=== PATIENT | male | born 1960 | race Caucasian/White ===

== ENCOUNTER → 2018-02-26 11:21 | Outpatient (CLI) | payer OTHER, SELFPAY ==
[2018-02-26 12:20] VITALS: PULSE 101; PULSE 107; PULSE 116; PULSE 85; PULSE 87; PULSE 90; PULSE 93; PULSE 99; O2SAT 84; O2SAT 87; O2SAT 90; O2SAT 91; O2SAT 93; O2SAT 96
--- NOTE | 2018-02-26 12:26 | CPS ---
He started out on Room air byt at the end of 1 minute put on 2LPM O2 continued walking. Rested patient for so he could be placed on O2. He was find until 4 minutes 35 seconds had to turn O2 up to 3 LPM. After walking turned his O2 to 2 minutes at 7 1/2 minutes and removed at 8 1/2 minutes and O2 saturations stayed at 95%.
--- NOTE | 2018-02-27 07:16 | PCM.PSN.6M ---
PSN 6 Minute Walk Test - 6 Minute Walk Test 6 Minute Walk Test: 6 Minute Walk Test PSN:6-Minute Walk Test Start: 02/26/18 12:20 Freq: Status: Active Protocol: RESP.6MINW Document 02/26/18 12:20 FR (Rec: 02/26/18 12:32 FR [id number]) 6 Minute Walk Test Date Performed 02/26/18 Time Performed 11:30 Height 5 ft 10 in Weight: 97.522 kg Weight in Pounds 215.[address]: Salty Carranza Assistive device used: None Pre-test Oxygen Delivery Method Room Air Pulse Ox (%) 93 Pulse Rate (60-100 beats/min) 85 Dyspnea Sumanth Scale (0-10) 0 Exertion Sumanth Scale (6-20) 6 1st minute Oxygen Flow Rate (L/min) (L/min) 0 Oxygen Delivery Method Room Air Pulse Ox (%) 87 Pulse Rate (60-100 beats/min) 101 H Reported Symptoms Increased Work of Breathing 2nd minute Oxygen Flow Rate (L/min) (L/min) 2 Oxygen Delivery Method Nasal Cannula Pulse Ox (%) 91 Pulse Rate (60-100 beats/min) 90 Reported Symptoms Increased Work of Breathing 3rd minute Oxygen Flow Rate (L/min) (L/min) 2 Oxygen Delivery Method Nasal Cannula Pulse Ox (%) 91 Pulse Rate (60-100 beats/min) 93 4th minute Oxygen Flow Rate (L/min) (L/min) 2 Oxygen Delivery Method Nasal Cannula Pulse Ox (%) 84 Pulse Rate (60-100 beats/min) 107 H Reported Symptoms Increased Work of Breathing 5th minute Oxygen Flow Rate (L/min) (L/min) 3 Oxygen Delivery Method Nasal Cannula Pulse Ox (%) 90 Pulse Rate (60-100 beats/min) 99 6th minute Oxygen Flow Rate (L/min) (L/min) 3 Oxygen Delivery Method Nasal Cannula Pulse Ox (%) 90 Pulse Rate (60-100 beats/min) 116 H Dyspnea Sumanth Scale (0-10) 1 Exertion Sumanth Scale (6-20) 7 Post-test Oxygen Flow Rate (L/min) (L/min) 3 Oxygen Delivery Method Nasal Cannula Pulse Ox (%) 96 Pulse Rate (60-100 beats/min) 87 Full Laps Walked 13 Partial Lap, Number of Tiles Walked 40 Total Distance Walked (ft) 807 02/26/18 12:26 Cardiopulmonary Services by Bridgette Machado He started out on Room air byt at the end of 1 minute put on 2LPM O2 continued walking. Rested patient for so he could be placed on O2. He was find until 4 minutes 35 seconds had to turn O2 up to 3 LPM. After walking turned his O2 to 2 minutes at 7 1/2 minutes and removed at 8 1/2 minutes and O2 saturations stayed at 95%. Initialized on 02/26/18 12:26 - END OF NOTE - Interpretation Interpretation: The patient was noted to be 93% on room air at rest. However, patient desaturated to 87% in the first minute requiring placement of nasal cannula oxygen. The patient required a total of 3 L/min to maintain appropriate saturations throughout testing. In total, patient traveled 807 feet with no significant tachycardia noted. These findings are consistent with a respiratory limitation exercise tolerance. - Recommendations Recommendations: No supplemental oxygen is indicated at rest. However, patient should be using 3 L/min with any exertion.
== END ==
PROVIDERS: Family Provider Family Medicine; PCP Family Medicine; Visit Provider Internal Medicine Critical Care Medicine
DX: J98.4 Other disorders of lung (principal)
CPT/HCPCS: 94618

== ENCOUNTER → 2018-07-29 12:33 | Outpatient (CLI) | payer OTHER, SELFPAY ==
--- NOTE | 2018-07-29 15:41 | PFTCOMP_ITS ---
COMPLETE PULMONARY FUNCTION TEST INTERPRETATION Brief HPI: Patient is a 58 year old male, currently under the care of Dr. Carranza, who presents to [facility] for complete pulmonary function tests secondary to diagnosis of COPD. Respiratory therapist reports good effort and reproducible results. Interpretation: Forced expiration spirometry shows a moderately-severe large airways obstructive ventilatory defect with an FEV1 of 56% predicted. There is no significant bronchodilator response by ATS criteria. Spirograms are of good quality and plateau slowly, indicating slowly emptying areas of the lungs. The respiratory flow volume loop shows decreased expiratory flow rates at high lung volumes consistent with small airways obstruction. Lung volumes by body plethysmography show a decreased total lung capacity at 4.23L, 65% predicted. All other lung volumes are within do symmetrically. Diffusion capacity by carbon monoxide is decreased at 46% predicted. The airway resistance is elevated. Compared to previous pulmonary function tests from 06/26/2017, there has been a significant decrease in total lung capacity. Impression: Irreversible moderately severe mixed ventilatory defect with a symmetric reduction diffusing capacity. There is been slight worsening compared to previous.
== END ==
PROVIDERS: Family Provider Family Medicine; PCP Family Medicine; Referring Provider Family Medicine; Visit Provider Internal Medicine Critical Care Medicine
DX: J98.4 Other disorders of lung (principal)
CPT/HCPCS: 94060; 94726; 94729

== ENCOUNTER → 2019-07-18 13:00 | Outpatient (CLI) | payer OTHER, SELFPAY ==
[2019-02-10 13:59] VITALS: BMI 30.8
--- NOTE | 2019-07-18 15:36 | PFTCOMP_ITS ---
COMPLETE PULMONARY FUNCTION TEST INTERPRETATION Brief HPI: Patient is a 59 year old male, currently under the care of Dr. Carranza, who presents to [facility] for complete pulmonary function tests secondary to diagnosis of routine follow-up. Respiratory therapist reports good effort and reproducible results. Interpretation: Forced expiration spirometry shows a moderately severe large airways obstructive ventilatory defect with an FEV1 of 57% predicted. There is no significant bronchodilator response by strict ATS criteria. Spirograms are of good quality and plateau slowly, indicating slowly emptying areas of the lungs. The respiratory flow volume loop shows decreased expiratory flow rates at all lung volumes consistent with airway obstruction. Lung volumes by body plethysmography show a decreased total lung capacity at 4.46 L, 69% predicted. All other lung volumes are reduced symmetrically. Diffusion capacity by carbon monoxide is decreased at 45% predicted. The airway resistance is slightly elevated. Compared to previous pulmonary function tests from 07/29/2018, there has been no significant change. Impression: Irreversible moderately severe mixed ventilatory defect with symmetric reduction in diffusing capacity and no change compared to 2018.
== END ==
PROVIDERS: Family Provider Family Medicine; PCP Family Medicine; Referring Provider Internal Medicine Critical Care Medicine; Visit Provider Internal Medicine Critical Care Medicine
DX: J98.4 Other disorders of lung (principal)
CPT/HCPCS: 94060; 94726; 94729

== ENCOUNTER → 2021-05-30 10:30 | Outpatient (CLI) | payer OTHER, SELFPAY ==
[2020-11-30 08:20] VITALS: BMI 32.8
--- NOTE | 2021-05-30 15:51 | PFTCOMP_ITS ---
COMPLETE PULMONARY FUNCTION TEST INTERPRETATION Brief HPI: Patient is a 61 year old male, currently under the care of Dr. Carranza, who presents to [facility] for complete pulmonary function tests secondary to diagnosis of respiratory failure. Respiratory therapist reports good effort and reproducible results. Interpretation: Forced expiration spirometry shows a moderate large airways obstructive ventilatory defect with an FEV1 of 60% predicted. There is no significant bronchodilator response by strict ATS criteria. Spirograms are of good quality and plateau slowly, indicating slowly emptying areas of the lungs. The respiratory flow volume loop shows decreased expiratory flow rates at all lung volumes consistent with airway obstruction. Lung volumes by body plethysmography show a decreased total lung capacity at 4.6 L, 72% predicted. All other lung volumes are reduced symmetrically. Diffusion capacity by carbon monoxide is decreased at 46% predicted. The airway resistance is normal. Compared to previous pulmonary function tests from 07/18/2019, there has been no significant change. Impression: Moderately severe mixed ventilatory defect with a disproportionate reduction in diffusing capacity. There is no significant change compared to previous testing.
== END ==
PROVIDERS: PCP Family Medicine; Referring Provider Internal Medicine Critical Care Medicine; Visit Provider Internal Medicine Critical Care Medicine
DX: J96.11 Chronic respiratory failure with hypoxia (principal); R94.2 Abnormal results of pulmonary function studies
CPT/HCPCS: 94060; 94726; 94729

== ENCOUNTER → 2021-06-02 11:13 | Outpatient (CLI) | payer OTHER, SELFPAY ==
[2020-11-30 08:20] VITALS: BMI 32.8
[2021-06-02 11:15] VITALS: PULSE 74; PULSE 77; PULSE 79; PULSE 80; PULSE 82; PULSE 83; O2SAT 85; O2SAT 88; O2SAT 90; O2SAT 91; O2SAT 92; O2SAT 93; O2SAT 94; O2SAT 96
--- NOTE | 2021-06-02 12:06 | CPS ---
Patient stated that he wears 2L of oxygen at night and PRN during the day. Test was initiated on RA as sat's were 94%. At the 2 minute avis patient's sat's dropped to 85% therefore 2L of oxygen was initiated and sat's recovered to 97%. At the 4 minute avis patint's sat's dropped to 88% therefore oxygen was increased to 3L and sat's recovered to 94%. Sat's were maintained above 90% for the remainder of the test on 3L.
--- NOTE | 2021-06-02 14:11 | PCM.PSN.6M ---
PSN 6 Minute Walk Test 6 Minute Walk Test 6 Minute Walk Test: 6 Minute Walk Test PSN:6-Minute Walk Test Start: 06/02/21 12:02 Freq: Status: Active Protocol: RESP.6MINW Document 06/02/21 11:15 AIDEN (Rec: 06/02/21 12:09 HJ [id number]) 6 Minute Walk Test Date Performed 06/02/21 Time Performed 11:15 Height 5 ft 9 in Weight: 93.894 kg Weight in Pounds 207.[address]: Salty Carranza FIO2 (% Oxygen) 32 Assistive device used: None Pre-test Oxygen Delivery Method Room Air Pulse Ox (%) 94 Pulse Rate (60-100 beats/min) 74 Dyspnea Sumanth Scale (0-10) 0 Exertion Sumanth Scale (6-20) 6 1st minute Oxygen Delivery Method Room Air Pulse Ox (%) 91 Pulse Rate (60-100 beats/min) 82 2nd minute Oxygen Delivery Method Room Air Pulse Ox (%) 85 Pulse Rate (60-100 beats/min) 77 3rd minute Oxygen Flow Rate (L/min) (L/min) 2 Oxygen Delivery Method Nasal Cannula Pulse Ox (%) 93 Pulse Rate (60-100 beats/min) 80 4th minute Oxygen Flow Rate (L/min) (L/min) 3 Oxygen Delivery Method Nasal Cannula Pulse Ox (%) 88 Pulse Rate (60-100 beats/min) 83 5th minute Oxygen Flow Rate (L/min) (L/min) 3 Oxygen Delivery Method Nasal Cannula Pulse Ox (%) 92 Pulse Rate (60-100 beats/min) 79 6th minute Oxygen Flow Rate (L/min) (L/min) 3 Oxygen Delivery Method Nasal Cannula Pulse Ox (%) 90 Pulse Rate (60-100 beats/min) 80 Post-test Oxygen Flow Rate (L/min) (L/min) 3 Oxygen Delivery Method Nasal Cannula Pulse Ox (%) 96 Pulse Rate (60-100 beats/min) 74 Dyspnea Sumanth Scale (0-10) 3 Exertion Sumanth Scale (6-20) 11 Full Laps Walked 21 Partial Lap, Number of Tiles Walked 0 Total Distance Walked (ft) 1239 06/02/21 12:06 Cardiopulmonary Services by Arielle Gray Patient stated that he wears 2L of oxygen at night and PRN during the day. Test was initiated on RA as sat's were 94%. At the 2 minute avis patient's sat's dropped to 85% therefore 2L of oxygen was initiated and sat's recovered to 97%. At the 4 minute avis patint's sat's dropped to 88% therefore oxygen was increased to 3L and sat's recovered to 94%. Sat's were maintained above 90% for the remainder of the test on 3L. Initialized on 06/02/21 12:06 - END OF NOTE Interpretation Interpretation: The patient was noted to be 94% on room air at rest. The patient did desaturate to 85% and the second minute of ambulation was placed on 2 L nasal cannula with improvement to 97%. The patient did require 3 L to maintain saturations throughout testing. No significant tachycardia was noted during testing. In total, the patient traveled 1239 feet over the course of 6 minutes with no assistive devices or breaks. These findings are consistent with a respiratory limitation exercise tolerance. Recommendations Recommendations: No supplemental oxygen was indicated at rest, but patient should be using 3 L nasal cannula with exertion.
== END ==
PROVIDERS: PCP Family Medicine; Referring Provider Internal Medicine Critical Care Medicine; Visit Provider Internal Medicine Critical Care Medicine
DX: J96.11 Chronic respiratory failure with hypoxia (principal); R94.2 Abnormal results of pulmonary function studies
CPT/HCPCS: 94618

== ENCOUNTER 2021-08-26 21:19 | Inpatient (IN) | payer OTHER, SELFPAY ==
[2021-08-26] VITALS (8 sets, daily range): BP systolic 97–119; BP diastolic 57–74; PULSE 85–97; RESP 20–35; TEMP 36.7–36.8; O2SAT 83–96; BMI 25.9
--- NOTE | 2021-08-26 21:30 | EKG12_ITS ---
Test Reason : CP Blood Pressure : / mmHG Vent. Rate : 092 BPM Atrial Rate : 092 BPM P-R Int : 148 ms QRS Dur : 086 ms QT Int : 336 ms P-R-T Axes : 048 018 040 degrees QTc Int : 415 ms Normal sinus rhythm Normal ECG Confirmed by FRANKLIN RIVERO, VLADIMIR ([id number]), scientific publications editor JUJU MORROW ([id number]) on 08/30/2021 9:23:55 AM Referred By: YAMEL Confirmed By:VLADIMIR REID MD
--- NOTE | 2021-08-26 21:56 | CT_ITS ---
STUDY: CTA CHEST REASON FOR EXAM: Male, 61 years old. hypoxia RADIATION DOSAGE (If Supplied By Facility): CTDIvol = ( 14.67 ) mGy, DLP = ( 503.60 ) mGycm TECHNIQUE: The examination was performed with the intravenous administration of IV 100mL Isovue-370. Post-processing of the angiographic images was performed, with multiplanar reformation and 3D reconstruction. Individualized dose optimization techniques were used for this CT. COMPARISON: None. FINDINGS: Well-opacified pulmonary arteries and no significant motion artifact; quality exam. Normal enhancement of the main pulmonary artery and right and left pulmonary arteries. Normal enhancement of the bilateral peripheral pulmonary arteries. There is no demonstrated pulmonary embolism. There is no mediastinal or hilar lymphadenopathy. Heart is normal size with no right heart strain. Note of extensive coronary artery intimal calcifications. There is a left chest dual-lead cardiac stimulator device. Bilateral gynecomastia is noted. No axillary lymphadenopathy. Visualized portions of the soft tissues of the neck are normal in appearance. Lungs show significant parenchymal abnormality with most likely severe centrilobular emphysematous disease versus less likely cystic lung disease. Additionally there are multiple areas of groundglass attenuation and other ill-defined areas more dense consolidation consistent with multifocal pneumonia. Central airways within normal limits there is no significant bronchiectasis. No pleural effusion. No pneumothorax. Upper abdomen is within normal limits the exam. There is evidence of remote, healed left clavicle fracture. T3 vertebral body superior endplate collapse likely representing disc endplate herniation. CT/CTA Chest W/WO Contrast IMPRESSION: No pulmonary embolism. Advanced centrilobular emphysematous disease versus less likely cystic lung disease. Multifocal pneumonia involving a large portion of the lungs. Electronically Signed: James Oneal DO at 23:58 EDT Tel , Service support ,
[2021-08-26] MEDS: Albuterol 2.5 MG/3 ML VIAL.NEB. INHALATION (22:04)
[2021-08-26] MEDS: Ipratropium/Albuterol Sulfate 3 ML AMPUL.NEB INHALATION (22:04)
[2021-08-26 22:40] LABS: Absolute Lymphocyte Count 2.26 X10^3/uL (0.83-4.51); Absolute Neutrophil Count 7.9 X10^3/uL (2.0-7.7); Basophil# 0.03 X10^3/uL; Basophil% 0.3 % (0-1); Hemoglobin 12.7 g/dL (13.0-16.5); Lymphocyte # 2.26 X10^3/ul (0.83-4.51); Mean Corp Hgb Conc 31.8 g/dL (32-36); Mean Corpuscular Hgb 27.9 pg (27.0-32.0); Mean Corpuscular Volume 87.7 fL (80-94); Mean Platelet Vol. 12.1 fl (6.2-12.0); Monocyte# 1.61 X10^3/uL; Monocyte% 13.5 % (0-10); NRBC Flagged by Analyzer 0 % (0-5); Neutrophil # 7.93 X10^3/uL (2.7-7.7); Neutrophil % 66.6 % (47-70); POSITIVE DIFFERENTIAL YES; Platelet Count 267 K/mm3 (150-450); RBC Distribution Width CV 17.5 % (11.6-14.6); RBC Distribution Width SD 56.4 fl (35.1-43.9); Red Blood Count 4.56 M/mm3 (4.6-6.2); White Blood Count 11.9 K/mm3 (4.4-11.0)
[2021-08-26 22:44] LABS: International Normalized Ratio 1.2; Prothrombin Time (Protime)PT. 14.5 SECONDS (11.7-14.9)
[2021-08-26] MEDS: MethylPREDNISolone 125 MG/2 ML Vial IV (22:44)
[2021-08-26 22:59] LABS: Anion Gap 9 (5-15); BUN 17 mg/dL (7-18); BUN/Creat Ratio 25.3 RATIO (10-20); Chloride 102 mmol/L (98-107); Creatinine, Serum 0.67 mg/dL (0.70-1.30); EST Glomerular Filtration Rate 128 mL/min (>60); Est Glom Filt Rate - Afr Amer 155 mL/min (>60); Estimated Creatinine Clearance 114.85 ml/min; Glucose 103 mg/dL (74-106); Magnesium 2.2 mg/dL (1.6-2.6); Potassium 3.5 mmol/L (3.5-5.1); Sodium Level 138 mmol/L (136-145); Troponin-I HS < 3 pg/mL (3.0-78.0)
[2021-08-26 23:19] LABS: Differential Indicated SCAN CRITERIA MET
[2021-08-26 23:20] LABS: Anisocytosis RARE; Platelet Estimate ADEQUATE (ADEQ); Red Cell Morphology NORM C+C NORMAL (NORM C&C)
[2021-08-27] VITALS (18 sets, daily range): BP systolic 93–116; BP diastolic 55–70; PULSE 71–101; RESP 16–29; TEMP 36.3–37.1; O2SAT 90–97; BMI 28.5
--- NOTE | 2021-08-27 00:28 | EX.ED.DYSGE1 ---
HPI History of Present Illness Chief Complaint: Shortness of Breath Narrative Narrative: Patient is a 61-year-old male with history of COPD which she states he will only need 2 L of nasal cannula oxygen intermittently. He states in May of this year he developed Covid and developed Covid pneumonia and was admitted. He states that the Covid pneumonia resolved and then he returned to the hospital with a bacterial pneumonia. He states this is resolved as well but in the last 2 days has had increased shortness of breath with productive sputum and has had to increase his oxygen to 6 L at home with minimal symptom improvement. Therefore with concern he is developed repeat pneumonia he presents for evaluation [facility] Medical History (Updated 08/27/21 @ 01:[address] Kenny Parker, DO) COPD (chronic obstructive pulmonary disease) Cough Hypoxia Long-term use of high-risk medication MICHAEL (obstructive sleep apnea) Osteoarthritis Pneumonia Pulmonary fibrosis Rheumatoid arthritis Sinusitis Home Medications aspirin 81 mg tablet,delayed release 81 mg PO ONCE tab 02/05/18 [History Last Taken Unknown] coenzyme L99-wvsleld E 100 mg-100 unit capsule cap PO 02/05/18 [History Last Taken Unknown] diltiazem HCl 120 mg tablet 120 mg PO ONCE tab 02/05/18 [History Last Taken Unknown] lisinopril 20 mg tablet 20 mg PO QDAY 02/05/18 [History Last Taken Unknown] simvastatin 40 mg tablet 40 mg PO QAM 02/05/18 [History Last Taken Unknown] albuterol sulfate 90 mcg/actuation aerosol inhaler 2 puff INHALATION Q4H PRN #8.5 g 08/12/21 [Rx Last Taken Unknown] prednisone 5 mg tablet See Rx Instructions PO DAILY #42 tab 08/12/21 [Rx Last Taken Unknown] umeclidinium 62.5 mcg-vilanterol 25 mcg/actuation powdr for inhalation 1 inh INHALATION Q24H #3 device 08/12/21 [Rx Last Taken Unknown] Allergy/AdvReac Type Severity Reaction Status Date / Time No Known Allergies Allergy Verified 08/12/21 07:52 Family History Father Heart disease Surgical History H/O rhinoplasty History of intravascular stent placement Hx of appendectomy Open fracture of left upper extremity S/P placement of cardiac pacemaker Social History Smoking Status: Former smoker how long ago did patient quit smokin, 1p/day second hand exposure: Yes alcohol intake: current alcohol intake frequency: a few times a week Alcohol type: hard liquor substance use type: does not use ROS ROS ED Constitutional Constitutional ED: Denies chills or fever(s) ENT ENT ED: Denies sore throat Cardiovascular Cardiovascular: Reports chest pain and palpitations Respiratory/Chest Respiratory/Chest: Reports cough, dyspnea and sputum Gastrointestinal Gastrointestinal: Denies abdominal pain, diarrhea, nausea or vomiting Genitourinary Genitourinary ED: Denies dysuria Musculoskeletal Musculoskeletal: Denies myalgias Integumentary Denies rash Neurologic Neurologic: Denies headache(s) Hematologic/Lymphatic Hematologic/Lymphatic: Denies easy bleeding or easy bruising EXAM Physical Exam Const Vital Signs: 08/26/21 21:21 08/26/21 21:37 08/26/21 21:50 Temperature 98.2 F 98.2 F Temperature Source Temporal Temporal Pulse Rate 97 97 Respiratory Rate 26 H 26 H Respiratory Effort Short of Breath Respiratory Pattern Tachypnea Blood Pressure 119/74 119/74 Blood Pressure Mean 89 89 Pulse Ox 83 92 92 Oxygen Delivery Method Nasal Cannula Nasal Cannula Nasal Cannula Oxygen Flow Rate (L/min) 4 6 6 08/26/21 22:05 08/26/21 22:22 08/26/21 22:23 Temperature 98.2 F Temperature Source Temporal Pulse Rate 97 92 92 Respiratory Rate 20 H 35 H 35 H Respiratory Effort Respiratory Pattern Normal Blood Pressure 108/62 108/62 Blood Pressure Mean 77 77 Pulse Ox 89 89 Oxygen Delivery Method Nasal Cannula Nasal Cannula Oxygen Flow Rate (L/min) 6 6 08/26/21 22:44 08/26/21 23:20 08/27/21 00:07 Temperature 98.1 F 98.1 F Temperature Source Temporal Temporal Pulse Rate 85 88 82 Respiratory Rate 28 H 24 H 20 H Respiratory Effort Respiratory Pattern Blood Pressure 97/59 L 106/57 L 110/70 Blood Pressure Mean 71 73 83 Pulse Ox 96 96 97 Oxygen Delivery Method Nasal Cannula Nasal Cannula Nasal Cannula Oxygen Flow Rate (L/min) 8 8 8 08/27/21 00:36 Temperature 97.3 F L Temperature Source Temporal Pulse Rate 80 Respiratory Rate 29 H Respiratory Effort Respiratory Pattern Blood Pressure 107/66 Blood Pressure Mean 79 Pulse Ox 95 Oxygen Delivery Method Nasal Cannula Oxygen Flow Rate (L/min) 10 Positive well nourished and well developed General Appearance ED: well developed HEENT Reports moist mucous membranes Eyes PERRL and EOMs intact bilaterally Neck supple and no JVD Chest Wall palpation of chest normal Resp Resp Narrative: Patient is tachypneic with diminished breath sounds throughout and diffuse rhonchi and expiratory wheezes Cardio regular rate and regular rhythm GI normal to inspection, nondistended, normoactive bowel sounds, non-tender, non-distended and no masses Auscultation: normoactive bowel sounds Palpation: soft Extremity normal to inspection Extremity Narrative: No asymmetric edema no pitting edema negative Homans' sign bilaterally Neuro oriented x3 and CN's II-XII intact bilaterally Sensorium / Orientation: alert Psych mental status grossly normal Skin no rashes or lesions noted MDM MDM MDM Narrative Medical decision making narrative: Patient presented to the ER with increased work of breathing and diminished breath sounds with wheeze and rhonchi. Secondary to this he was given steroids and breathing treatments. With his history of recent Covid in May and now palpitations and mild chest discomfort I did elect to perform a CTA to rule out pulmonary embolus as a cause of his symptoms. CTA revealed no pulmonary embolus but did show multifocal pneumonia. Secondary to this blood cultures and antibiotics were started. The patient typically states he only needs 0 or 2 L of nasal cannula oxygen but now is requiring 10 L to keep his sats in the mid 90s. He also reported at home his pulse ox was down into the low 70s. Therefore this time with the patient's multifocal pneumonia as well as need for increased oxygen demand I do not feel he should be discharged and he will be admitted to the hospital for further care Lab Data Attestation: I reviewed the patient's lab results. Labs: Laboratory Results - last 24 hr 08/26/21 08/26/21 08/26/21 21:35 21:35 21:35 WBC 11.9 H RBC 4.56 L Hgb 12.7 L Hct 40.0 MCV 87.7 MCH 27.9 MCHC 31.8 L RDW Std Deviation 56.4 H RDW Coeff of Cheikh 17.5 H Plt Count 267 MPV 12.1 H Immature Gran % (Auto) 0.600 Neut % (Auto) 66.6 Lymph % (Auto) 19.0 Emery % (Auto) 13.5 H Eos % (Auto) 0.0 Baso % (Auto) 0.3 Absolute Neuts (auto) 7.9 H Absolute Lymphs (auto) 2.26 Nucleated RBC % 0 Differential Comment SEE COMMENT Diff Path Review May foll Platelet Estimate ADEQUATE RBC Morphology NORM C+C Anisocytosis RARE PT 14.5 INR 1.2 APTT 33.0 Sodium 138 Potassium 3.5 Chloride 102 Carbon Dioxide 27.0 Anion Gap 9 BUN 17 Creatinine 0.67 L Estim Creat Clear Calc 114.85 Est GFR (MDRD) Af Amer 155 Est GFR (MDRD) Non-Af 128 BUN/Creatinine Ratio 25.3 H Glucose 103 Calcium 9.0 Magnesium 2.2 Troponin I High Sens < 3 L Radiography Diagnostic Testing: Clinical Impression(s) from Imaging Studies Chest CTA 08/26/21 21:56 IMPRESSION: No pulmonary embolism. Advanced centrilobular emphysematous disease versus less likely cystic lung disease. Multifocal pneumonia involving a large portion of the lungs. Electronically Signed: James Oneal DO at 23:58 EDT Tel , Service support , Discharge Plan Dx/Rx/DC Orders Clinical Impression: Multifocal pneumonia Disposition Disposition: Acute Care Hospital [facility] Discharge Date/Time: 08/27/21 01:05
--- NOTE | 2021-08-27 00:30 | HP.PCM_ITS ---
Documented by User: MOISES Cross 08/27/21 00:43 HPI - General General Date of Admission: 08/27/21 Date of Service: 08/27/21 Chief Complaint: Shortness of breath HPI Narrative TRACY MOLINA, is a 61 M who presents with complaints of increased shortness of breath and increased oxygen needs. Patient states that he is on 2 L nasal cannula oxygen at home however he does not need it all the time. Patient states that he does have COPD but also recently had Covid in May and since then has needed supplemental oxygen at times. Patient is normally on 2 L nasal cannula oxygen however he has had a turned up as high as 6 at home. Patient also reports a productive cough with clear sputum as well as chills but no fever as well as chest tightness and general malaise. [facility] Medical History (Updated 08/27/21 @ 00:37 by MOISES Cross) COPD (chronic obstructive pulmonary disease) Cough Hypoxia Long-term use of high-risk medication MICHAEL (obstructive sleep apnea) Osteoarthritis Pneumonia Pulmonary fibrosis Rheumatoid arthritis Sinusitis Home Medications aspirin 81 mg tablet,delayed release 81 mg PO ONCE tab 02/05/18 [History Last Taken Unknown] coenzyme [id number] E 100 mg-100 unit capsule cap PO 02/05/18 [History Last Taken Unknown] diltiazem HCl 120 mg tablet 120 mg PO ONCE tab 02/05/18 [History Last Taken Unknown] lisinopril 20 mg tablet 20 mg PO QDAY 02/05/18 [History Last Taken Unknown] simvastatin 40 mg tablet 40 mg PO QAM 02/05/18 [History Last Taken Unknown] albuterol sulfate 90 mcg/actuation aerosol inhaler 2 puff INHALATION Q4H PRN #8.5 g 08/12/21 [Rx Last Taken Unknown] prednisone 5 mg tablet See Rx Instructions PO DAILY #42 tab 08/12/21 [Rx Last Taken Unknown] umeclidinium 62.5 mcg-vilanterol 25 mcg/actuation powdr for inhalation 1 inh INHALATION Q24H #3 device 08/12/21 [Rx Last Taken Unknown] Allergy/AdvReac Type Severity Reaction Status Date / Time No Known Allergies Allergy Verified 08/12/21 07:52 Family History Father Heart disease Surgical History H/O rhinoplasty History of intravascular stent placement Hx of appendectomy Open fracture of left upper extremity S/P placement of cardiac pacemaker Social History Smoking Status: Former smoker how long ago did patient quit smokin, 1p/day second hand exposure: Yes alcohol intake: current alcohol intake frequency: a few times a week Alcohol type: hard liquor substance use type: does not use ROS Constitutional Constitutional: Reports chills, fever(s) and malaise; Denies anorexia, fatigue or weakness Cardiovascular Cardiovascular: Denies chest pain, edema, palpitations or syncope Respiratory/Chest Respiratory/Chest: Reports chest tightness, cough, portable oxygen @ home, productive cough, shortness of breath at rest, shortness of breath with exertion, tachypnea and wheezing Gastrointestinal Gastrointestinal: Denies abdominal pain, constipation, diarrhea, nausea or vomiting Genitourinary Genitourinary: Denies dysuria Musculoskeletal Musculoskeletal: Denies back pain, extremity pain, joint pain or joint stiffness Integumentary Integumentary: Denies dry skin Neurologic Neurologic: Denies abnormal gait, abnormal speech, confusion, dizziness or focal weakness Psychiatric Psychiatric: Denies anxiety or depression Endocrine Endocrinology: Denies change in body appearance Hematologic/Lymphatic Hematologic/Lymphatic: Denies anemia, easy bleeding or easy bruising Vital Signs Vital Signs Vital Signs: 08/26/21 21:21 08/26/21 21:37 08/26/21 21:50 Temperature 98.2 F 98.2 F Temperature Source Temporal Temporal Pulse Rate 97 97 Respiratory Rate 26 H 26 H Respiratory Effort Short of Breath Respiratory Pattern Tachypnea Blood Pressure 119/74 119/74 Blood Pressure Mean 89 89 Pulse Ox 83 92 92 Oxygen Delivery Method Nasal Cannula Nasal Cannula Nasal Cannula Oxygen Flow Rate (L/min) 4 6 6 08/26/21 22:05 08/26/21 22:22 08/26/21 22:23 Temperature 98.2 F Temperature Source Temporal Pulse Rate 97 92 92 Respiratory Rate 20 H 35 H 35 H Respiratory Effort Respiratory Pattern Normal Blood Pressure 108/62 108/62 Blood Pressure Mean 77 77 Pulse Ox 89 89 Oxygen Delivery Method Nasal Cannula Nasal Cannula Oxygen Flow Rate (L/min) 6 6 08/26/21 22:44 08/26/21 23:20 08/27/21 00:07 Temperature 98.1 F 98.1 F Temperature Source Temporal Temporal Pulse Rate 85 88 82 Respiratory Rate 28 H 24 H 20 H Respiratory Effort Respiratory Pattern Blood Pressure 97/59 L 106/57 L 110/70 Blood Pressure Mean 71 73 83 Pulse Ox 96 96 97 Oxygen Delivery Method Nasal Cannula Nasal Cannula Nasal Cannula Oxygen Flow Rate (L/min) 8 8 8 Weight Weight: 171 lb Body Mass Index (BMI) 25.9 Physical Exam Const alert, oriented x3 and no apparent distress General Appearance: cooperative HEENT normocephalic and head/scalp atraumatic Eyes conjunctivae normal and no scleral icterus Neck supple General: trachea midline Resp normal respiratory effort and normal air movement Effort and Inspection: tachypneic Auscultation: rhonchi throughout, wheezes throughout and diminished lung sounds diffuse Cardio regular rate, regular rhythm, S1 normal heart sound, S2 normal heart sound and peripheral pulses 2+ throughout GI normal to inspection, nondistended, normoactive bowel sounds, soft to palpation and non-tender Extremity normal capillary refill and no clubbing, cyanosis or edema General Extremity: no tenderness to palpation of joints or extremities Skin General Skin Exam: no breakdown and turgor normal Lesions: no lesions Rashes: no rashes Neuro oriented x3, moves all extremities, no focal motor deficits, no sensory deficits noted and gait normal Psych thought process normal, cooperative and affect normal Appearance: appropriate Results Lab / Micro Data Result Diagrams: 08/26/21 21:35 08/26/21 21:35 Labs: Laboratory Results - last 24 hr 08/26/21 21:35: WBC 11.9 H, RBC 4.56 L, Hgb 12.7 L, Hct 40.0, MCV 87.7, MCH 27.9, MCHC 31.8 L, RDW Std Deviation 56.4 H, RDW Coeff of Cheikh 17.5 H, Plt Count 267, MPV 12.1 H, Immature Gran % (Auto) 0.600, Neut % (Auto) 66.6, Lymph % (Auto) 19.0, Mcculloch % (Auto) 13.5 H, Eos % (Auto) 0.0, Baso % (Auto) 0.3, Absolute Neuts (auto) 7.9 H, Absolute Lymphs (auto) 2.26, Nucleated RBC % 0, Differential Comment SEE COMMENT, Diff Path Review May foll, Platelet Estimate ADEQUATE, RBC Morphology NORM C+C, Anisocytosis RARE 08/26/21 21:35: PT 14.5, INR 1.2, APTT 33.0 08/26/21 21:35: Sodium 138, Potassium 3.5, Chloride 102, Carbon Dioxide 27.0, Anion Gap 9, BUN 17, Creatinine 0.67 L, Estim Creat Clear Calc 114.85, Est GFR (MDRD) Af Amer 155, Est GFR (MDRD) Non-Af 128, BUN/Creatinine Ratio 25.3 H, Glucose 103, Calcium 9.0, Magnesium 2.2, Troponin I High Sens < 3 L Radiology Impression Chest CTA 08/26/21 21:56 IMPRESSION: No pulmonary embolism. Advanced centrilobular emphysematous disease versus less likely cystic lung disease. Multifocal pneumonia involving a large portion of the lungs. Electronically Signed: James Oneal DO at 23:58 EDT Tel , Service support , Assessment & Plan Assessment/Plan (1) Multifocal pneumonia: (2) Acute on chronic respiratory failure with hypoxemia: PLAN: 1. Acute on chronic respiratory failure with hypoxia secondary to multifocal pneumonia -Admit to [facility], qSOFA score 1, does not meet SIRS criteria -CT positive for multifocal pneumonia involving a large portion of both lungs -Patient received deceived vancomycin and Zosyn in ER, will continue vancomycin and azithromycin upon admission -As needed albuterol nebulizer treatments ordered -Respiratory panel, Covid rapid antigen, MRSA PCR and sputum culture ordered -Encourage incentive spirometry -Oxygen per protocol patient is on 2 L nasal cannula oxygen at home, currently on 10 L nasal cannula -CBC and BMP daily -Blood cultures pending -Legionella and strep pneumoniae urine ordered -Mucinex ordered -Will continue p.o. prednisone as prescribed by Dr. Carranza 2. Presence of cardiac pacemaker 3. Status post cardiac stent -Continue simvastatin and aspirin 4. Hypertension -Continue lisinopril, Cardizem. -Vital signs per protocol DVT prophylaxis-subcu Lovenox This patient was seen by Jennifer Salazar, RON-C under the supervision of Dr. Ruffin. Documented by User: Dr. Aguila Ruffin MD 08/27/21 00:50 HPI - General General Date of Admission: 08/27/21 [facility] Medical History (Updated 08/27/21 @ 00:37 by Jennifer Salazar NP-C) COPD (chronic obstructive pulmonary disease) Cough Hypoxia Long-term use of high-risk medication MICHAEL (obstructive sleep apnea) Osteoarthritis Pneumonia Pulmonary fibrosis Rheumatoid arthritis Sinusitis Home Medications aspirin 81 mg tablet,delayed release 81 mg PO ONCE tab 02/05/18 [History Last Taken Unknown] coenzyme [id number]-[id number] E 100 mg-100 unit capsule cap PO 02/05/18 [History Last Taken Unknown] diltiazem HCl 120 mg tablet 120 mg PO ONCE tab 02/05/18 [History Last Taken Unknown] lisinopril 20 mg tablet 20 mg PO QDAY 02/05/18 [History Last Taken Unknown] simvastatin 40 mg tablet 40 mg PO QAM 02/05/18 [History Last Taken Unknown] albuterol sulfate 90 mcg/actuation aerosol inhaler 2 puff INHALATION Q4H PRN #8.5 g 08/12/21 [Rx Last Taken Unknown] prednisone 5 mg tablet See Rx Instructions PO DAILY #42 tab 08/12/21 [Rx Last Taken Unknown] umeclidinium 62.5 mcg-vilanterol 25 mcg/actuation powdr for inhalation 1 inh INHALATION Q24H #3 device 08/12/21 [Rx Last Taken Unknown] Allergy/AdvReac Type Severity Reaction Status Date / Time No Known Allergies Allergy Verified 08/12/21 07:52 Family History Father Heart disease Surgical History H/O rhinoplasty History of intravascular stent placement Hx of appendectomy Open fracture of left upper extremity S/P placement of cardiac pacemaker Social History Smoking Status: Former smoker how long ago did patient quit smokin, 1p/day second hand exposure: Yes alcohol intake: current alcohol intake frequency: a few times a week Alcohol type: hard liquor substance use type: does not use Results Lab / Micro Data Result Diagrams: 08/26/21 21:35 08/26/21 21:35 Charges/Coding Addendum Addendum: Patient was seen and examined independently. I agree with assessment and plan by MOISES Cross Patient is a 61-year-old male with a significant history of interstitial lung disease on home 2 L nasal cannula on some occasions who presents to the emergency department with 2 to 3 days history of progressively worsening shortness of breath. His shortness of breath is at rest and it increases markedly with mild exertion. Associated with his symptom is chest pain; increased wheezes; productive cough with thick sputum; fatigue and anorexia. Also he reports also reports sore throat from coughing and headache. Reportedly his home oxygen was in the 70s before presentation. Physical exam: General: Well-nourished, well-developed. Head: Normocephalic, atraumatic, no tenderness Eyes: PERRLA, EOMI ENT, no trauma, moist mucous membranes, no rhinorrhea Neck: Nontender, full range of motion, no spinal tenderness, deformities, step- off CVS: Regular rate and rhythm. S1-S2 present. No murmur, gallop or rub. Respiratory : Tachypnea; Rales; chest wall nontender, no wheezing Abdomen: Soft, nontender, nondistended, normal bowel sounds, no masses : Deferred Back: Nontender, no CVA tenderness, no midline spinal tenderness, deformities, step-offs Extremities: Nontender full range of motion, no trauma Skin: Normal color, no trauma, abrasions Neuro: Alert, oriented, cranial nerves II through XII grossly intact. Psychiatry: Normal mood. Normal affect. Not depressed. Not anxious. Multifocal pneumonia Gram-positive, or gram-negative Chest CT was independently interpreted and I agree with the radiologist interpretation. Diagnosed with Covid 19 pneumonia in May 2021; and bacterial pneumonia in June 2021. Of note patient had a [employer] COVID-19 vaccination in November or December. Started on vancomycin and Zosyn at the emergency department and continued. Add azithromycin. Check comprehensive respiratory pathogen panel. Check strep pneumonia and Legionella urine antigen. Incentive spirometer and Acapella ordered. ED labs reviewed showed white count of 11.9. [facility] and continued. Breathing treatment [id number] and as needed albuterol ordered. Covid -19 rapid ordered. Incentive spirometer and Acapella ordered. Visit Charges Inpatient E&M: 58578 Init Hosp L3
[2021-08-27] MEDS: Piperacil/Tazobactam 3.375 GM/50 ML ML IV ×4 (00:36→22:24)
--- NOTE | 2021-08-27 01:35 | PCM.RX.CS ---
Consult Pharmacy has been consulted to manage selected antiobiotic: Vancomycin Type of Consult: New start Suspected Infection: Pneumonia Prior Doses of Antibiotics Received/Current Regimen: Medications Vancomycin HCl (Vancomycin) 1,000 mg in 200 mls @ 200 mls/hr IV Q8H CHARO Vancomycin HCl 2,000 mg/ (Sodium Chloride) 540 mls @ 250 mls/hr IV X1 ONE Stop: 08/27/21 02:15 Last Admin: 08/27/21 01:24 Dose: 250 mls/hr Labs: Sodium 138 mmol/L (136-145) 08/26/21 21:35 Potassium 3.5 mmol/L (3.5-5.1) 08/26/21 21:35 Chloride 102 mmol/L (98-107) 08/26/21 21:35 Carbon Dioxide 27.0 mmol/L (21.0-32.0) 08/26/21 21:35 Anion Gap 9 (5-15) 08/26/21 21:35 BUN 17 mg/dL (7-18) 08/26/21 21:35 Creatinine 0.67 mg/dL (0.70-1.30) L 08/26/21 21:35 Est GFR (MDRD) Af Amer 155 mL/min (>60) 08/26/21 21:35 Est GFR (MDRD) Non-Af 128 mL/min (>60) 08/26/21 21:35 BUN/Creatinine Ratio 25.3 RATIO (10-20) H 08/26/21 21:35 Glucose 103 mg/dL (74-106) 08/26/21 21:35 Microbiology: Microbiology 08/27/21 00:20 Nasal Secretion SARS-CoV-2 Antigen (Rapid) - Final Weight used for dosin kg Estimated Creatinine Clearance: 115 Goal Trough: 15-20 mcg/mL Pharmacy Plan for Drug Dosing: Pharmacy Service will continue to monitor and adjust dosing as required. Follow-Up Labs: Trough Vancomycin Labs to be done on [date and time ordered]: 08/28/21 @0100
[2021-08-27] MEDS: 0.9% Normal Saline 1,000 ML 100 ML IV (01:54)
--- NOTE | 2021-08-27 02:11 | PCS.PANDOC ---
PANDEMIC DOCUMENTATION INITIATED: Date: 06/13/2021 Time: 190
[2021-08-27 06:38] LABS: Absolute Lymphocyte Count 0.48 X10^3/uL (0.83-4.51); Absolute Neutrophil Count 7.1 X10^3/uL (2.0-7.7); Basophil# 0.01 X10^3/uL; Basophil% 0.1 % (0-1); Hemoglobin 10.8 g/dL (13.0-16.5); Lymphocyte # 0.48 X10^3/ul (0.83-4.51); Lymphocyte % 6.1 % (19-41); Mean Corp Hgb Conc 30.9 g/dL (32-36); Mean Corpuscular Hgb 27.3 pg (27.0-32.0); Mean Corpuscular Volume 88.6 fL (80-94); Mean Platelet Vol. 11.8 fl (6.2-12.0); Monocyte# 0.24 X10^3/uL; Monocyte% 3.1 % (0-10); NRBC Flagged by Analyzer 0 % (0-5); Neutrophil # 7.06 X10^3/uL (2.7-7.7); Neutrophil % 89.9 % (47-70); POSITIVE DIFFERENTIAL YES; Platelet Count 224 K/mm3 (150-450); RBC Distribution Width CV 17.3 % (11.6-14.6); RBC Distribution Width SD 56.6 fl (35.1-43.9); Red Blood Count 3.95 M/mm3 (4.6-6.2); White Blood Count 7.9 K/mm3 (4.4-11.0)
[2021-08-27 06:41] LABS: Differential Indicated SCAN CRITERIA MET
[2021-08-27 07:04] LABS: M R Staph aureus DNA By PCR Negative (Negative); Probe Check PASS; Specimen Processing Control PASS
[2021-08-27 07:05] LABS: Anion Gap 7 (5-15); BUN 20 mg/dL (7-18); BUN/Creat Ratio 30.5 RATIO (10-20); Calcium,Total 8.4 mg/dL (8.5-10.1); Chloride 104 mmol/L (98-107); Creatinine, Serum 0.66 mg/dL (0.70-1.30); Differential Comment SCANNED; EST Glomerular Filtration Rate 132 mL/min (>60); Est Glom Filt Rate - Afr Amer 160 mL/min (>60); Estimated Creatinine Clearance 116.59 ml/min; Glucose 219 mg/dL (74-106); Potassium 4.2 mmol/L (3.5-5.1); Sodium Level 138 mmol/L (136-145)
[2021-08-27] MEDS: Ipratropium/Albuterol Sulfate 3 ML AMPUL.NEB INHALATION ×4 (07:26→21:02)
[2021-08-27] MEDS: Aspirin E.C. 81 MG Tablet PO (07:57)
[2021-08-27] MEDS: predniSONE 5 MG Tablet PO (07:57)
--- NOTE | 2021-08-27 09:57 | CON.PCM.CC_ITS ---
Assessment & Plan Assessment/Plan (1) Acute on chronic respiratory failure with hypoxemia: PLAN: RECOMMENDATIONS: 1. Continue empiric antimicrobials for now. 2. Obtain and send sputum for culture. 3. Wean supplemental oxygen to maintain saturations at or above 90%. 4. Start IV Solu-Medrol 40 mg every 6 hours. Continue scheduled bronchodilators. 5. If no improvement in oxygenation status over the next 48 hours, will consider bronchoscopy. IMPRESSIONS: 1. Acute on chronic hypoxemic respiratory failure Unclear precipitating etiology for the patient's acute presentation. He is normally on 3 L/min of oxygen at baseline. He does have a history of rheumatoid associated interstitial lung disease and was previously on immunosuppression, up until his discharge from the hospital in June. He has been taken off of all immunosuppression at this time. While the findings noted on CT chest could represent an acute infectious etiology, the patient was just treated with antimicrobials in June. Alternatively, these findings could represent organizing pneumonia, which could be cryptogenic in nature or related to the patient's connective tissue disorder. At this time, it is reasonable to continue empiric antimicrobials. I have placed an order for a sputum culture. Strep and urine Legionella antigens are pending. The patient will be continued on bronchodilators. I have placed him on high-dose IV Solu-Medrol 40 mg every 6 hours. If the patient's presentation is related to organizing pneumonia he should improve clinically with steroids. If there is no improvement in his oxygenation or respiratory status over the next 48 hours, would next consider bronchoscopy. 2. History of mixed obstructive/restrictive ventilatory impairment/rheumatoid arthritis/hypertension/hyperlipidemia Complicates care, management, recovery and prognosis. Continue home medications as indicated. This note was generated with [employer] dictation software. It may contain incorrect words, spelling, and punctuation that were not noted in checking the note before signing. HPI Consult Data Date of Consult: 08/27/21 HPI Narrative Reason for Consultation: Acute on chronic hypoxemic respiratory failure HPI Narrative: The patient is a 61-year-old male, with a history as outlined below, who presented to the emergency department on August 26 with worsening dyspnea and increasing oxygen demand x4 days. The patient was hospitalized in May at [facility] with COVID-19 pneumonia. He was there for approximately 5 days prior to his discharge. Several weeks later, the patient once again felt ill and had to be hospitalized once again for 8 days in June, with bacterial pneumonia. He was treated with antimicrobials, with subsequent improvement. Contrasted chest CT at the outside hospital in mid June 2021 reportedly demonstrated groundglass interstitial changes in the lung superimposed on chronic interstitial changes. The patient has an established diagnosis of COPD, having previously been followed by a pulmonary provider in [facility]. Pulmonary function testing from 2012 revealed evidence of a mixed moderately severe ventilatory defect with a severely reduced lung capacity. The patient has a long-standing history of rheumatoid arthritis, for which he is currently treated with rituximab and metho trexate. The patient also has a history of coronary artery disease status post PCI and pacemaker placement. 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 He does have a smoking history that includes 1 pack per day from 1977 through 1993. He was also initially diagnosed with obstructive sleep apnea in 2011. Approximately 5 years ago he was told by an outside provider that he had interstitial lung disease, which was reportedly the consequence of his underlying rheumatologic disorder. Pulmonary function studies last completed in May 2021 revealed a moderately severe mixed ventilatory defect with disproportionate reduction in diffusing capacity. A 6-minute walk test was completed at that time as well and revealed the need for 3 L/min of supplemental oxygen with exertion. On presentation to the emergency department, the patient was noted to be afebrile and hemodynamically stable. He was, nevertheless tachypneic and hypoxemic. Laboratory evaluation revealed a white blood cell count of 11,000. Coagulation and chemistry profiles were unremarkable. Troponin and BNP were negative. MRSA screen was negative. Respiratory viral panel was negative. CTA chest showed no evidence for pulmonary embolism. There was evidence of chronic emphysematous changes with nodular groundglass changes along with scattered confluent airspace opacities. The patient did receive supplemental IV fluid hydration was started on antimicrobials. He was subsequently admitted to the medical surgical floor for further management. [facility] Medical History COPD (chronic obstructive pulmonary disease) Cough Hypoxia Long-term use of high-risk medication MICHAEL (obstructive sleep apnea) Osteoarthritis Pneumonia Pulmonary fibrosis Rheumatoid arthritis Sinusitis Home Medications aspirin 81 mg tablet,delayed release 81 mg PO DAILY tab 02/05/18 [History Last Taken 08/26/21] coenzyme X80-grggnkb E 100 mg-100 unit capsule 1 cap PO DAILY 02/05/18 [History Last Taken 08/26/21] diltiazem HCl 120 mg tablet 120 mg PO DAILY tab 02/05/18 [History Last Taken 08/26/21] lisinopril 20 mg tablet 20 mg PO DAILY 02/05/18 [History Last Taken 08/26/21] simvastatin 40 mg tablet 40 mg PO QHS 02/05/18 [History Last Taken 08/26/21] albuterol sulfate 90 mcg/actuation aerosol inhaler 2 puff INHALATION Q4H PRN #8.5 g 08/12/21 [Rx Last Taken 08/26/21] prednisone 5 mg tablet See Rx Instructions PO DAILY #42 tab 08/12/21 [Rx Last Taken Unknown] turmeric 400 mg PO DAILY 08/27/21 [History Last Taken 08/26/21] umeclidinium-vilanterol [Anoro Ellipta] 1 inh INHALATION Q24H 08/27/21 [History Last Taken 08/26/21] Allergy/AdvReac Type Severity Reaction Status Date / Time No Known Allergies Allergy Verified 08/12/21 07:52 Family History Father Heart disease Surgical History H/O rhinoplasty History of intravascular stent placement Hx of appendectomy Open fracture of left upper extremity S/P placement of cardiac pacemaker Social History Smoking Status: Former smoker how long ago did patient quit smokin, 1p/day second hand exposure: Yes alcohol intake: current alcohol intake frequency: a few times a week Alcohol type: hard liquor substance use type: does not use ROS Constitutional Constitutional: Reports fatigue; Denies chills or fever(s) Eyes Eyes: Denies blurry vision or change in vision ENT HEENT: Denies dizziness, dysphagia or headache(s) Cardiovascular Cardiovascular: Reports dyspnea Respiratory/Chest Respiratory/Chest: Reports cough and dyspnea Gastrointestinal Gastrointestinal: Denies abdominal pain, diarrhea, nausea or vomiting Genitourinary Genitourinary: Denies difficulty urinating Musculoskeletal Musculoskeletal: Denies arthralgias, back pain or joint pain Integumentary Integumentary: Denies lesions, rash or skin ulcer Neurologic Neurologic: Denies abnormal gait or abnormal speech Psychiatric Psychiatric: Denies anxiety or depression Endocrine Endocrinology: Denies fatigue Hematologic/Lymphatic Hematologic/Lymphatic: Denies easy bleeding or easy bruising Physical Exam Const alert, oriented x3 and no apparent distress General Appearance: cooperative HEENT normocephalic and head/scalp atraumatic Eyes PERRL, EOMs intact bilaterally and conjunctivae normal Neck supple General: trachea midline Chest inspection of chest normal Resp Effort and Inspection: able to speak in complete sentences; Negative for labored Auscultation: rales and diminished lung sounds Cardio regular rate, regular rhythm, S1 normal heart sound and S2 normal heart sound GI normal to inspection, nondistended, normoactive bowel sounds Extremity no clubbing, cyanosis or edema Skin no rashes or lesions noted Neuro moves all extremities and no focal motor deficits Psych cooperative and affect normal Lab / Micro Data Result Diagrams: 08/27/21 06:06 08/27/21 06:06 Labs: Laboratory Results - last 24 hr 08/26/21 21:35: WBC 11.9 H, RBC 4.56 L, Hgb 12.7 L, Hct 40.0, MCV 87.7, MCH 27.9, MCHC 31.8 L, RDW Std Deviation 56.4 H, RDW Coeff of Cheikh 17.5 H, Plt Count 267, MPV 12.1 H, Immature Gran % (Auto) 0.600, Neut % (Auto) 66.6, Lymph % (Auto) 19.0, Woodford % (Auto) 13.5 H, Eos % (Auto) 0.0, Baso % (Auto) 0.3, Absolute Neuts (auto) 7.9 H, Absolute Lymphs (auto) 2.26, Nucleated RBC % 0, Differential Comment SEE COMMENT, Diff Path Review May foll, Platelet Estimate ADEQUATE, RBC Morphology NORM C+C, Anisocytosis RARE 08/26/21 21:35: PT 14.5, INR 1.2, APTT 33.0 08/26/21 21:35: Sodium 138, Potassium 3.5, Chloride 102, Carbon Dioxide 27.0, Anion Gap 9, BUN 17, Creatinine 0.67 L, Estim Creat Clear Calc 114.85, Est GFR (MDRD) Af Amer 155, Est GFR (MDRD) Non-Af 128, BUN/Creatinine Ratio 25.3 H, Glucose 103, Calcium 9.0, Magnesium 2.2, Troponin I High Sens < 3 L 08/27/21 01:30: MRSA (PCR) Negative 08/27/21 06:06: Sodium 138, Potassium 4.2, Chloride 104, Carbon Dioxide 27.0, Anion Gap 7, BUN 20 H, Creatinine 0.66 L, Estim Creat Clear Calc 116.59, Est GFR (MDRD) Af Amer 160, Est GFR (MDRD) Non-Af 132, BUN/Creatinine Ratio 30.5 H, Glucose 219 H, Calcium 8.4 L 08/27/21 06:06: WBC 7.9, RBC 3.95 L, Hgb 10.8 L, Hct 35.0 L, MCV 88.6, MCH 27.3, MCHC 30.9 L, RDW Std Deviation 56.6 H, RDW Coeff of Cheikh 17.3 H, Plt Count 224, MPV 11.8, Immature Gran % (Auto) 0.800, Neut % (Auto) 89.9 H, Lymph % (Auto) 6.1 L, Woodford % (Auto) 3.1, Eos % (Auto) 0.0, Baso % (Auto) 0.1, Absolute Neuts (auto) 7.1, Absolute Lymphs (auto) 0.48 L, Nucleated RBC % 0, Differential Comment SCANNED 08/27/21 06:06: B-Natriuretic Peptide 17.0 Micro: Microbiology 08/27/21 02:15 Mucosa - Nasopharyngeal Respiratory Panel (PCR) - Final 08/27/21 00:20 Nasal Secretion SARS-CoV-2 Antigen (Rapid) - Final Radiology Impression Chest CTA 08/26/21 21:56 IMPRESSION: No pulmonary embolism. Advanced centrilobular emphysematous disease versus less likely cystic lung disease. Multifocal pneumonia involving a large portion of the lungs. Electronically Signed: James Oneal DO at 23:58 EDT Tel , Service support , Charges/Coding Visit Charges Inpatient E&M: 77301 Init Hosp L3
[2021-08-27] MEDS: dilTIAZem CD 120 MG Capsule PO (10:51)
[2021-08-27] MEDS: Enoxaparin 40 MG/0.4 ML Syringe SC (10:52)
[2021-08-27] MEDS: Lisinopril 20 MG Tablet PO (10:52)
[2021-08-27] MEDS: guaiFENesin 1,200 MG Tablet 1200 MG PO ×2 (10:52→22:21)
--- NOTE | 2021-08-27 11:30 | CASEMGMT ---
RN KENDY Face to Face with patient for initial transition planning/care coordination assessment. RN CM introduced self and role at [facility]. Patient lying in bed, alert and oriented. Patient willing to participate in assessment and is able to answer all questions appropriately. Care providers, pharmacy, and demographics verified. Patient wishes to discharge home, denies need for home health at this time. Patient states he has no further needs or concerns at this time. CM to follow for discharge planning needs that may arise. PCP: Berny Carranza Specialists: Doreen Carranza, cigar tobacco rehandler; Jose trap operator; RA Bhupendra Preferred Pharmacy: [facility] [place] Insurance: [employer] Prescription Benefit: yes Living Will/HPOA: none LNOK: Living Arrangements: Patient lives with in a single story home with 2 steps to enter. Patient is independent at home. Transportation: self/ DME/HHC: Patient states he has home oxygen with portability at 2lpm before he had covid and now is requiring 6 lpm at home. Oxygen is through [facility] in [facility]. Disposition Plan: Patient to discharge home with family support and follow-up plans in place. Will monitor for increased oxygen needs at discharge. Marine PERKINS, RN, CM
[2021-08-27] MEDS: Furosemide 20 MG/2 ML VIAL IV (16:30)
[2021-08-27] MEDS: 0.9% Saline Lock 10 ML Syringe IV ×3 (16:30→23:51)
--- NOTE | 2021-08-27 19:03 | PCM.HOSP.N ---
Hospitalist Note Patient was seen and examined today, he is requiring Airvo oxygen at this time, I had pulmonary medicine see the patient today and they adjust the patient's medications. I gave the patient IV Lasix this afternoon as a one-time dose, it is not known what kind of pneumonia the patient has at this time, he is currently on Zosyn. Prognosis remains guarded.
[2021-08-27] MEDS: Atorvastatin Calcium 20 MG Tablet PO (22:21)
[2021-08-28] VITALS (9 sets, daily range): BP systolic 97–134; BP diastolic 57–71; PULSE 64–90; RESP 18–20; TEMP 36.6–37; O2SAT 92–97
[2021-08-28] MEDS: Piperacil/Tazobactam 3.375 GM/50 ML ML IV ×3 (06:20→21:24)
[2021-08-28] MEDS: 0.9% Saline Lock 10 ML Syringe IV ×3 (06:20→17:29)
[2021-08-28] MEDS: Ipratropium/Albuterol Sulfate 3 ML AMPUL.NEB INHALATION ×4 (07:22→20:11)
[2021-08-28] MEDS: Aspirin E.C. 81 MG Tablet PO (08:28)
--- NOTE | 2021-08-28 08:33 | PCM.PN.INT ---
Assessment & Plan Assessment/Plan (1) Acute on chronic respiratory failure with hypoxemia: PLAN: RECOMMENDATIONS: 1. Continue empiric antimicrobials for now. 2. Check Aspergillus antibodies and sputum for AFB. 3. Wean supplemental oxygen to maintain saturations at or above 90%. 4. Continue IV Solu-Medrol 40 mg every 6 hours. Continue scheduled bronchodilators. 5. Patient to be made n.p.o. at midnight. 6. Tentative plans for bronchoscopy tomorrow. IMPRESSIONS: 1. Acute on chronic hypoxemic respiratory failure Unclear precipitating etiology for the patient's acute presentation. He is normally on 3 L/min of oxygen at baseline. He does have a history of rheumatoid associated interstitial lung disease and was previously on immunosuppression, up until his discharge from the hospital in June. He has been taken off of all immunosuppression at this time. While the findings noted on CT chest could represent an acute infectious etiology, the patient was just treated with antimicrobials in June. Alternatively, these findings could represent organizing pneumonia, which could be cryptogenic in nature or related to the patient's connective tissue disorder. At this time, it is reasonable to continue empiric antimicrobials. The patient will be continued on bronchodilators and IV steroids as ordered. If the patient's presentation is related to organizing pneumonia he should improve clinically with steroids. I have tentatively made plans to proceed with bronchoscopy tomorrow. The patient should be made n.p.o. at midnight. 2. History of mixed obstructive/restrictive ventilatory impairment/rheumatoid arthritis/hypertension/hyperlipidemia Complicates care, management, recovery and prognosis. Continue home medications as indicated. This note was generated with [employer] dictation software. It may contain incorrect words, spelling, and punctuation that were not noted in checking the note before signing. Subjective Subjective The patient was seen and examined at the bedside this morning. Events from the last 24 hours have been reviewed. The patient is currently afebrile, hemodynamically stable and maintaining appropriate oxygen saturations on Airvo heated high flow with an FiO2 requirement of 58% and flow rate of 40 L/min. The patient remains on empiric antimicrobials, scheduled bronchodilators and IV steroids. The patient reported to me this morning that he feels a smidge better than yesterday. Objective Data Objective Data The patient's most recent lab work, culture data and imaging studies have all been personally reviewed. MRSA screen was negative. Aspergillus antibodies are pending. Respiratory viral panel was negative. Sputum culture is pending. Vital Signs: Vital Signs Temp Pulse Resp BP Pulse Ox 97.8 F 80 18 104/62 94 08/28/21 08:19 08/28/21 08:19 08/28/21 08:19 08/28/21 08:19 08/28/21 08:19 Oxygen Flow Rate (L/min) 40 Oxygen Delivery Method Airvo Weight: 85.094 kg Body Mass Index (BMI) 28.5 Intake & Output: Intake and Output for Last 24 Hours 08/26/21 08/27/21 08/28/21 23:59 23:59 23:59 Intake Total 1690.00 / 1690.00 50 / 50 Balance 1690.00 / 1690.00 50 / 50 Lab / Micro Data Attestation: I reviewed the patient's lab results. Result Diagrams: 08/27/21 06:06 08/27/21 06:06 Labs: Laboratory Results - last 24 hr 08/27/21 06:06: B-Natriuretic Peptide 17.0 Micro: Microbiology 08/26/21 Unknown Urine, Clean Catch Legionella Antigen - Final 08/26/21 Unknown Urine, Clean Catch Streptococcus pneumoniae Antigen (M - Final 08/27/21 10:55 Sputum, Expectorated/Coughed Gram Stain - Final 08/27/21 02:15 Mucosa - Nasopharyngeal Respiratory Panel (PCR) - Final 08/27/21 00:20 Nasal Secretion SARS-CoV-2 Antigen (Rapid) - Final Physical Exam Const alert, oriented x3 and no apparent distress Constitutional Narrative: Currently tolerating heated high flow oxygen. General Appearance: cooperative HEENT normocephalic and head/scalp atraumatic Eyes PERRL, EOMs intact bilaterally and conjunctivae normal Neck supple General: trachea midline Chest inspection of chest normal Resp Effort and Inspection: able to speak in complete sentences; Negative for labored Auscultation: rales and diminished lung sounds Cardio regular rate, regular rhythm, S1 normal heart sound and S2 normal heart sound GI normal to inspection, nondistended, normoactive bowel sounds Extremity no clubbing, cyanosis or edema Skin no rashes or lesions noted Neuro moves all extremities and no focal motor deficits Psych cooperative and affect normal Charges/Coding Visit Charges Inpatient E&M: 38272 Subs Hosp L2
[2021-08-28] MEDS: guaiFENesin 1,200 MG Tablet 1200 MG PO ×2 (10:32→21:24)
[2021-08-28] MEDS: dilTIAZem CD 120 MG Capsule PO (10:32)
[2021-08-28] MEDS: Lisinopril 20 MG Tablet PO (10:32)
[2021-08-28] MEDS: Enoxaparin 40 MG/0.4 ML Syringe SC (10:32)
--- NOTE | 2021-08-28 14:00 | PCM.PN.HOSP ---
Subjective Subjective The date of this entry is 08/28/2021: Patient was seen and examined today, he remains on Airvo but he appears comfortable at rest, he does not complain of any shortness of breath at rest. Tomorrow the plan is for the patient to have a bronchoscopy. Objective Data Objective Data Vital Signs: Vital Signs Temp Pulse Resp BP Pulse Ox 98.0 F 70 18 109/62 91 08/29/21 14:51 08/29/21 14:51 08/29/21 14:51 08/29/21 14:51 08/29/21 15:32 Oxygen Flow Rate (L/min) 11 Oxygen Delivery Method Nasal Cannula Weight: 85.094 kg Body Mass Index (BMI) 28.5 Intake & Output: Intake and Output for Last 24 Hours 08/27/21 08/28/21 08/29/21 23:59 23:59 23:59 Intake Total 1690.00 / 1690.00 150 / 150 800 / 800 Output Total 1100 / 1100 Balance 1690.00 / 1690.00 150 / 150 -300 / -300 Lab / Micro Data Result Diagrams: 08/27/21 06:06 08/27/21 06:06 Labs: Laboratory Results - last 24 hr 08/26/21 21:35: Diff Path Review Reviewed 08/29/21 12:00: Fluid Source Cancelled, Fluid Color Cancelled, Fluid Appearance Cancelled, Fluid WBC Cancelled, Fluid RBC Cancelled, Fluid Tot Cell Count Cancelled, Fld Polynuclear WBCs # Cancelled, Fld Polynuclear WBCs % Cancelled, Fluid Mononuclear WBCs Cancelled, Fld Mononuclear WBCs % Cancelled, Fluid Neutrophils Cancelled, Fluid Lymphocytes Cancelled, Fluid Monocytes Cancelled, Fluid Plasma Cells Cancelled, Fluid Macrophages Cancelled, Fld Mesothelial Cells Cancelled, Fluid Other Cells Cancelled, Fl Pathologist Comment Cancelled, Fluid Comment 2 Cancelled 08/29/21 12:00: Fluid Source Cancelled, Fluid Color Cancelled, Fluid Appearance Cancelled, Fluid WBC Cancelled, Fluid RBC Cancelled, Fluid Tot Cell Count Cancelled, Fld Polynuclear WBCs # Cancelled, Fld Polynuclear WBCs % Cancelled, Fluid Mononuclear WBCs Cancelled, Fld Mononuclear WBCs % Cancelled, Fluid Neutrophils Cancelled, Fluid Lymphocytes Cancelled, Fluid Monocytes Cancelled, Fluid Plasma Cells Cancelled, Fluid Macrophages Cancelled, Fld Mesothelial Cells Cancelled, Fluid Other Cells Cancelled, Fl Pathologist Comment Cancelled, Fluid Comment 2 Cancelled Micro: Microbiology 08/27/21 00:30 Blood Culture (Wb) - Left Hand Blood Culture - Preliminary No growth in 48 hours. 08/26/21 00:30 Blood Culture (Wb) - Anticubital Right Blood Culture - Preliminary No growth in 48 hours. 08/28/21 18:45 Sputum, Expectorated/Coughed Gram Stain - Final 08/27/21 16:10 Sputum, Expectorated/Coughed Gram Stain - Final 08/27/21 16:10 Sputum, Expectorated/Coughed Respiratory Culture - Final 08/27/21 10:55 Sputum, Expectorated/Coughed Gram Stain - Final 08/27/21 10:55 Sputum, Expectorated/Coughed Respiratory Culture - Final 08/26/21 Unknown Urine, Clean Catch Legionella Antigen - Final 08/26/21 Unknown Urine, Clean Catch Streptococcus pneumoniae Antigen (M - Final 08/27/21 02:15 Mucosa - Nasopharyngeal Respiratory Panel (PCR) - Final 08/27/21 00:20 Nasal Secretion SARS-CoV-2 Antigen (Rapid) - Final Physical Exam Const alert, oriented x3, no apparent distress, average body habitus and healthy appearing General Appearance: cooperative, well kempt and well developed Orientation / Consciousness: awake, oriented to person, oriented to place and oriented to time HEENT normocephalic and moist oral mucous membranes Eyes PERRL, EOMs intact bilaterally and conjunctivae normal Neck nuchal rigidity, supple, no JVD, thyroid normal and no carotid bruits General: trachea midline Resp normal respiratory effort, no retractions, no use of accessory muscles and clear to auscultation bilaterally Auscultation: Negative for rales, rhonchi or wheezes Cardio regular rate, regular rhythm, S1 normal heart sound, S2 normal heart sound, no murmurs, no rub and no gallops GI normal to inspection, nondistended, normoactive bowel sounds, soft to palpation, non-tender and non-distended Extremity no clubbing, cyanosis or edema Skin no rashes or lesions noted General Skin Exam: no breakdown Neuro oriented x3, CN's II-XII intact bilaterally, no focal motor deficits and no sensory deficits noted Sensorium / Orientation: awake and alert Speech: speech normal Psych thought process normal and affect normal Assessment & Plan Assessment/Plan (1) Multifocal pneumonia: PLAN: 1. Acute on chronic hypoxic respiratory failure secondary to bilateral pneumonia-pulmonary medicine is seeing patient, he will have a bronchoscopy tomorrow, continue present antibiotics #2 healthcare acquired pneumonia-patient was hospitalized recently, he remains on Zosyn at this time #3 essential hypertension #4 rheumatoid arthritis #5 chronic obstructive pulmonary disease #6 pulmonary fibrosis Charges/Coding Visit Charges Inpatient E&M: 49987 Subs Hosp L2
[2021-08-28] MEDS: Atorvastatin Calcium 20 MG Tablet PO (21:24)
[2021-08-29] VITALS (22 sets, daily range): BP systolic 96–119; BP diastolic 60–75; PULSE 68–93; RESP 16–22; TEMP 35.8–37; O2SAT 86–97; BMI 28.5
--- NOTE | 2021-08-29 | FLU_PTH ---
PATIENT: TRACY MOLINA LOC: [facility] U#:[id number] AGE/SX: 61/M ROOM: [facility] RE08/27/[address]: Dr. Temo Hendrix MD : 1960 BED: 1 DIS: 09/27/2021 SPEC #: [id number] RECD: 08/29/21 13:01 STATUS: SHOLA REQ #: [id number] LON: 08/29/21 00:[address]: Salty Carranza DEPT: CYTOLOGY RECD BY: Casandra Lewis ENTERED: 08/29/21 14:05 SP TYPE: Fluid OTHR DR: MD Dr. Salty Romo DO Dr. Joseph Agyepong, MD Dr. Nana Yaa Koram, MD Dr. Scott Brown, MD Christina Muller, CMM INSPECTOR-C Tissues: A - Bronchus of right middle lobe B - Bronchus, NOS Procedures: PC (control) Special Stain Group II Special Stain Group I Surgery Specimen Level IV AFB Stain (control) GMS Stain (control) Cytospin Fluid Comments: @ Ordering doctor for SSII edited from to [email or web address] Ku by NAY at 08/29/21 1423 @ Ordering doctor for SUIV edited from to [email or web address] Ku by NAY at 08/29/21 1423 @ Ordering doctor for CYSPIN edited from to [email or web address] Ku by NAY at 08/29/21 1423 @ Submitting doctor edited from to [email or web address] Kings TEE at 08/29/21 1423 HEADER OPERATION: Bronchoscopy with BAL PRE-OP DIAGNOSIS: Abnormal chest CT TISSUE SUBMITTED: A ? BAL RML fluid for cytology, B ? BAL lingual fluid for cytology DIAGNOSIS CYTOLOGY A. Bronchioalveolar lavage, right middle lobe of lung fluid (cytospin and cell block): Negative for malignant cells. Positive for fungal organisms. Negative for acid fast bacilli. Negative pneumocystis carinii. See comment. B. Bronchioalveolar lavage, lingual fluid (cytospin and cell block): Negative for malignant cells. Negative for fungal organisms. Negative for acid fast bacilli. Negative pneumocystis carinii. See comment. AM:sharad 08/30/2021 COMMENT A. AFB, GMS and PC stains with matched controls were used in the evaluation of this case. The fungal organisms are most consistent with aspergillus species. Clinical correlation suggested. B. AFB, GMS and PC stains with matched controls were used in the evaluation of this case. This case is discussed with Dr. Carranza by Dr. Leary 08/30/21 Case has been reviewed in consultation with Dr. Williamson who concurs with the above diagnosis. IDC:[facility] CYTOLOGY STUDY Slides are reviewed. CYTOLOGY GROSS A - Received is 10 ml of red cloudy fluid labeled with the patient's name and and designated per the requisition as BAL RML. Submitted for cytology preparation including cell block. B - Received is 10 ml of red cloudy fluid labeled with the patient's name and and designated per the requisition as BAL lingula. Submitted for cytology preparation including cell block. / rg 08/29/2021 TC:5 CPT: 19284 x2, 30662 x2, 81752 x6
[2021-08-29] MEDS: 0.9% Saline Lock 10 ML Syringe IV ×4 (00:18→23:29)
[2021-08-29] MEDS: Piperacil/Tazobactam 3.375 GM/50 ML ML IV ×3 (06:25→21:46)
[2021-08-29] MEDS: Ipratropium/Albuterol Sulfate 3 ML AMPUL.NEB INHALATION ×5 (06:55→23:17)
--- NOTE | 2021-08-29 08:12 | PCM.PN.INT ---
Assessment & Plan Assessment/Plan (1) Acute on chronic respiratory failure with hypoxemia: PLAN: RECOMMENDATIONS: 1. Continue empiric antimicrobials for now. 2. Proceed with bronchoscopy this afternoon. 3. Wean supplemental oxygen to maintain saturations at or above 90%. 4. Continue IV Solu-Medrol 40 mg every 6 hours. Continue scheduled bronchodilators. IMPRESSIONS: 1. Acute on chronic hypoxemic respiratory failure Unclear precipitating etiology for the patient's acute presentation. He is normally on 3 L/min of oxygen at baseline. He does have a history of rheumatoid associated interstitial lung disease and was previously on immunosuppression, up until his discharge from the hospital in June. He has been taken off of all immunosuppression at this time. While the findings noted on CT chest could represent an acute infectious etiology, the patient was just treated with antimicrobials in June. Alternatively, these findings could represent organizing pneumonia, which could be cryptogenic in nature or related to the patient's connective tissue disorder. At this time, it is reasonable to continue empiric antimicrobials. The patient will be continued on bronchodilators and IV steroids as ordered. If the patient's presentation is related to organizing pneumonia he should improve clinically with steroids. The patient is currently scheduled to undergo bronchoscopy this afternoon. 2. History of mixed obstructive/restrictive ventilatory impairment/rheumatoid arthritis/hypertension/hyperlipidemia Complicates care, management, recovery and prognosis. Continue home medications as indicated. This note was generated with [employer] dictation software. It may contain incorrect words, spelling, and punctuation that were not noted in checking the note before signing. Subjective Subjective The patient was seen and examined at the bedside this morning. Events from the last 24 hours have been reviewed. The patient is currently afebrile, hemodynamically stable and maintaining appropriate oxygen saturations on 12 L/min via nasal cannula. The patient is currently scheduled for bronchoscopy and endoscopy this afternoon at 1 PM. Objective Data Objective Data The patient's most recent lab work, culture data and imaging studies have all been personally reviewed. MRSA screen was negative. Aspergillus antibodies are pending. Respiratory viral panel was negative. Sputum culture is pending. Vital Signs: Vital Signs Temp Pulse Resp BP Pulse Ox 98.6 F 71 20 H 107/66 97 08/29/21 03:53 08/29/21 03:53 08/29/21 03:53 08/29/21 03:53 08/29/21 03:53 Oxygen Flow Rate (L/min) 12 Oxygen Delivery Method Nasal Cannula Weight: 85.094 kg Body Mass Index (BMI) 28.5 Intake & Output: Intake and Output for Last 24 Hours 08/27/21 08/28/21 08/29/21 23:59 23:59 23:59 Intake Total 1690.00 / 1690.00 150 / 150 750 / 750 Output Total 1000 / 1000 Balance 1690.00 / 1690.00 150 / 150 -250 / -250 Lab / Micro Data Attestation: I reviewed the patient's lab results. Result Diagrams: 08/27/21 06:06 08/27/21 06:06 Micro: Microbiology 08/27/21 16:10 Sputum, Expectorated/Coughed Gram Stain - Final 08/27/21 16:10 Sputum, Expectorated/Coughed Respiratory Culture - Preliminary Appears to be normal respiratory [place]. Further studies to follow. 08/27/21 10:55 Sputum, Expectorated/Coughed Gram Stain - Final 08/27/21 10:55 Sputum, Expectorated/Coughed Respiratory Culture - Final 08/26/21 Unknown Urine, Clean Catch Legionella Antigen - Final 08/26/21 Unknown Urine, Clean Catch Streptococcus pneumoniae Antigen (M - Final 08/27/21 02:15 Mucosa - Nasopharyngeal Respiratory Panel (PCR) - Final 08/27/21 00:20 Nasal Secretion SARS-CoV-2 Antigen (Rapid) - Final Physical Exam Const alert, oriented x3 and no apparent distress General Appearance: cooperative HEENT normocephalic and head/scalp atraumatic Eyes PERRL, EOMs intact bilaterally and conjunctivae normal Neck supple General: trachea midline Chest inspection of chest normal Resp Effort and Inspection: able to speak in complete sentences; Negative for labored Auscultation: rales and diminished lung sounds Cardio regular rate, regular rhythm, S1 normal heart sound and S2 normal heart sound GI normal to inspection, nondistended, normoactive bowel sounds Extremity no clubbing, cyanosis or edema Skin no rashes or lesions noted Neuro moves all extremities and no focal motor deficits Psych cooperative and affect normal Charges/Coding Visit Charges Inpatient E&M: 82099 Subs Hosp L2
--- NOTE | 2021-08-29 12:22 | PCM.PN.HOSP ---
Subjective Subjective Patient seen and examined. He feels well and has no active complaints. REview of systems is otherwise negative. He is due for bronchoscopy today. He is on 12L of oxygen today. Objective Data Objective Data Vital Signs: Vital Signs Temp Pulse Resp BP Pulse Ox 97.7 F L 74 20 H 119/75 95 08/29/21 08:23 08/29/21 11:02 08/29/21 11:02 08/29/21 08:23 08/29/21 08:23 Oxygen Flow Rate (L/min) 12 Oxygen Delivery Method Nasal Cannula Weight: 187 lb 9.602 oz Body Mass Index (BMI) 28.5 Intake & Output: Intake and Output for Last 24 Hours 08/27/21 08/28/21 08/29/21 23:59 23:59 23:59 Intake Total 1690.00 / 1690.00 150 / 150 800 / 800 Output Total 1000 / 1000 Balance 1690.00 / 1690.00 150 / 150 -200 / -200 Lab / Micro Data Result Diagrams: 08/27/21 06:06 08/27/21 06:06 Micro: Microbiology 08/28/21 18:45 Sputum, Expectorated/Coughed Gram Stain - Final 08/27/21 16:10 Sputum, Expectorated/Coughed Gram Stain - Final 08/27/21 16:10 Sputum, Expectorated/Coughed Respiratory Culture - Final 08/27/21 10:55 Sputum, Expectorated/Coughed Gram Stain - Final 08/27/21 10:55 Sputum, Expectorated/Coughed Respiratory Culture - Final 08/26/21 Unknown Urine, Clean Catch Legionella Antigen - Final 08/26/21 Unknown Urine, Clean Catch Streptococcus pneumoniae Antigen (M - Final 08/27/21 02:15 Mucosa - Nasopharyngeal Respiratory Panel (PCR) - Final 08/27/21 00:20 Nasal Secretion SARS-CoV-2 Antigen (Rapid) - Final Physical Exam Const alert, oriented x3 and no apparent distress Exam Limitations: no limitations HEENT head/scalp atraumatic and moist oral mucous membranes Head and Scalp: normocephalic Eyes PERRL, EOMs intact bilaterally and conjunctivae normal Neck no lymphadenopathy Resp Resp Narrative: diminished breath sounds bibasally, no wheezes or crackles. On 12L of oxygen Cardio regular rate, regular rhythm, S1 normal heart sound, S2 normal heart sound and no murmurs GI normal to inspection, nondistended, normoactive bowel sounds, soft to palpation, non-tender and non-distended Extremity normal to inspection and no clubbing, cyanosis or edema Peripheral Pulses: Yes pulses 2+ throughout Skin no rashes or lesions noted Neuro oriented x3, CN's II-XII intact bilaterally and moves all extremities Sensorium / Orientation: awake and alert Psych affect normal Assessment & Plan Assessment/Plan (1) Acute on chronic respiratory failure with hypoxemia: (2) Multifocal pneumonia: PLAN: #Acute on chronic hypoxic respiratory failure etiology is unclear. He does have a history fo rheumatoid related interstitial lung disease. Was previouslyon immunosuppression, until he was discharted from hospital in June. on empiric antibiotics, as well as IV steroids and bronchodilators pulmonology on board. for bronchoscopy today. 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 On aspirin. #Hyperlipidemia: on statin #Hypertension: On lisinopril as well as Cardizem #CAD s/p stent: On statin and aspirin DVT prophylaxis: Lovenox Charges/Coding Visit Charges Inpatient E&M: 37134 Subs Hosp L3
[2021-08-29] MEDS: Lidocaine 2% (5ml sdv) 5 ML VIAL.MPF (12:25)
[2021-08-29] MEDS: Lidocaine 2% Jelly 1 APPLIC Tube (12:35)
[2021-08-29 12:43] LABS: Pathologist Review Reviewed
--- NOTE | 2021-08-29 12:50 | OP.BRONCH_ITS ---
Patient Name: Michele Dial Procedure Date: 08/29/2021 12:14 PM Date of : 1960 Age: 61 Procedure: Bronchoscopy Indications: Abnormal CT scan of chest Providers: Salty Carranza MD Medicines: Monitored Anesthesia Care Complications: No immediate complications Procedure: Pre-Anesthesia Assessment: - A History and Physical has been performed. Patient meds and allergies have been reviewed. The risks and benefits of the procedure and the sedation options and risks were discussed with the patient. All questions were answered and informed consent was obtained. Patient identification and proposed procedure were verified prior to the procedure by the physician and the nurse in the procedure room. Mental Status Examination: alert and oriented. Airway Examination: normal oropharyngeal airway. Respiratory Examination: poor air movement. CV Examination: normal. ASA Grade Assessment: III - A patient with severe systemic disease. After reviewing the risks and benefits, the patient was deemed in satisfactory condition to undergo the procedure. The anesthesia plan was to use monitored anesthesia care (MAC). Immediately prior to administration of medications, the patient was re-assessed for adequacy to receive sedatives. The heart rate, respiratory rate, oxygen saturations, blood pressure, adequacy of pulmonary ventilation, and response to care were monitored throughout the procedure. The physical status of the patient was re-assessed after the procedure. After I obtained informed consent, the scope was passed under direct vision. Throughout the procedure, the patient's blood pressure, pulse, and oxygen saturations were monitored continuously. The bronchoscope was introduced through the mouth and advanced to the tracheobronchial tree. The procedure was accomplished without difficulty. The patient tolerated the procedure well. Findings: Right Lung Abnormalities: White, thick secretions were found in the right upper lobe and in the right middle lobe. They were not obstructing the airway. BAL was performed in the right middle lobe of the lung and sent for cell count, bacterial culture, viral smears & culture, and fungal & AFB analysis and cytology. 80 mL of fluid were instilled. 30 mL were returned. The return was blood-tinged and cloudy. Left Lung Abnormalities: White, thick secretions were found in the left upper lobe. They were not obstructing the airway. BAL was performed in the lingula of the lung and sent for cell count, bacterial culture, viral smears & culture, and fungal & AFB analysis and cytology. 60 mL of fluid were instilled. 20 mL were returned. The return was blood-tinged and cloudy. Impression: - Abnormal CT scan of chest - White, thick secretions were found in the right upper lobe and in the right middle lobe. - Bronchoalveolar lavage was performed. - White, thick secretions were found in the left upper lobe. - Bronchoalveolar lavage was performed. Recommendation: - Await BAL results. Procedure Code(s): --- Professional --- 46756, Bronchoscopy, rigid or flexible, including fluoroscopic guidance, when performed; with bronchial alveolar lavage 75670, Bronchoscopy, rigid or flexible, including fluoroscopic guidance, when performed; with bronchial alveolar lavage 03769, Bronchoscopy, rigid or flexible, including fluoroscopic guidance, when performed; with bronchial alveolar lavage 22303, Bronchoscopy, rigid or flexible, including fluoroscopic guidance, when performed; with bronchial alveolar lavage Diagnosis Code(s): --- Professional --- R09.89, Other specified symptoms and signs involving the circulatory and respiratory systems R93.8, Abnormal findings on diagnostic imaging of other specified body structures CPT copyright 2017 [employer]. All rights reserved. The codes documented in this report are preliminary and upon real estate site analyst review may be revised to meet current compliance requirements. DO Salty Mabry MD 08/29/2021 12:50:31 PM This report has been signed electronically. Number of Addenda: 0 Note Initiated On: 08/29/2021 12:14 PM
[2021-08-29 13:05] LABS: Cytology, Body Fluid / CSF SEE PATHOLOGY REPORT
[2021-08-29 13:08] LABS: Cytology, Body Fluid / CSF SEE PATHOLOGY REPORT
[2021-08-29 13:17] LABS: Acid Fast Stain SEE PATHOLOGY REPORT
[2021-08-29] MEDS: dilTIAZem CD 120 MG Capsule PO (14:55)
[2021-08-29] MEDS: Aspirin E.C. 81 MG Tablet PO (14:55)
[2021-08-29] MEDS: Enoxaparin 40 MG/0.4 ML Syringe SC (14:55)
[2021-08-29] MEDS: Lisinopril 20 MG Tablet PO (14:56)
[2021-08-29] MEDS: guaiFENesin 1,200 MG Tablet 1200 MG PO ×2 (14:56→21:47)
--- NOTE | 2021-08-29 16:24 | NURSING ---
Pt resting in bed with eyes closed. no distress noted. present at bedside.
[2021-08-29] MEDS: Atorvastatin Calcium 20 MG Tablet PO (21:47)
[2021-08-30] VITALS (8 sets, daily range): BP systolic 105–116; BP diastolic 52–67; PULSE 64–89; RESP 16–20; TEMP 36.5–37.5; O2SAT 82–94
[2021-08-30] MEDS: 0.9% Saline Lock 10 ML Syringe IV (05:56)
[2021-08-30] MEDS: Piperacil/Tazobactam 3.375 GM/50 ML ML IV ×3 (05:58→21:53)
[2021-08-30] MEDS: Ipratropium/Albuterol Sulfate 3 ML AMPUL.NEB INHALATION ×3 (06:59→15:26)
[2021-08-30 07:30] LABS: Absolute Lymphocyte Count 0.42 X10^3/uL (0.83-4.51); Absolute Neutrophil Count 13.6 X10^3/uL (2.0-7.7); Basophil# 0.01 X10^3/uL; Basophil% 0.1 % (0-1); Hematocrit 33.6 % (40-54); Hemoglobin 10.1 g/dL (13.0-16.5); Lymphocyte # 0.42 X10^3/ul (0.83-4.51); Lymphocyte % 2.8 % (19-41); Mean Corp Hgb Conc 30.1 g/dL (32-36); Mean Corpuscular Hgb 26.9 pg (27.0-32.0); Mean Corpuscular Volume 89.6 fL (80-94); Mean Platelet Vol. 11.6 fl (6.2-12.0); Monocyte# 0.78 X10^3/uL; Monocyte% 5.2 % (0-10); NRBC Flagged by Analyzer 0 % (0-5); Neutrophil # 13.61 X10^3/uL (2.7-7.7); Neutrophil % 90.3 % (47-70); POSITIVE DIFFERENTIAL YES; Platelet Count 265 K/mm3 (150-450); RBC Distribution Width CV 17.4 % (11.6-14.6); RBC Distribution Width SD 57.1 fl (35.1-43.9); Red Blood Count 3.75 M/mm3 (4.6-6.2); White Blood Count 15.1 K/mm3 (4.4-11.0)
[2021-08-30 07:48] LABS: Differential Indicated SCAN CRITERIA MET
[2021-08-30] MEDS: guaiFENesin 1,200 MG Tablet 1200 MG PO ×2 (07:55→21:54)
[2021-08-30] MEDS: Aspirin E.C. 81 MG Tablet PO (07:55)
[2021-08-30] MEDS: Enoxaparin 40 MG/0.4 ML Syringe SC (07:55)
[2021-08-30] MEDS: dilTIAZem CD 120 MG Capsule PO (07:55)
[2021-08-30] MEDS: Lisinopril 20 MG Tablet PO (07:55)
[2021-08-30 08:03] LABS: Anion Gap 2 (5-15); BUN 27 mg/dL (7-18); BUN/Creat Ratio 37.4 RATIO (10-20); Calcium,Total 8.3 mg/dL (8.5-10.1); Chloride 108 mmol/L (98-107); Creatinine, Serum 0.72 mg/dL (0.70-1.30); EST Glomerular Filtration Rate 118 mL/min (>60); Est Glom Filt Rate - Afr Amer 143 mL/min (>60); Estimated Creatinine Clearance 106.88 ml/min; Glucose 229 mg/dL (74-106); Sodium Level 138 mmol/L (136-145)
--- NOTE | 2021-08-30 11:19 | PN.HOSP_ITS ---
Subjective Subjective Patient seen and examined. HE has no complaints today apart from still feeling short of breath. Review of systems was otherwise negative. He had a bronchoscopy yesterday. He is on 11L of oxygen. REview of systems otherwise negative. Objective Data Objective Data Vital Signs: Vital Signs Temp Pulse Resp BP Pulse Ox 98.4 F 70 18 116/62 91 08/30/21 08:17 08/30/21 08:17 08/30/21 08:17 08/30/21 08:17 08/30/21 08:17 Oxygen Flow Rate (L/min) 11 Oxygen Delivery Method High Flow Weight: 187 lb 9.602 oz Body Mass Index (BMI) 28.5 Intake & Output: Intake and Output for Last 24 Hours 08/28/21 08/29/21 08/30/21 23:59 23:59 23:59 Intake Total 150 / 150 850 / 850 100 / 100 Output Total 1950 / 1950 400 / 400 Balance 150 / 150 -1100 / -1100 -300 / -300 Lab / Micro Data Result Diagrams: 08/30/21 06:58 08/30/21 06:58 Labs: Laboratory Results - last 24 hr 08/26/21 21:35: Diff Path Review Reviewed 08/29/21 12:00: Fluid Source Cancelled, Fluid Color Cancelled, Fluid Appearance Cancelled, Fluid WBC Cancelled, Fluid RBC Cancelled, Fluid Tot Cell Count Cancelled, Fld Polynuclear WBCs # Cancelled, Fld Polynuclear WBCs % Cancelled, Fluid Mononuclear WBCs Cancelled, Fld Mononuclear WBCs % Cancelled, Fluid Neutrophils Cancelled, Fluid Lymphocytes Cancelled, Fluid Monocytes Cancelled, Fluid Plasma Cells Cancelled, Fluid Macrophages Cancelled, Fld Mesothelial Cells Cancelled, Fluid Other Cells Cancelled, Fl Pathologist Comment Cancelled, Fluid Comment 2 Cancelled 08/29/21 12:00: Fluid Source Cancelled, Fluid Color Cancelled, Fluid Appearance Cancelled, Fluid WBC Cancelled, Fluid RBC Cancelled, Fluid Tot Cell Count Cancelled, Fld Polynuclear WBCs # Cancelled, Fld Polynuclear WBCs % Cancelled, Fluid Mononuclear WBCs Cancelled, Fld Mononuclear WBCs % Cancelled, Fluid Neutrophils Cancelled, Fluid Lymphocytes Cancelled, Fluid Monocytes Cancelled, Fluid Plasma Cells Cancelled, Fluid Macrophages Cancelled, Fld Mesothelial Cells Cancelled, Fluid Other Cells Cancelled, Fl Pathologist Comment Cancelled, Fluid Comment 2 Cancelled 08/30/21 06:58: WBC 15.1 H, RBC 3.75 L, Hgb 10.1 L, Hct 33.6 L, MCV 89.6, MCH 26.9 L, MCHC 30.1 L, RDW Std Deviation 57.1 H, RDW Coeff of [place] 17.4 H, Plt Count 265, MPV 11.6, Immature Gran % (Auto) 1.600 H, Neut % (Auto) 90.3 H, Lymph % (Auto) 2.8 L, [place] % (Auto) 5.2, Eos % (Auto) 0.0, Baso % (Auto) 0.1, Absolute Neuts (auto) 13.6 H, Absolute Lymphs (auto) 0.42 L, Nucleated RBC % 0, Differential Comment COMMENT 08/30/21 06:58: Sodium 138, Potassium 4.0, Chloride 108 H, Carbon Dioxide 28.0, Anion Gap 2 L, BUN 27 H, Creatinine 0.72, Estim Creat Clear Calc 106.88, Est GFR (MDRD) Af Amer 143, Est GFR (MDRD) Non-Af 118, BUN/Creatinine Ratio 37.4 H, Glucose 229 H, Calcium 8.3 L Micro: Microbiology 08/29/21 12:00 Wash - Other Respiratory Culture - Preliminary Appears to be normal respiratory [place]. Further studies to follow. 08/29/21 12:00 Wash - Right Middle Lobe Respiratory Culture - Preliminary Appears to be normal respiratory [place]. Further studies to follow. 08/27/21 00:30 Blood Culture (Wb) - Left Hand Blood Culture - Preliminary No growth in 48 hours. 08/26/21 00:30 Blood Culture (Wb) - Anticubital Right Blood Culture - Preliminary No growth in 48 hours. 08/28/21 18:45 Sputum, Expectorated/Coughed Gram Stain - Final 08/27/21 16:10 Sputum, Expectorated/Coughed Gram Stain - Final 08/27/21 16:10 Sputum, Expectorated/Coughed Respiratory Culture - Final 08/27/21 10:55 Sputum, Expectorated/Coughed Gram Stain - Final 08/27/21 10:55 Sputum, Expectorated/Coughed Respiratory Culture - Final 08/26/21 Unknown Urine, Clean Catch Legionella Antigen - Final 08/26/21 Unknown Urine, Clean Catch Streptococcus pneumoniae Antigen (M - Final 08/27/21 02:15 Mucosa - Nasopharyngeal Respiratory Panel (PCR) - Final 08/27/21 00:20 Nasal Secretion SARS-CoV-2 Antigen (Rapid) - Final Physical Exam Const alert, oriented x3 and no apparent distress Exam Limitations: no limitations HEENT head/scalp atraumatic, moist oral mucous membranes and oropharynx normal Head and Scalp: normocephalic Eyes PERRL, EOMs intact bilaterally and conjunctivae normal Neck no lymphadenopathy Resp Resp Narrative: diminished breath sounds bibasally, no wheezes or crackles. On 11L of oxygen. Cardio regular rate, regular rhythm, S1 normal heart sound, S2 normal heart sound and no murmurs GI normal to inspection, nondistended, normoactive bowel sounds, soft to palpation, non-tender and non-distended Extremity normal to inspection, full ROM and no clubbing, cyanosis or edema Peripheral Pulses: Yes pulses 2+ throughout Skin no rashes or lesions noted Neuro CN's II-XII intact bilaterally and moves all extremities Sensorium / Orientation: awake Psych affect normal Assessment & Plan Assessment/Plan (1) Acute on chronic respiratory failure with hypoxemia: (2) Multifocal pneumonia: PLAN: #Acute on chronic hypoxic respiratory failure * etiology is unclear. 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 Was previously on immunosuppression, until he was discharged from hospital in June. * had bronch yesterday which revealed thickened whitish secretions in right upper and right middle as well as left upper lobes. Broncheoalveolar lavage was performed and samples sent for cultures * per pulmo, prelimiary BAL appears to be growing fungal elements, possibly Aspergillus. * on IV vancomycin, as well as IV steroids and bronchodilators * ID consult placed to give recommendations about antifungal treatment #History of rheumatoid arthritis: not on any retirement meds now #Afib: on cardizem. On aspirin. #Hyperlipidemia: on statin #Hypertension: On lisinopril as well as Cardizem #CAD s/p stent: On statin and aspirin DVT prophylaxis: Lovenox Charges/Coding Visit Charges Inpatient E&M: 97320 Subs Hosp L3
--- NOTE | 2021-08-30 11:39 | PN.CC_ITS ---
Assessment & Plan Assessment/Plan (1) Acute on chronic respiratory failure with hypoxemia: PLAN: RECOMMENDATIONS: 1. Continue empiric antimicrobials for now. 2. Infectious diseases consultation placed for recommendations regarding antifungal treatment. 3. Wean supplemental oxygen to maintain saturations at or above 90%. 4. Continue IV Solu-Medrol 40 mg every 6 hours. Continue scheduled bronchodilators. IMPRESSIONS: 1. Acute on chronic hypoxemic respiratory failure Unclear precipitating etiology for the patient's acute presentation. He is normally on 3 L/min of oxygen at baseline. He does have a history of rheumatoid associated interstitial lung disease and was previously on immunosuppression, up until his discharge from the hospital in June. He has been taken off of all immunosuppression at this time. While the findings noted on CT chest could represent an acute infectious etiology, the patient was just treated with antimicrobials in June. Alternatively, these findings could represent organizing pneumonia, which could be cryptogenic in nature or related to the patient's connective tissue disorder. At this time, it is reasonable to continue empiric antimicrobials. The patient will be continued on b ronchodilators and IV steroids as ordered. If the patient's presentation is related to organizing pneumonia he should improve clinically with steroids. The patient did undergo bronchoscopy on August 29 with BAL performed bilaterally. Per my conversation with pathology this morning, there is some concern for fungal elements and potential Aspergillus. Therefore, infectious diseases consultation has been placed. 2. History of mixed obstructive/restrictive ventilatory impairment/rheumatoid arthritis/hypertension/hyperlipidemia Complicates care, management, recovery and prognosis. Continue home medications as indicated. This note was generated with [employer] dictation software. It may contain incorrect words, spelling, and punctuation that were not noted in checking the note before signing. Subjective Subjective The patient was seen and examined at the bedside this morning. Events from the last 24 hours have been reviewed. The patient is currently afebrile, hemodynamically stable and maintaining appropriate oxygen saturations on 11 L/min via nasal cannula. White count remains elevated at 15,000. The patient tolerated bronchoscopy yesterday without any issue. I did speak with pathology this morning, who indicated to me that the preliminary BAL appeared to be demonstrating fungal elements, possibly consistent with Aspergillus. Therefore, consultation was placed to infectious diseases. Objective Data Objective Data The patient's most recent lab work, culture data and imaging studies have all be en personally reviewed. MRSA screen was negative. Aspergillus antibodies are pending. Respiratory viral panel was negative. Sputum culture is pending. Vital Signs: Vital Signs Temp Pulse Resp BP Pulse Ox 98.4 F 70 18 116/62 91 08/30/21 08:17 08/30/21 08:17 08/30/21 08:17 08/30/21 08:17 08/30/21 08:17 Oxygen Flow Rate (L/min) 11 Oxygen Delivery Method High Flow Weight: 85.094 kg Body Mass Index (BMI) 28.5 Intake & Output: Intake and Output for Last 24 Hours 08/28/21 08/29/21 08/30/21 23:59 23:59 23:59 Intake Total 150 / 150 850 / 850 100 / 100 Output Total 1950 / 1950 400 / 400 Balance 150 / 150 -1100 / -1100 -300 / -300 Lab / Micro Data Attestation: I reviewed the patient's lab results. Result Diagrams: 08/30/21 06:58 08/30/21 06:58 Labs: Laboratory Results - last 24 hr 08/26/21 21:35: Diff Path Review Reviewed 08/29/21 12:00: Fluid Source Cancelled, Fluid Color Cancelled, Fluid Appearance Cancelled, Fluid WBC Cancelled, Fluid RBC Cancelled, Fluid Tot Cell Count Cancelled, Fld Polynuclear WBCs # Cancelled, Fld Polynuclear WBCs % Cancelled, Fluid Mononuclear WBCs Cancelled, Fld Mononuclear WBCs % Cancelled, Fluid Neutrophils Cancelled, Fluid Lymphocytes Cancelled, Fluid Monocytes Cancelled, Fluid Plasma Cells Cancelled, Fluid Macrophages Cancelled, Fld Mesothelial Cells Cancelled, Fluid Other Cells Cancelled, Fl Pathologist Comment Cancelled, Fluid Comment 2 Cancelled 08/29/21 12:00: Fluid Source Cancelled, Fluid Color Cancelled, Fluid Appearance Cancelled, Fluid WBC Cancelled, Fluid RBC Cancelled, Fluid Tot Cell Count Canc elled, Fld Polynuclear WBCs # Cancelled, Fld Polynuclear WBCs % Cancelled, Fluid Mononuclear WBCs Cancelled, Fld Mononuclear WBCs % Cancelled, Fluid Neutrophils Cancelled, Fluid Lymphocytes Cancelled, Fluid Monocytes Cancelled, Fluid Plasma Cells Cancelled, Fluid Macrophages Cancelled, Fld Mesothelial Cells Cancelled, Fluid Other Cells Cancelled, Fl Pathologist Comment Cancelled, Fluid Comment 2 C ancelled 08/30/21 06:58: WBC 15.1 H, RBC 3.75 L, Hgb 10.1 L, Hct 33.6 L, MCV 89.6, MCH 26.9 L, MCHC 30.1 L, RDW Std Deviation 57.1 H, RDW Coeff of Cheikh 17.4 H, Plt Count 265, MPV 11.6, Immature Gran % (Auto) 1.600 H, Neut % (Auto) 90.3 H, Lymph % (Auto) 2.8 L, [place] % (Auto) 5.2, Eos % (Auto) 0.0, Baso % (Auto) 0.1, Absolute Neuts (auto) 13.6 H, Absolute Lymphs (auto) 0.42 L, Nucleated RBC % 0, Differential Comment COMMENT 08/30/21 06:58: Sodium 138, Potassium 4.0, Chloride 108 H, Carbon Dioxide 28.0, Anion Gap 2 L, BUN 27 H, Creatinine 0.72, Estim Creat Clear Calc 106.88, Est GFR (MDRD) Af Amer 143, Est GFR (MDRD) Non-Af 118, BUN/Creatinine Ratio 37.4 H, Glucose 229 H, Calcium 8.3 L Micro: Microbiology 08/29/21 12:00 Wash - Other Respiratory Culture - Preliminary Appears to be normal respiratory [place]. Further studies to follow. 08/29/21 12:00 Wash - Right Middle Lobe Respiratory Culture - Preliminary Appears to be normal respiratory [place]. Further studies to follow. 08/27/21 00:30 Blood Culture (Wb) - Left Hand Blood Culture - Preliminary No growth in 48 hours. 08/26/21 00:30 Blood Culture (Wb) - Anticubital Right Blood Culture - Preliminary No growth in 48 hours. 08/28/21 18:45 Sputum, Expectorated/Coughed Gram Stain - Final 08/27/21 16:10 Sputum, Expectorated/Coughed Gram Stain - Final 08/27/21 16:10 Sputum, Expectorated/Coughed Respiratory Culture - Final 08/27/21 10:55 Sputum, Expectorated/Coughed Gram Stain - Final 08/27/21 10:55 Sputum, Expectorated/Coughed Respiratory Culture - Final 08/26/21 Unknown Urine, Clean Catch Legionella Antigen - Final 08/26/21 Unknown Urine, Clean Catch Streptococcus pneumoniae Antigen (M - Final 08/27/21 02:15 Mucosa - Nasopharyngeal Respiratory Panel (PCR) - Final 08/27/21 00:20 Nasal Secretion SARS-CoV-2 Antigen (Rapid) - Final Physical Exam Const alert, oriented x3 and no apparent distress General Appearance: cooperative HEENT normocephalic and head/scalp atraumatic Eyes PERRL, EOMs intact bilaterally and conjunctivae normal Neck supple General: trachea midline Chest inspection of chest normal Resp Effort and Inspection: able to speak in complete sentences; Negative for labored Auscultation: rales and diminished lung sounds Cardio regular rate, regular rhythm, S1 normal heart sound and S2 normal heart sound GI normal to inspection, nondistended, normoactive bowel sounds Extremity no clubbing, cyanosis or edema Skin no rashes or lesions noted Neuro moves all extremities and no focal motor deficits Psych cooperative and affect normal Charges/Coding Visit Charges Inpatient E&M: 38055 Subs Hosp L2
--- NOTE | 2021-08-30 16:14 | NURSING ---
Called Pharmacy for 220 medication.
[2021-08-30] MEDS: Atorvastatin Calcium 20 MG Tablet PO (21:54)
[2021-08-31] VITALS (12 sets, daily range): BP systolic 106–136; BP diastolic 59–74; PULSE 63–90; RESP 17–30; TEMP 36.6–37.2; O2SAT 86–96
[2021-08-31] MEDS: 0.9% Saline Lock 10 ML Syringe IV ×2 (00:55→06:31)
[2021-08-31] MEDS: Albuterol 2.5 MG/3 ML VIAL.NEB. INHALATION (04:46)
[2021-08-31 06:01] LABS: Absolute Neutrophil Count 11.1 X10^3/uL (2.0-7.7); Basophil# 0.02 X10^3/uL; Basophil% 0.2 % (0-1); Hematocrit 32.1 % (40-54); Lymphocyte % 2.5 % (19-41); Mean Corp Hgb Conc 31.2 g/dL (32-36); Mean Corpuscular Hgb 27.3 pg (27.0-32.0); Mean Corpuscular Volume 87.7 fL (80-94); Mean Platelet Vol. 11.6 fl (6.2-12.0); Monocyte# 0.47 X10^3/uL; Monocyte% 3.9 % (0-10); NRBC Flagged by Analyzer 0.2 % (0-5); Neutrophil # 11.11 X10^3/uL (2.7-7.7); Neutrophil % 91.8 % (47-70); POSITIVE DIFFERENTIAL YES; Platelet Count 251 K/mm3 (150-450); RBC Distribution Width CV 17.3 % (11.6-14.6); Red Blood Count 3.66 M/mm3 (4.6-6.2); White Blood Count 12.1 K/mm3 (4.4-11.0)
[2021-08-31 06:03] LABS: Differential Indicated SCAN CRITERIA MET
[2021-08-31 06:26] LABS: Polychromasia 2+
[2021-08-31 06:27] LABS: Anisocytosis 2+
[2021-08-31] MEDS: Piperacil/Tazobactam 3.375 GM/50 ML ML IV ×3 (06:32→20:56)
[2021-08-31 06:34] LABS: Anion Gap 5 (5-15); BUN 27 mg/dL (7-18); BUN/Creat Ratio 42.5 RATIO (10-20); Calcium,Total 7.9 mg/dL (8.5-10.1); Chloride 105 mmol/L (98-107); Creatinine, Serum 0.64 mg/dL (0.70-1.30); EST Glomerular Filtration Rate 137 mL/min (>60); Est Glom Filt Rate - Afr Amer 166 mL/min (>60); Estimated Creatinine Clearance 120.23 ml/min; Glucose 235 mg/dL (74-106); Potassium 4.2 mmol/L (3.5-5.1); Sodium Level 141 mmol/L (136-145)
[2021-08-31] MEDS: Ipratropium/Albuterol Sulfate 3 ML AMPUL.NEB INHALATION ×4 (06:49→19:37)
[2021-08-31] MEDS: Aspirin E.C. 81 MG Tablet PO (07:38)
[2021-08-31 08:34] LABS: AST(SGOT) 14 U/L (15-37); Alanine Aminotransfer ALT/SGPT 19 U/L (16-61); Albumin, Serum 1.8 g/dL (3.2-5.0); Alkaline Phosphatase 68 U/L (45-117); Bilirubin, Direct 0.25 mg/dL (0.00-0.30); Globulin 3.6 g/dL (2.2-4.2); Protein, Total 5.4 g/dL (6.4-8.2)
[2021-08-31] MEDS: guaiFENesin 1,200 MG Tablet 1200 MG PO ×2 (09:40→20:58)
[2021-08-31] MEDS: Enoxaparin 40 MG/0.4 ML Syringe SC (09:40)
[2021-08-31] MEDS: dilTIAZem CD 120 MG Capsule PO (09:41)
[2021-08-31] MEDS: Lisinopril 20 MG Tablet PO (09:41)
--- NOTE | 2021-08-31 10:15 | PCM.PN.INT ---
Assessment & Plan Assessment/Plan (1) Acute on chronic respiratory failure with hypoxemia: PLAN: RECOMMENDATIONS: 1. Antimicrobials can likely be discontinued. Continue voriconazole. Await infectious diseases recommendations. 2. Continue to wean oxygen as tolerated to maintain saturations at or above 90%. 3. Continue scheduled bronchodilators. 4. Discontinue IV steroids. 5. Encourage incentive spirometer use and mobilize patient as tolerated. IMPRESSIONS: 1. Acute on chronic hypoxemic respiratory failure The patient does have a baseline oxygen requirement of 3 L/min. He has a history of rheumatoid associated interstitial lung disease and was previously on immunosuppression, up until his discharge from the hospital in June. The patient has been hospitalized several times over the last couple months, first due to COVID-19 pneumonia and more recently as a consequence of bacterial pneumonia. His CT findings noted on presentation were nonspecific. Therefore, the patient underwent bronchoscopy on August 29 with BAL performed bilaterally. Fluid cytology revealed fungal organisms consistent with Aspergillus. The remainder of his cultures are still pending. The patient will be continued on bronchodilators. IV steroids have been discontinued. He was initiated on voriconazole. Infectious diseases consultation has been placed. 2. History of mixed obstructive/restrictive ventilatory impairment/rheumatoid arthritis/hypertension/hyperlipidemia Complicates care, management, recovery and prognosis. Continue home medications as indicated. This note was generated with [employer] dictation software. It may contain incorrect words, spelling, and punctuation that were not noted in checking the note before signing. Subjective Subjective The patient was seen and examined at the bedside this morning. Events from the last 24 hours have been reviewed. The patient is currently afebrile, hemodynamically stable and maintaining appropriate oxygen saturations on Airvo heated high flow. The patient was initiated on high flow oxygen last night after he developed a coughing spell which led to worsening hypoxemia. The patient otherwise feels well this morning. He does continue to produce sputum. The patient was initiated on voriconazole last night and IV steroids were discontinued this morning. Objective Data Objective Data The patient's most recent lab work, culture data and imaging studies have all been personally reviewed. MRSA screen was negative. Aspergillus antibodies are pending. Respiratory viral panel was negative. BAL cytology demonstrated evidence of fungal elements consistent with Aspergillus. Vital Signs: Vital Signs Temp Pulse Resp BP Pulse Ox 99.0 F 67 20 H 122/59 H 94 08/31/21 07:27 08/31/21 07:27 08/31/21 07:27 08/31/21 07:27 08/31/21 07:27 Oxygen Flow Rate (L/min) 40 Oxygen Delivery Method Airvo Weight: 85.094 kg Body Mass Index (BMI) 28.5 Intake & Output: Intake and Output for Last 24 Hours 08/29/21 08/30/21 08/31/21 23:59 23:59 23:59 Intake Total 850 / 850 420 / 420 320 / 320 Output Total 1950 / 1950 400 / 400 Balance -1100 / -1100 320 / 320 Lab / Micro Data Attestation: I reviewed the patient's lab results. Result Diagrams: 08/31/21 05:52 08/31/21 05:52 Labs: Laboratory Results - last 24 hr 08/31/21 05:52: WBC 12.1 H, RBC 3.66 L, Hgb 10.0 L, Hct 32.1 L, MCV 87.7, MCH 27.3, MCHC 31.2 L, RDW Std Deviation 56.0 H, RDW Coeff of Cheikh 17.3 H, Plt Count 251, MPV 11.6, Immature Gran % (Auto) 1.600 H, Neut % (Auto) 91.8 H, Lymph % (Auto) 2.5 L, [place] % (Auto) 3.9, Eos % (Auto) 0.0, Baso % (Auto) 0.2, Absolute Neuts (auto) 11.1 H, Absolute Lymphs (auto) 0.30 L, Nucleated RBC % 0.2, Polychromasia 2+, Anisocytosis 2+ 08/31/21 05:52: Sodium 141, Potassium 4.2, Chloride 105, Carbon Dioxide 31.0, Anion Gap 5, BUN 27 H, Creatinine 0.64 L, Estim Creat Clear Calc 120.23, Est GFR (MDRD) Af Amer 166, Est GFR (MDRD) Non-Af 137, BUN/Creatinine Ratio 42.5 H, Glucose 235 H, Calcium 7.9 L 08/31/21 05:52: Total Bilirubin 0.70, Direct Bilirubin 0.25, AST 14 L, ALT 19, Alkaline Phosphatase 68, Total Protein 5.4 L, Albumin 1.8 L, Globulin 3.6 Micro: Microbiology 08/29/21 12:00 Wash - Other Gram Stain - Final 08/29/21 12:00 Wash - Other Respiratory Culture - Preliminary 08/29/21 12:00 Wash - Right Middle Lobe Gram Stain - Final 08/29/21 12:00 Wash - Right Middle Lobe Respiratory Culture - Preliminary 08/28/21 18:45 Sputum, Expectorated/Coughed Gram Stain - Final 08/28/21 18:45 Sputum, Expectorated/Coughed Respiratory Culture - Final 08/27/21 00:30 Blood Culture (Wb) - Left Hand Blood Culture - Preliminary No growth in 48 hours. 08/26/21 00:30 Blood Culture (Wb) - Anticubital Right Blood Culture - Preliminary No growth in 48 hours. 08/27/21 16:10 Sputum, Expectorated/Coughed Gram Stain - Final 08/27/21 16:10 Sputum, Expectorated/Coughed Respiratory Culture - Final 08/27/21 10:55 Sputum, Expectorated/Coughed Gram Stain - Final 08/27/21 10:55 Sputum, Expectorated/Coughed Respiratory Culture - Final 08/26/21 Unknown Urine, Clean Catch Legionella Antigen - Final 08/26/21 Unknown Urine, Clean Catch Streptococcus pneumoniae Antigen (M - Final 08/27/21 02:15 Mucosa - Nasopharyngeal Respiratory Panel (PCR) - Final 08/27/21 00:20 Nasal Secretion SARS-CoV-2 Antigen (Rapid) - Final Physical Exam Const alert, oriented x3 and no apparent distress Constitutional Narrative: Currently tolerating heated high flow oxygen. General Appearance: cooperative HEENT normocephalic and head/scalp atraumatic Eyes PERRL, EOMs intact bilaterally and conjunctivae normal Neck supple General: trachea midline Chest inspection of chest normal Resp Effort and Inspection: able to speak in complete sentences; Negative for labored Auscultation: rales and diminished lung sounds Cardio regular rate, regular rhythm, S1 normal heart sound and S2 normal heart sound GI normal to inspection, nondistended, normoactive bowel sounds Extremity no clubbing, cyanosis or edema Skin no rashes or lesions noted Neuro moves all extremities and no focal motor deficits Psych cooperative and affect normal Charges/Coding Visit Charges Inpatient E&M: 25185 Subs Hosp L2
--- NOTE | 2021-08-31 11:54 | PN.HOSP_ITS ---
Subjective Subjective Patient seen and examined. He said he was coughing more and expectorating overnight so he was put on air Vo as he desaturated with excessive coughing. He has no other complaints though and feels well. Review of systems otherwise negative. Objective Data Objective Data Vital Signs: Vital Signs Temp Pulse Resp BP Pulse Ox 99.0 F 72 20 H 122/59 H 94 08/31/21 07:27 08/31/21 10:46 08/31/21 10:46 08/31/21 07:27 08/31/21 07:27 Oxygen Flow Rate (L/min) 40 Oxygen Delivery Method Airvo Weight: 187 lb 9.602 oz Body Mass Index (BMI) 28.5 Intake & Output: Intake and Output for Last 24 Hours 08/29/21 08/30/21 08/31/21 23:59 23:59 23:59 Intake Total 850 / 850 420 / 420 320 / 320 Output Total 1950 / 1950 400 / 400 Balance -1100 / -1100 320 / 320 Lab / Micro Data Result Diagrams: 08/31/21 05:52 08/31/21 05:52 Labs: Laboratory Results - last 24 hr 08/31/21 05:52: WBC 12.1 H, RBC 3.66 L, Hgb 10.0 L, Hct 32.1 L, MCV 87.7, MCH 27.3, MCHC 31.2 L, RDW Std Deviation 56.0 H, RDW Coeff of Cheikh 17.3 H, Plt Count 251, MPV 11.6, Immature Gran % (Auto) 1.600 H, Neut % (Auto) 91.8 H, Lymph % (Auto) 2.5 L, [place] % (Auto) 3.9, Eos % (Auto) 0.0, Baso % (Auto) 0.2, Absolute Neuts (auto) 11.1 H, Absolute Lymphs (auto) 0.30 L, Nucleated RBC % 0.2, Polychromasia 2+, Anisocytosis 2+ 08/31/21 05:52: Sodium 141, Potassium 4.2, Chloride 105, Carbon Dioxide 31.0, Anion Gap 5, BUN 27 H, Creatinine 0.64 L, Estim Creat Clear Calc 120.23, Est GFR (MDRD) Af Amer 166, Est GFR (MDRD) Non-Af 137, BUN/Creatinine Ratio 42.5 H, Glu cose 235 H, Calcium 7.9 L 08/31/21 05:52: Total Bilirubin 0.70, Direct Bilirubin 0.25, AST 14 L, ALT 19, Alkaline Phosphatase 68, Total Protein 5.4 L, Albumin 1.8 L, Globulin 3.6 Micro: Microbiology 08/29/21 12:00 Wash - Other Gram Stain - Final 08/29/21 12:00 Wash - Other Respiratory Culture - Preliminary 08/29/21 12:00 Wash - Right Middle Lobe Gram Stain - Final 08/29/21 12:00 Wash - Right Middle Lobe Respiratory Culture - Preliminary 08/28/21 18:45 Sputum, Expectorated/Coughed Gram Stain - Final 08/28/21 18:45 Sputum, Expectorated/Coughed Respiratory Culture - Final 08/27/21 00:30 Blood Culture (Wb) - Left Hand Blood Culture - Preliminary No growth in 48 hours. 08/26/21 00:30 Blood Culture (Wb) - Anticubital Right Blood Culture - Prelim inary No growth in 48 hours. 08/27/21 16:10 Sputum, Expectorated/Coughed Gram Stain - Final 08/27/21 16:10 Sputum, Expectorated/Coughed Respiratory Culture - Final 08/27/21 10:55 Sputum, Expectorated/Coughed Gram Stain - Final 08/27/21 10:55 Sputum, Expectorated/Coughed Respiratory Culture - Final 08/26/21 Unknown Urine, Clean Catch Legionella Antigen - Final 08/26/21 Unknown Urine, Clean Catch Streptococcus pneumoniae Antigen (M - Final 08/27/21 02:15 Mucosa - Nasopharyngeal Respiratory Panel (PCR) - Final 08/27/21 00:20 Nasal Secretion SARS-CoV-2 Antigen (Rapid) - Final Physical Exam Const alert, oriented x3 and no apparent distress General Appearance: cooperative, well kempt and well developed Orientation / Consciousness: awake, oriented to person, oriented to place and oriented to time Exam Limitations: no limitations HEENT normocephalic, head/scalp atraumatic, moist oral mucous membranes and oropharynx normal Head and Scalp: normocephalic Eyes PERRL, EOMs intact bilaterally, conjunctivae normal and no scleral icterus Neck nuchal rigidity, no lymphadenopathy, supple, no JVD, thyroid normal and no carotid bruits General: trachea midline Resp normal air movement Resp Narrative: diminished breath sounds bibasally, no wheezes or crackles. On AirVo Effort and Inspection: tachypneic Auscultation: diminished lung sounds diffuse Cardio regular rate, regular rhythm, S1 normal heart sound, S2 normal heart sound, no m urmurs, no rub, no gallops and peripheral pulses 2+ throughout GI normal to inspection, nondistended, normoactive bowel sounds, soft to palpation, non-tender and non-distended Extremity normal to inspection, full ROM, normal capillary refill and no clubbing, cyanosis or edema General Extremity: no tenderness to palpation of joints or extremities Peripheral Pulses: Yes pulses 2+ throughout Skin no rashes or lesions noted General Skin Exam: no breakdown and turgor normal Lesions: no lesions Rashes: no rashes Neuro oriented x3, CN's II-XII intact bilaterally, moves all extremities, no focal motor deficits, no sensory deficits noted and gait normal Sensorium / Orientation: awake and alert Speech: speech normal Psych thought process normal, cooperative and affect normal Appearance: appropriate Assessment & Plan Assessment/Plan (1) Acute on chronic respiratory failure with hypoxemia: (2) Multifocal pneumonia: PLAN: #Acute on chronic hypoxic respiratory failure * etiology is unclear. 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 Was previously on immunosuppression, until he was discharged from hospital in June. * had bronch which revealed thickened whitish secretions in right upper and right middle as well as left upper lobes. Broncheoalveolar lavage was performed and samples sent for cultures * per pulmo, preliminary BAL appears to be growing fungal elements, possibly Aspergillus. * on IV vancomycin and zosyn as well as IV steroids and bronchodilators * ID on board. On voriconazole. #History of rheumatoid arthritis: not on any shelter meds now. Stable #Afib: on cardizem. On aspirin. #Hyperlipidemia: on statin #Hypertension: On lisinopril as well as Cardizem #CAD s/p stent: On statin and aspirin DVT prophylaxis: Lovenox Charges/Coding Visit Charges Inpatient E&M: 49755 Subs Hosp L3
--- NOTE | 2021-08-31 17:28 | CON.PCM.ID_ITS ---
Assessment & Plan Assessment/Plan (1) Acute on chronic respiratory failure with hypoxemia: (2) Multifocal pneumonia: PLAN: Concern for aspergillus on BAL staining. On vori, will order 4mg q12h after 2 doses loading. On zosyn as well while cx pending. Aspergillus Ab sent. CT neg for PE. Would be candidate for covid booster. Will follow, thank you, d/w Dr. Carranza HPI Consult Data Date of Consult: 08/31/21 HPI Narrative HPI Narrative: TRACY MOLINA, is a 61 M with RA, pulm fibrosis, copd, who presents with weeks of worsening cough and dyspnea, some fever. No hemoptysis. Had J&J covid shot in the spring. Dx with covid in May, admitted to OSH. Given remdesivir, steroids, abx. Improved, discharged. Did some brush hog, was clearing out things outside. Developed bacterial pneumonia, admitted and treated without much improved. Now admitted here, worsening O2, bronch done, showed concern for aspergillus. Started on vori yesterday, feeling a little b jerilyn, bringing up a lot of sputum now. Full ROS performed and neg except PFSH Medical History COPD (chronic obstructive pulmonary disease) Cough Hypoxia Long-term use of high-risk medication MICHAEL (obstructive sleep apnea) Osteoarthritis Pneumonia Pulmonary fibrosis Rheumatoid arthritis Sinusitis Home Medications aspirin 81 mg tablet,delayed release 81 mg PO DAILY tab 02/05/18 [History Last Taken 08/26/21] coenzyme [id number] E 100 mg-100 unit capsule 1 cap PO DAILY 02/05/18 [History Last Taken 08/26/21] diltiazem HCl 120 mg tablet 120 mg PO DAILY tab 02/05/18 [History Last Taken 08/26/21] lisinopril 20 mg tablet 20 mg PO DAILY 02/05/18 [History Last Taken 08/26/21] simvastatin 40 mg tablet 40 mg PO QHS 02/05/18 [History Last Taken 08/26/21] albuterol sulfate 90 mcg/actuation aerosol inhaler 2 puff INHALATION Q4H PRN #8.5 g 08/12/21 [Rx Last Taken 08/26/21] prednisone 5 mg tablet See Rx Instructions PO DAILY #42 tab 08/12/21 [Rx Last Taken Unknown] turmeric 400 mg PO DAILY 08/27/21 [History Last Taken 08/26/21] umeclidinium-vilanterol [Anoro Ellipta] 1 inh INHALATION Q24H 08/27/21 [History Last Taken 08/26/21] Allergy/AdvReac Type Severity Reaction Status Date / Time No Known Allergies Allergy Verified 08/12/21 07:52 Family History Father Heart disease Surgical History H/O rhinoplasty History of intravascular stent placement Hx of appendectomy Open fracture of left upper extremity S/P placement of cardiac pacemaker Social History Smoking Status: Former smoker how long ago did patient quit smokin, 1p/day second hand exposure: Yes alcohol intake: current alcohol intake frequency: a few times a week Alcohol type: hard liquor substance use type: does not use Physical Exam Const alert and no apparent distress General Appearance: cooperative Exam Limitations: no limitations HEENT normocephalic and head/scalp atraumatic Eyes PERRL Neck supple and No nodes Resp Auscultation: rhonchi and wheezes Cardio regular rate and regular rhythm GI normal to inspection, nondistended, normoactive bowel sounds Extremity no clubbing, cyanosis or edema Skin no rashes or lesions noted Neuro CN's II-XII intact bilaterally Lab / Micro Data Result Diagrams: 08/31/21 05:52 08/31/21 05:52 Labs: Laboratory Results - last 24 hr 08/31/21 05:52: WBC 12.1 H, RBC 3.66 L, Hgb 10.0 L, Hct 32.1 L, MCV 87.7, MCH 27.3, MCHC 31.2 L, RDW Std Deviation 56.0 H, RDW Coeff of Cheikh 17.3 H, Plt Count 251, MPV 11.6, Immature Gran % (Auto) 1.600 H, Neut % (Auto) 91.8 H, Lymph % (Auto) 2.5 L, [place] % (Auto) 3.9, Eos % (Auto) 0.0, Baso % (Auto) 0.2, Absolute Neuts (auto) 11.1 H, Absolute Lymphs (auto) 0.30 L, Nucleated RBC % 0.2, Polychromasia 2+, Anisocytosis 2+ 08/31/21 05:52: Sodium 141, Potassium 4.2, Chloride 105, Carbon Dioxide 31.0, An ion Gap 5, BUN 27 H, Creatinine 0.64 L, Estim Creat Clear Calc 120.23, Est GFR (MDRD) Af Amer 166, Est GFR (MDRD) Non-Af 137, BUN/Creatinine Ratio 42.5 H, Glucose 235 H, Calcium 7.9 L 08/31/21 05:52: Total Bilirubin 0.70, Direct Bilirubin 0.25, AST 14 L, ALT 19, Alkaline Phosphatase 68, Total Protein 5.4 L, Albumin 1.8 L, Globulin 3.6 Micro: Microbiology 08/29/21 12:00 Wash - Other Gram Stain - Final 08/29/21 12:00 Wash - Other Respiratory Culture - Preliminary 08/29/21 12:00 Wash - Right Middle Lobe Gram Stain - Final 08/29/21 12:00 Wash - Right Middle Lobe Respiratory Culture - Preliminary
[2021-08-31] MEDS: Atorvastatin Calcium 20 MG Tablet PO (20:57)
[2021-09-01] VITALS (10 sets, daily range): BP systolic 103–124; BP diastolic 56–71; PULSE 80–95; RESP 15–30; TEMP 37–38.1; O2SAT 86–95
[2021-09-01] MEDS: Sodium Chloride 0.65% 1 SPRAY SPRAY.BTL 2 SPRAY NASAL (05:34)
[2021-09-01 06:28] LABS: Absolute Lymphocyte Count 0.33 X10^3/uL (0.83-4.51); Absolute Neutrophil Count 11.4 X10^3/uL (2.0-7.7); Basophil# 0.02 X10^3/uL; Basophil% 0.2 % (0-1); Hematocrit 30.8 % (40-54); Hemoglobin 9.7 g/dL (13.0-16.5); Lymphocyte # 0.33 X10^3/ul (0.83-4.51); Lymphocyte % 2.6 % (19-41); Mean Corp Hgb Conc 31.5 g/dL (32-36); Mean Corpuscular Hgb 27.6 pg (27.0-32.0); Mean Corpuscular Volume 87.7 fL (80-94); Mean Platelet Vol. 11.9 fl (6.2-12.0); Monocyte# 0.45 X10^3/uL; Monocyte% 3.6 % (0-10); NRBC Flagged by Analyzer 0.3 % (0-5); Neutrophil # 11.37 X10^3/uL (2.7-7.7); POSITIVE DIFFERENTIAL YES; Platelet Count 262 K/mm3 (150-450); RBC Distribution Width CV 17.9 % (11.6-14.6); RBC Distribution Width SD 57.1 fl (35.1-43.9); Red Blood Count 3.51 M/mm3 (4.6-6.2); White Blood Count 12.5 K/mm3 (4.4-11.0)
[2021-09-01 06:43] LABS: Differential Indicated SCAN CRITERIA MET
--- NOTE | 2021-09-01 06:47 | PN.CC_ITS ---
Assessment & Plan Assessment/Plan (1) Acute on chronic respiratory failure with hypoxemia: PLAN: RECOMMENDATIONS: 1. Continue antimicrobials and voriconazole per ID recommendations. 2. Continue to wean oxygen as tolerated to maintain saturations at or above 90%. 3. Continue scheduled bronchodilators. 4. Restart IV Solu-Medrol 40 mg daily given wheezing on exam. 5. Obtain chest x-ray. 6. Encourage incentive spirometer use and mobilize patient as tolerated. IMPRESSIONS: 1. Acute on chronic hypoxemic respiratory failure The patient does have a baseline oxygen requirement of 3 L/min. He has a history of rheumatoid associated interstitial lung disease and was previously on immunosuppression, up until his discharge from the hospital in June. The patient has been hospitalized several times over the last couple months, first due to COVID-19 pneumonia and more recently as a consequence of bacterial pneumonia. His CT findings noted on presentation were nonspecific. Therefore, the patient underwent bronchoscopy on August 29 with BAL performed bilaterally. Fluid cytology revealed fungal organisms consistent with Aspergillus. The remainder of his cultures are still pending. The patient will be continued on bronchodilators and steroids. The patient will remain on antimicrobials and voriconazole per ID recommendations. 2. History of mixed obstructive/restrictive ventilatory impairment/rheumatoid arthritis/hypertension/hyperlipidemia Complicates care, management, recovery and prognosis. Continue home medications as indicated. This note was generated with [employer] dictation software. It may contain incorrect words, spelling, and punctuation that were not noted in checking the note before signing. Subjective Subjective The patient was seen and examined at the bedside this morning. Events from the last 24 hours have been reviewed. The patient is currently afebrile, hemodynamically stable and maintaining appropriate oxygen saturations on Airvo heated high flow with an FiO2 requirement of 70% and flow rate of 40 L/min. The patient remains on scheduled bronchodilators, voriconazole and empiric an timicrobials. The patient reported that he had a difficult night due to a significant amount of coughing. Objective Data Objective Data The patient's most recent lab work, culture data and imaging studies have all been personally reviewed. MRSA screen was negative. Aspergillus antibodies are pending. Respiratory viral panel was negative. BAL cytology demonstrated evidence of fungal elements consistent with Aspergillus. Vital Signs: Vital Signs Temp Pulse Resp BP Pulse Ox 99.6 F H 87 15 121/66 H 93 09/01/21 05:32 09/01/21 05:32 09/01/21 05:32 09/01/21 05:32 09/01/21 05:32 Oxygen Flow Rate (L/min) 40 Oxygen Delivery Method Airvo Weight: 85.094 kg Body Mass Index (BMI) 28.5 Intake & Output: Intake and Output for Last 24 Hours 08/30/21 08/31/21 09/01/21 23:59 23:59 23:59 Intake Total 420 / 420 704 / 704 50 / 50 Output Total 400 / 400 575 / 575 Balance 704 / 704 -525 / -525 Lab / Micro Data Attestation: I reviewed the patient's lab results. Result Diagrams: 09/01/21 05:50 09/01/21 05:50 Labs: Laboratory Results - last 24 hr 08/31/21 05:52: Total Bilirubin 0.70, Direct Bilirubin 0.25, AST 14 L, ALT 19, Alkaline Phosphatase 68, Total Protein 5.4 L, Albumin 1.8 L, Globulin 3.6 09/01/21 05:50: WBC 12.5 H, RBC 3.51 L, Hgb 9.7 L, Hct 30.8 L, MCV 87.7, MCH 27.6, MCHC 31.5 L, RDW Std Deviation 57.1 H, RDW Coeff of [place]ikh 17.9 H, Plt Count 262, MPV 11.9, Immature Gran % (Auto) 2.600 H, Neut % (Auto) 91.0 H, Lymph % (Auto) 2.6 L, [place] % (Auto) 3.6, Eos % (Auto) 0.0, Baso % (Auto) 0.2, Absolute Neuts (auto) 11.4 H, Absolute Lymphs (auto) 0.33 L, Nucleated RBC % 0.3 Micro: Microbiology 08/29/21 12:00 Wash - Other Gram Stain - Final 08/29/21 12:00 Wash - Other Respiratory Culture - Preliminary 08/29/21 12:00 Wash - Right Middle Lobe Gram Stain - Final 08/29/21 12:00 Wash - Right Middle Lobe Respiratory Culture - Preliminary 08/28/21 18:45 Sputum, Expectorated/Coughed Gram Stain - Final 08/28/21 18:45 Sputum, Expectorated/Coughed Respiratory Culture - Final 08/27/21 00:30 Blood Culture (Wb) - Left Hand Blood Culture - Preliminary No growth in 48 hours. 08/26/21 00:30 Blood Culture (Wb) - Anticubital Right Blood Culture - Preliminary No growth in 48 hours. 08/27/21 16:10 Sputum, Expectorated/Coughed Gram Stain - Final 08/27/21 16:10 Sputum, Expectorated/Coughed Respiratory Culture - Final 08/27/21 10:55 Sputum, Expectorated/Coughed Gram Stain - Final 08/27/21 10:55 Sputum, Expectorated/Coughed Respiratory Culture - Final 08/26/21 Unknown Urine, Clean Catch Legionella Antigen - Final 08/26/21 Unknown Urine, Clean Catch Streptococcus pneumoniae Antigen (M - Final 08/27/21 02:15 Mucosa - Nasopharyngeal Respiratory Panel (PCR) - Final 08/27/21 00:20 Nasal Secretion SARS-CoV-2 Antigen (Rapid) - Final Physical Exam Const alert, oriented x3 and no apparent distress Constitutional Narrative: Currently tolerating heated high flow oxygen. General Appearance: cooperative HEENT normocephalic and head/scalp atraumatic Eyes PERRL, EOMs intact bilaterally and conjunctivae normal Neck supple General: trachea midline Chest inspection of chest normal Resp Effort and Inspection: able to speak in complete sentences and actively c oughing; Negative for labored Auscultation: rales, wheezes and diminished lung sounds Cardio regular rate, regular rhythm, S1 normal heart sound and S2 normal heart sound GI normal to inspection, nondistended, normoactive bowel sounds Extremity no clubbing, cyanosis or edema Skin no rashes or lesions noted Neuro moves all extremities and no focal motor deficits Psych cooperative and affect normal Charges/Coding Visit Charges Inpatient E&M: 77638 Subs Hosp L3
[2021-09-01] MEDS: Ipratropium/Albuterol Sulfate 3 ML AMPUL.NEB INHALATION ×4 (06:49→20:23)
[2021-09-01 06:59] LABS: Anion Gap 5 (5-15); BUN 23 mg/dL (7-18); BUN/Creat Ratio 29.9 RATIO (10-20); Calcium,Total 7.9 mg/dL (8.5-10.1); Chloride 101 mmol/L (98-107); Creatinine, Serum 0.77 mg/dL (0.70-1.30); EST Glomerular Filtration Rate 110 mL/min (>60); Est Glom Filt Rate - Afr Amer 133 mL/min (>60); Estimated Creatinine Clearance 99.94 ml/min; Glucose 145 mg/dL (74-106); Sodium Level 137 mmol/L (136-145)
[2021-09-01 07:10] LABS: Burr Cells 1+; Ovalocyte 1+; Poikilocytosis 1+; Polychromasia 1+
[2021-09-01 07:11] LABS: Anisocytosis 2+; Stomatocyte 1+; Tear Drop Cell RARE
[2021-09-01 08:12] LABS: BNP,B-Type NATRIURETIC PEPTIDE 200.1 pg/mL (0-100)
[2021-09-01] MEDS: Piperacil/Tazobactam 3.375 GM/50 ML ML IV ×3 (08:48→22:31)
[2021-09-01] MEDS: guaiFENesin 1,200 MG Tablet 1200 MG PO (08:57)
[2021-09-01] MEDS: Acetaminophen 325 MG Tablet 650 MG PO ×2 (08:57→20:23)
[2021-09-01] MEDS: dilTIAZem CD 120 MG Capsule PO (08:57)
[2021-09-01] MEDS: Enoxaparin 40 MG/0.4 ML Syringe SC (08:57)
[2021-09-01] MEDS: Lisinopril 20 MG Tablet PO (08:58)
[2021-09-01] MEDS: Aspirin E.C. 81 MG Tablet PO (08:58)
--- NOTE | 2021-09-01 09:35 | RAD_ITS ---
STUDY: X-RAY CHEST REASON FOR EXAM: Male, 61 years old. Respiratory Failure TECHNIQUE: Single AP portable view of the chest. COMPARISON: None. FINDINGS: EKG electrodes are seen. Diffuse bilateral airspace disease worse in the right hemithorax. There is no demonstrated pleural abnormality. Normal size heart. A left-sided dual-chamber pacemaker is seen. Normal mediastinum and wanda. Normal visualized pulmonary arteries. Normal visualized aortic arch and descending thoracic aorta. Normal visualized thoracic spine. Normal visualized ribs, clavicles, and shoulders. There is no demonstrated abnormality of the visualized soft tissue structures of the upper abdomen. RAD/Chest 1 View (Portable) IMPRESSION: Diffuse bilateral airspace disease worse in the right hemithorax. Electronically Signed: Dwaine Gurrola MD at 9:48 EDT , Service support ,
[2021-09-01] MEDS: 0.9% Saline Lock 10 ML Syringe IV ×2 (11:56→14:52)
[2021-09-01] MEDS: Furosemide 40 MG/4 ML Vial IV (11:56)
--- NOTE | 2021-09-01 14:36 | PN.HOSP_ITS ---
Subjective Subjective Patient seen and examined. He had an uncomfortable night, and says said he was coughing a lot, with expectoration of sputum. He had no other complaints and review of systems is otherwise negative. Review of systems is otherwise negative. He remains on AirVo. Objective Data Objective Data Vital Signs: Vital Signs Temp Pulse Resp BP Pulse Ox 98.6 F 86 25 H 103/63 92 09/01/21 13:42 09/01/21 13:42 09/01/21 13:42 09/01/21 13:42 09/01/21 13:42 Oxygen Flow Rate (L/min) 40 Oxygen Delivery Method Airvo Weight: 187 lb 9.602 oz Body Mass Index (BMI) 28.5 Intake & Output: Intake and Output for Last 24 Hours 08/30/21 08/31/21 09/01/21 23:59 23:59 23:59 Intake Total 420 / 420 704 / 704 384 / 384 Output Total 400 / 400 575 / 575 Balance 704 / 704 -191 / -191 Lab / Micro Data Result Diagrams: 09/01/21 05:50 09/01/21 05:50 Labs: Laboratory Results - last 24 hr 09/01/21 05:50: WBC 12.5 H, RBC 3.51 L, Hgb 9.7 L, Hct 30.8 L, MCV 87.7, MCH 27.6, MCHC 31.5 L, RDW Std Deviation 57.1 H, RDW Coeff of [place] 17.9 H, Plt Count 262, MPV 11.9, Immature Gran % (Auto) 2.600 H, Neut % (Auto) 91.0 H, Lymph % (Auto) 2.6 L, [place] % (Auto) 3.6, Eos % (Auto) 0.0, Baso % (Auto) 0.2, Absolute Neuts (auto) 11.4 H, Absolute Lymphs (auto) 0.33 L, Nucleated RBC % 0.3, Polychromasia 1+, Poikilocytosis 1+, Anisocytosis 2+, Tear Drop Cells RARE, Ovalocytes 1+, Stomatocytes 1+, [place] Cells 1+ 09/01/21 05:50: Sodium 137, Potassium 4.0, Chloride 101, Carbon Dioxide 31.0, Anion Gap 5, BUN 23 H, Creatinine 0.77, Estim Creat Clear Calc 99.94, Est GFR (MDRD) Af Amer 133, Est GFR (MDRD) Non-Af 110, BUN/Creatinine Ratio 29.9 H, Glucose 145 H, Calcium 7.9 L 09/01/21 05:50: B-Natriuretic Peptide 200.1 H Micro: Microbiology 08/27/21 00:30 Blood Culture (Wb) - Left Hand Blood Culture - Final No growth in 5 days. 08/26/21 00:30 Blood Culture (Wb) - Anticubital Right Blood Culture - Final No growth in 5 days. 08/29/21 12:00 Wash - Other Gram Stain - Final 08/29/21 12:00 Wash - Other Respiratory Culture - Preliminary 08/29/21 12:00 Wash - Right Middle Lobe Gram Stain - Final 08/29/21 12:00 Wash - Right Middle Lobe Respiratory Culture - Preliminary 08/28/21 18:45 Sputum, Expectorated/Coughed Gram Stain - Final 08/28/21 18:45 Sputum, Expectorated/Coughed Respiratory Culture - Final 08/27/21 16:10 Sputum, Expectorated/Coughed Gram Stain - Final 08/27/21 16:10 Sputum, Expectorated/Coughed Respiratory Culture - Final 08/27/21 10:55 Sputum, Expectorated/Coughed Gram Stain - Final 08/27/21 10:55 Sputum, Expectorated/Coughed Respiratory Culture - Final 08/26/21 Unknown Urine, Clean Catch Legionella Antigen - Final 08/26/21 Unknown Urine, Clean Catch Streptococcus pneumoniae Antigen (M - Final 08/27/21 02:15 Mucosa - Nasopharyngeal Respiratory Panel (PCR) - Final 08/27/21 00:20 Nasal Secretion SARS-CoV-2 Antigen (Rapid) - Final Radiography Diagnostic Testing: Radiology Impression Chest X-Ray 09/01/21 09:35 IMPRESSION: Diffuse bilateral airspace disease worse in the right hemithorax. Electronically Signed: Dwaine Gurrola MD at 9:48 EDT , Service support , Physical Exam Const alert, oriented x3 and no apparent distress General Appearance: cooperative, well kempt and well developed Orientation / Consciousness: awake, oriented to person, oriented to place and oriented to time Exam Limitations: no limitations HEENT normocephalic, head/scalp atraumatic, moist oral mucous membranes and oropharynx normal Head and Scalp: normocephalic Eyes PERRL, EOMs intact bilaterally, conjunctivae normal and no scleral icterus Neck nuchal rigidity, no lymphadenopathy, supple, no JVD, thyroid normal and no carotid bruits General: trachea midline Resp normal air movement Resp Narrative: diminished breath sounds bibasally, no wheezes or crackles. On AirVo Effort and Inspection: tachypneic Auscultation: diminished lung sounds diffuse Cardio regular rate, regular rhythm, S1 normal heart sound, S2 normal heart sound, no murmurs, no rub, no gallops and peripheral pulses 2+ throughout GI normal to inspection, nondistended, normoactive bowel sounds, soft to palpation, non-tender and non-distended Extremity normal to inspection, full ROM, normal capillary refill and no clubbing, cyanosis or edema General Extremity: no tenderness to palpation of joints or extremities Peripheral Pulses: Yes pulses 2+ throughout Skin no rashes or lesions noted General Skin Exam: no breakdown and turgor normal Lesions: no lesions Rashes: no rashes Neuro oriented x3, CN's II-XII intact bilaterally, moves all extremities, no focal motor deficits, no sensory deficits noted and gait normal Sensorium / Orientation: awake and alert Speech: speech normal Psych thought process normal, cooperative and affect normal Appearance: appropriate Assessment & Plan Assessment/Plan (1) Acute on chronic respiratory failure with hypoxemia: (2) Multifocal pneumonia: PLAN: #Acute on chronic hypoxic respiratory failure * etiology is unclear. * had bronchoscopy which revealed thickened whitish secretions in right upper a nd right middle as well as left upper lobes. Broncheoalveolar lavage was performed and samples sent for cultures * per pulmo, preliminary BAL appears to be growing fungal elements, possibly Aspergillus. * on IV vancomycin and zosyn as well as voriconazole, IV solumedrol and bronchodilators. * ID on board. On voriconazole. 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 Stable #Afib: on cardizem. On aspirin. #Hyperlipidemia: on statin #Hypertension: On lisinopril as well as Cardizem #CAD s/p stent: On statin and aspirin DVT prophylaxis: Lovenox Charges/Coding Visit Charges Inpatient E&M: 33494 Subs Hosp L3
[2021-09-01] MEDS: guaiFENesin/Codeine 5 ML UDC PO (17:37)
[2021-09-01 18:07] LABS: Aspirgillus flavus Negative (Neg:<1:1); Aspirgillus fumigatus Negative (Neg:<1:1)
[2021-09-01] MEDS: Atorvastatin Calcium 20 MG Tablet PO (20:23)
[2021-09-01] MEDS: MELATONIN 3 MG TABLET PO (20:23)
[2021-09-02] VITALS (12 sets, daily range): BP systolic 92–114; BP diastolic 58–70; PULSE 72–88; RESP 12–28; TEMP 36.6–37.1; O2SAT 88–96
[2021-09-02] MEDS: guaiFENesin/Codeine 5 ML UDC PO ×2 (02:19→20:07)
--- NOTE | 2021-09-02 06:11 | NURSING ---
Spoke with pharmacy about Voriconazole for this pt. Pharmicist states we do not have enough in stock to mix this AM dose. Says we should be getting more in today and will then provide dose and retime.
[2021-09-02] MEDS: Piperacil/Tazobactam 3.375 GM/50 ML ML IV ×3 (06:19→22:57)
[2021-09-02 07:15] LABS: Absolute Lymphocyte Count 0.18 X10^3/uL (0.83-4.51); Absolute Neutrophil Count 8.9 X10^3/uL (2.0-7.7); Basophil# 0.01 X10^3/uL; Basophil% 0.1 % (0-1); Hematocrit 33.6 % (40-54); Hemoglobin 10.6 g/dL (13.0-16.5); Lymphocyte # 0.18 X10^3/ul (0.83-4.51); Lymphocyte % 1.9 % (19-41); Mean Corp Hgb Conc 31.5 g/dL (32-36); Mean Corpuscular Hgb 27.4 pg (27.0-32.0); Mean Corpuscular Volume 86.8 fL (80-94); Mean Platelet Vol. 11.9 fl (6.2-12.0); Monocyte# 0.26 X10^3/uL; Monocyte% 2.7 % (0-10); NRBC Flagged by Analyzer 0 % (0-5); Neutrophil # 8.91 X10^3/uL (2.7-7.7); Neutrophil % 93.6 % (47-70); POSITIVE DIFFERENTIAL YES; Platelet Count 223 K/mm3 (150-450); RBC Distribution Width CV 17.8 % (11.6-14.6); RBC Distribution Width SD 57.3 fl (35.1-43.9); Red Blood Count 3.87 M/mm3 (4.6-6.2); White Blood Count 9.5 K/mm3 (4.4-11.0)
[2021-09-02 07:21] LABS: Differential Indicated SCAN CRITERIA MET
[2021-09-02] MEDS: Ipratropium/Albuterol Sulfate 3 ML AMPUL.NEB INHALATION ×5 (07:24→22:53)
[2021-09-02 07:44] LABS: Anion Gap 5 (5-15); BUN 23 mg/dL (7-18); BUN/Creat Ratio 31.4 RATIO (10-20); Calcium,Total 8.4 mg/dL (8.5-10.1); Chloride 97 mmol/L (98-107); Creatinine, Serum 0.73 mg/dL (0.70-1.30); EST Glomerular Filtration Rate 116 mL/min (>60); Est Glom Filt Rate - Afr Amer 141 mL/min (>60); Estimated Creatinine Clearance 105.41 ml/min; Glucose 220 mg/dL (74-106); Potassium 4.1 mmol/L (3.5-5.1); Sodium Level 136 mmol/L (136-145)
[2021-09-02] MEDS: Enoxaparin 40 MG/0.4 ML Syringe SC (07:48)
[2021-09-02] MEDS: 0.9% Saline Lock 10 ML Syringe IV (07:48)
[2021-09-02] MEDS: Aspirin E.C. 81 MG Tablet PO (07:48)
--- NOTE | 2021-09-02 07:59 | PCM.PN.INT ---
Assessment & Plan Assessment/Plan (1) Acute on chronic respiratory failure with hypoxemia: PLAN: RECOMMENDATIONS: 1. Continue antimicrobials and voriconazole per ID recommendations. 2. Given current respiratory status, I would recommend the use of BiPAP to assist with alveolar recruitment. 3. Nursing staff to get the patient out of bed to his bedside recliner. 4. Continue scheduled bronchodilators. 5. Continue Solu-Medrol 40 mg IV daily. 6. Encourage incentive spirometer use and mobilize patient as tolerated. IMPRESSIONS: 1. Acute on chronic hypoxemic respiratory failure The patient does have a baseline oxygen requirement of 3 L/min. He has a history of rheumatoid associated interstitial lung disease and was previously on immunosuppression, up until his discharge from the hospital in June. The patient has been hospitalized several times over the last couple months, first due to COVID-19 pneumonia and more recently as a consequence of bacterial pneumonia. His CT findings noted on presentation were nonspecific. Therefore, the patient underwent bronchoscopy on August 29 with BAL performed bilaterally. Fluid cytology revealed fungal organisms consistent with Aspergillus. The remainder of his cultures are still pending. The patient will be continued on bronchodilators and steroids. The patient will remain on antimicrobials and voriconazole per ID recommendations. 2. History of mixed obstructive/restrictive ventilatory impairment/rheumatoid arthritis/hypertension/hyperlipidemia Complicates care, management, recovery and prognosis. Continue home medications as indicated. This note was generated with [employer] dictation software. It may contain incorrect words, spelling, and punctuation that were not noted in checking the note before signing. Subjective Subjective The patient was seen and examined at the bedside this morning. Events from the last 24 hours have been reviewed. The patient is currently afebrile, hemodynamically stable and maintaining appropriate oxygen saturations on Airvo heated high flow with an FiO2 requirement of 91% and flow rate of 40 L/min. The patient has not allowed respiratory therapy to increase the flow rate on the heated high flow, stating that it causes discomfort. His cough is overall improved since yesterday after being started on a cough suppressant. He has not yet been out of bed. Objective Data Objective Data The patient's most recent lab work, culture data and imaging studies have all been personally reviewed. MRSA screen was negative. Aspergillus antibodies are pending. Respiratory viral panel was negative. BAL cytology demonstrated evidence of fungal elements consistent with Aspergillus. Vital Signs: Vital Signs Temp Pulse Resp BP Pulse Ox 97.8 F 72 18 97/60 90 09/02/21 07:36 09/02/21 07:36 09/02/21 07:36 09/02/21 07:36 09/02/21 07:36 Oxygen Flow Rate (L/min) 45 Oxygen Delivery Method Airvo Weight: 85.094 kg Body Mass Index (BMI) 28.5 Intake & Output: Intake and Output for Last 24 Hours 08/31/21 09/01/21 09/02/21 23:59 23:59 23:59 Intake Total 704 / 704 830 / 830 107 / 107 Output Total 575 / 575 Balance 704 / 704 255 / 255 107 / 107 Lab / Micro Data Attestation: I reviewed the patient's lab results. Result Diagrams: 09/02/21 05:38 09/02/21 05:38 Labs: Laboratory Results - last 24 hr 08/29/21 12:00: Acid Fast Stain SEE PATHOLOGY REPORT, Miscellaneous Cytology SEE PATHOLOGY REPORT 08/29/21 12:00: Miscellaneous Cytology SEE PATHOLOGY REPORT 09/01/21 05:50: B-Natriuretic Peptide 200.1 H 09/02/21 05:38: WBC 9.5, RBC 3.87 L, Hgb 10.6 L, Hct 33.6 L, MCV 86.8, MCH 27.4, MCHC 31.5 L, RDW Std Deviation 57.3 H, RDW Coeff of [place] 17.8 H, Plt Count 223, MPV 11.9, Immature Gran % (Auto) 1.700 H, Neut % (Auto) 93.6 H, Lymph % (Auto) 1.9 L, [place] % (Auto) 2.7, Eos % (Auto) 0.0, Baso % (Auto) 0.1, Absolute Neuts (auto) 8.9 H, Absolute Lymphs (auto) 0.18 L, Nucleated RBC % 0 09/02/21 05:38: Sodium 136, Potassium 4.1, Chloride 97 L, Carbon Dioxide 34.0 H, Anion Gap 5, BUN 23 H, Creatinine 0.73, Estim Creat Clear Calc 105.41, Est GFR (MDRD) Af Amer 141, Est GFR (MDRD) Non-Af 116, BUN/Creatinine Ratio 31.4 H, Glucose 220 H, Calcium 8.4 L Micro: Microbiology 08/29/21 12:00 Wash - Right Middle Lobe Gram Stain - Final 08/29/21 12:00 Wash - Right Middle Lobe Respiratory Culture - Final Presumptive C albicans 08/29/21 12:00 Wash - Other Gram Stain - Final 08/29/21 12:00 Wash - Other Respiratory Culture - Final Presumptive C albicans 08/27/21 00:30 Blood Culture (Wb) - Left Hand Blood Culture - Final No growth in 5 days. 08/26/21 00:30 Blood Culture (Wb) - Anticubital Right Blood Culture - Final No growth in 5 days. 08/28/21 18:45 Sputum, Expectorated/Coughed Gram Stain - Final 08/28/21 18:45 Sputum, Expectorated/Coughed Respiratory Culture - Final 08/27/21 16:10 Sputum, Expectorated/Coughed Gram Stain - Final 08/27/21 16:10 Sputum, Expectorated/Coughed Respiratory Culture - Final 08/27/21 10:55 Sputum, Expectorated/Coughed Gram Stain - Final 08/27/21 10:55 Sputum, Expectorated/Coughed Respiratory Culture - Final 08/26/21 Unknown Urine, Clean Catch Legionella Antigen - Final 08/26/21 Unknown Urine, Clean Catch Streptococcus pneumoniae Antigen (M - Final 08/27/21 02:15 Mucosa - Nasopharyngeal Respiratory Panel (PCR) - Final 08/27/21 00:20 Nasal Secretion SARS-CoV-2 Antigen (Rapid) - Final Radiography Diagnostic Testing: Radiology Impression Chest X-Ray 09/01/21 09:35 IMPRESSION: Diffuse bilateral airspace disease worse in the right hemithorax. Electronically Signed: Dwaine Gurrola MD at 9:48 EDT , Service support , Physical Exam Const alert, oriented x3 and no apparent distress Constitutional Narrative: Currently tolerating heated high flow oxygen. General Appearance: cooperative HEENT normocephalic and head/scalp atraumatic Eyes PERRL, EOMs intact bilaterally and conjunctivae normal Neck supple General: trachea midline Chest inspection of chest normal Resp Effort and Inspection: tachypneic Auscultation: rales, wheezes and diminished lung sounds Cardio regular rate, regular rhythm, S1 normal heart sound and S2 normal heart sound GI normal to inspection, nondistended, normoactive bowel sounds Extremity no clubbing, cyanosis or edema Skin no rashes or lesions noted Neuro moves all extremities and no focal motor deficits Psych cooperative and affect normal Charges/Coding Visit Charges Inpatient E&M: 68519 Subs Hosp L3
--- NOTE | 2021-09-02 08:01 | NURSING ---
POX DROPPED TO 67% GETTING UP TO CHAIR. DR SUAZO WAS JUST IN AND DISCUSSED TRYING BIPAP. PT AGREEABLE. DR SUAZO ALSO WANTED PT UP TO CHAIR. RESPIRATORY THERAPY AWARE. POX UP TO 82% AFTER ALMOST [address] BOO WAS JUST IN TO SEE PT WELL AND UPDATED.
[2021-09-02 09:08] LABS: Aspirgillus niger Negative (Neg:<1:1)
--- NOTE | 2021-09-02 10:33 | PN.HOSP_ITS ---
Subjective Subjective Patient seen and examined. He felt more short of breath. He had just moved from his bed to the chair and that made him still short of breath. He is still coughing. He denied any chest pain, palpitations, dizziness, nausea or vomiting. Review of systems is otherwise negative. He remains on AirVo. He has otherwise remained hemodynamically stable. Objective Data Objective Data Vital Signs: Vital Signs Temp Pulse Resp BP Pulse Ox 98.7 F 79 27 H 104/68 94 09/02/21 09:32 09/02/21 10:04 09/02/21 10:04 09/02/21 09:32 09/02/21 10:04 Oxygen Flow Rate (L/min) 45 Oxygen Delivery Method Airvo Weight: 187 lb 9.602 oz Body Mass Index (BMI) 28.5 Intake & Output: Intake and Output for Last 24 Hours 08/31/21 09/01/21 09/02/21 23:59 23:59 23:59 Intake Total 704 / 704 830 / 830 107 / 107 Output Total 575 / 575 Balance 704 / 704 255 / 255 107 / 107 Lab / Micro Data Result Diagrams: 09/02/21 05:38 09/02/21 05:38 Labs: Laboratory Results - last 24 hr 08/28/21 07:13: Aspergillus flavus Ab Negative, Aspergill fumigatus Ab Negative, Aspergillus niger Ab Negative 08/29/21 12:00: Acid Fast Stain SEE PATHOLOGY REPORT, Miscellaneous Cytology SEE PATHOLOGY REPORT 08/29/21 12:00: Miscellaneous Cytology SEE PATHOLOGY REPORT 09/02/21 05:38: WBC 9.5, RBC 3.87 L, Hgb 10.6 L, Hct 33.6 L, MCV 86.8, MCH 27.4, MCHC 31.5 L, RDW Std Deviation 57.3 H, RDW Coeff of [place] 17.8 H, Plt Count 223, MPV 11.9, Immature Gran % (Auto) 1.700 H, Neut % (Auto) 93.6 H, Lymph % (Auto) 1.9 L, [place] % (Auto) 2.7, Eos % (Auto) 0.0, Baso % (Auto) 0.1, Absolute Neuts (auto) 8.9 H, Absolute Lymphs (auto) 0.18 L, Nucleated RBC % 0 09/02/21 05:38: Sodium 136, Potassium 4.1, Chloride 97 L, Carbon Dioxide 34.0 H, Anion Gap 5, BUN 23 H, Creatinine 0.73, Estim Creat Clear Calc 105.41, Est GFR (MDRD) Af Amer 141, Est GFR (MDRD) Non-Af 116, BUN/Creatinine Ratio 31.4 H, Glucose 220 H, Calcium 8.4 L Micro: Microbiology 08/29/21 12:00 Wash - Right Middle Lobe Gram Stain - Final 08/29/21 12:00 Wash - Right Middle Lobe Respiratory Culture - Final Presumptive C albicans 08/29/21 12:00 Wash - Other Gram Stain - Final 08/29/21 12:00 Wash - Other Respiratory Culture - Final Presumptive C albicans 08/27/21 00:30 Blood Culture (Wb) - Left Hand Blood Culture - Final No growth in 5 days. 08/26/21 00:30 Blood Culture (Wb) - Anticubital Right Blood Culture - Final No growth in 5 days. 08/28/21 18:45 Sputum, Expectorated/Coughed Gram Stain - Final 08/28/21 18:45 Sputum, Expectorated/Coughed Respiratory Culture - Final 08/27/21 16:10 Sputum, Expectorated/Coughed Gram Stain - Final 08/27/21 16:10 Sputum, Expectorated/Coughed Respiratory Culture - Final 08/27/21 10:55 Sputum, Expectorated/Coughed Gram Stain - Final 08/27/21 10:55 Sputum, Expectorated/Coughed Respiratory Culture - Final 08/26/21 Unknown Urine, Clean Catch Legionella Antigen - Final 08/26/21 Unknown Urine, Clean Catch Streptococcus pneumoniae Antigen (M - Final 08/27/21 02:15 Mucosa - Nasopharyngeal Respiratory Panel (PCR) - Final 08/27/21 00:20 Nasal Secretion SARS-CoV-2 Antigen (Rapid) - Final Physical Exam Const alert, oriented x3 and no apparent distress General Appearance: cooperative, well kempt and well developed Orientation / Consciousness: awake, oriented to person, oriented to place and oriented to time Exam Limitations: no limitations HEENT normocephalic, head/scalp atraumatic, moist oral mucous membranes and oropharynx normal Head and Scalp: normocephalic Eyes PERRL, EOMs intact bilaterally, conjunctivae normal and no scleral icterus Neck nuchal rigidity, no lymphadenopathy, supple, no JVD, thyroid normal and no carotid bruits General: trachea midline Resp normal air movement Resp Narrative: diminished breath sounds bibasally, no wheezes or crackles. Still on AirVo Effort and Inspection: tachypneic Auscultation: diminished lung sounds diffuse Cardio regular rate, regular rhythm, S1 normal heart sound, S2 normal heart sound, no murmurs, no rub, no gallops and peripheral pulses 2+ throughout GI normal to inspection, nondistended, normoactive bowel sounds, soft to palpation, non-tender and non-distended Extremity normal to inspection, full ROM, normal capillary refill and no clubbing, cyanosis or edema General Extremity: no tenderness to palpation of joints or extremities Peripheral Pulses: Yes pulses 2+ throughout Skin no rashes or lesions noted General Skin Exam: no breakdown and turgor normal Lesions: no lesions Rashes: no rashes Neuro oriented x3, CN's II-XII intact bilaterally, moves all extremities, no focal motor deficits, no sensory deficits noted and gait normal Sensorium / Orientation: awake and alert Speech: speech normal Psych thought process normal, cooperative and affect normal Appearance: appropriate Assessment & Plan Assessment/Plan (1) Acute on chronic respiratory failure with hypoxemia: (2) Multifocal pneumonia: PLAN: #Acute on chronic hypoxic respiratory failure * etiology is unclear. * had bronchoscopy which revealed thickened whitish secretions in right upper and right middle as well as left upper lobes. Broncheoalveolar lavage was performed and samples sent for cultures * per pulmo, preliminary BAL appears to be growing fungal elements, possibly Aspergillus. * on IV vancomycin and zosyn as well as voriconazole, IV solumedrol and broncho dilators. * ID on board. On voriconazole. * on AirVo this morning; being transitioned to BIPAP due to persistent hypoxia. #History of rheumatoid arthritis: not on any long term care administrator meds now. Stable #Afib: on cardizem. On aspirin. #Hyperlipidemia: on statin #Hypertension: On lisinopril as well as Cardizem #CAD s/p stent: On statin and aspirin DVT prophylaxis: Lovenox Charges/Coding Visit Charges Inpatient E&M: 97611 Subs Hosp L3
--- NOTE | 2021-09-02 12:54 | PCM.PN.ID ---
Physical Exam Narrative Breathing better with bipap, no fever, still a lot of sputum Const alert General Appearance: cooperative Resp Auscultation: diminished lung sounds Cardio regular rate and regular rhythm GI normal to inspection, nondistended, normoactive bowel sounds Skin no rashes or lesions noted ID ID: Route of nutrition/ use of supplements: [] Nutritional Intake: [] IV Site: [] Gonzalez Catheter: [] Assessment & Plan Assessment/Plan (1) Acute on chronic respiratory failure with hypoxemia: (2) Multifocal pneumonia: PLAN: Concern for aspergillus on BAL staining. On vori, 4mg q12h. Fungal cx neg so far, some rare yeast on aerobic. On zosyn as well while cx pending. Aspergillus Ab neg. CT neg for PE. Would be candidate for covid booster. Remains hypoxic. Will follow
[2021-09-02] MEDS: Atorvastatin Calcium 20 MG Tablet PO (20:04)
[2021-09-02] MEDS: MELATONIN 3 MG TABLET PO (20:07)
[2021-09-03] VITALS (18 sets, daily range): BP systolic 91–121; BP diastolic 53–69; PULSE 70–105; RESP 12–34; TEMP 36.6–37.1; O2SAT 89–97
[2021-09-03] MEDS: Ipratropium/Albuterol Sulfate 3 ML AMPUL.NEB INHALATION ×5 (03:29→18:33)
[2021-09-03 06:23] LABS: Absolute Lymphocyte Count 0.29 X10^3/uL (0.83-4.51); Absolute Neutrophil Count 10.2 X10^3/uL (2.0-7.7); Basophil# 0.02 X10^3/uL; Basophil% 0.2 % (0-1); Hematocrit 33.8 % (40-54); Hemoglobin 10.3 g/dL (13.0-16.5); Lymphocyte # 0.29 X10^3/ul (0.83-4.51); Lymphocyte % 2.6 % (19-41); Mean Corp Hgb Conc 30.5 g/dL (32-36); Mean Corpuscular Volume 88.5 fL (80-94); Mean Platelet Vol. 12.2 fl (6.2-12.0); Monocyte# 0.35 X10^3/uL; Monocyte% 3.2 % (0-10); NRBC Flagged by Analyzer 0 % (0-5); Neutrophil # 10.15 X10^3/uL (2.7-7.7); Neutrophil % 92.5 % (47-70); POSITIVE DIFFERENTIAL YES; Platelet Count 258 K/mm3 (150-450); RBC Distribution Width CV 17.5 % (11.6-14.6); RBC Distribution Width SD 56.6 fl (35.1-43.9); Red Blood Count 3.82 M/mm3 (4.6-6.2)
--- NOTE | 2021-09-03 06:27 | PCM.PN.INT ---
Assessment & Plan Assessment/Plan (1) Acute on chronic respiratory failure with hypoxemia: PLAN: RECOMMENDATIONS: 1. Continue antimicrobials and voriconazole per ID recommendations. 2. Continue combination of BiPAP and Airvo heated high flow throughout the day. Goal to maintain oxygen saturations at or above 90%. 3. Encourage incentive spirometer use and mobilize patient as tolerated. 4. Continue scheduled bronchodilators. 5. Continue Solu-Medrol 40 mg IV daily. 6. IV Lasix x1 today. IMPRESSIONS: 1. Acute on chronic hypoxemic respiratory failure The patient does have a baseline oxygen requirement of 3 L/min. He has a history of rheumatoid associated interstitial lung disease and was previously on immunosuppression, up until his discharge from the hospital in June. The patient has been hospitalized several times over the last couple months, first due to COVID-19 pneumonia and more recently as a consequence of bacterial pneumonia. His CT findings noted on presentation were nonspecific. Therefore, the patient underwent bronchoscopy on August 29 with BAL performed bilaterally. Fluid cytology revealed fungal organisms consistent with Aspergillus. The remainder of his cultures are still pending. The patient will be continued on bronchodilators and steroids. The patient will remain on antimicrobials and voriconazole per ID recommendations. He appears to be tolerating a combination of BiPAP and heated high flow oxygen. This, too, will be continued, with a goal to maintain oxygen saturations at or above 90%. Encourage incentive spirometer use and mobilize patient as tolerated. 2. History of mixed obstructive/restrictive ventilatory impairment/rheumatoid arthritis/hypertension/hyperlipidemia Complicates care, management, recovery and prognosis. Continue home medications as indicated. This note was generated with [employer] dictation software. It may contain incorrect words, spelling, and punctuation that were not noted in checking the note before signing. Subjective Subjective The patient was seen and examined at the bedside this morning. Events from the last 24 hours have been reviewed. The patient is currently afebrile, hemodynamically stable and maintaining appropriate oxygen saturations on BIPAP currently. The patient does report that he feels much better since being started on Pap therapy. The patient is currently documented to be overall net +2.2 L for the hospitalization. He remains on antimicrobials and voriconazole. The patient is also being maintained on scheduled bronchodilators and once daily IV steroids. Objective Data Objective Data The patient's most recent lab work, culture data and imaging studies have all been personally reviewed. MRSA screen was negative. Aspergillus antibodies are pending. Respiratory viral panel was negative. BAL cytology demonstrated evidence of fungal elements consistent with Aspergillus. Vital Signs: Vital Signs Temp Pulse Resp BP Pulse Ox 97.9 F 76 25 H 106/62 95 09/03/21 02:43 09/03/21 03:27 09/03/21 03:27 09/03/21 02:43 09/03/21 03:27 Oxygen Flow Rate (L/min) 45 Oxygen Delivery Method Bi-pap Weight: 85.094 kg Body Mass Index (BMI) 28.5 Intake & Output: Intake and Output for Last 24 Hours 09/01/21 09/02/21 09/03/21 23:59 23:59 23:59 Intake Total 830 / 830 775 / 775 250 / 250 Output Total 575 / 575 500 / 500 Balance 255 / 255 775 / 775 -250 / -250 Lab / Micro Data Attestation: I reviewed the patient's lab results. Result Diagrams: 09/03/21 05:30 09/03/21 05:30 Labs: Laboratory Results - last 24 hr 08/28/21 07:13: Aspergillus flavus Ab Negative, Aspergill fumigatus Ab Negative, Aspergillus niger Ab Negative 09/02/21 05:38: WBC 9.5, RBC 3.87 L, Hgb 10.6 L, Hct 33.6 L, MCV 86.8, MCH 27.4, MCHC 31.5 L, RDW Std Deviation 57.3 H, RDW Coeff of [place] 17.8 H, Plt Count 223, MPV 11.9, Immature Gran % (Auto) 1.700 H, Neut % (Auto) 93.6 H, Lymph % (Auto) 1.9 L, [place] % (Auto) 2.7, Eos % (Auto) 0.0, Baso % (Auto) 0.1, Absolute Neuts (auto) 8.9 H, Absolute Lymphs (auto) 0.18 L, Nucleated RBC % 0 09/02/21 05:38: Sodium 136, Potassium 4.1, Chloride 97 L, Carbon Dioxide 34.0 H, Anion Gap 5, BUN 23 H, Creatinine 0.73, Estim Creat Clear Calc 105.41, Est GFR (MDRD) Af Amer 141, Est GFR (MDRD) Non-Af 116, BUN/Creatinine Ratio 31.4 H, Glucose 220 H, Calcium 8.4 L Micro: Microbiology 08/29/21 12:00 Wash - Right Middle Lobe Gram Stain - Final 08/29/21 12:00 Wash - Right Middle Lobe Respiratory Culture - Final Presumptive C albicans 08/29/21 12:00 Wash - Other Gram Stain - Final 08/29/21 12:00 Wash - Other Respiratory Culture - Final Presumptive C albicans 08/27/21 00:30 Blood Culture (Wb) - Left Hand Blood Culture - Final No growth in 5 days. 08/26/21 00:30 Blood Culture (Wb) - Anticubital Right Blood Culture - Final No growth in 5 days. 08/28/21 18:45 Sputum, Expectorated/Coughed Gram Stain - Final 08/28/21 18:45 Sputum, Expectorated/Coughed Respiratory Culture - Final 08/27/21 16:10 Sputum, Expectorated/Coughed Gram Stain - Final 08/27/21 16:10 Sputum, Expectorated/Coughed Respiratory Culture - Final 08/27/21 10:55 Sputum, Expectorated/Coughed Gram Stain - Final 08/27/21 10:55 Sputum, Expectorated/Coughed Respiratory Culture - Final 08/26/21 Unknown Urine, Clean Catch Legionella Antigen - Final 08/26/21 Unknown Urine, Clean Catch Streptococcus pneumoniae Antigen (M - Final 08/27/21 02:15 Mucosa - Nasopharyngeal Respiratory Panel (PCR) - Final 08/27/21 00:20 Nasal Secretion SARS-CoV-2 Antigen (Rapid) - Final Physical Exam Const alert, oriented x3 and no apparent distress General Appearance: cooperative and on BiPAP HEENT normocephalic and head/scalp atraumatic Eyes PERRL, EOMs intact bilaterally and conjunctivae normal Neck supple General: trachea midline Chest inspection of chest normal Resp normal respiratory effort and no use of accessory muscles Auscultation: rales, wheezes and diminished lung sounds Cardio regular rate, regular rhythm, S1 normal heart sound and S2 normal heart sound GI normal to inspection, nondistended, normoactive bowel sounds Extremity no clubbing, cyanosis or edema Skin no rashes or lesions noted Neuro moves all extremities and no focal motor deficits Psych cooperative and affect normal Charges/Coding Visit Charges Inpatient E&M: 10978 Subs Hosp L3
[2021-09-03 06:29] LABS: Differential Indicated SCAN CRITERIA MET
[2021-09-03 06:44] LABS: Anion Gap 5 (5-15); BUN 27 mg/dL (7-18); BUN/Creat Ratio 36.9 RATIO (10-20); Calcium,Total 8.3 mg/dL (8.5-10.1); Chloride 100 mmol/L (98-107); Creatinine, Serum 0.73 mg/dL (0.70-1.30); EST Glomerular Filtration Rate 117 mL/min (>60); Est Glom Filt Rate - Afr Amer 141 mL/min (>60); Estimated Creatinine Clearance 105.41 ml/min; Glucose 197 mg/dL (74-106); Potassium 4.4 mmol/L (3.5-5.1); Sodium Level 139 mmol/L (136-145)
[2021-09-03 06:45] LABS: Differential Comment SCANNED
[2021-09-03] MEDS: Piperacil/Tazobactam 3.375 GM/50 ML ML IV ×3 (07:26→21:15)
[2021-09-03] MEDS: Furosemide 40 MG/4 ML Vial IV (07:55)
[2021-09-03] MEDS: Aspirin E.C. 81 MG Tablet PO (07:55)
[2021-09-03] MEDS: Enoxaparin 40 MG/0.4 ML Syringe SC (09:29)
[2021-09-03] MEDS: Lisinopril 20 MG Tablet PO (09:29)
[2021-09-03] MEDS: dilTIAZem CD 120 MG Capsule PO (09:29)
[2021-09-03] MEDS: guaiFENesin/Codeine 5 ML UDC PO ×2 (09:31→21:14)
--- NOTE | 2021-09-03 10:05 | PN.HOSP_ITS ---
Subjective Subjective Patient seen and examined. He felt his breathing was improving. He had no active complaints and felt well. He remains on air Vo. She has no other complaints and review of systems otherwise negative. He has remained hemodynamically stable. Objective Data Objective Data Vital Signs: Vital Signs Temp Pulse Resp BP Pulse Ox 98.7 F 100 22 H 121/69 H 89 09/03/21 07:59 09/03/21 09:04 09/03/21 08:00 09/03/21 07:59 09/03/21 09:04 Oxygen Flow Rate (L/min) 45 Oxygen Delivery Method Airvo Weight: 187 lb 9.602 oz Body Mass Index (BMI) 28.5 Intake & Output: Intake and Output for Last 24 Hours 09/01/21 09/02/21 09/03/21 23:59 23:59 23:59 Intake Total 830 / 830 775 / 775 534 / 534 Output Total 575 / 575 500 / 500 Balance 255 / 255 775 / 775 34 / 34 Lab / Micro Data Result Diagrams: 09/03/21 05:30 09/03/21 05:30 Labs: Laboratory Results - last 24 hr 09/03/21 05:30: WBC 11.0, RBC 3.82 L, Hgb 10.3 L, Hct 33.8 L, MCV 88.5, MCH 27.0, MCHC 30.5 L, RDW Std Deviation 56.6 H, RDW Coeff of [place] 17.5 H, Plt Count 258, MPV 12.2 H, Immature Gran % (Auto) 1.500 H, Neut % (Auto) 92.5 H, Lymph % (Auto) 2.6 L, [place] % (Auto) 3.2, Eos % (Auto) 0.0, Baso % (Auto) 0.2, Absolute Neuts (auto) 10.2 H, Absolute Lymphs (auto) 0.29 L, Nucleated RBC % 0, Differential Comment SCANNED 09/03/21 05:30: Sodium 139, Potassium 4.4, Chloride 100, Carbon Dioxide 34.0 H, Anion Gap 5, BUN 27 H, Creatinine 0.73, Estim Creat Clear Calc 105.41, Est GFR (MDRD) Af Amer 141, Est GFR (MDRD) Non-Af 117, BUN/Creatinine Ratio 36.9 H, Glucose 197 H, Calcium 8.3 L Micro: Microbiology 08/29/21 12:00 Wash - Right Middle Lobe Gram Stain - Final 08/29/21 12:00 Wash - Right Middle Lobe Respiratory Culture - Final Presumptive C albicans 08/29/21 12:00 Wash - Other Gram Stain - Final 08/29/21 12:00 Wash - Other Respiratory Culture - Final Presumptive C albicans 08/27/21 00:30 Blood Culture (Wb) - Left Hand Blood Culture - Final No growth in 5 days. 08/26/21 00:30 Blood Culture (Wb) - Anticubital Right Blood Culture - Final No growth in 5 days. 08/28/21 18:45 Sputum, Expectorated/Coughed Gram Stain - Final 08/28/21 18:45 Sputum, Expectorated/Coughed Respiratory Culture - Final 08/27/21 16:10 Sputum, Expectorated/Coughed Gram Stain - Final 08/27/21 16:10 Sputum, Expectorated/Coughed Respiratory Culture - Final 08/27/21 10:55 Sputum, Expectorated/Coughed Gram Stain - Final 08/27/21 10:55 Sputum, Expectorated/Coughed Respiratory Culture - Final 08/26/21 Unknown Urine, Clean Catch Legionella Antigen - Final 08/26/21 Unknown Urine, Clean Catch Streptococcus pneumoniae Antigen (M - Final 08/27/21 02:15 Mucosa - Nasopharyngeal Respiratory Panel (PCR) - Final 08/27/21 00:20 Nasal Secretion SARS-CoV-2 Antigen (Rapid) - Final Physical Exam Const alert, oriented x3 and no apparent distress General Appearance: cooperative, well kempt and well developed Orientation / Consciousness: awake, oriented to person, oriented to place and oriented to time Exam Limitations: no limitations HEENT normocephalic, head/scalp atraumatic, moist oral mucous membranes and oropharynx normal Eyes PERRL, EOMs intact bilaterally, conjunctivae normal and no scleral icterus Neck nuchal rigidity, no lymphadenopathy, supple, no JVD, thyroid normal and no carotid bruits General: trachea midline Resp normal air movement Resp Narrative: diminished breath sounds bibasally, no wheezes or crackles. Still on AirVo Effort and Inspection: tachypneic Auscultation: diminished lung sounds diffuse Cardio regular rate, regular rhythm, S1 normal heart sound, S2 normal heart sound, no murmurs, no rub, no gallops and peripheral pulses 2+ throughout GI normal to inspection, nondistended, normoactive bowel sounds, soft to palpation, non-tender and non-distended Extremity normal to inspection, full ROM, normal capillary refill and no clubbing, cyanosis or edema General Extremity: no tenderness to palpation of joints or extremities Skin no rashes or lesions noted General Skin Exam: no breakdown and turgor normal Lesions: no lesions Rashes: no rashes Neuro oriented x3, CN's II-XII intact bilaterally, moves all extremities, no focal motor deficits, no sensory deficits noted and gait normal Sensorium / Orientation: awake and alert Speech: speech normal Psych thought process normal, cooperative and affect normal Appearance: appropriate Assessment & Plan Assessment/Plan (1) Acute on chronic respiratory failure with hypoxemia: (2) Multifocal pneumonia: PLAN: #Acute on chronic hypoxic respiratory failure * had bronchoscopy which revealed thickened whitish secretions in right upper and right middle as well as left upper lobes. Broncheoalveolar lavage was performed and samples sent for cultures * per pulmo, preliminary BAL appears to be growing fungal elements, possibly Aspergillus. * on IV vancomycin and zosyn as well as voriconazole, IV solumedrol and bronchodilators. * ID on board. On voriconazole. * Still on air Vo. On BiPAP for most of yesterday and overnight and did well with it. 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 Stable #Afib: on cardizem. On aspirin. #Hyperlipidemia: on statin #Hypertension: On lisinopril as well as Cardizem #CAD s/p stent: On statin and aspirin DVT prophylaxis: Lovenox Charges/Coding Visit Charges Inpatient E&M: 38098 Subs Hosp L3
--- NOTE | 2021-09-03 12:34 | NURSING ---
pt up to chair w/sba for tubing pt desats to 88% on airvo with little movement OR talking OR eating within 2 minutes, to returns to 92%
[2021-09-03] MEDS: 0.9% Saline Lock 10 ML Syringe IV (14:25)
[2021-09-03] MEDS: MELATONIN 3 MG TABLET PO (21:14)
[2021-09-03] MEDS: Atorvastatin Calcium 20 MG Tablet PO (21:15)
--- NOTE | 2021-09-03 21:22 | NURSING ---
at this time pt. was assisted to prone position ([id number])
[2021-09-04] VITALS (17 sets, daily range): BP systolic 94–132; BP diastolic 59–72; PULSE 64–90; RESP 12–31; TEMP 36.6–36.8; O2SAT 90–94
--- NOTE | 2021-09-04 05:37 | PN.CC_ITS ---
Assessment & Plan Assessment/Plan (1) Acute on chronic respiratory failure with hypoxemia: PLAN: RECOMMENDATIONS: 1. Continue antimicrobials and voriconazole per ID recommendations. 2. Continue combination of BiPAP and Airvo heated high flow throughout the day. Goal to maintain oxygen saturations at or above 90%. 3. Encourage incentive spirometer use and mobilize patient as tolerated. 4. Continue scheduled bronchodilators. 5. Continue Solu-Medrol 40 mg IV daily. 6. Continue appropriate DVT prophylaxis. IMPRESSIONS: 1. Acute on chronic hypoxemic respiratory failure The patient does have a baseline oxygen requirement of 3 L/min. He has a history of rheumatoid associated interstitial lung disease and was previously on immunosuppression, up until his discharge from the hospital in June. The patient has been hospitalized several times over the last couple months, first due to COVID-19 pneumonia and more recently as a consequence of bacterial pneumonia. His CT findings noted on presentation were nonspecific. Therefore, the patient underwent bronchoscopy on August 29 with BAL performed bilaterally. Fluid cytology revealed fungal organisms consistent with Aspergillus. The remainder of his cultures are still pending. The patient will be continued on bronchodilators and steroids. The patient will remain on antimicrobials and voriconazole per ID recommendations. He appears to be tolerating a combination of BiPAP and heated high flow oxygen. This, too, will be continued, with a goal to maintain oxygen saturations at or above 90%. Encourage incentive spirometer use and mobilize patient as tolerated. 2. History of mixed obstructive/restrictive ventilatory impairment/rheumatoid arthritis/hypertension/hyperlipidemia Complicates care, management, recovery and prognosis. Continue home medications as indicated. This note was generated with [employer] dictation software. It may contain incorrect words, spelling, and punctuation that were not noted in checking the note before signing. Subjective Subjective The patient was seen and examined at the bedside this morning. Events from the last 24 hours have been reviewed. The patient remains afebrile and hemodynamically stable. He remains on a combination of BiPAP and heated high flow oxygen. He is currently documented to be overall net +1 L for the hospitalization. The patient remains on empiric antimicrobials and voriconazole, along with scheduled bronchodilators and IV steroids. Although the patient is still on a significant amount of oxygen, he does report improvement in his cough with less sputum production. However, the patient does readily desaturate when coughing. Objective Data Objective Data The patient's most recent lab work, culture data and imaging studies have all been personally reviewed. MRSA screen was negative. Aspergillus antibodies are pending. Respiratory viral panel was negative. BAL cytology demonstrated evidence of fungal elements consistent with Aspergillus. Cultures are currently pending. Vital Signs: Vital Signs Temp Pulse Resp BP Pulse Ox 97.9 F 70 15 103/61 92 09/04/21 02:57 09/04/21 02:57 09/04/21 02:57 09/04/21 02:57 09/04/21 02:57 Oxygen Flow Rate (L/min) 40 Oxygen Delivery Method Bi-pap Weight: 85.094 kg Body Mass Index (BMI) 28.5 Intake & Output: Intake and Output for Last 24 Hours 09/02/21 09/03/21 09/04/21 23:59 23:59 22:59 Intake Total 775 / 775 1318 / 1318 50 / 50 Output Total 2350 / 2350 350 / 350 Balance 775 / 775 -1032 / -1032 -300 / -300 Lab / Micro Data Attestation: I reviewed the patient's lab results. Result Diagrams: 09/03/21 05:30 09/03/21 05:30 Labs: Laboratory Results - last 24 hr 09/03/21 05:30: Differential Comment SCANNED 09/03/21 05:30: Sodium 139, Potassium 4.4, Chloride 100, Carbon Dioxide 34.0 H, Anion Gap 5, BUN 27 H, Creatinine 0.73, Estim Creat Clear Calc 105.41, Est GFR (MDRD) Af Amer 141, Est GFR (MDRD) Non-Af 117, BUN/Creatinine Ratio 36.9 H, Glucose 197 H, Calcium 8.3 L Micro: Microbiology 08/29/21 12:00 Wash - Right Middle Lobe Gram Stain - Final 08/29/21 12:00 Wash - Right Middle Lobe Respiratory Culture - Final Presumptive C albicans 08/29/21 12:00 Wash - Other Gram Stain - Final 08/29/21 12:00 Wash - Other Respiratory Culture - Final Presumptive C albicans 08/27/21 00:30 Blood Culture (Wb) - Left Hand Blood Culture - Final No growth in 5 days. 08/26/21 00:30 Blood Culture (Wb) - Anticubital Right Blood Culture - Final No growth in 5 days. 08/28/21 18:45 Sputum, Expectorated/Coughed Gram Stain - Final 08/28/21 18:45 Sputum, Expectorated/Coughed Respiratory Culture - Final 08/27/21 16:10 Sputum, Expectorated/Coughed Gram Stain - Final 08/27/21 16:10 Sputum, Expectorated/Coughed Respiratory Culture - Final 08/27/21 10:55 Sputum, Expectorated/Coughed Gram Stain - Final 08/27/21 10:55 Sputum, Expectorated/Coughed Respiratory Culture - Final 08/26/21 Unknown Urine, Clean Catch Legionella Antigen - Final 08/26/21 Unknown Urine, Clean Catch Streptococcus pneumoniae Antigen (M - Final 08/27/21 02:15 Mucosa - Nasopharyngeal Respiratory Panel (PCR) - Final 08/27/21 00:20 Nasal Secretion SARS-CoV-2 Antigen (Rapid) - Final Physical Exam Const alert, oriented x3 and no apparent distress Constitutional Narrative: Currently tolerating Airvo heated high flow. Sitting in bedside recliner. General Appearance: cooperative HEENT normocephalic, head/scalp atraumatic and moist oral mucous membranes Eyes PERRL, EOMs intact bilaterally and conjunctivae normal Neck supple General: trachea midline Chest inspection of chest normal Resp normal respiratory effort and no use of accessory muscles Resp Narrative: Improved air movement today with residual basilar rales and faint and expiratory wheezes. Cardio regular rate, regular rhythm, S1 normal heart sound and S2 normal heart sound GI normal to inspection, nondistended, normoactive bowel sounds Extremity no clubbing, cyanosis or edema Skin no rashes or lesions noted Neuro moves all extremities and no focal motor deficits Psych cooperative and affect normal Charges/Coding Visit Charges Inpatient E&M: 01365 Subs Hosp L3
[2021-09-04] MEDS: Piperacil/Tazobactam 3.375 GM/50 ML ML IV ×3 (06:28→20:57)
[2021-09-04 06:57] LABS: Absolute Neutrophil Count 8.8 X10^3/uL (2.0-7.7); Basophil# 0.01 X10^3/uL; Basophil% 0.1 % (0-1); Hematocrit 32.7 % (40-54); Hemoglobin 9.8 g/dL (13.0-16.5); Lymphocyte % 4.1 % (19-41); Mean Corpuscular Hgb 26.6 pg (27.0-32.0); Mean Corpuscular Volume 88.9 fL (80-94); Mean Platelet Vol. 12.7 fl (6.2-12.0); Monocyte% 4.1 % (0-10); NRBC Flagged by Analyzer 0 % (0-5); Neutrophil # 8.79 X10^3/uL (2.7-7.7); Neutrophil % 90.4 % (47-70); POSITIVE DIFFERENTIAL YES; Platelet Count 262 K/mm3 (150-450); RBC Distribution Width CV 17.6 % (11.6-14.6); RBC Distribution Width SD 57.8 fl (35.1-43.9); Red Blood Count 3.68 M/mm3 (4.6-6.2); White Blood Count 9.7 K/mm3 (4.4-11.0)
[2021-09-04] MEDS: Ipratropium/Albuterol Sulfate 3 ML AMPUL.NEB INHALATION ×5 (06:58→19:26)
[2021-09-04 07:05] LABS: Differential Indicated SCAN CRITERIA MET
[2021-09-04 07:22] LABS: Anion Gap 5 (5-15); BUN 30 mg/dL (7-18); BUN/Creat Ratio 43.9 RATIO (10-20); Calcium,Total 8.4 mg/dL (8.5-10.1); Chloride 100 mmol/L (98-107); Creatinine, Serum 0.68 mg/dL (0.70-1.30); EST Glomerular Filtration Rate 126 mL/min (>60); Est Glom Filt Rate - Afr Amer 153 mL/min (>60); Estimated Creatinine Clearance 113.16 ml/min; Glucose 131 mg/dL (74-106); Sodium Level 139 mmol/L (136-145)
[2021-09-04 07:25] LABS: Differential Comment SCANNED
[2021-09-04] MEDS: Aspirin E.C. 81 MG Tablet PO (07:56)
[2021-09-04] MEDS: dilTIAZem CD 120 MG Capsule PO (09:00)
[2021-09-04] MEDS: Enoxaparin 40 MG/0.4 ML Syringe SC (09:00)
[2021-09-04] MEDS: Lisinopril 20 MG Tablet PO (09:00)
--- NOTE | 2021-09-04 14:22 | PN.HOSP_ITS ---
Subjective Subjective Patient seen and examined. He remains on air Vo. He has no active complaints. He has remained hemodynamically stable apart from blood pressure has been marginally low at 94/59 today. He is still coughing. He is not cumulative positive balance by 1.3 L since admission. Review of systems otherwise negative. Objective Data Objective Data Vital Signs: Vital Signs Temp Pulse Resp BP Pulse Ox 98.3 F 69 16 94/59 L 91 09/04/21 14:15 09/04/21 14:15 09/04/21 14:15 09/04/21 14:15 09/04/21 14:15 Oxygen Flow Rate (L/min) 60 Oxygen Delivery Method Airvo Weight: 187 lb 9.602 oz Body Mass Index (BMI) 28.5 Intake & Output: Intake and Output for Last 24 Hours 09/02/21 09/03/21 09/04/21 23:59 23:59 22:59 Intake Total 775 / 775 1318 / 1318 804 / 804 Output Total 2350 / 2350 950 / 950 Balance 775 / 775 -1032 / -1032 -146 / -146 Lab / Micro Data Result Diagrams: 09/04/21 06:46 09/04/21 06:46 Labs: Laboratory Results - last 24 hr 09/04/21 06:46: WBC 9.7, RBC 3.68 L, Hgb 9.8 L, Hct 32.7 L, MCV 88.9, MCH 26.6 L , MCHC 30.0 L, RDW Std Deviation 57.8 H, RDW Coeff of Cheikh 17.6 H, Plt Count 262, MPV 12.7 H, Immature Gran % (Auto) 1.300 H, Neut % (Auto) 90.4 H, Lymph % (Auto) 4.1 L, [place] % (Auto) 4.1, Eos % (Auto) 0.0, Baso % (Auto) 0.1, Absolute Neuts (auto) 8.8 H, Absolute Lymphs (auto) 0.40 L, Nucleated RBC % 0, Differential Comment SCANNED 09/04/21 06:46: Sodium 139, Potassium 4.0, Chloride 100, Carbon Dioxide 34.0 H, Anion Gap 5, BUN 30 H, Creatinine 0.68 L, Estim Creat Clear Calc 113.16, Est GFR (MDRD) Af Amer 153, Est GFR (MDRD) Non-Af 126, BUN/Creatinine Ratio 43.9 H, Glucose 131 H, Calcium 8.4 L Micro: Microbiology 08/29/21 12:00 Wash - Right Middle Lobe Gram Stain - Final 08/29/21 12:00 Wash - Right Middle Lobe Respiratory Culture - Final Presumptive C albicans 08/29/21 12:00 Wash - Other Gram Stain - Final 08/29/21 12:00 Wash - Other Respiratory Culture - Final Presumptive C albicans 08/27/21 00:30 Blood Culture (Wb) - Left Hand Blood Culture - Final No growth in 5 days. 08/26/21 00:30 Blood Culture (Wb) - Anticubital Right Blood Culture - Final No growth in 5 days. 08/28/21 18:45 Sputum, Expectorated/Coughed Gram Stain - Final 08/28/21 18:45 Sputum, Expectorated/Coughed Respiratory Culture - Final 08/27/21 16:10 Sputum, Expectorated/Coughed Gram Stain - Final 08/27/21 16:10 Sputum, Expectorated/Coughed Respiratory Culture - Final 08/27/21 10:55 Sputum, Expectorated/Coughed Gram Stain - Final 08/27/21 10:55 Sputum, Expectorated/Coughed Respiratory Culture - Final 08/26/21 Unknown Urine, Clean Catch Legionella Antigen - Final 08/26/21 Unknown Urine, Clean Catch Streptococcus pneumoniae Antigen (M - Final 08/27/21 02:15 Mucosa - Nasopharyngeal Respiratory Panel (PCR) - Final 08/27/21 00:20 Nasal Secretion SARS-CoV-2 Antigen (Rapid) - Final Physical Exam Const alert, oriented x3 and no apparent distress General Appearance: cooperative, well kempt and well developed Orientation / Consciousness: awake, oriented to person, oriented to place and oriented to time Exam Limitations: no limitations HEENT normocephalic, head/scalp atraumatic, moist oral mucous membranes and oropharynx normal Head and Scalp: normocephalic Eyes PERRL, EOMs intact bilaterally, conjunctivae normal and no scleral icterus Neck nuchal rigidity, no lymphadenopathy, supple, no JVD, thyroid normal and no carotid bruits General: trachea midline Resp normal air movement Resp Narrative: diminished breath sounds bibasally, no wheezes or crackles. Still on AirVo Effort and Inspection: tachypneic Auscultation: diminished lung sounds diffuse Cardio regular rate, regular rhythm, S1 normal heart sound, S2 normal heart sound, no murmurs, no rub, no gallops and peripheral pulses 2+ throughout GI normal to inspection, nondistended, normoactive bowel sounds, soft to palpation, non-tender and non-distended Extremity normal to inspection, full ROM, normal capillary refill and no clubbing, cyanosis or edema General Extremity: no tenderness to palpation of joints or extremities Skin no rashes or lesions noted General Skin Exam: no breakdown and turgor normal Lesions: no lesions Rashes: no rashes Neuro oriented x3, CN's II-XII intact bilaterally, moves all extremities, no focal motor deficits, no sensory deficits noted and gait normal Sensorium / Orientation: awake and alert Speech: speech normal Psych thought process normal, cooperative and affect normal Appearance: appropriate Assessment & Plan Assessment/Plan (1) Acute on chronic respiratory failure with hypoxemia: (2) Multifocal pneumonia: PLAN: #Acute on chronic hypoxic respiratory failure * had bronchoscopy which revealed thickened whitish secretions in right upper and right middle as well as left upper lobes. Broncheoalveolar lavage was per formed and samples sent for cultures * per pulmo, preliminary BAL appears to be growing fungal elements, possibly Aspergillus. * on IV vancomycin and zosyn as well as voriconazole, IV solumedrol and br onchodilators. * ID on board. On voriconazole. * Remains on air Vo. Alternates with BIPAP. 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 Stable #Afib: on cardizem. On aspirin. #Hyperlipidemia: on statin #Hypertension: On lisinopril as well as Cardizem #CAD s/p stent: On statin and aspirin DVT prophylaxis: Lovenox Charges/Coding Visit Charges Inpatient E&M: 94264 [facility] Hosp L3
[2021-09-04] MEDS: Atorvastatin Calcium 20 MG Tablet PO (20:51)
[2021-09-04] MEDS: MELATONIN 3 MG TABLET PO (20:51)
[2021-09-04] MEDS: LORazepam 0.5 MG Tablet PO (23:34)
--- NOTE | 2021-09-04 23:40 | NURSING ---
Patient called out, patient Sp02 was alarming at 79%. This RN went into the room and RT called. Patient c/o shortness and breath and resp labored while on the BIPAP. Per patient he stated all he did was use the urinal while laying in bed with the BIPAP on. VS obtained, RT in room. RT increased Fi02 to 85%. After a few minutes Sp02 stated to increase. Will continue to monitor.
[2021-09-05] VITALS (44 sets, daily range): BP systolic 97–130; BP diastolic 38–79; PULSE 68–113; RESP 12–42; TEMP 36.1–37; O2SAT 62–99
--- NOTE | 2021-09-05 02:56 | CPS ---
Patient said that he was unable to tolerate the BiPAP any longer. Requested to come off BiPAP for the night. Placed on AirVo 60L/94% (max settings) with a 15L NRB overtop.
[2021-09-05] MEDS: Albuterol 2.5 MG/3 ML VIAL.NEB. INHALATION ×2 (03:03→05:10)
--- NOTE | 2021-09-05 03:10 | CPS ---
Patient somewhat confused when he became awake. Was taking BiPAP mask off when TRAIN RESERVATION CLERK entered room. On Airvo patient was breathing in the mid 40s for RR. Discussed with patient that he should try to go back on BiPAP for this reason. Patient was agreeable after this discussion and was placed back on BiPAP for the night. RN aware
--- NOTE | 2021-09-05 04:00 | NURSING ---
Pt significantly desating when attempting to use urinal in bed while on Bipap. Is maxed out of O2 and not tolerating anymore pressure. First time dropped to 79% with quick rebound. Second time dropped as low as 62%. Spoke with hospitalist for concern about pt status. RT also spoke with physician at this time to update on respiratory status. Physician putting in orders to transfer pt to ICU. He also came to speak with the pt bedside. investment representative calling pt's for update. Report called to ICU. Bed 2 ready.
--- NOTE | 2021-09-05 04:01 | CPS ---
Increased patient's BiPAP settings for increased WOB and hypoxia
--- NOTE | 2021-09-05 04:06 | NURSING ---
[facility] called and updated about patient being transferred to ICU.
--- NOTE | 2021-09-05 05:00 | PCM.HOSP.N ---
Hospitalist Note Worsening respiratory failure this AM. Wound up on BiPAP 100% FiO2. Concerned for further deterioration then the decision was made to transfer to the ICU. In the ICU pt feeling better and FiO2 decreased to 90%. Lungs are coarse. No LE edema. No indication to intubate at this time. Plan: Check CXR, labs, ABG.
--- NOTE | 2021-09-05 05:12 | RAD_ITS ---
STUDY: X-RAY CHEST REASON FOR EXAM: Male, 61 years old. Acute Hypoxia TECHNIQUE: Single AP portable view of the chest. COMPARISON: Comparison is made with prior study dated 09/01/2021. FINDINGS: EKG electrodes are seen. Since prior study, there has been a progression of the airspace disease in both lungs worse on the right side. There is no demonstrated pleural abnormality. Normal size heart. A left-sided dual-chamber pacemaker is seen. Normal mediastinum and wanda. Normal visualized pulmonary arteries. Normal visualized aortic arch and descending thoracic aorta. Normal visualized thoracic spine. Normal visualized ribs, clavicles, and shoulders. There is no demonstrated abnormality of the visualized soft tissue structures of the upper abdomen. RAD/Chest 1 View (Portable) IMPRESSION: Has been a progression of the bilateral airspace disease worse in the right hemithorax. Electronically Signed: Dwaine Gurrola MD at 8:24 EST , Service support ,
[2021-09-05 05:30] LABS: Absolute Lymphocyte Count 0.52 X10^3/uL (0.83-4.51); Absolute Neutrophil Count 10.1 X10^3/uL (2.0-7.7); Basophil# 0.02 X10^3/uL; Basophil% 0.2 % (0-1); Hematocrit 31.5 % (40-54); Hemoglobin 9.6 g/dL (13.0-16.5); Lymphocyte # 0.52 X10^3/ul (0.83-4.51); Lymphocyte % 4.6 % (19-41); Mean Corp Hgb Conc 30.5 g/dL (32-36); Mean Corpuscular Hgb 26.8 pg (27.0-32.0); Mean Platelet Vol. 12.4 fl (6.2-12.0); Monocyte# 0.55 X10^3/uL; Monocyte% 4.8 % (0-10); NRBC Flagged by Analyzer 0 % (0-5); Neutrophil # 10.07 X10^3/uL (2.7-7.7); Neutrophil % 88.7 % (47-70); POSITIVE DIFFERENTIAL YES; Platelet Count 264 K/mm3 (150-450); RBC Distribution Width CV 17.7 % (11.6-14.6); RBC Distribution Width SD 56.8 fl (35.1-43.9); Red Blood Count 3.58 M/mm3 (4.6-6.2); White Blood Count 11.4 K/mm3 (4.4-11.0)
[2021-09-05 05:30] LABS: Allen Test Positive; Base Excess 6 mmol/L (-2 to +2); Bicarbonate 29.7 mmol/L (22-26); Blood Gas Specimen Type ART; FI02 90; O2 Delivery Device BiPAP; PEEP 8; PO2 70 mmHG (75-100); PS 6; SITE L Radial; SO2 94 % (95-99); Total Carbon Dioxide 31 mmol/L; pCO2 43.8 mmHg (35-45); pH 7.44 (7.35-7.45)
[2021-09-05 05:32] LABS: Differential Indicated SCAN CRITERIA MET
[2021-09-05 05:52] LABS: Anion Gap 4 (5-15); BUN 27 mg/dL (7-18); BUN/Creat Ratio 45.2 RATIO (10-20); Calcium,Total 8.6 mg/dL (8.5-10.1); Chloride 103 mmol/L (98-107); EST Glomerular Filtration Rate 147 mL/min (>60); Est Glom Filt Rate - Afr Amer 178 mL/min (>60); Estimated Creatinine Clearance 128.25 ml/min; Glucose 127 mg/dL (74-106); Potassium 4.3 mmol/L (3.5-5.1); Sodium Level 139 mmol/L (136-145)
--- NOTE | 2021-09-05 06:16 | EKG12_ITS ---
Test Reason : Blood Pressure : / mmHG Vent. Rate : 083 BPM Atrial Rate : 083 BPM P-R Int : 134 ms QRS Dur : 088 ms QT Int : 388 ms P-R-T Axes : 049 007 030 degrees QTc Int : 455 ms Normal sinus rhythm Nonspecific ST abnormality Abnormal ECG Confirmed by FRANKLIN RIVERO, VLADIMIR ([id number]), graphic editor JUJU MORROW ([id number]) on 09/06/2021 8:55:32 AM Referred By: EMA Confirmed By:VLADIMIR REID MD
[2021-09-05] MEDS: Ipratropium/Albuterol Sulfate 3 ML AMPUL.NEB INHALATION ×4 (06:34→19:20)
[2021-09-05] MEDS: Piperacil/Tazobactam 3.375 GM/50 ML ML IV (06:48)
[2021-09-05] MEDS: Furosemide 40 MG/4 ML Vial IV (06:49)
--- NOTE | 2021-09-05 06:57 | PN.CC_ITS ---
Assessment & Plan Assessment/Plan (1) Acute on chronic respiratory failure with hypoxemia: PLAN: RECOMMENDATIONS: 1. Continue antimicrobials and voriconazole per ID recommendations. 2. Rescue with BiPAP for now. Possible Airvo later today. Goal to maintain oxygen saturations at or above 90%. 3. Encourage incentive spirometer use and mobilize patient as tolerated. 4. Continue scheduled bronchodilators. 5. Continue Solu-Medrol 40 mg IV daily. 6. Continue appropriate DVT prophylaxis. IMPRESSIONS: 1. Acute on chronic hypoxemic respiratory failure The patient does have a baseline oxygen requirement of 3 L/min. He has a history of rheumatoid associated interstitial lung disease and was previously on immunosuppression, up until his discharge from the hospital in June. The patient has been hospitalized several times over the last couple months, first due to COVID-19 pneumonia and more recently as a consequence of bacterial pneumonia. His CT findings noted on presentation were nonspecific. Therefore, the patient underwent bronchoscopy on August 29 with BAL performed bilaterally. Fluid cytology revealed fungal organisms consistent with Aspergillus. The remainder of his cultures are still pending. The patient will be continued on bronchodilators and steroids. The patient will remain on antimicrobials and voriconazole per ID recommendations. Patient was significant decompensation overnight. Chest x-ray appears to have increased alveolar infiltrates. Given response to BiPAP therapy, we will challenge with diuretics. 2. History of mixed obstructive/restrictive ventilatory impairment/rheumatoid arthritis/hypertension/hyperlipidemia Complicates care, management, recovery and prognosis. Continue home medications as indicated. 3. Nonsustained V. tach Unclear etiology. Potassium appears to be okay. Will check magnesium and phosphorus. Obtain EKG to evaluate QT interval. We will check an echocardiogram TIME: 31 minutes critical care time spent addressing patient's acute on chronic hypoxemic respiratory failure, nonsustained V. tach, review of all data and collaboration with care team (6 AM to 7 AM) Subjective Subjective Overnight events were noted. Patient transferred to the intensive care unit secondary to worsening respiratory status. Patient was placed on BiPAP and ABG showed adequate oxygenation and ventilation. Since being in the intensive care unit, patient reports subjective improvement and has been able to be weaned from 100% FiO2 to 80% FiO2. Patient reports his cough has been productive of yellow sputum. No chest pain is reported. No hemoptysis is been reported. Objective Data Objective Data Vital Signs: Vital Signs Temp Pulse Resp BP Pulse Ox 36.6 C 82 32 H 120/60 95 09/05/21 05:00 09/05/21 06:34 09/05/21 06:34 09/05/21 06:00 09/05/21 06:34 Oxygen Flow Rate (L/min) 15 Oxygen Delivery Method Bi-pap Weight: 83.8 kg Body Mass Index (BMI) 28.5 Intake & Output: Intake and Output for Last 24 Hours 09/04/21 09/04/21 09/05/21 00:59 23:59 23:59 Intake Total 386.5 / 386.5 Output Total 100 / 100 Balance 286.5 / 286.5 Lab / Micro Data Result Diagrams: 09/05/21 05:05 09/05/21 05:05 Labs: Laboratory Results - last 24 hr 09/04/21 06:46: WBC 9.7, RBC 3.68 L, Hgb 9.8 L, Hct 32.7 L, MCV 88.9, MCH 26.6 L , MCHC 30.0 L, RDW Std Deviation 57.8 H, RDW Coeff of Cheikh 17.6 H, Plt Count 262, MPV 12.7 H, Immature Gran % (Auto) 1.300 H, Neut % (Auto) 90.4 H, Lymph % (Auto) 4.1 L, [place] % (Auto) 4.1, Eos % (Auto) 0.0, Baso % (Auto) 0.1, Absolute Neuts (auto) 8.8 H, Absolute Lymphs (auto) 0.40 L, Nucleated RBC % 0, Differential Comment SCANNED 09/04/21 06:46: Sodium 139, Potassium 4.0, Chloride 100, Carbon Dioxide 34.0 H, Anion Gap 5, BUN 30 H, Creatinine 0.68 L, Estim Creat Clear Calc 113.16, Est GFR (MDRD) Af Amer 153, Est GFR (MDRD) Non-Af 126, BUN/Creatinine Ratio 43.9 H, Glucose 131 H, Calcium 8.4 L 09/05/21 05:05: WBC 11.4 H, RBC 3.58 L, Hgb 9.6 L, Hct 31.5 L, MCV 88.0, MCH 26.8 L, MCHC 30.5 L, RDW Std Deviation 56.8 H, RDW Coeff of [place] 17.7 H, Plt Count 264, MPV 12.4 H, Immature Gran % (Auto) 1.700 H, Neut % (Auto) 88.7 H, Lymph % (Auto) 4.6 L, [place] % (Auto) 4.8, Eos % (Auto) 0.0, Baso % (Auto) 0.2, Absolute Neuts (auto) 10.1 H, Absolute Lymphs (auto) 0.52 L, Nucleated RBC % 0 09/05/21 05:05: Sodium 139, Potassium 4.3, Chloride 103, Carbon Dioxide 32.0, Anion Gap 4 L, BUN 27 H, Creatinine 0.60 L, Estim Creat Clear Calc 128.25, Est GFR (MDRD) Af Amer 178, Est GFR (MDRD) Non-Af 147, BUN/Creatinine Ratio 45.2 H, Glucose 127 H, Calcium 8.6 Micro: Microbiology 08/29/21 12:00 Wash - Right Middle Lobe Gram Stain - Final 08/29/21 12:00 Wash - Right Middle Lobe Respiratory Culture - Final Presumptive C albicans 08/29/21 12:00 Wash - Other Gram Stain - Final 08/29/21 12:00 Wash - Other Respiratory Culture - Final Presumptive C albicans 08/27/21 00:30 Blood Culture (Wb) - Left Hand Blood Culture - Final No growth in 5 days. 08/26/21 00:30 Blood Culture (Wb) - Anticubital Right Blood Culture - Final No growth in 5 days. 08/28/21 18:45 Sputum, Expectorated/Coughed Gram Stain - Final 08/28/21 18:45 Sputum, Expectorated/Coughed Respiratory Culture - Final 08/27/21 16:10 Sputum, Expectorated/Coughed Gram Stain - Final 08/27/21 16:10 Sputum, Expectorated/Coughed Respiratory Culture - Final 08/27/21 10:55 Sputum, Expectorated/Coughed Gram Stain - Final 08/27/21 10:55 Sputum, Expectorated/Coughed Respiratory Culture - Final 08/26/21 Unknown Urine, Clean Catch Legionella Antigen - Final 08/26/21 Unknown Urine, Clean Catch Streptococcus pneumoniae Antigen (M - Final 08/27/21 02:15 Mucosa - Nasopharyngeal Respiratory Panel (PCR) - Final 08/27/21 00:20 Nasal Secretion SARS-CoV-2 Antigen (Rapid) - Final ABG Data ABG results: ABG 09/05/21 05:23 Specimen Type ART Sample Site L Radial pH 7.44 Bicarbonate Actual 29.7 H Total CO2 31 Base Excess 6 H O2 Saturation 94 L O2 % 90 ABG pCO2 43.8 ABG pO2 70 L Dain Test Positive O2 Delivery Device BiPAP POC PEEP 8 POC Pressure Suppt 6 Physical Exam Const alert and oriented x3 Constitutional Narrative: Currently tolerating BiPAP. Mild conversational dyspnea General Appearance: cooperative HEENT normocephalic, head/scalp atraumatic and moist oral mucous membranes Eyes PERRL, EOMs intact bilaterally and conjunctivae normal Neck supple General: trachea midline Chest inspection of chest normal Chest: symmetrical chest wall rise; Negative for crepitus Resp normal respiratory effort and no use of accessory muscles Effort and Inspection: tachypneic Auscultation: rhonchi and wheezes; Negative for rales Cardio regular rate, regular rhythm, S1 normal heart sound and S2 normal heart sound GI normal to inspection, nondistended, normoactive bowel sounds Extremity General Extremity: Negative for clubbing, cyanosis or edema Skin no rashes or lesions noted Neuro moves all extremities and no focal motor deficits Psych cooperative and affect normal Charges/Coding Procedures Hospitalists Procedures: [id number] Critial Care 1st Hr
--- NOTE | 2021-09-05 07:02 | ECHOCS_ITS ---
Reason For Study: ARRHYTHMIA Procedure This was a 2D Doppler, Color Flow transthoracic echocardiogram. The study was technically difficult. Contrast injection was performed. Pt on CPAP s/p acute hypoxic resp failure. Exam performed portable in ICU/CCU. Left Ventricle Normal LV size. Left ventricular systolic function is normal. The estimated ejection fraction is 70 %. Transmitral and pulmonary venous doppler flow suggestive of impaired relaxation of left ventricle. No regional wall motion abnormalities noted. Right Ventricle Mildly dilated right ventricle. ICD or pacer leads identified within the right ventricle. Mild global right ventricular systolic dysfunction. Atria Normal left atrium. Normal right atrium. ICD or pacer leads identified within the right atrium. No doppler evidence for ASD. Mitral Valve There is no mitral annular calcification. Normal mitral valve. Trivial mitral valve insufficiency. Tricuspid Valve Normal tricuspid valve. Mild tricuspid valve insufficiency. Right ventricular systolic pressure estimated to be 56 mmHg. Aortic Valve Based upon the 2D echocardiographic images obtained a bicuspid aortic valve with associated mild thickening/calcification cannot necessarily be excluded. Pulmonic Valve The pulmonic valve is not well visualized. Great Vessels Normal sized aortic root. Pericardium/Pleural No pericardial effusion. Epicardial fat. MMode/2D Measurements & Calculations LVIDd: 4.7 cm IVSd: 0.75 cm Ao root diam: 3.5 cm LVIDs: 2.9 cm LVPWd: 0.72 cm RVDd: 4.9 cm FS: 39.2 % LAV(MOD-bp): 42.1 ml LVAd ap4: 34.0 cm2 LVAd ap2: 35.9 cm2 LAV(MOD-bp) Indexed: 21.3 ml/m2 LVLd ap4: 8.1 cm LVLd ap2: 8.2 cm LAV(MOD-sp2): 32.9 ml EDV(MOD-sp4): 114.7 ml EDV(MOD-sp2): 127.6 ml LAV(MOD-sp4): 42.3 ml EDV(sp4-el): 120.9 ml EDV(sp2-el): 133.3 ml LVAs ap4: 15.9 cm2 LVAs ap2: 19.7 cm2 LVLs ap4: 6.5 cm LVLs ap2: 6.8 cm ESV(MOD-sp4): 31.4 ml ESV(MOD-sp2): 47.3 ml ESV(sp4-el): 33.0 ml ESV(sp2-el): 48.4 ml EF(MOD-sp4): 72.6 % EF(MOD-sp2): 62.9 % EF(sp4-el): 72.7 % SV(MOD-sp4): 83.3 ml SV(MOD-sp2): 80.3 ml SV(sp4-el): 87.8 ml LA dimension(2D): 3.0 cm LA A4 area: 17.7 cm2 RA A4 area: 14.0 cm2 Doppler Measurements & Calculations MV E max [place]: 50.9 cm/sec Lat Peak E' [place]: 9.4 cm/sec Med Peak E' [place]: 7.7 cm/sec MV A max [place]: 61.9 cm/sec E/E' lat: 5.4 E/E' med: 6.6 MV E/A: 0.82 Ao V2 max: 167.4 cm/sec LV V1 max: 113.1 cm/sec TR max [place]: 363.8 cm/sec Ao max P.3 mmHg LV V1 max P.1 mmHg TR max P.0 mmHg ECHO/Echo Complete W/ Contrast Interpretation Summary The study was technically difficult. Contrast injection was performed. Left ventricular systolic function is normal. The estimated ejection fraction is 70 %. Mildly dilated right ventricle. Mild global right ventricular systolic dysfunction. Trivial mitral valve insufficiency. Mild tricuspid valve insufficiency. Based upon the 2D echocardiographic images obtained a bicuspid aortic valve wit h associated mild thickening/calcification cannot necessarily be excluded. Epicardial fat. Right ventricular systolic pressure estimated to be 56 mmHg c/w pulmonary hyper tension. Transmitral and pulmonary venous doppler flow suggestive of impaired relaxation of left ventricle ICD or pacer leads identified within the right atrium ICD or pacer leads identified within the right ventricle. Ordering Physician: Olu Dunn Referring Physician: GASTON ALCARAZ Performed By: Meseret Painting, NICA, RVT
[2021-09-05 07:43] LABS: Magnesium 2.7 mg/dL (1.6-2.6); Phosphorus 2.8 mg/dL (2.5-4.9)
[2021-09-05 07:58] LABS: Anisocytosis 2+; Ovalocyte 2+; Tear Drop Cell RARE
--- NOTE | 2021-09-05 08:55 | PN.HOSP_ITS ---
Subjective Subjective Follow-up on acute hypoxic respiratory failure/multifocal pneumonia: Patient was seen and examined. He was transferred overnight to the ICU on account of worsening respiratory status. He however has stabilized on BiPAP. His current FiO2 70%, down from 100%. Patient stated that he does feel a little improved from previous. Objective Data Objective Data Vital Signs: Vital Signs Temp Pulse Resp BP Pulse Ox 97.8 F 81 35 H 125/64 H 94 09/05/21 05:00 09/05/21 07:00 09/05/21 07:00 09/05/21 07:00 09/05/21 07:00 Oxygen Flow Rate (L/min) 15 Oxygen Delivery Method Bi-pap Weight: 83.8 kg Body Mass Index (BMI) 28.5 Intake & Output: Intake and Output for Last 24 Hours 09/04/21 09/04/21 09/05/21 00:59 23:59 23:59 Intake Total 386.5 / 386.5 Output Total 100 / 100 Balance 286.5 / 286.5 Lab / Micro Data Result Diagrams: 09/05/21 05:05 09/05/21 05:05 Labs: Laboratory Results - last 24 hr 09/05/21 05:05: WBC 11.4 H, RBC 3.58 L, Hgb 9.6 L, Hct 31.5 L, MCV 88.0, MCH 26.8 L, MCHC 30.5 L, RDW Std Deviation 56.8 H, RDW Coeff of Cheikh 17.7 H, Plt Count 264, MPV 12.4 H, Immature Gran % (Auto) 1.700 H, Neut % (Auto) 88.7 H, Lymph % (Auto) 4.6 L, [place] % (Auto) 4.8, Eos % (Auto) 0.0, Baso % (Auto) 0.2, Absolute Neuts (auto) 10.1 H, Absolute Lymphs (auto) 0.52 L, Nucleated RBC % 0, Anisocytosis 2+, Tear Drop Cells RARE, Ovalocytes 2+ 09/05/21 05:05: Sodium 139, Potassium 4.3, Chloride 103, Carbon Dioxide 32.0, Anion Gap 4 L, BUN 27 H, Creatinine 0.60 L, Estim Creat Clear Calc 128.25, Est GFR (MDRD) Af Amer 178, Est GFR (MDRD) Non-Af 147, BUN/Creatinine Ratio 45.2 H, Glucose 127 H, Calcium 8.6 09/05/21 05:05: Phosphorus 2.8, Magnesium 2.7 H Micro: Microbiology 08/29/21 12:00 Wash - Right Middle Lobe Gram Stain - Final 08/29/21 12:00 Wash - Right Middle Lobe Respiratory Culture - Final Presumptive C albicans 08/29/21 12:00 Wash - Other Gram Stain - Final 08/29/21 12:00 Wash - Other Respiratory Culture - Final Presumptive C albicans 08/27/21 00:30 Blood Culture (Wb) - Left Hand Blood Culture - Final No growth in 5 days. 08/26/21 00:30 Blood Culture (Wb) - Anticubital Right Blood Culture - Final No growth in 5 days. 08/28/21 18:45 Sputum, Expectorated/Coughed Gram Stain - Final 08/28/21 18:45 Sputum, Expectorated/Coughed Respiratory Culture - Final 08/27/21 16:10 Sputum, Expectorated/Coughed Gram Stain - Final 08/27/21 16:10 Sputum, Expectorated/Coughed Respiratory Culture - Final 08/27/21 10:55 Sputum, Expectorated/Coughed Gram Stain - Final 08/27/21 10:55 Sputum, Expectorated/Coughed Respiratory Culture - Final 08/26/21 Unknown Urine, Clean Catch Legionella Antigen - Final 08/26/21 Unknown Urine, Clean Catch Streptococcus pneumoniae Antigen (M - Final 08/27/21 02:15 Mucosa - Nasopharyngeal Respiratory Panel (PCR) - Final 08/27/21 00:20 Nasal Secretion SARS-CoV-2 Antigen (Rapid) - Final ABG Data ABG results: ABG 09/05/21 05:23 Specimen Type ART Sample Site L Radial pH 7.44 Bicarbonate Actual 29.7 H Total CO2 31 Base Excess 6 H O2 Saturation 94 L O2 % 90 ABG pCO2 43.8 ABG pO2 70 L Dain Test Positive O2 Delivery Device BiPAP POC PEEP 8 POC Pressure Suppt 6 Radiography Diagnostic Testing: Radiology Impression Chest X-Ray 09/05/21 05:12 IMPRESSION: Has been a progression of the bilateral airspace disease worse in the right hemithorax. Electronically Signed: Dwaine Gurrola MD at 8:24 EST , Service support , Physical Exam Narrative Physical exam: General: Alert, Oriented x3, Cooperative, in mild respiratory distress, on BiPAP HEENT: Atraumatic Oral: Moist Mucosa Neck: Supple Lungs: Diminished to auscultation Cardiovascular: HS I+II, regular, no murmurs Abdomen: Bowel Sounds Present, Soft, Non Tender Extremities: No edema Assessment & Plan Assessment/Plan (1) Acute on chronic respiratory failure with hypoxemia: (2) Multifocal pneumonia: PLAN: 1. Acute on chronic hypoxic respiratory failure secondary to acute multifocal pneumonia, likely bacterial with superimposed fungal/aspergillosis Patient is immunocompromised with history of rheumatoid arthritis, not on any medications Patient currently remains on BiPAP; in ICU for closer monitoring Sputum cultures shows rare epithelial cells, gram-positive rods and cocci Status post bronchoscopy on 08/29/21 which showed thickened whitish secretions in right upper and right middle as well as left upper lobes. Continue on voriconazole, Zosyn, IV Solu-Medrol, breathing treatments ID and pulmonology following Continue on BiPAP 2. Rest of his chronic medical conditions including rheumatoid arthritis, chronic atrial fibrillation, hyperlipidemia, hypertension, CAD status post stents remains stable for now Meds reviewed 3. DVT prophylaxis - Lovenox Charges/Coding Visit Charges Inpatient E&M: 76159 [facility] Hosp L3
[2021-09-05] MEDS: Lisinopril 20 MG Tablet PO (11:32)
[2021-09-05] MEDS: dilTIAZem CD 120 MG Capsule PO (11:32)
[2021-09-05] MEDS: Aspirin E.C. 81 MG Tablet PO (11:33)
[2021-09-05] MEDS: Enoxaparin 40 MG/0.4 ML Syringe SC (11:33)
[2021-09-05] MEDS: guaiFENesin/Codeine 5 ML UDC PO (12:01)
--- NOTE | 2021-09-05 14:36 | PCM.PN.ID ---
Physical Exam Narrative Feeling about the same. On bipap. Const alert General Appearance: cooperative Resp Auscultation: rhonchi and wheezes Cardio Rate: tachycardic GI normal to inspection, nondistended, normoactive bowel sounds Skin no rashes or lesions noted ID ID: Route of nutrition/ use of supplements: [] Nutritional Intake: [] IV Site: [] Gonzalez Catheter: [] Assessment & Plan Assessment/Plan (1) Acute on chronic respiratory failure with hypoxemia: (2) Multifocal pneumonia: PLAN: Concern for aspergillus on BAL staining. On vori, 4mg q12h. Fungal cx neg so far, some rare yeast on aerobic. On zosyn, will stop today. Aspergillus Ab neg. CT neg for PE. Would be candidate for covid booster. Remains hypoxic. Will follow
[2021-09-05] MEDS: Atorvastatin Calcium 20 MG Tablet PO (19:37)
--- NOTE | 2021-09-05 22:50 | EKG12_ITS ---
Test Reason : Blood Pressure : / mmHG Vent. Rate : 069 BPM Atrial Rate : 069 BPM P-R Int : 220 ms QRS Dur : 088 ms QT Int : 446 ms P-R-T Axes : 000 015 021 degrees QTc Int : 477 ms Electronic atrial pacemaker Confirmed by FRANKLIN RIVERO, VLADIMIR ([id number]), material expeditor JUJU MORROW ([id number]) on 09/07/2021 9:32:21 AM Referred By: Confirmed By:VLADIMIR REID MD
[2021-09-06] VITALS (35 sets, daily range): BP systolic 92–105; BP diastolic 54–75; PULSE 65–97; RESP 12–37; TEMP 36.1–36.4; O2SAT 89–97
[2021-09-06 05:44] LABS: Absolute Lymphocyte Count 0.61 X10^3/uL (0.83-4.51); Absolute Neutrophil Count 10.9 X10^3/uL (2.0-7.7); Basophil# 0.02 X10^3/uL; Basophil% 0.2 % (0-1); Eosinophil# 0.01 X10^3/uL; Eosinophils% 0.1 % (0-5); Hematocrit 33.7 % (40-54); Hemoglobin 10.2 g/dL (13.0-16.5); Lymphocyte # 0.61 X10^3/ul (0.83-4.51); Mean Corp Hgb Conc 30.3 g/dL (32-36); Mean Corpuscular Hgb 26.4 pg (27.0-32.0); Mean Corpuscular Volume 87.1 fL (80-94); Mean Platelet Vol. 12.3 fl (6.2-12.0); Monocyte% 4.9 % (0-10); NRBC Flagged by Analyzer 0 % (0-5); Neutrophil # 10.89 X10^3/uL (2.7-7.7); Neutrophil % 88.5 % (47-70); Platelet Count 292 K/mm3 (150-450); RBC Distribution Width SD 57.3 fl (35.1-43.9); Red Blood Count 3.87 M/mm3 (4.6-6.2); White Blood Count 12.3 K/mm3 (4.4-11.0)
[2021-09-06 06:02] LABS: ALB/GLOB Ratio 0.5 RATIO (0.9-2.4); AST(SGOT) 23 U/L (15-37); Alanine Aminotransfer ALT/SGPT 17 U/L (16-61); Alkaline Phosphatase 65 U/L (45-117); Anion Gap 5 (5-15); BUN 27 mg/dL (7-18); BUN/Creat Ratio 41.7 RATIO (10-20); Calcium,Total 8.6 mg/dL (8.5-10.1); Chloride 101 mmol/L (98-107); Creatinine, Serum 0.65 mg/dL (0.70-1.30); EST Glomerular Filtration Rate 134 mL/min (>60); Est Glom Filt Rate - Afr Amer 162 mL/min (>60); Estimated Creatinine Clearance 118.38 ml/min; Globulin 4.2 g/dL (2.2-4.2); Glucose 137 mg/dL (74-106); Potassium 4.4 mmol/L (3.5-5.1); Protein, Total 6.2 g/dL (6.4-8.2); Sodium Level 137 mmol/L (136-145)
--- NOTE | 2021-09-06 06:59 | PN.CC_ITS ---
Assessment & Plan Assessment/Plan (1) Acute on chronic respiratory failure with hypoxemia: PLAN: RECOMMENDATIONS: 1. Continue antimicrobials and voriconazole per ID recommendations. 2. Continue Airvo during the day. BiPAP with sleep. Goal to maintain oxygen saturations at or above 90%. 3. Encourage incentive spirometer use and mobilize patient as tolerated. 4. Continue scheduled bronchodilators. 5. Increase Solu-Medrol 6. Continue appropriate DVT prophylaxis. 7. Diuresis as tolerated IMPRESSIONS: 1. Acute on chronic hypoxemic respiratory failure The patient does have a baseline oxygen requirement of 3 L/min. He has a history of rheumatoid associated interstitial lung disease and was previously on immunosuppression, up until his discharge from the hospital in June. The patient has been hospitalized several times over the last couple months, first due to COVID-19 pneumonia and more recently as a consequence of bacterial pneumonia. His CT findings noted on presentation were nonspecific. Therefore, the patient underwent bronchoscopy on August 29 with BAL performed bilaterally. Fluid cytology revealed fungal organisms consistent with Aspergillus. The patient will be continued on bronchodilators and steroids. The patient will remain on antimicrobials and voriconazole per ID recommendations. Patient's Aspergillus immune work-up was negative, so ABPA would be a consideration. Will increase steroids. Continue to diurese as tolerated. Encourage aggressive pulmonary toileting. 2. History of mixed obstructive/restrictive ventilatory impairment/rheumatoid arthritis/hypertension/hyperlipidemia Complicates care, management, recovery and prognosis. Continue home medications as indicated. 3. Nonsustained V. tach Unclear etiology. Potassium appears to be okay. Will check magnesium and phosphorus. Obtain EKG to evaluate QT interval. We will check an echocardiogram 4. Pulmonary hypertension Patient with multiple etiologies for pulmonary hypertension. Patient has potential for type I, type II and type III pulmonary hypertension. Patient will need a right heart catheterization for quantification clarification. For now, will attempt to control hypoxemia and diurese as tolerated. Subjective Subjective Patient did okay overnight. Patient subjectively feels improved compared to previous. Patient was able to tolerate Airvo during the day yesterday, but was on BiPAP with sleep. Patient denies any chest pain. Patient has had a significantly productive cough, but does not believe it is changed in color or consistency. Objective Data Objective Data Vital Signs: Vital Signs Temp Pulse Resp BP Pulse Ox 36.3 C L 76 32 H 97/62 92 09/06/21 04:00 09/06/21 06:00 09/06/21 06:00 09/06/21 06:00 09/06/21 06:00 Oxygen Flow Rate (L/min) 60 Oxygen Delivery Method Airvo Weight: 84.1 kg Body Mass Index (BMI) 28.5 Intake & Output: Intake and Output for Last 24 Hours 09/04/21 09/05/21 09/06/21 23:59 23:59 23:59 Intake Total 840.5 / 840.5 Output Total 700 / 900 200 / 200 Balance 140.5 / -59.5 -200 / -200 Lab / Micro Data Result Diagrams: 09/06/21 05:30 09/06/21 05:30 Labs: Laboratory Results - last 24 hr 09/05/21 05:05: Anisocytosis 2+, Tear Drop Cells RARE, Ovalocytes 2+ 09/05/21 05:05: Phosphorus 2.8, Magnesium 2.7 H 09/06/21 05:30: WBC 12.3 H, RBC 3.87 L, Hgb 10.2 L, Hct 33.7 L, MCV 87.1, MCH 26.4 L, MCHC 30.3 L, RDW Std Deviation 57.3 H, RDW Coeff of Cheikh 18.0 H, Plt Count 292, MPV 12.3 H, Immature Gran % (Auto) 1.300 H, Neut % (Auto) 88.5 H, Lymph % (Auto) 5.0 L, [place] % (Auto) 4.9, Eos % (Auto) 0.1, Baso % (Auto) 0.2, Absolute Neuts (auto) 10.9 H, Absolute Lymphs (auto) 0.61 L, Nucleated RBC % 0 09/06/21 05:30: Sodium 137, Potassium 4.4, Chloride 101, Carbon Dioxide 31.0, Anion Gap 5, BUN 27 H, Creatinine 0.65 L, Estim Creat Clear Calc 118.38, Est GFR (MDRD) Af Amer 162, Est GFR (MDRD) Non-Af 134, BUN/Creatinine Ratio 41.7 H, Glucose 137 H, Calcium 8.6, Total Bilirubin 0.90, AST 23, ALT 17, Alkaline Phosphatase 65, Total Protein 6.2 L, Albumin 2.0 L, Globulin 4.2, Albumin/Globulin Ratio 0.5 L Micro: Microbiology 11/01/21 12:00 Wash - Right Middle Lobe Gram Stain - Final 08/29/21 12:00 Wash - Right Middle Lobe Respiratory Culture - Final Presumptive C albicans 08/29/21 12:00 Wash - Other Gram Stain - Final 08/29/21 12:00 Wash - Other Respiratory Culture - Final Presumptive C albicans 08/27/21 00:30 Blood Culture (Wb) - Left Hand Blood Culture - Final No growth in 5 days. 08/26/21 00:30 Blood Culture (Wb) - Anticubital Right Blood Culture - Final No growth in 5 days. 08/28/21 18:45 Sputum, Expectorated/Coughed Gram Stain - Final 08/28/21 18:45 Sputum, Expectorated/Coughed Respiratory Culture - Final 08/27/21 16:10 Sputum, Expectorated/Coughed Gram Stain - Final 08/27/21 16:10 Sputum, Expectorated/Coughed Respiratory Culture - Final 08/27/21 10:55 Sputum, Expectorated/Coughed Gram Stain - Final 08/27/21 10:55 Sputum, Expectorated/Coughed Respiratory Culture - Final 08/26/21 Unknown Urine, Clean Catch Legionella Antigen - Final 08/26/21 Unknown Urine, Clean Catch Streptococcus pneumoniae Antigen (M - Final 08/27/21 02:15 Mucosa - Nasopharyngeal Respiratory Panel (PCR) - Final 08/27/21 00:20 Nasal Secretion SARS-CoV-2 Antigen (Rapid) - Final Radiography Diagnostic Testing: Radiology Impression Chest X-Ray 09/05/21 05:12 IMPRESSION: Has been a progression of the bilateral airspace disease worse in the right hemithorax. Electronically Signed: Dwaine Gurrola MD at 8:24 EST , Service support , Echocardiogram 09/05/21 07:02 Interpretation Summary The study was technically difficult. Contrast injection was performed. Left ventricular systolic function is normal. The estimated ejection fraction is 70 %. Mildly dilated right ventricle. Mild global right ventricular systolic dysfunction. Trivial mitral valve insufficiency. Mild tricuspid valve insufficiency. Based upon the 2D echocardiographic images obtained a bicuspid aortic valve with associated mild thickening/calcification cannot necessarily be excluded. Epicardial fat. Right ventricular systolic pressure estimated to be 56 mmHg c/w pulmonary hypertension. Transmitral and pulmonary venous doppler flow suggestive of impaired relaxation of left ventricle ICD or pacer leads identified within the right atrium ICD or pacer leads identified within the right ventricle. Ordering Physician: Olu Dunn Referring Physician: GASTON ALCARAZ Performed By: Meseret Painting RDCS, RVT Physical Exam Const alert and oriented x3 Constitutional Narrative: Currently tolerating Airvo. Mild conversational dyspnea General Appearance: cooperative HEENT normocephalic, head/scalp atraumatic and moist oral mucous membranes Eyes PERRL, EOMs intact bilaterally and conjunctivae normal Neck supple General: trachea midline Chest inspection of chest normal Chest: symmetrical chest wall rise; Negative for crepitus Resp normal respiratory effort and no use of accessory muscles Effort and Inspection: tachypneic Auscultation: rhonchi and wheezes; Negative for rales Cardio regular rate, regular rhythm, S1 normal heart sound and S2 normal heart sound GI normal to inspection, nondistended, normoactive bowel sounds Extremity General Extremity: Negative for clubbing, cyanosis or edema Skin no rashes or lesions noted Neuro moves all extremities and no focal motor deficits Psych cooperative and affect normal Charges/Coding Visit Charges Inpatient E&M: 17531 Subs Hosp L3
[2021-09-06] MEDS: Ipratropium/Albuterol Sulfate 3 ML AMPUL.NEB INHALATION ×4 (07:09→19:00)
[2021-09-06] MEDS: Furosemide 40 MG/4 ML Vial IV (08:01)
[2021-09-06] MEDS: Aspirin E.C. 81 MG Tablet PO (08:02)
[2021-09-06] MEDS: Enoxaparin 40 MG/0.4 ML Syringe SC (11:35)
--- NOTE | 2021-09-06 13:16 | PCM.PN.HOSP ---
Subjective Subjective Follow-up on acute hypoxic respiratory failure/multifocal pneumonia: Patient was seen and examined. Overnight, he remains on BiPAP continuously. He however stated he is feeling better. Objective Data Objective Data Vital Signs: Vital Signs Temp Pulse Resp BP Pulse Ox 97 F L 97 27 H 94/54 L 90 09/06/21 12:00 09/06/21 12:00 09/06/21 12:00 09/06/21 12:00 09/06/21 12:00 Oxygen Flow Rate (L/min) 60 Oxygen Delivery Method Airvo Weight: 84.1 kg Body Mass Index (BMI) 28.5 Intake & Output: Intake and Output for Last 24 Hours 09/04/21 09/05/21 09/06/21 23:59 23:59 23:59 Intake Total 840.5 / 840.5 424 / 424 Output Total 700 / 900 900 / 900 Balance 140.5 / -59.5 -476 / -476 Lab / Micro Data Result Diagrams: 09/06/21 05:30 09/06/21 05:30 Labs: Laboratory Results - last 24 hr 09/06/21 05:30: WBC 12.3 H, RBC 3.87 L, Hgb 10.2 L, Hct 33.7 L, MCV 87.1, MCH 26.4 L, MCHC 30.3 L, RDW Std Deviation 57.3 H, RDW Coeff of Cheikh 18.0 H, Plt Count 292, MPV 12.3 H, Immature Gran % (Auto) 1.300 H, Neut % (Auto) 88.5 H, Lymph % (Auto) 5.0 L, [place] % (Auto) 4.9, Eos % (Auto) 0.1, Baso % (Auto) 0.2, Absolute Neuts (auto) 10.9 H, Absolute Lymphs (auto) 0.61 L, Nucleated RBC % 0 09/06/21 05:30: Sodium 137, Potassium 4.4, Chloride 101, Carbon Dioxide 31.0, Anion Gap 5, BUN 27 H, Creatinine 0.65 L, Estim Creat Clear Calc 118.38, Est GFR (MDRD) Af Amer 162, Est GFR (MDRD) Non-Af 134, BUN/Creatinine Ratio 41.7 H, Glucose 137 H, Calcium 8.6, Total Bilirubin 0.90, AST 23, ALT 17, Alkaline Phosphatase 65, Total Protein 6.2 L, Albumin 2.0 L, Globulin 4.2, Albumin/Globulin Ratio 0.5 L Micro: Microbiology 08/29/21 12:00 Wash - Right Middle Lobe Gram Stain - Final 08/29/21 12:00 Wash - Right Middle Lobe Respiratory Culture - Final Presumptive C albicans 08/29/21 12:00 Wash - Other Gram Stain - Final 08/29/21 12:00 Wash - Other Respiratory Culture - Final Presumptive C albicans 08/27/21 00:30 Blood Culture (Wb) - Left Hand Blood Culture - Final No growth in 5 days. 08/26/21 00:30 Blood Culture (Wb) - Anticubital Right Blood Culture - Final No growth in 5 days. 08/28/21 18:45 Sputum, Expectorated/Coughed Gram Stain - Final 08/28/21 18:45 Sputum, Expectorated/Coughed Respiratory Culture - Final 08/27/21 16:10 Sputum, Expectorated/Coughed Gram Stain - Final 08/27/21 16:10 Sputum, Expectorated/Coughed Respiratory Culture - Final 08/27/21 10:55 Sputum, Expectorated/Coughed Gram Stain - Final 08/27/21 10:55 Sputum, Expectorated/Coughed Respiratory Culture - Final 08/26/21 Unknown Urine, Clean Catch Legionella Antigen - Final 08/26/21 Unknown Urine, Clean Catch Streptococcus pneumoniae Antigen (M - Final 08/27/21 02:15 Mucosa - Nasopharyngeal Respiratory Panel (PCR) - Final 08/27/21 00:20 Nasal Secretion SARS-CoV-2 Antigen (Rapid) - Final Physical Exam Narrative Physical exam: General: Alert, Oriented x3, Cooperative, on BiPAP HEENT: Atraumatic Oral: Moist Mucosa Neck: Supple Lungs: Diminished to auscultation Cardiovascular: HS I+II, regular, no murmurs Abdomen: Bowel Sounds Present, Soft, Non Tender Extremities: No edema Assessment & Plan Assessment/Plan (1) Acute on chronic respiratory failure with hypoxemia: (2) Multifocal pneumonia: PLAN: 1. Acute on chronic hypoxic respiratory failure secondary to acute multifocal pneumonia, likely bacterial with superimposed fungal/aspergillosis Patient is immunocompromised with history of rheumatoid arthritis, not on any medications Patient currently remains on BiPAP; in ICU for closer monitoring Sputum cultures growing presumptive C albicans Status post bronchoscopy on 08/29/21 which showed thickened whitish secretions in right upper and right middle as well as left upper lobes. Continue on voriconazole, IV Solu-Medrol, breathing treatments ID and pulmonology following Continue on BiPAP 2. Rest of his chronic medical conditions including rheumatoid arthritis, chronic atrial fibrillation, hyperlipidemia, hypertension, CAD status post stents remains stable for now Meds reviewed 3. DVT prophylaxis - Lovenox Charges/Coding Visit Charges Inpatient E&M: 81361 Subs Hosp L3
[2021-09-06] MEDS: dilTIAZem CD 120 MG Capsule PO (13:32)
--- NOTE | 2021-09-06 13:49 | PCM.CONS.C ---
Assessment & Plan Assessment/Plan (1) Cardiac dysrhythmia, unspecified: PLAN: The patient has a history of a cardiac dysrhythmia leading to his previous events and his subsequent device placement. The exact etiology of his cardiac dysrhythmia and/or conduction system disorder is unknown at this time. A request has been made to retrieve medical records from his primary cardiology group for continuity of care. In the interim there is been concerns as to whether or not his wide-complex rhythms are related to ventricular ectopy/tachycardia versus being electronic ventricular paced beats. At the moment he appears to be symptomatically and hemodynamically stable. He will be having his device interrogated which will assist with the differentiation of his rhythm findings and assist with further evaluation and care. (2) CAD (coronary artery disease): PLAN: He has a history of underlying CAD. He has undergone PCI in the past. He apparently has been treated medically since that time and has not required repeat evaluation in the cardiac catheterization laboratory. (3) S/P PTCA (percutaneous transluminal coronary angioplasty): PLAN: He states he has [address] Again his outside medical records are unavailable for review thus the details of his PCI procedure are unknown at this time. At the moment he appears to be without any acute coronary syndrome type symptoms. He should continue medical management as deemed appropriate. (4) S/P placement of cardiac pacemaker: PLAN: He states he has a pacemaker in place although it is unclear whether it is truly a pacemaker or pacemaker/ICD. A request has been made for copies of his previous medical records from his primary cardiology group in [place], [place]. In the interim his device is going to be interrogated that we will assist with what type of device he has and its recordings and its function. Of note, he states it has been interrogated not that long ago and he was told it was functioning appropriately and his battery longevity was approximately 4.8 years. (5) Multifocal pneumonia: PLAN: He has experienced COVID-19. He has now been diagnosed with a fungal pneumonia. He is continuing evaluation care by internal medicine, pulmonology/critical care medicine, and infectious disease. Addt'l Comments The patient's case was discussed and reviewed with the patient and his spouse. This note was generated using a voice recognition system and there may be incorrect words, spelling or punctuation that were not noted when reviewing the office note prior to saving. HPI Consult Data Date of Consult: 09/06/21 HPI Narrative HPI Narrative: TRACY MOLINA, is a 61 year old white male who presents for cardiovascular consultation based upon concerns of ventricular tachycardia . The patient has been followed in [place], [place] for his cardiovascular history which apparently has included a history of underlying CAD, PCI-remote, possible syncope, cardiac dysrhythmia/conduction system disorder status post pacer/possible ICD placement, superimposed upon a history of recent COVID-19 and now undergoing evaluation and care for a fungal pneumonia. The patient states his main issues have been his recent respiratory related issues with shortness of breath/dyspnea and coughing. He is currently in the ICU undergoing evaluation and care for his respiratory related issues. During this time he has been on a cardiac rhythm monitor. He has been noted to have sinus rhythm with episodes of a wide-complex tachycardia which has raise concern about the possibility of ventricular tachycardia. He does not sense any chest discomfort other than that he has associated with his cough. There has been no episodes of acute orthopnea or PND or peripheral pitting edema. He has not sensed ongoing palpitations or rapid heart rates. There is been no near syncope or syncope. He has had troponin I levels performed during his admission which have been negative. He had an ECG performed on arrival that demonstrated sinus rhythm. He has had subsequent ECGs demonstrating sinus rhythm with nonspecific ST segment changes as well as underlying electronic atrial paced beats. His cardiac rhythm monitor demonstrates episodes of wide-complex rhythm which appears somewhat suspicious for electronic ventricular paced rhythm. His previous cardiovascular records are unavailable for review at this time. He did undergo evaluation with a transthoracic echocardiogram this day. The results are as noted below. [facility] Medical History (Updated 09/06/21 @ 13:[address] Fritz Smith MD) CAD (coronary artery disease) Cardiac dysrhythmia, unspecified COPD (chronic obstructive pulmonary disease) Cough Hypoxia Long-term use of high-risk medication MICHAEL (obstructive sleep apnea) Osteoarthritis Pneumonia Pulmonary fibrosis Rheumatoid arthritis Sinusitis Home Medications aspirin 81 mg tablet,delayed release 81 mg PO DAILY tab 02/05/18 [History Last Taken 08/26/21] coenzyme K20-[id number] E 100 mg-100 unit capsule 1 cap PO DAILY 02/05/18 [History Last Taken 08/26/21] diltiazem HCl 120 mg tablet 120 mg PO DAILY tab 02/05/18 [History Last Taken 08/26/21] lisinopril 20 mg tablet 20 mg PO DAILY 02/05/18 [History Last Taken 08/26/21] simvastatin 40 mg tablet 40 mg PO QHS 02/05/18 [History Last Taken 08/26/21] albuterol sulfate 90 mcg/actuation aerosol inhaler 2 puff INHALATION Q4H PRN #8.5 g 08/12/21 [Rx Last Taken 08/26/21] prednisone 5 mg tablet See Rx Instructions PO DAILY #42 tab 08/12/21 [Rx Last Taken Unknown] turmeric 400 mg PO DAILY 08/27/21 [History Last Taken 08/26/21] umeclidinium-vilanterol [Anoro Ellipta] 1 inh INHALATION Q24H 08/27/21 [History Last Taken 08/26/21] Allergy/AdvReac Type Severity Reaction Status Date / Time No Known Allergies Allergy Verified 08/12/21 07:52 Family History Father Heart disease Surgical History (Updated 09/06/21 @ 13:[address] Fritz Smith MD) H/O rhinoplasty History of intravascular stent placement Hx of appendectomy Open fracture of left upper extremity S/P placement of cardiac pacemaker S/P PTCA (percutaneous transluminal coronary angioplasty) Social History Smoking Status: Former smoker how long ago did patient quit smokin, 1p/day second hand exposure: Yes alcohol intake: current alcohol intake frequency: a few times a week Alcohol type: hard liquor substance use type: does not use ROS Constitutional Constitutional: Reports as per HPI Eyes Eyes: Reports as per HPI ENT HEENT: Reports as per HPI Cardiovascular Cardiovascular: Reports dyspnea Respiratory/Chest Respiratory/Chest: Reports cough and dyspnea Gastrointestinal Gastrointestinal: Reports as per HPI Genitourinary Genitourinary: Reports as per HPI Musculoskeletal Musculoskeletal: Reports as per HPI Integumentary Integumentary: Reports as per HPI Neurologic Neurologic: Reports as per HPI Physical Exam Const alert, oriented x3, no apparent distress and healthy appearing Orientation / Consciousness: awake HEENT normocephalic, head/scalp atraumatic and hearing grossly normal bilaterally Eyes PERRL, EOMs intact bilaterally and conjunctivae normal Neck full ROM, supple and no JVD Resp Auscultation: rhonchi throughout Cardio regular rate, regular rhythm, S1 normal heart sound and S2 normal heart sound GI normal to inspection, nondistended, normoactive bowel sounds Extremity no pedal edema Skin no rashes or lesions noted Neuro oriented x3, moves all extremities, no focal motor deficits and no sensory deficits noted Psych mental status grossly normal Risk Stratification Risk Stratification Applicable: No Procedure Criteria Type of Procedure Procedure Type: Elective Elective Risks - COVID COVID Risk Discussion: The surgeon/proceduralist and patient have discussed in detail the risk of exposure to and/or potential harm posed by the COVID-19 virus with having a surgery/procedure at this time versus the risk of delaying the surgery/procedure. It is not possible to know either the risk of delaying the surgery or procedure or chance of getting an infection with perfect accuracy, but a joint decision was made between the patient and the surgeon/proceduralist to proceed at this time with the scheduled surgery/procedure as indicated on the consent form. Objective Data Vital Signs: Vital Signs Temp Pulse Resp BP Pulse Ox 97 F L 97 25 H 104/59 L 91 09/06/21 12:00 09/06/21 13:00 09/06/21 13:00 09/06/21 13:00 09/06/21 13:00 Oxygen Flow Rate (L/min) 60 Oxygen Delivery Method Airvo Weight: 185 lb 6.54 oz Body Mass Index (BMI) 28.5 Intake & Output: Intake and Output for Last 24 Hours 09/04/21 09/05/21 09/06/21 23:59 23:59 23:59 Intake Total 840.5 / 840.5 424 / 424 Output Total 700 / 900 900 / 900 Balance 140.5 / -59.5 -476 / -476 Lab / Micro Data Result Diagrams: 09/06/21 05:30 09/06/21 05:30 Labs: Laboratory Results - last 24 hr 09/06/21 05:30: WBC 12.3 H, RBC 3.87 L, Hgb 10.2 L, Hct 33.7 L, MCV 87.1, MCH 26.4 L, MCHC 30.3 L, RDW Std Deviation 57.3 H, RDW Coeff of Cheikh 18.0 H, Plt Count 292, MPV 12.3 H, Immature Gran % (Auto) 1.300 H, Neut % (Auto) 88.5 H, Lymph % (Auto) 5.0 L, [place] % (Auto) 4.9, Eos % (Auto) 0.1, Baso % (Auto) 0.2, Absolute Neuts (auto) 10.9 H, Absolute Lymphs (auto) 0.61 L, Nucleated RBC % 0 09/06/21 05:30: Sodium 137, Potassium 4.4, Chloride 101, Carbon Dioxide 31.0, Anion Gap 5, BUN 27 H, Creatinine 0.65 L, Estim Creat Clear Calc 118.38, Est GFR (MDRD) Af Amer 162, Est GFR (MDRD) Non-Af 134, BUN/Creatinine Ratio 41.7 H, Glucose 137 H, Calcium 8.6, Total Bilirubin 0.90, AST 23, ALT 17, Alkaline Phosphatase 65, Total Protein 6.2 L, Albumin 2.0 L, Globulin 4.2, Albumin/Globulin Ratio 0.5 L Cardiology Labs/Tests 09/06/21 05:30: WBC 12.3 H, RBC 3.87 L, Hgb 10.2 L, Hct 33.7 L, MCV 87.1, MCH 26.4 L, MCHC 30.3 L, Plt Count 292, MPV 12.3 H, Immature Gran % (Auto) 1.300 H, Neut % (Auto) 88.5 H, Lymph % (Auto) 5.0 L, [place] % (Auto) 4.9, Eos % (Auto) 0.1, Baso % (Auto) 0.2, Absolute Neuts (auto) 10.9 H, Nucleated RBC % 0 09/06/21 05:30: Sodium 137, Potassium 4.4, Chloride 101, Carbon Dioxide 31.0, Anion Gap 5, BUN 27 H, Creatinine 0.65 L, Est GFR (MDRD) Af Amer 162, Est GFR (MDRD) Non-Af 134, BUN/Creatinine Ratio 41.7 H, Glucose 137 H, Calcium 8.6, Total Bilirubin 0.90 Rhythm: As noted above EKG: As noted above ECHO: Interpretation Summary The study was technically difficult. Contrast injection was performed. Left ventricular systolic function is normal. The estimated ejection fraction is 70 %. Mildly dilated right ventricle. Mild global right ventricular systolic dysfunction. Trivial mitral valve insufficiency. Mild tricuspid valve insufficiency. Based upon the 2D echocardiographic images obtained a bicuspid aortic valve with associated mild thickening/calcification cannot necessarily be excluded. Epicardial fat. Right ventricular systolic pressure estimated to be 56 mmHg c/w pulmonary hypertension. Transmitral and pulmonary venous doppler flow suggestive of impaired relaxation of left ventricle ICD or pacer leads identified within the right atrium ICD or pacer leads identified within the right ventricle.
[2021-09-06] MEDS: 0.9% Saline Lock 10 ML Syringe IV (17:50)
[2021-09-06] MEDS: Atorvastatin Calcium 20 MG Tablet PO (19:40)
[2021-09-07] VITALS (34 sets, daily range): BP systolic 83–119; BP diastolic 54–91; PULSE 66–88; RESP 12–40; TEMP 36.1–36.9; O2SAT 89–99
[2021-09-07] MEDS: Ipratropium/Albuterol Sulfate 3 ML AMPUL.NEB INHALATION ×5 (04:42→19:05)
[2021-09-07 04:51] LABS: Absolute Lymphocyte Count 0.43 X10^3/uL (0.83-4.51); Absolute Neutrophil Count 5.4 X10^3/uL (2.0-7.7); Basophil# 0.01 X10^3/uL; Basophil% 0.2 % (0-1); Hematocrit 30.5 % (40-54); Hemoglobin 9.7 g/dL (13.0-16.5); Lymphocyte # 0.43 X10^3/ul (0.83-4.51); Mean Corp Hgb Conc 31.8 g/dL (32-36); Mean Corpuscular Hgb 27.2 pg (27.0-32.0); Mean Corpuscular Volume 85.7 fL (80-94); Mean Platelet Vol. 11.7 fl (6.2-12.0); Monocyte# 0.24 X10^3/uL; Monocyte% 3.9 % (0-10); NRBC Flagged by Analyzer 0 % (0-5); Neutrophil # 5.35 X10^3/uL (2.7-7.7); Neutrophil % 87.8 % (47-70); POSITIVE DIFFERENTIAL YES; Platelet Count 256 K/mm3 (150-450); RBC Distribution Width CV 17.9 % (11.6-14.6); RBC Distribution Width SD 55.8 fl (35.1-43.9); Red Blood Count 3.56 M/mm3 (4.6-6.2); White Blood Count 6.1 K/mm3 (4.4-11.0)
[2021-09-07 04:58] LABS: Differential Indicated SCAN CRITERIA MET
[2021-09-07 05:12] LABS: Anisocytosis RARE; Differential Comment SCANNED; Microcytosis RARE; Ovalocyte RARE
[2021-09-07 05:23] LABS: ALB/GLOB Ratio 0.5 RATIO (0.9-2.4); AST(SGOT) 20 U/L (15-37); Alanine Aminotransfer ALT/SGPT 16 U/L (16-61); Albumin, Serum 1.8 g/dL (3.2-5.0); Alkaline Phosphatase 64 U/L (45-117); Anion Gap 6 (5-15); BUN 25 mg/dL (7-18); BUN/Creat Ratio 45.8 RATIO (10-20); Calcium,Total 8.2 mg/dL (8.5-10.1); Chloride 100 mmol/L (98-107); Creatinine, Serum 0.55 mg/dL (0.70-1.30); EST Glomerular Filtration Rate 163 mL/min (>60); Est Glom Filt Rate - Afr Amer 198 mL/min (>60); Estimated Creatinine Clearance 139.91 ml/min; Globulin 3.9 g/dL (2.2-4.2); Glucose 177 mg/dL (74-106); Potassium 4.2 mmol/L (3.5-5.1); Protein, Total 5.7 g/dL (6.4-8.2); Sodium Level 136 mmol/L (136-145)
--- NOTE | 2021-09-07 07:21 | PCM.PN.INT ---
Assessment & Plan Assessment/Plan (1) Acute on chronic respiratory failure with hypoxemia: PLAN: RECOMMENDATIONS: 1. Continue antimicrobials and voriconazole per ID recommendations. 2. Continue Airvo during the day. BiPAP with sleep. Goal to maintain oxygen saturations at or above 90%. 3. Encourage incentive spirometer use and mobilize patient as tolerated. 4. Continue scheduled bronchodilators. 5. Continue Solu-Medrol at current dosing 6. Continue appropriate DVT prophylaxis. 7. Diuresis as tolerated IMPRESSIONS: 1. Acute on chronic hypoxemic respiratory failure The patient does have a baseline oxygen requirement of 3 L/min. He has a history of rheumatoid associated interstitial lung disease and was previously on immunosuppression, up until his discharge from the hospital in June. The patient has been hospitalized several times over the last couple months, first due to COVID-19 pneumonia and more recently as a consequence of bacterial pneumonia. His CT findings noted on presentation were nonspecific. Therefore, the patient underwent bronchoscopy on August 29 with BAL performed bilaterally. Fluid cytology revealed fungal organisms consistent with Aspergillus. The patient will be continued on bronchodilators and steroids. The patient will remain on antimicrobials and voriconazole per ID recommendations. Patient appears to have responded well to increased steroids. These will be continued. Continue to diurese as tolerated. Encourage aggressive pulmonary toileting. 2. History of mixed obstructive/restrictive ventilatory impairment/rheumatoid arthritis/hypertension/hyperlipidemia Complicates care, management, recovery and prognosis. Continue home medications as indicated. 3. Nonsustained V. tach Cardiology has been consulted. It appears as though the interrogation does not show any V. tach suggesting this may be secondary to ventricular pacing. 4. Pulmonary hypertension Patient with multiple etiologies for pulmonary hypertension. Patient has potential for type I, type II and type III pulmonary hypertension. Patient will need a right heart catheterization for quantification clarification. For now, will attempt to control hypoxemia and diurese as tolerated. Subjective Subjective Patient did okay overnight. Patient was not as dependent on BiPAP over the last 24 hours. Patient denies any current chest pain or abdominal pain. Hemodynamics have been appropriate. Patient is still requiring high FiO2 on Airvo to maintain saturations. Objective Data Objective Data Patient did have his pacemaker interrogated yesterday. This did not show any significant V. tach. Vital Signs: Vital Signs Temp Pulse Resp BP Pulse Ox 36.8 C 71 25 H 103/69 92 09/07/21 04:00 09/07/21 07:00 09/07/21 07:00 09/07/21 07:00 09/07/21 07:00 Oxygen Flow Rate (L/min) 60 Oxygen Delivery Method Airvo Weight: 84.2 kg Body Mass Index (BMI) 28.5 Intake & Output: Intake and Output for Last 24 Hours 09/05/21 09/06/21 09/07/21 23:59 23:59 23:59 Intake Total 840.5 / 840.5 948 / 948 Output Total 700 / 900 1800 / 1800 175 / 175 Balance 140.5 / -59.5 -852 / -852 -175 / -175 Lab / Micro Data Result Diagrams: 09/07/21 04:45 09/07/21 04:45 Labs: Laboratory Results - last 24 hr 09/07/21 04:45: WBC 6.1, RBC 3.56 L, Hgb 9.7 L, Hct 30.5 L, MCV 85.7, MCH 27.2, MCHC 31.8 L, RDW Std Deviation 55.8 H, RDW Coeff of Cheikh 17.9 H, Plt Count 256, MPV 11.7, Immature Gran % (Auto) 1.100 H, Neut % (Auto) 87.8 H, Lymph % (Auto) 7.0 L, [place] % (Auto) 3.9, Eos % (Auto) 0.0, Baso % (Auto) 0.2, Absolute Neuts (auto) 5.4, Absolute Lymphs (auto) 0.43 L, Nucleated RBC % 0, Differential Comment SCANNED, Anisocytosis RARE, Microcytosis RARE, Ovalocytes RARE 09/07/21 04:45: Sodium 136, Potassium 4.2, Chloride 100, Carbon Dioxide 30.0, Anion Gap 6, BUN 25 H, Creatinine 0.55 L, Estim Creat Clear Calc 139.91, Est GFR (MDRD) Af Amer 198, Est GFR (MDRD) Non-Af 163, BUN/Creatinine Ratio 45.8 H, Glucose 177 H, Calcium 8.2 L, Total Bilirubin 0.80, AST 20, ALT 16, Alkaline Phosphatase 64, Total Protein 5.7 L, Albumin 1.8 L, Globulin 3.9, Albumin/Globulin Ratio 0.5 L Micro: Microbiology 08/29/21 12:00 Fluid - Other Acid Fast Bacilli Smear - Final 08/29/21 12:00 Wash - Right Middle Lobe Gram Stain - Final 08/29/21 12:00 Wash - Right Middle Lobe Respiratory Culture - Final Presumptive C albicans 08/29/21 12:00 Wash - Other Gram Stain - Final 08/29/21 12:00 Wash - Other Respiratory Culture - Final Presumptive C albicans 08/27/21 00:30 Blood Culture (Wb) - Left Hand Blood Culture - Final No growth in 5 days. 08/26/21 00:30 Blood Culture (Wb) - Anticubital Right Blood Culture - Final No growth in 5 days. 08/28/21 18:45 Sputum, Expectorated/Coughed Gram Stain - Final 08/28/21 18:45 Sputum, Expectorated/Coughed Respiratory Culture - Final 08/27/21 16:10 Sputum, Expectorated/Coughed Gram Stain - Final 08/27/21 16:10 Sputum, Expectorated/Coughed Respiratory Culture - Final 08/27/21 10:55 Sputum, Expectorated/Coughed Gram Stain - Final 08/27/21 10:55 Sputum, Expectorated/Coughed Respiratory Culture - Final 08/26/21 Unknown Urine, Clean Catch Legionella Antigen - Final 08/26/21 Unknown Urine, Clean Catch Streptococcus pneumoniae Antigen (M - Final 08/27/21 02:15 Mucosa - Nasopharyngeal Respiratory Panel (PCR) - Final 08/27/21 00:20 Nasal Secretion SARS-CoV-2 Antigen (Rapid) - Final Physical Exam Const alert and oriented x3 Constitutional Narrative: Currently tolerating Airvo. Mild conversational dyspnea General Appearance: cooperative HEENT normocephalic, head/scalp atraumatic and moist oral mucous membranes Eyes PERRL, EOMs intact bilaterally and conjunctivae normal Neck supple General: trachea midline Chest inspection of chest normal Chest: symmetrical chest wall rise; Negative for crepitus Resp normal respiratory effort and no use of accessory muscles Effort and Inspection: tachypneic Auscultation: rhonchi and wheezes; Negative for rales Cardio regular rate, regular rhythm, S1 normal heart sound and S2 normal heart sound GI normal to inspection, nondistended, normoactive bowel sounds Extremity General Extremity: Negative for clubbing, cyanosis or edema Skin no rashes or lesions noted Neuro moves all extremities and no focal motor deficits Psych cooperative and affect normal Charges/Coding Visit Charges Inpatient E&M: 83664 Subs Hosp L3
--- NOTE | 2021-09-07 08:41 | PCM.PN.HOSP ---
Subjective Subjective Follow-up on acute hypoxic respiratory failure/multifocal pneumonia: Patient was seen and examined. His oxygen requirement remains the same. Remains on BiPAP. Objective Data Objective Data Vital Signs: Vital Signs Temp Pulse Resp BP Pulse Ox 96.9 F L 66 31 H 119/67 90 09/07/21 08:00 09/07/21 08:00 09/07/21 08:00 09/07/21 08:00 09/07/21 08:00 Oxygen Flow Rate (L/min) 60 Oxygen Delivery Method Airvo Weight: 84.2 kg Body Mass Index (BMI) 28.5 Intake & Output: Intake and Output for Last 24 Hours 09/05/21 09/06/21 09/07/21 23:59 23:59 23:59 Intake Total 840.5 / 840.5 948 / 948 Output Total 700 / 900 1800 / 1800 175 / 175 Balance 140.5 / -59.5 -852 / -852 -175 / -175 Lab / Micro Data Result Diagrams: 09/07/21 04:45 09/07/21 04:45 Labs: Laboratory Results - last 24 hr 09/07/21 04:45: WBC 6.1, RBC 3.56 L, Hgb 9.7 L, Hct 30.5 L, MCV 85.7, MCH 27.2, MCHC 31.8 L, RDW Std Deviation 55.8 H, RDW Coeff of Cheikh 17.9 H, Plt Count 256, MPV 11.7, Immature Gran % (Auto) 1.100 H, Neut % (Auto) 87.8 H, Lymph % (Auto) 7.0 L, [place] % (Auto) 3.9, Eos % (Auto) 0.0, Baso % (Auto) 0.2, Absolute Neuts (auto) 5.4, Absolute Lymphs (auto) 0.43 L, Nucleated RBC % 0, Differential Comment SCANNED, Anisocytosis RARE, Microcytosis RARE, Ovalocytes RARE 09/07/21 04:45: Sodium 136, Potassium 4.2, Chloride 100, Carbon Dioxide 30.0, Anion Gap 6, BUN 25 H, Creatinine 0.55 L, Estim Creat Clear Calc 139.91, Est GFR (MDRD) Af Amer 198, Est GFR (MDRD) Non-Af 163, BUN/Creatinine Ratio 45.8 H, Glucose 177 H, Calcium 8.2 L, Total Bilirubin 0.80, AST 20, ALT 16, Alkaline Phosphatase 64, Total Protein 5.7 L, Albumin 1.8 L, Globulin 3.9, Albumin/Globulin Ratio 0.5 L Micro: Microbiology 08/29/21 12:00 Fluid - Other Acid Fast Bacilli Smear - Final 08/29/21 12:00 Wash - Right Middle Lobe Gram Stain - Final 08/29/21 12:00 Wash - Right Middle Lobe Respiratory Culture - Final Presumptive C albicans 08/29/21 12:00 Wash - Other Gram Stain - Final 08/29/21 12:00 Wash - Other Respiratory Culture - Final Presumptive C albicans 08/27/21 00:30 Blood Culture (Wb) - Left Hand Blood Culture - Final No growth in 5 days. 08/26/21 00:30 Blood Culture (Wb) - Anticubital Right Blood Culture - Final No growth in 5 days. 08/28/21 18:45 Sputum, Expectorated/Coughed Gram Stain - Final 08/28/21 18:45 Sputum, Expectorated/Coughed Respiratory Culture - Final 08/27/21 16:10 Sputum, Expectorated/Coughed Gram Stain - Final 08/27/21 16:10 Sputum, Expectorated/Coughed Respiratory Culture - Final 08/27/21 10:55 Sputum, Expectorated/Coughed Gram Stain - Final 08/27/21 10:55 Sputum, Expectorated/Coughed Respiratory Culture - Final 08/26/21 Unknown Urine, Clean Catch Legionella Antigen - Final 08/26/21 Unknown Urine, Clean Catch Streptococcus pneumoniae Antigen (M - Final 08/27/21 02:15 Mucosa - Nasopharyngeal Respiratory Panel (PCR) - Final 08/27/21 00:20 Nasal Secretion SARS-CoV-2 Antigen (Rapid) - Final Physical Exam Narrative Physical exam: General: Alert, Oriented x3, Cooperative, on BiPAP HEENT: Atraumatic Oral: Moist Mucosa Neck: Supple Lungs: Diminished to auscultation Cardiovascular: HS I+II, regular, no murmurs Abdomen: Bowel Sounds Present, Soft, Non Tender Extremities: No edema Assessment & Plan Assessment/Plan (1) Acute on chronic respiratory failure with hypoxemia: (2) Multifocal pneumonia: PLAN: 1. Acute on chronic hypoxic respiratory failure secondary to acute multifocal pneumonia, likely bacterial with superimposed fungal/aspergillosis Oxygen requirements remain about the same; on BiPAP WBC count has improved Patient is immunocompromised with history of rheumatoid arthritis, not on any medications Sputum cultures growing presumptive C albicans; other fungal and viral cultures are pending Status post bronchoscopy on 08/29/21 which showed thickened whitish secretions in right upper and right middle as well as left upper lobes. Continue on voriconazole, IV Solu-Medrol, breathing treatments ID and pulmonology following Continue on BiPAP 2. Rest of his chronic medical conditions including rheumatoid arthritis, chronic atrial fibrillation, hyperlipidemia, hypertension, CAD status post stents remains stable for now Meds reviewed 3. DVT prophylaxis - Lovenox Charges/Coding Visit Charges Inpatient E&M: 58026 Subs Hosp L2
[2021-09-07] MEDS: dilTIAZem CD 120 MG Capsule PO (10:13)
[2021-09-07] MEDS: Enoxaparin 40 MG/0.4 ML Syringe SC (10:13)
[2021-09-07] MEDS: Lisinopril 20 MG Tablet PO (10:13)
[2021-09-07] MEDS: Aspirin E.C. 81 MG Tablet PO (10:13)
--- NOTE | 2021-09-07 19:27 | PCM.PN.CARD ---
Subjective Subjective The patient remains in the ICU secondary to his underlying pulmonary disease process. He denies any ongoing classic cardiovascular symptoms of chest discomfort. He has had no obvious palpitations or near syncope or syncope. Objective Data Vital Signs: Vital Signs Temp Pulse Resp BP Pulse Ox 96.9 F L 84 30 H 104/59 L 96 09/07/21 16:00 09/07/21 19:05 09/07/21 19:05 09/07/21 18:00 09/07/21 19:05 Oxygen Flow Rate (L/min) 60 Oxygen Delivery Method Airvo Weight: 185 lb 10.067 oz Body Mass Index (BMI) 28.5 Intake & Output: Intake and Output for Last 24 Hours 09/05/21 09/06/21 09/07/21 23:59 23:59 23:59 Intake Total 840.5 / 840.5 948 / 948 704 / 704 Output Total 700 / 900 1800 / 1800 875 / 875 Balance 140.5 / -59.5 -852 / -852 -171 / -171 Lab / Micro Data Result Diagrams: 09/07/21 04:45 09/07/21 04:45 Labs: Laboratory Results - last 24 hr 09/07/21 04:45: WBC 6.1, RBC 3.56 L, Hgb 9.7 L, Hct 30.5 L, MCV 85.7, MCH 27.2, MCHC 31.8 L, RDW Std Deviation 55.8 H, RDW Coeff of Cheikh 17.9 H, Plt Count 256, MPV 11.7, Immature Gran % (Auto) 1.100 H, Neut % (Auto) 87.8 H, Lymph % (Auto) 7.0 L, [place] % (Auto) 3.9, Eos % (Auto) 0.0, Baso % (Auto) 0.2, Absolute Neuts (auto) 5.4, Absolute Lymphs (auto) 0.43 L, Nucleated RBC % 0, Differential Comment SCANNED, Anisocytosis RARE, Microcytosis RARE, Ovalocytes RARE 09/07/21 04:45: Sodium 136, Potassium 4.2, Chloride 100, Carbon Dioxide 30.0, Anion Gap 6, BUN 25 H, Creatinine 0.55 L, Estim Creat Clear Calc 139.91, Est GFR (MDRD) Af Amer 198, Est GFR (MDRD) Non-Af 163, BUN/Creatinine Ratio 45.8 H, Glucose 177 H, Calcium 8.2 L, Total Bilirubin 0.80, AST 20, ALT 16, Alkaline Phosphatase 64, Total Protein 5.7 L, Albumin 1.8 L, Globulin 3.9, Albumin/Globulin Ratio 0.5 L Cardiology Labs/Tests 09/07/21 04:45: WBC 6.1, RBC 3.56 L, Hgb 9.7 L, Hct 30.5 L, MCV 85.7, MCH 27.2, MCHC 31.8 L, Plt Count 256, MPV 11.7, Immature Gran % (Auto) 1.100 H, Neut % (Auto) 87.8 H, Lymph % (Auto) 7.0 L, [place] % (Auto) 3.9, Eos % (Auto) 0.0, Baso % (Auto) 0.2, Absolute Neuts (auto) 5.4, Nucleated RBC % 0 09/07/21 04:45: Sodium 136, Potassium 4.2, Chloride 100, Carbon Dioxide 30.0, Anion Gap 6, BUN 25 H, Creatinine 0.55 L, Est GFR (MDRD) Af Amer 198, Est GFR (MDRD) Non-Af 163, BUN/Creatinine Ratio 45.8 H, Glucose 177 H, Calcium 8.2 L, Total Bilirubin 0.80 Rhythm: Sinus rhythm Physical Exam Const alert, oriented x3, no apparent distress and healthy appearing Orientation / Consciousness: awake HEENT normocephalic, head/scalp atraumatic and hearing grossly normal bilaterally Eyes PERRL, EOMs intact bilaterally and conjunctivae normal Neck full ROM, supple and no JVD Resp Auscultation: rhonchi throughout Cardio regular rate, regular rhythm, S1 normal heart sound and S2 normal heart sound GI normal to inspection, nondistended, normoactive bowel sounds Extremity no pedal edema Skin no rashes or lesions noted Neuro oriented x3, moves all extremities, no focal motor deficits and no sensory deficits noted Psych mental status grossly normal Assessment & Plan Assessment/Plan (1) Cardiac dysrhythmia, unspecified: PLAN: The patient has a history of a cardiac dysrhythmia leading to his previous events and his subsequent device placement. The exact etiology of his cardiac dysrhythmia and/or conduction system disorder is unknown at this time. His device was interrogated yesterday. Based upon the interrogation it appeared to be functioning appropriately with no report of any ventricular dysrhythmias. Thus it does appear that his wide-complex rhythm was related to underlying electronic ventricular paced rhythm. (2) CAD (coronary artery disease): PLAN: He has a history of underlying CAD. He has undergone PCI in the past. He apparently has been treated medically since that time and has not required repeat evaluation in the cardiac catheterization laboratory. (3) S/P PTCA (percutaneous transluminal coronary angioplasty): PLAN: He states he has [address] Again his outside medical records are unavailable for review thus the details of his PCI procedure are unknown at this time. At the moment he appears to be without any acute coronary syndrome type symptoms. He should continue medical management as deemed appropriate. (4) S/P placement of cardiac pacemaker: PLAN: It appears he does have an ICD in place. Again based upon the interrogation performed it appears his underlying wide-complex rhythm was an underlying electronic ventricular paced rhythm with no ventricular ectopy/dysrhythmias reported. (5) Multifocal pneumonia: PLAN: He has experienced COVID-19. He has now been diagnosed with a fungal pneumonia. He is continuing evaluation care by internal medicine, pulmonology/critical care medicine, and infectious disease. Addt'l Comments At the present time the patient will continue to be followed by internal medicine and pulmonology/critical care medicine and infectious disease. It does not appear he requires additional cardiac diagnostic studies/intervention at this time. He will continue plans to follow-up with his primary cardiology group in [place], [place]. Thank you for allowing me to participate in the care of your patient. Please don't hesitate to call if any issues arise. This note was generated using a voice recognition system and there may be incorrect words, spelling or punctuation that were not noted when reviewing the office note prior to saving.
[2021-09-07] MEDS: Atorvastatin Calcium 20 MG Tablet PO (20:30)
--- NOTE | 2021-09-07 21:55 | CPS ---
BIPAP Pressure decreased to 13/8 cm H2O for pt comfort. FIO2 to decreased to 60%
[2021-09-08] VITALS (38 sets, daily range): BP systolic 95–144; BP diastolic 52–74; PULSE 55–86; RESP 12–36; TEMP 36.7–37.2; O2SAT 80–100
[2021-09-08 04:57] LABS: Absolute Lymphocyte Count 0.58 X10^3/uL (0.83-4.51); Absolute Neutrophil Count 9.1 X10^3/uL (2.0-7.7); Basophil# 0.01 X10^3/uL; Basophil% 0.1 % (0-1); Hematocrit 31.3 % (40-54); Lymphocyte # 0.58 X10^3/ul (0.83-4.51); Lymphocyte % 5.7 % (19-41); Mean Corp Hgb Conc 31.9 g/dL (32-36); Mean Corpuscular Hgb 27.5 pg (27.0-32.0); Mean Corpuscular Volume 86.2 fL (80-94); Mean Platelet Vol. 12.5 fl (6.2-12.0); Monocyte# 0.44 X10^3/uL; Monocyte% 4.3 % (0-10); NRBC Flagged by Analyzer 0 % (0-5); Neutrophil # 9.14 X10^3/uL (2.7-7.7); POSITIVE DIFFERENTIAL YES; Platelet Count 300 K/mm3 (150-450); RBC Distribution Width CV 17.7 % (11.6-14.6); RBC Distribution Width SD 55.3 fl (35.1-43.9); Red Blood Count 3.63 M/mm3 (4.6-6.2); White Blood Count 10.3 K/mm3 (4.4-11.0)
[2021-09-08 04:59] LABS: Differential Indicated SCAN CRITERIA MET
[2021-09-08 05:12] LABS: Differential Comment SCANNED
[2021-09-08 05:13] LABS: ALB/GLOB Ratio 0.5 RATIO (0.9-2.4); AST(SGOT) 15 U/L (15-37); Alanine Aminotransfer ALT/SGPT 19 U/L (16-61); Albumin, Serum 1.9 g/dL (3.2-5.0); Alkaline Phosphatase 66 U/L (45-117); Anion Gap 7 (5-15); BUN 25 mg/dL (7-18); BUN/Creat Ratio 37.8 RATIO (10-20); Calcium,Total 8.4 mg/dL (8.5-10.1); Chloride 102 mmol/L (98-107); Creatinine, Serum 0.66 mg/dL (0.70-1.30); EST Glomerular Filtration Rate 131 mL/min (>60); Est Glom Filt Rate - Afr Amer 158 mL/min (>60); Estimated Creatinine Clearance 116.59 ml/min; Globulin 3.8 g/dL (2.2-4.2); Glucose 232 mg/dL (74-106); Potassium 4.2 mmol/L (3.5-5.1); Protein, Total 5.7 g/dL (6.4-8.2); Sodium Level 138 mmol/L (136-145)
[2021-09-08] MEDS: Ipratropium/Albuterol Sulfate 3 ML AMPUL.NEB INHALATION ×4 (06:47→18:18)
--- NOTE | 2021-09-08 07:14 | PN.CC_ITS ---
Assessment & Plan Assessment/Plan (1) Acute on chronic respiratory failure with hypoxemia: PLAN: RECOMMENDATIONS: 1. Continue antimicrobials and voriconazole per ID recommendations. 2. Continue Airvo during the day. BiPAP with sleep. Goal to maintain oxygen saturations at or above 90%. 3. Encourage incentive spirometer use and mobilize patient as tolerated. 4. Continue scheduled bronchodilators. 5. Continue Solu-Medrol at current dosing 6. Continue appropriate DVT prophylaxis. 7. Diuresis as tolerated. Dose today. IMPRESSIONS: 1. Acute on chronic hypoxemic respiratory failure The patient does have a baseline oxygen requirement of 3 L/min. He has a history of rheumatoid associated interstitial lung disease and was previously on immunosuppression, up until his discharge from the hospital in June. The patient has been hospitalized several times over the last couple months, first due to COVID-19 pneumonia and more recently as a consequence of bacterial pneumonia. His CT findings noted on presentation were nonspecific. Therefore, the patient underwent bronchoscopy on August 29 with BAL performed bilaterally. Fluid cytology revealed fungal organisms consistent with Aspergillus. The patient will be continued on bronchodilators and steroids. The patient will remain on antimicrobials and voriconazole per ID recommendations. Patient appears to have responded well to increased steroids. These will be continued. Continue to diurese as tolerated. Diurese today. Encourage aggressive pulm onary toileting. Potential transfer from the intensive care unit if able to tolerate Airvo at 50% or less. 2. History of mixed obstructive/restrictive ventilatory impairment/rheumato id arthritis/hypertension/hyperlipidemia Complicates care, management, recovery and prognosis. Continue home medications as indicated. 3. Nonsustained V. tach Cardiology has been consulted. It appears as though the interrogation does not show any V. tach suggesting this may be secondary to ventricular pacing. 4. Pulmonary hypertension Patient with multiple etiologies for pulmonary hypertension. Patient has potential for type I, type II and type III pulmonary hypertension. Patient will need a right heart catheterization for quantification clarification. For now, will attempt to control hypoxemia and diurese as tolerated. Do anticipate significant desaturation with any movement at this point. Subjective Subjective Patient did well overnight. No acute issues were reported. Patient does state that his productive cough is slightly improved compared to previous. No hemoptysis has been reported. Patient does believe that activity is easier compared to previous. Objective Data Objective Data Vital Signs: Vital Signs Temp Pulse Resp BP Pulse Ox 36.7 C 71 28 H 106/60 90 09/08/21 04:00 09/08/21 07:00 09/08/21 07:00 09/08/21 07:00 09/08/21 07:00 Oxygen Flow Rate (L/min) 60 Oxygen Delivery Method Airvo Weight: 79.6 kg Body Mass Index (BMI) 28.5 Intake & Output: Intake and Output for Last 24 Hours 09/06/21 09/07/21 09/08/21 23:59 23:59 23:59 Intake Total 948 / 948 988 / 988 Output Total 1800 / 1800 1325 / 1325 250 / 250 Balance -852 / -852 -337 / -337 -250 / -250 Lab / Micro Data Result Diagrams: 09/08/21 04:45 09/08/21 04:45 Labs: Laboratory Results - last 24 hr 09/08/21 04:45: WBC 10.3, RBC 3.63 L, Hgb 10.0 L, Hct 31.3 L, MCV 86.2, MCH 27.5, MCHC 31.9 L, RDW Std Deviation 55.3 H, RDW Coeff of Cheikh 17.7 H, Plt Count 300, MPV 12.5 H, Immature Gran % (Auto) 0.900, Neut % (Auto) 89.0 H, Lymph % (Auto) 5.7 L, [place] % (Auto) 4.3, Eos % (Auto) 0.0, Baso % (Auto) 0.1, Absolute Neuts (auto) 9.1 H, Absolute Lymphs (auto) 0.58 L, Nucleated RBC % 0, Differential Comment SCANNED 09/08/21 04:45: Sodium 138, Potassium 4.2, Chloride 102, Carbon Dioxide 29.0, Anion Gap 7, BUN 25 H, Creatinine 0.66 L, Estim Creat Clear Calc 116.59, Est GFR (MDRD) Af Amer 158, Est GFR (MDRD) Non-Af 131, BUN/Creatinine Ratio 37.8 H, Glucose 232 H, Calcium 8.4 L, Total Bilirubin 0.60, AST 15, ALT 19, Alkaline Phosphatase 66, Total Protein 5.7 L, Albumin 1.9 L, Globulin 3.8, Albumin/Globulin Ratio 0.5 L Micro: Microbiology 08/29/21 12:00 Fluid - Other Acid Fast Bacilli Smear - Final 08/29/21 12:00 Wash - Right Middle Lobe Gram Stain - Final 08/29/21 12:00 Wash - Right Middle Lobe Respiratory Culture - Final Presumptive C albicans 08/29/21 12:00 Wash - Other Gram Stain - Final 08/29/21 12:00 Wash - Other Respiratory Culture - Final Presumptive C albicans 08/27/21 00:30 Blood Culture (Wb) - Left Hand Blood Culture - Final No growth in 5 days. 08/26/21 00:30 Blood Culture (Wb) - Anticubital Right Blood Culture - Final No growth in 5 days. 08/28/21 18:45 Sputum, Expectorated/Coughed Gram Stain - Final 08/28/21 18:45 Sputum, Expectorated/Coughed Respiratory Culture - Final 08/27/21 16:10 Sputum, Expectorated/Coughed Gram Stain - Final 08/27/21 16:10 Sputum, Expectorated/Coughed Respiratory Culture - Final 08/27/21 10:55 Sputum, Expectorated/Coughed Gram Stain - Final 08/27/21 10:55 Sputum, Expectorated/Coughed Respiratory Culture - Final 08/26/21 Unknown Urine, Clean Catch Legionella Antigen - Final 08/26/21 Unknown Urine, Clean Catch Streptococcus pneumoniae Antigen (M - Final 08/27/21 02:15 Mucosa - Nasopharyngeal Respiratory Panel (PCR) - Final 08/27/21 00:20 Nasal Secretion SARS-CoV-2 Antigen (Rapid) - Final Physical Exam Const alert and oriented x3 Constitutional Narrative: Currently tolerating Airvo. Mild conversational dyspnea General Appearance: cooperative HEENT normocephalic, head/scalp atraumatic and moist oral mucous membranes Eyes PERRL, EOMs intact bilaterally and conjunctivae normal Neck supple General: trachea midline Chest inspection of chest normal Chest: symmetrical chest wall rise; Negative for crepitus Resp normal respiratory effort and no use of accessory muscles Effort and Inspection: tachypneic Auscultation: rhonchi and wheezes; Negative for rales Cardio regular rate, regular rhythm, S1 normal heart sound and S2 normal heart sound GI normal to inspection, nondistended, normoactive bowel sounds Extremity General Extremity: Negative for clubbing, cyanosis or edema Skin no rashes or lesions noted Neuro moves all extremities and no focal motor deficits Psych cooperative and affect normal Charges/Coding Visit Charges Inpatient E&M: 12028 Subs Hosp L3
--- NOTE | 2021-09-08 08:22 | PCM.PN.HOSP ---
Subjective Subjective Follow-up on acute hypoxic respiratory failure/multifocal pneumonia: Patient was seen and examined. No acute events. He is currently on air Vo Objective Data Objective Data Vital Signs: Vital Signs Temp Pulse Resp BP Pulse Ox 98.1 F 70 32 H 106/60 80 09/08/21 04:00 09/08/21 07:05 09/08/21 07:50 09/08/21 07:00 09/08/21 07:50 Oxygen Flow Rate (L/min) 60 Oxygen Delivery Method Airvo Weight: 79.6 kg Body Mass Index (BMI) 28.5 Intake & Output: Intake and Output for Last 24 Hours 09/06/21 09/07/21 09/08/21 23:59 23:59 23:59 Intake Total 948 / 948 988 / 988 Output Total 1800 / 1800 1325 / 1325 250 / 250 Balance -852 / -852 -337 / -337 -250 / -250 Lab / Micro Data Result Diagrams: 09/08/21 04:45 09/08/21 04:45 Labs: Laboratory Results - last 24 hr 09/08/21 04:45: WBC 10.3, RBC 3.63 L, Hgb 10.0 L, Hct 31.3 L, MCV 86.2, MCH 27.5, MCHC 31.9 L, RDW Std Deviation 55.3 H, RDW Coeff of Cheikh 17.7 H, Plt Count 300, MPV 12.5 H, Immature Gran % (Auto) 0.900, Neut % (Auto) 89.0 H, Lymph % (Auto) 5.7 L, [place] % (Auto) 4.3, Eos % (Auto) 0.0, Baso % (Auto) 0.1, Absolute Neuts (auto) 9.1 H, Absolute Lymphs (auto) 0.58 L, Nucleated RBC % 0, Differential Comment SCANNED 09/08/21 04:45: Sodium 138, Potassium 4.2, Chloride 102, Carbon Dioxide 29.0, Anion Gap 7, BUN 25 H, Creatinine 0.66 L, Estim Creat Clear Calc 116.59, Est GFR (MDRD) Af Amer 158, Est GFR (MDRD) Non-Af 131, BUN/Creatinine Ratio 37.8 H, Glucose 232 H, Calcium 8.4 L, Total Bilirubin 0.60, AST 15, ALT 19, Alkaline Phosphatase 66, Total Protein 5.7 L, Albumin 1.9 L, Globulin 3.8, Albumin/Globulin Ratio 0.5 L Micro: Microbiology 08/29/21 12:00 Fluid - Other Acid Fast Bacilli Smear - Final 08/29/21 12:00 Wash - Right Middle Lobe Gram Stain - Final 08/29/21 12:00 Wash - Right Middle Lobe Respiratory Culture - Final Presumptive C albicans 08/29/21 12:00 Wash - Other Gram Stain - Final 08/29/21 12:00 Wash - Other Respiratory Culture - Final Presumptive C albicans 08/27/21 00:30 Blood Culture (Wb) - Left Hand Blood Culture - Final No growth in 5 days. 08/26/21 00:30 Blood Culture (Wb) - Anticubital Right Blood Culture - Final No growth in 5 days. 08/28/21 18:45 Sputum, Expectorated/Coughed Gram Stain - Final 08/28/21 18:45 Sputum, Expectorated/Coughed Respiratory Culture - Final 08/27/21 16:10 Sputum, Expectorated/Coughed Gram Stain - Final 08/27/21 16:10 Sputum, Expectorated/Coughed Respiratory Culture - Final 08/27/21 10:55 Sputum, Expectorated/Coughed Gram Stain - Final 08/27/21 10:55 Sputum, Expectorated/Coughed Respiratory Culture - Final 08/26/21 Unknown Urine, Clean Catch Legionella Antigen - Final 08/26/21 Unknown Urine, Clean Catch Streptococcus pneumoniae Antigen (M - Final 08/27/21 02:15 Mucosa - Nasopharyngeal Respiratory Panel (PCR) - Final 08/27/21 00:20 Nasal Secretion SARS-CoV-2 Antigen (Rapid) - Final Physical Exam Narrative Physical exam: General: Alert, Oriented x3, Cooperative, on Airvo HEENT: Atraumatic Oral: Moist Mucosa Neck: Supple Lungs: Diminished to auscultation Cardiovascular: HS I+II, regular, no murmurs Abdomen: Bowel Sounds Present, Soft, Non Tender Extremities: No edema Assessment & Plan Assessment/Plan (1) Acute on chronic respiratory failure with hypoxemia: (2) Multifocal pneumonia: PLAN: 1. Acute on chronic hypoxic respiratory failure secondary to acute multifocal pneumonia, likely bacterial with superimposed fungal/aspergillosis Oxygen requirements remain about the same; on BiPAP WBC count has improved Patient is immunocompromised with history of rheumatoid arthritis, not on any medications Sputum cultures growing presumptive C albicans; other fungal and viral cultures are pending Status post bronchoscopy on 08/29/21 which showed thickened whitish secretions in right upper and right middle as well as left upper lobes. Continue on voriconazole, IV Solu-Medrol, breathing treatments ID and pulmonology following Continue on BiPAP 2. Rest of his chronic medical conditions including rheumatoid arthritis, chronic atrial fibrillation, hyperlipidemia, hypertension, CAD status post stents remains stable for now Meds reviewed 3. DVT prophylaxis - Lovenox Charges/Coding Visit Charges Inpatient E&M: 18342 Subs Hosp L2
[2021-09-08] MEDS: dilTIAZem CD 120 MG Capsule PO (08:34)
[2021-09-08] MEDS: Lisinopril 20 MG Tablet PO (08:34)
[2021-09-08] MEDS: Aspirin E.C. 81 MG Tablet PO (08:34)
[2021-09-08] MEDS: Enoxaparin 40 MG/0.4 ML Syringe SC (08:35)
[2021-09-08] MEDS: Furosemide 40 MG/4 ML Vial IV (08:49)
[2021-09-08] MEDS: MELATONIN 3 MG TABLET PO (21:16)
[2021-09-08] MEDS: guaiFENesin/Codeine 5 ML UDC PO (21:16)
[2021-09-08] MEDS: Atorvastatin Calcium 20 MG Tablet PO (21:16)
[2021-09-09] VITALS (36 sets, daily range): BP systolic 89–113; BP diastolic 50–67; PULSE 64–90; RESP 18–40; TEMP 36.7–36.9; O2SAT 82–100
[2021-09-09] MEDS: guaiFENesin/Codeine 5 ML UDC PO ×2 (03:10→20:14)
[2021-09-09 05:49] LABS: Anion Gap 7 (5-15); BUN 29 mg/dL (7-18); BUN/Creat Ratio 40.7 RATIO (10-20); Calcium,Total 8.2 mg/dL (8.5-10.1); Chloride 105 mmol/L (98-107); Creatinine, Serum 0.71 mg/dL (0.70-1.30); EST Glomerular Filtration Rate 120 mL/min (>60); Est Glom Filt Rate - Afr Amer 145 mL/min (>60); Estimated Creatinine Clearance 108.38 ml/min; Glucose 175 mg/dL (74-106); Magnesium 2.6 mg/dL (1.6-2.6); Phosphorus 2.7 mg/dL (2.5-4.9); Sodium Level 141 mmol/L (136-145)
[2021-09-09] MEDS: Ipratropium/Albuterol Sulfate 3 ML AMPUL.NEB INHALATION ×4 (06:49→19:19)
--- NOTE | 2021-09-09 07:23 | PCM.PN.HOSP ---
Subjective Subjective Follow-up on acute hypoxic respiratory failure/multifocal pneumonia: Patient was seen and examined. Denied any new complaints. Remains on air Vo. Oxygen requirement decreased a little bit to 65% FiO2 Objective Data Objective Data Vital Signs: Vital Signs Temp Pulse Resp BP Pulse Ox 98.1 F 70 29 H 101/65 93 09/09/21 00:00 09/09/21 07:00 09/09/21 07:00 09/09/21 07:00 09/09/21 07:00 Oxygen Flow Rate (L/min) 60 Oxygen Delivery Method Airvo Weight: 79.2 kg Body Mass Index (BMI) 28.5 Intake & Output: Intake and Output for Last 24 Hours 09/07/21 09/08/21 09/09/21 23:59 23:59 23:59 Intake Total 988 / 988 1058 / 1058 Output Total 1325 / 1325 1050 / 1050 300 / 300 Balance -337 / -337 8 / 8 -300 / -300 Lab / Micro Data Result Diagrams: 09/08/21 04:45 09/09/21 03:10 Labs: Laboratory Results - last 24 hr 09/09/21 03:10: Sodium 141, Potassium 4.0, Chloride 105, Carbon Dioxide 29.0, Anion Gap 7, BUN 29 H, Creatinine 0.71, Estim Creat Clear Calc 108.38, Est GFR (MDRD) Af Amer 145, Est GFR (MDRD) Non-Af 120, BUN/Creatinine Ratio 40.7 H, Glucose 175 H, Calcium 8.2 L, Phosphorus 2.7, Magnesium 2.6 Micro: Microbiology 08/29/21 12:00 Fluid - Other Acid Fast Bacilli Smear - Final 08/29/21 12:00 Wash - Right Middle Lobe Gram Stain - Final 08/29/21 12:00 Wash - Right Middle Lobe Respiratory Culture - Final Presumptive C albicans 08/29/21 12:00 Wash - Other Gram Stain - Final 08/29/21 12:00 Wash - Other Respiratory Culture - Final Presumptive C albicans 08/27/21 00:30 Blood Culture (Wb) - Left Hand Blood Culture - Final No growth in 5 days. 08/26/21 00:30 Blood Culture (Wb) - Anticubital Right Blood Culture - Final No growth in 5 days. 08/28/21 18:45 Sputum, Expectorated/Coughed Gram Stain - Final 08/28/21 18:45 Sputum, Expectorated/Coughed Respiratory Culture - Final 08/27/21 16:10 Sputum, Expectorated/Coughed Gram Stain - Final 08/27/21 16:10 Sputum, Expectorated/Coughed Respiratory Culture - Final 08/27/21 10:55 Sputum, Expectorated/Coughed Gram Stain - Final 08/27/21 10:55 Sputum, Expectorated/Coughed Respiratory Culture - Final 08/26/21 Unknown Urine, Clean Catch Legionella Antigen - Final 08/26/21 Unknown Urine, Clean Catch Streptococcus pneumoniae Antigen (M - Final 08/27/21 02:15 Mucosa - Nasopharyngeal Respiratory Panel (PCR) - Final 08/27/21 00:20 Nasal Secretion SARS-CoV-2 Antigen (Rapid) - Final Physical Exam Narrative Physical exam: General: Alert, Oriented x3, Cooperative, on Airvo HEENT: Atraumatic Oral: Moist Mucosa Neck: Supple Lungs: Diminished to auscultation Cardiovascular: HS I+II, regular, no murmurs Abdomen: Bowel Sounds Present, Soft, Non Tender Extremities: No edema Assessment & Plan Assessment/Plan (1) Acute on chronic respiratory failure with hypoxemia: (2) Multifocal pneumonia: PLAN: 1. Acute on chronic hypoxic respiratory failure secondary to acute multifocal pneumonia, likely bacterial with superimposed fungal/aspergillosis Oxygen requirements remain about the same; on BiPAP WBC count has improved Patient is immunocompromised with history of rheumatoid arthritis, not on any medications Sputum cultures growing presumptive C albicans; other fungal and viral cultures are pending Status post bronchoscopy on 08/29/21 which showed thickened whitish secretions in right upper and right middle as well as left upper lobes. Continue on voriconazole, IV Solu-Medrol, breathing treatments ID and pulmonology following Continue on BiPAP 2. Rest of his chronic medical conditions including rheumatoid arthritis, chronic atrial fibrillation, hyperlipidemia, hypertension, CAD status post stents remains stable for now Meds reviewed 3. DVT prophylaxis - Lovenox Charges/Coding Visit Charges Inpatient E&M: 73471 Subs Hosp L2
--- NOTE | 2021-09-09 07:35 | PN.CC_ITS ---
Assessment & Plan Assessment/Plan (1) Acute on chronic respiratory failure with hypoxemia: PLAN: RECOMMENDATIONS: 1. Continue voriconazole per ID recommendations. 2. Continue Airvo during the day. Goal to maintain oxygen saturations at or above 90%. 3. Encourage incentive spirometer use and mobilize patient as tolerated. 4. Continue scheduled bronchodilators. 5. Continue Solu-Medrol at current dosing 6. Empiric therapeutic anticoagulation 7. Diuresis as tolerated. Dose today. IMPRESSIONS: 1. Acute on chronic hypoxemic respiratory failure The patient does have a baseline oxygen requirement of 3 L/min. He has a history of rheumatoid associated interstitial lung disease and was previously on immunosuppression, up until his discharge from the hospital in June. The patient has been hospitalized several times over the last couple months, first due to COVID-19 pneumonia and more recently as a consequence of bacterial pneumonia. His CT findings noted on presentation were nonspecific. Therefore, the patient underwent bronchoscopy on August 29 with BAL performed bilaterally. Fluid cytology revealed fungal organisms consistent with Aspergillus. The patient will be continued on bronchodilators and steroids. The patient will remain on antimicrobials per ID recommendations. Patient appears to have responded well to increased steroids. These will be continued. Would anticipate faster recovery if this were a steroid responsive condition. Will empirically place on full anticoagulation as a therapeutic trial. 2. History of mixed obstructive/restrictive ventilatory impairment /rheumatoid arthritis/hypertension/hyperlipidemia Complicates care, management, recovery and prognosis. Continue home medications as indicated. 3. Nonsustained V. tach Cardiology has been consulted. It appears as though the interrogation does not show any V. tach suggesting this may be secondary to ventricular pacing. 4. Pulmonary hypertension Patient with multiple etiologies for pulmonary hypertension. Patient has potential for type I, type II and type III pulmonary hypertension. Patient will need a right heart catheterization for quantification clarification. For now, will attempt to control hypoxemia and diurese as tolerated. Do anticipate significant desaturation with any movement at this point. Subjective Subjective Patient did well overnight. Patient did not use BiPAP and felt that he rested better. Patient is reporting a cough productive of silicone sputum. No hemoptysis is been reported. Objective Data Objective Data Vital Signs: Vital Signs Temp Pulse Resp BP Pulse Ox 36.7 C 70 29 H 101/65 93 09/09/21 00:00 09/09/21 07:00 09/09/21 07:00 09/09/21 07:00 09/09/21 07:00 Oxygen Flow Rate (L/min) 60 Oxygen Delivery Method Airvo Weight: 79.2 kg Body Mass Index (BMI) 28.5 Intake & Output: Intake and Output for Last 24 Hours 09/07/21 09/08/21 09/09/21 23:59 23:59 23:59 Intake Total 988 / 988 1058 / 1058 Output Total 1325 / 1325 1050 / 1050 300 / 300 Balance -337 / -337 / 8 -300 / -300 Lab / Micro Data Result Diagrams: 09/08/21 04:45 09/09/21 03:10 Labs: Laboratory Results - last 24 hr 09/09/21 03:10: Sodium 141, Potassium 4.0, Chloride 105, Carbon Dioxide 29.0, Anion Gap 7, BUN 29 H, Creatinine 0.71, Estim Creat Clear Calc 108.38, Est GFR (MDRD) Af Amer 145, Est GFR (MDRD) Non-Af 120, BUN/Creatinine Ratio 40.7 H, Glucose 175 H, Calcium 8.2 L, Phosphorus 2.7, Magnesium 2.6 Micro: Microbiology 08/29/21 12:00 Fluid - Other Acid Fast Bacilli Smear - Final 08/29/21 12:00 Wash - Right Middle Lobe Gram Stain - Final 08/29/21 12:00 Wash - Right Middle Lobe Respiratory Culture - Final Presumptive C albicans 08/29/21 12:00 Wash - Other Gram Stain - Final 08/29/21 12:00 Wash - Other Respiratory Culture - Final Presumptive C albicans 08/27/21 00:30 Blood Culture (Wb) - Left Hand Blood Culture - Final No growth in 5 days. 08/26/21 00:30 Blood Culture (Wb) - Anticubital Right Blood Culture - Final No growth in 5 days. 08/28/21 18:45 Sputum, Expectorated/Coughed Gram Stain - Final 08/28/21 18:45 Sputum, Expectorated/Coughed Respiratory Culture - Final 08/27/21 16:10 Sputum, Expectorated/Coughed Gram Stain - Final 08/27/21 16:10 Sputum, Expectorated/Coughed Respiratory Culture - Final 08/27/21 10:55 Sputum, Expectorated/Coughed Gram Stain - Final 08/27/21 10:55 Sputum, Expectorated/Coughed Respiratory Culture - Final 08/26/21 Unknown Urine, Clean Catch Legionella Antigen - Final 08/26/21 Unknown Urine, Clean Catch Streptococcus pneumoniae Antigen (M - Final 08/27/21 02:15 Mucosa - Nasopharyngeal Respiratory Panel (PCR) - Final 08/27/21 00:20 Nasal Secretion SARS-CoV-2 Antigen (Rapid) - Final Physical Exam Const alert and oriented x3 Constitutional Narrative: Currently tolerating Airvo. Mild conversational dyspnea General Appearance: cooperative HEENT normocephalic, head/scalp atraumatic and moist oral mucous membranes Eyes PERRL, EOMs intact bilaterally and conjunctivae normal Neck supple General: trachea midline Chest inspection of chest normal Chest: symmetrical chest wall rise; Negative for crepitus Resp normal respiratory effort and no use of accessory muscles Effort and Inspection: tachypneic Auscultation: rhonchi and wheezes; Negative for rales Cardio regular rate, regular rhythm, S1 normal heart sound and S2 normal heart sound GI normal to inspection, nondistended, normoactive bowel sounds Extremity General Extremity: Negative for clubbing, cyanosis or edema Skin no rashes or lesions noted Neuro moves all extremities and no focal motor deficits Psych cooperative and affect normal Charges/Coding Visit Charges Inpatient E&M: 25458 Subs Hosp L3
[2021-09-09] MEDS: Furosemide 40 MG/4 ML Vial IV (08:41)
[2021-09-09] MEDS: Aspirin E.C. 81 MG Tablet PO (08:41)
[2021-09-09] MEDS: Lisinopril 20 MG Tablet PO (08:41)
[2021-09-09] MEDS: dilTIAZem CD 120 MG Capsule PO (08:42)
[2021-09-09] MEDS: APIXABAN 5 MG TABLET 10 MG PO ×2 (11:16→20:14)
[2021-09-09] MEDS: MELATONIN 10 MG TABLET PO (20:14)
[2021-09-09] MEDS: Atorvastatin Calcium 20 MG Tablet PO (20:15)
[2021-09-10] VITALS (32 sets, daily range): BP systolic 80–127; BP diastolic 47–66; PULSE 69–104; RESP 11–39; TEMP 36.4–37.1; O2SAT 86–98
[2021-09-10] MEDS: guaiFENesin/Codeine 5 ML UDC PO ×2 (05:04→21:27)
[2021-09-10 05:17] LABS: Absolute Lymphocyte Count 0.72 X10^3/uL (0.83-4.51); Absolute Neutrophil Count 9.6 X10^3/uL (2.0-7.7); Basophil# 0.01 X10^3/uL; Basophil% 0.1 % (0-1); Eosinophil# 0.02 X10^3/uL; Eosinophils% 0.2 % (0-5); Hematocrit 33.9 % (40-54); Hemoglobin 10.2 g/dL (13.0-16.5); Lymphocyte # 0.72 X10^3/ul (0.83-4.51); Lymphocyte % 6.7 % (19-41); Mean Corp Hgb Conc 30.1 g/dL (32-36); Mean Corpuscular Hgb 26.2 pg (27.0-32.0); Mean Corpuscular Volume 87.1 fL (80-94); Mean Platelet Vol. 12.3 fl (6.2-12.0); Monocyte# 0.27 X10^3/uL; Monocyte% 2.5 % (0-10); NRBC Flagged by Analyzer 0 % (0-5); Neutrophil # 9.63 X10^3/uL (2.7-7.7); Neutrophil % 89.8 % (47-70); Platelet Count 298 K/mm3 (150-450); RBC Distribution Width CV 18.1 % (11.6-14.6); RBC Distribution Width SD 57.6 fl (35.1-43.9); Red Blood Count 3.89 M/mm3 (4.6-6.2); White Blood Count 10.7 K/mm3 (4.4-11.0)
[2021-09-10 05:36] LABS: ALB/GLOB Ratio 0.5 RATIO (0.9-2.4); AST(SGOT) 18 U/L (15-37); Alanine Aminotransfer ALT/SGPT 26 U/L (16-61); Albumin, Serum 1.9 g/dL (3.2-5.0); Alkaline Phosphatase 70 U/L (45-117); Anion Gap 6 (5-15); BUN 25 mg/dL (7-18); BUN/Creat Ratio 40.7 RATIO (10-20); Calcium,Total 7.9 mg/dL (8.5-10.1); Chloride 102 mmol/L (98-107); Creatinine, Serum 0.62 mg/dL (0.70-1.30); EST Glomerular Filtration Rate 142 mL/min (>60); Est Glom Filt Rate - Afr Amer 172 mL/min (>60); Estimated Creatinine Clearance 124.11 ml/min; Globulin 3.5 g/dL (2.2-4.2); Glucose 96 mg/dL (74-106); Potassium 4.1 mmol/L (3.5-5.1); Protein, Total 5.4 g/dL (6.4-8.2); Sodium Level 139 mmol/L (136-145)
[2021-09-10] MEDS: Ipratropium/Albuterol Sulfate 3 ML AMPUL.NEB INHALATION ×3 (06:44→15:37)
--- NOTE | 2021-09-10 07:15 | PN.CC_ITS ---
Assessment & Plan Assessment/Plan (1) Acute on chronic respiratory failure with hypoxemia: PLAN: RECOMMENDATIONS: 1. Continue voriconazole per ID recommendations. 2. Continue Airvo during the day. Goal to maintain oxygen saturations at or above 90%. 3. Encourage incentive spirometer use and mobilize patient as tolerated. 4. Continue scheduled bronchodilators. 5. Continue Solu-Medrol at current dosing 6. Empiric therapeutic anticoagulation 7. Diuresis as tolerated. Dose twice daily today with goal of -500 to 1 L. IMPRESSIONS: 1. Acute on chronic hypoxemic respiratory failure The patient does have a baseline oxygen requirement of 3 L/min. He has a history of rheumatoid associated interstitial lung disease and was previously on immunosuppression, up until his discharge from the hospital in June. The patient has been hospitalized several times over the last couple months, first due to COVID-19 pneumonia and more recently as a consequence of bacterial pneumonia. His CT findings noted on presentation were nonspecific. Therefore, the patient underwent bronchoscopy on August 29 with BAL performed bilaterally. Fluid cytology revealed fungal organisms consistent with Aspergillus. The patient will be continued on bronchodilators and steroids. The patient will remain on antimicrobials per ID recommendations. Patient has had some improvement with steroids, but appears to have plateaued. Patient was placed on anticoagulation yesterday. Will monitor through the weekend. If still not improving on FiO2, anticipate extensive work-up on Sunday. 2. History of mixed obstructive/restrictive ventilatory impairment/rheumatoid arthritis/hypertension/hyperlipidemia Complicates care, management, recovery and prognosis. Continue home medications as indicated. 3. Nonsustained V. tach Cardiology has been consulted. It appears as though the interrogation does not show any V. tach suggesting this may be secondary to ventricular pacing . 4. Pulmonary hypertension Patient with multiple etiologies for pulmonary hypertension. Patient has potential for type I, type II and type III pulmonary hypertension. Patient will need a right heart catheterization for quantification clarification. For now, will attempt to control hypoxemia and diurese as tolerated. Do anticipate significant desaturation with any movement at this point. Subjective Subjective Patient did well overnight. Patient subjectively feels unchanged compared to previous. Patient denies any current chest pain or abdominal pain. Patient has had a cough, but reports decreased production. No bleeding has been reported. Objective Data Objective Data Vital Signs: Vital Signs Temp Pulse Resp BP Pulse Ox 36.4 C L 83 18 100/58 L 95 09/10/21 04:00 09/10/21 06:45 09/10/21 06:45 09/10/21 06:00 09/10/21 06:45 Oxygen Flow Rate (L/min) 50 Oxygen Delivery Method Airvo Weight: 80 kg Body Mass Index (BMI) 28.5 Intake & Output: Intake and Output for Last 24 Hours 09/08/21 09/09/21 09/10/21 23:59 23:59 23:59 Intake Total 1058 / 1058 808 / 808 284 / 284 Output Total 1050 / 1050 1175 / 1175 Balance -367 / -367 284 / 284 Lab / Micro Data Result Diagrams: 09/10/21 05:00 09/10/21 05:00 Labs: Laboratory Results - last 24 hr 09/10/21 05:00: WBC 10.7, RBC 3.89 L, Hgb 10.2 L, Hct 33.9 L, MCV 87.1, MCH 26.2 L, MCHC 30.1 L D, RDW Std Deviation 57.6 H, RDW Coeff of Cheikh 18.1 H, Plt Count 298, MPV 12.3 H, Immature Gran % (Auto) 0.700, Neut % (Auto) 89.8 H, Lymph % (Auto) 6.7 L, [place] % (Auto) 2.5, Eos % (Auto) 0.2, Baso % (Auto) 0.1, Absolute Neuts (auto) 9.6 H, Absolute Lymphs (auto) 0.72 L, Nucleated RBC % 0 09/10/21 05:00: Sodium 139, Potassium 4.1, Chloride 102, Carbon Dioxide 31.0, Anion Gap 6, BUN 25 H, Creatinine 0.62 L, Estim Creat Clear Calc 124.11, Est GFR (MDRD) Af Amer 172, Est GFR (MDRD) Non-Af 142, BUN/Creatinine Ratio 40.7 H, Glucose 96, Calcium 7.9 L, Total Bilirubin 0.70, AST 18, ALT 26, Alkaline Phosphatase 70, Total Protein 5.4 L, Albumin 1.9 L, Globulin 3.5, Albumin/Globulin Ratio 0.5 L Micro: Microbiology 08/29/21 12:00 Fluid - Other Acid Fast Bacilli Smear - Final 08/29/21 12:00 Wash - Right Middle Lobe Gram Stain - Final 08/29/21 12:00 Wash - Right Middle Lobe Respiratory Culture - Final Presumptive C albicans 08/29/21 12:00 Wash - Other Gram Stain - Final 08/29/21 12:00 Wash - Other Respiratory Culture - Final Presumptive C albicans 08/27/21 00:30 Blood Culture (Wb) - Left Hand Blood Culture - Final No growth in 5 days. 08/26/21 00:30 Blood Culture (Wb) - Anticubital Right Blood Culture - Final No growth in 5 days. 08/28/21 18:45 Sputum, Expectorated/Coughed Gram Stain - Final 08/28/21 18:45 Sputum, Expectorated/Coughed Respiratory Culture - Final 08/27/21 16:10 Sputum, Expectorated/Coughed Gram Stain - Final 08/27/21 16:10 Sputum, Expectorated/Coughed Respiratory Culture - Final 08/27/21 10:55 Sputum, Expectorated/Coughed Gram Stain - Final 08/27/21 10:55 Sputum, Expectorated/Coughed Respiratory Culture - Final 08/26/21 Unknown Urine, Clean Catch Legionella Antigen - Final 08/26/21 Unknown Urine, Clean Catch Streptococcus pneumoniae Antigen (M - Final 08/27/21 02:15 Mucosa - Nasopharyngeal Respiratory Panel (PCR) - Final 08/27/21 00:20 Nasal Secretion SARS-CoV-2 Antigen (Rapid) - Final Physical Exam Const alert and oriented x3 Constitutional Narrative: Currently tolerating Airvo. Mild conversational dyspnea General Appearance: cooperative HEENT normocephalic, head/scalp atraumatic and moist oral mucous membranes Eyes PERRL, EOMs intact bilaterally and conjunctivae normal Neck supple General: trachea midline Chest inspection of chest normal Chest: symmetrical chest wall rise; Negative for crepitus Resp normal respiratory effort and no use of accessory muscles Effort and Inspection: tachypneic Auscultation: rhonchi and wheezes; Negative for rales Cardio regular rate, regular rhythm, S1 normal heart sound and S2 normal heart sound GI normal to inspection, nondistended, normoactive bowel sounds Extremity General Extremity: Negative for clubbing, cyanosis or edema Skin no rashes or lesions noted Neuro moves all extremities and no focal motor deficits Psych cooperative and affect normal Charges/Coding Visit Charges Inpatient E&M: 88665 Subs Hosp L3
[2021-09-10] MEDS: Aspirin E.C. 81 MG Tablet PO (10:13)
[2021-09-10] MEDS: Potassium Chloride Oral Tablet 20 MEQ PO (10:13)
[2021-09-10] MEDS: dilTIAZem CD 120 MG Capsule PO (10:14)
[2021-09-10] MEDS: APIXABAN 5 MG TABLET 10 MG PO ×2 (10:14→21:26)
[2021-09-10] MEDS: Lisinopril 20 MG Tablet PO (10:15)
[2021-09-10] MEDS: Furosemide 40 MG/4 ML Vial IV ×2 (10:16→17:36)
--- NOTE | 2021-09-10 14:21 | PN.HOSP_ITS ---
Subjective Subjective Follow-up on acute hypoxic respiratory failure/multifocal pneumonia: Patient was seen and examined. Denied any new complaints. Remains on airVo. Oxygen requirement decreased a little bit to 65% FiO2 Objective Data Objective Data Vital Signs: Vital Signs Temp Pulse Resp BP Pulse Ox 98.7 F 98 34 H 95/60 89 09/10/21 12:00 09/10/21 12:00 09/10/21 12:00 09/10/21 12:00 09/10/21 12:00 Oxygen Flow Rate (L/min) 60 Oxygen Delivery Method Airvo Weight: 80 kg Body Mass Index (BMI) 28.5 Intake & Output: Intake and Output for Last 24 Hours 09/08/21 09/09/21 09/10/21 23:59 23:59 23:59 Intake Total 1058 / 1058 808 / 808 764 / 764 Output Total 1050 / 1050 1175 / 1175 650 / 650 Balance -367 / -367 114 / 114 Lab / Micro Data Result Diagrams: 09/10/21 05:00 09/10/21 05:00 Labs: Laboratory Results - last 24 hr 09/10/21 05:00: WBC 10.7, RBC 3.89 L, Hgb 10.2 L, Hct 33.9 L, MCV 87.1, MCH 26.2 L, MCHC 30.1 L D, RDW Std Deviation 57.6 H, RDW Coeff of Cheikh 18.1 H, Plt Count 298, MPV 12.3 H, Immature Gran % (Auto) 0.700, Neut % (Auto) 89.8 H, Lymph % (Auto) 6.7 L, [place] % (Auto) 2.5, Eos % (Auto) 0.2, Baso % (Auto) 0.1, Absolute Neuts (auto) 9.6 H, Absolute Lymphs (auto) 0.72 L, Nucleated RBC % 0 09/10/21 05:00: Sodium 139, Potassium 4.1, Chloride 102, Carbon Dioxide 31.0, Anion Gap 6, BUN 25 H, Creatinine 0.62 L, Estim Creat Clear Calc 124.11, Est GFR (MDRD) Af Amer 172, Est GFR (MDRD) Non-Af 142, BUN/Creatinine Ratio 40.7 H, Glucose 96, Calcium 7.9 L, Total Bilirubin 0.70, AST 18, ALT 26, Alkaline Phosphatase 70, Total Protein 5.4 L, Albumin 1.9 L, Globulin 3.5, Albumin/Globulin Ratio 0.5 L Micro: Microbiology 08/29/21 12:00 Fluid - Other Acid Fast Bacilli Smear - Final 08/29/21 12:00 Wash - Right Middle Lobe Gram Stain - Final 08/29/21 12:00 Wash - Right Middle Lobe Respiratory Culture - Final Presumptive C albicans 08/29/21 12:00 Wash - Other Gram Stain - Final 08/29/21 12:00 Wash - Other Respiratory Culture - Final Presumptive C albicans 08/27/21 00:30 Blood Culture (Wb) - Left Hand Blood Culture - Final No growth in 5 days. 08/26/21 00:30 Blood Culture (Wb) - Anticubital Right Blood Culture - Final No growth in 5 days. 08/28/21 18:45 Sputum, Expectorated/Coughed Gram Stain - Final 08/28/21 18:45 Sputum, Expectorated/Coughed Respiratory Culture - Final 08/27/21 16:10 Sputum, Expectorated/Coughed Gram Stain - Final 08/27/21 16:10 Sputum, Expectorated/Coughed Respiratory Culture - Final 08/27/21 10:55 Sputum, Expectorated/Coughed Gram Stain - Final 08/27/21 10:55 Sputum, Expectorated/Coughed Respiratory Culture - Final 08/26/21 Unknown Urine, Clean Catch Legionella Antigen - Final 08/26/21 Unknown Urine, Clean Catch Streptococcus pneumoniae Antigen (M - F inal 08/27/21 02:15 Mucosa - Nasopharyngeal Respiratory Panel (PCR) - Final 08/27/21 00:20 Nasal Secretion SARS-CoV-2 Antigen (Rapid) - Final Physical Exam Narrative Physical exam: General: Alert, Oriented x3, Cooperative, on Airvo HEENT: Atraumatic Oral: Moist Mucosa Neck: Supple Lungs: Diminished to auscultation Cardiovascular: HS I+II, regular, no murmurs Abdomen: Bowel Sounds Present, Soft, Non Tender Extremities: No edema Assessment & Plan Assessment/Plan (1) Acute on chronic respiratory failure with hypoxemia: (2) Multifocal pneumonia: PLAN: 1. Acute on chronic hypoxic respiratory failure secondary to acute multifocal pneumonia, likely bacterial with superimposed fungal/aspergillosis Oxygen requirements remain about the same; on AirVo WBC count has improved Patient is immunocompromised with history of rheumatoid arthritis, not on any medications Sputum cultures growing presumptive C albicans; other fungal and viral cultures are pending Status post bronchoscopy on 08/29/21 which showed thickened whitish secretions in right upper and right middle as well as left upper lobes. Continue on voriconazole, IV Solu-Medrol, breathing treatments ID and pulmonology following Continue on BiPAP 2. Rest of his chronic medical conditions including rheumatoid arthritis, chronic atrial fibrillation, hyperlipidemia, hypertension, CAD status post stents remains stable for now Meds reviewed 3. DVT prophylaxis - Lovenox Charges/Coding Visit Charges Inpatient E&M: 73583 Subs Hosp L2
[2021-09-10] MEDS: MELATONIN 10 MG TABLET PO (21:27)
[2021-09-10] MEDS: Atorvastatin Calcium 20 MG Tablet PO (21:27)
[2021-09-11] VITALS (35 sets, daily range): BP systolic 89–113; BP diastolic 51–77; PULSE 62–90; RESP 12–31; TEMP 35.8–36.3; O2SAT 84–98
[2021-09-11 05:56] LABS: Absolute Lymphocyte Count 0.48 X10^3/uL (0.83-4.51); Absolute Neutrophil Count 5.1 X10^3/uL (2.0-7.7); Basophil# 0.01 X10^3/uL; Basophil% 0.2 % (0-1); Hematocrit 33.5 % (40-54); Hemoglobin 10.2 g/dL (13.0-16.5); Lymphocyte # 0.48 X10^3/ul (0.83-4.51); Lymphocyte % 8.4 % (19-41); Mean Corp Hgb Conc 30.4 g/dL (32-36); Mean Corpuscular Hgb 26.2 pg (27.0-32.0); Mean Corpuscular Volume 86.1 fL (80-94); Mean Platelet Vol. 12.6 fl (6.2-12.0); Monocyte# 0.08 X10^3/uL; Monocyte% 1.4 % (0-10); NRBC Flagged by Analyzer 0 % (0-5); Neutrophil # 5.12 X10^3/uL (2.7-7.7); Neutrophil % 89.3 % (47-70); POSITIVE DIFFERENTIAL YES; Platelet Count 278 K/mm3 (150-450); RBC Distribution Width SD 56.4 fl (35.1-43.9); Red Blood Count 3.89 M/mm3 (4.6-6.2); White Blood Count 5.7 K/mm3 (4.4-11.0)
[2021-09-11 06:00] LABS: Differential Indicated SCAN CRITERIA MET
[2021-09-11 06:12] LABS: ALB/GLOB Ratio 0.5 RATIO (0.9-2.4); AST(SGOT) 20 U/L (15-37); Alanine Aminotransfer ALT/SGPT 33 U/L (16-61); Alkaline Phosphatase 71 U/L (45-117); Anion Gap 5 (5-15); BUN 30 mg/dL (7-18); BUN/Creat Ratio 52.6 RATIO (10-20); Chloride 100 mmol/L (98-107); Creatinine, Serum 0.57 mg/dL (0.70-1.30); EST Glomerular Filtration Rate 155 mL/min (>60); Est Glom Filt Rate - Afr Amer 188 mL/min (>60); Globulin 3.7 g/dL (2.2-4.2); Glucose 229 mg/dL (74-106); Potassium 4.1 mmol/L (3.5-5.1); Protein, Total 5.7 g/dL (6.4-8.2); Sodium Level 136 mmol/L (136-145)
[2021-09-11 06:29] LABS: Differential Comment SCANNED
--- NOTE | 2021-09-11 06:45 | PN.CC_ITS ---
Assessment & Plan Assessment/Plan (1) Acute on chronic respiratory failure with hypoxemia: PLAN: RECOMMENDATIONS: 1. Continue voriconazole per ID recommendations. 2. Continue Airvo during the day. Goal to maintain oxygen saturations at or above 90%. 3. Encourage incentive spirometer use and mobilize patient as tolerated. 4. Continue scheduled bronchodilators. 5. Continue Solu-Medrol at current dosing 6. Empiric therapeutic anticoagulation 7. Diuresis as tolerated. Dose twice daily today with goal of -500 to 1 L. IMPRESSIONS: 1. Acute on chronic hypoxemic respiratory failure The patient does have a baseline oxygen requirement of 3 L/min. He has a history of rheumatoid associated interstitial lung disease and was previously on immunosuppression, up until his discharge from the hospital in June. The patient has been hospitalized several times over the last couple months, first due to COVID-19 pneumonia and more recently as a consequence of bacterial pneumonia. His CT findings noted on presentation were nonspecific. Therefore, the patient underwent bronchoscopy on August 29 with BAL performed bilaterally. Fluid cytology revealed fungal organisms consistent with Aspergillus. The patient will be continued on bronchodilators and steroids. The patient will remain on antimicrobials per ID recommendations. Patient has had some improvement with steroids, but appears to have plateaued. Patient was placed on anticoagulation 2 days ago. Will monitor through the weekend. If still not improving on FiO2, anticipate extensive work-up on Sunday. 2. History of mixed obstructive/restrictive ventilatory impairment/rheumatoid arthritis/hypertension/hyperlipidemia Complicates care, management, recovery and prognosis. Continue home medications as indicated. 3. Nonsustained V. tach Cardiology has been consulted. It appears as though the interrogation does not show any V. tach suggesting this may be secondary to ventricular pacin g. No hemodynamic instability has been noted with these findings 4. Pulmonary hypertension Patient with multiple etiologies for pulmonary hypertension. Patient has potential for type I, type II and type III pulmonary hypertension. Patient will need a right heart catheterization for quantification clarification. For now, will attempt to control hypoxemia and diurese as tolerated. Do anticipate significant desaturation with any movement at this point. Subjective Subjective Patient did okay overnight. No acute issues were reported. Patient did wear BiPAP with sleep and tolerated it well. Patient is not reporting any bleeding, chest pain or abdominal pain. Patient was able to be on Airvo as low as 65% yesterday for extended period of time Objective Data Objective Data Vital Signs: Vital Signs Temp Pulse Resp BP Pulse Ox 36.0 C L 74 28 H 89/51 L 95 09/11/21 00:00 09/11/21 04:29 09/11/21 04:29 09/11/21 04:00 09/11/21 04:29 Oxygen Flow Rate (L/min) 75 Oxygen Delivery Method Airvo Weight: 78.2 kg Body Mass Index (BMI) 28.5 Intake & Output: Intake and Output for Last 24 Hours 09/09/21 09/10/21 09/11/21 23:59 23:59 23:59 Intake Total 808 / 808 1288 / 1294 6 / 6 Output Total 1175 / 1175 1250 / 1250 300 / 300 Balance -367 / -367 38 / 44 -294 / -294 Lab / Micro Data Result Diagrams: 09/11/21 05:30 09/11/21 05:30 Labs: Laboratory Results - last 24 hr 09/11/21 05:30: WBC 5.7, RBC 3.89 L, Hgb 10.2 L, Hct 33.5 L, MCV 86.1, MCH 26.2 L, MCHC 30.4 L, RDW Std Deviation 56.4 H, RDW Coeff of Cheikh 18.0 H, Plt Count 278, MPV 12.6 H, Immature Gran % (Auto) 0.700, Neut % (Auto) 89.3 H, Lymph % (Auto) 8.4 L, [place] % (Auto) 1.4, Eos % (Auto) 0.0, Baso % (Auto) 0.2, Absolute Neuts (auto) 5.1, Absolute Lymphs (auto) 0.48 L, Nucleated RBC % 0, Differential Comment SCANNED 09/11/21 05:30: Sodium 136, Potassium 4.1, Chloride 100, Carbon Dioxide 31.0, Anion Gap 5, BUN 30 H, Creatinine 0.57 L, Estim Creat Clear Calc 135.00, Est GFR (MDRD) Af Amer 188, Est GFR (MDRD) Non-Af 155, BUN/Creatinine Ratio 52.6 H, Glucose 229 H, Calcium 8.0 L, Total Bilirubin 0.70, AST 20, ALT 33, Alkaline Phosphatase 71, Total Protein 5.7 L, Albumin 2.0 L, Globulin 3.7, Albumin/Globulin Ratio 0.5 L Micro: Microbiology 11/01/21 12:00 Fluid - Other Acid Fast Bacilli Smear - Final 08/29/21 12:00 Wash - Right Middle Lobe Gram Stain - Final 08/29/21 12:00 Wash - Right Middle Lobe Respiratory Culture - Final Presumptive C albicans 08/29/21 12:00 Wash - Other Gram Stain - Final 08/29/21 12:00 Wash - Other Respiratory Culture - Final Presumptive C albicans 08/27/21 00:30 Blood Culture (Wb) - Left Hand Blood Culture - Final No growth in 5 days. 08/26/21 00:30 Blood Culture (Wb) - Anticubital Right Blood Culture - Final No growth in 5 days. 08/28/21 18:45 Sputum, Expectorated/Coughed Gram Stain - Final 08/28/21 18:45 Sputum, Expectorated/Coughed Respiratory Culture - Final 08/27/21 16:10 Sputum, Expectorated/Coughed Gram Stain - Final 08/27/21 16:10 Sputum, Expectorated/Coughed Respiratory Culture - Final 08/27/21 10:55 Sputum, Expectorated/Coughed Gram Stain - Final 08/27/21 10:55 Sputum, Expectorated/Coughed Respiratory Culture - Final 08/26/21 Unknown Urine, Clean Catch Legionella Antigen - Final 08/26/21 Unknown Urine, Clean Catch Streptococcus pneumoniae Antigen (M - Final 08/27/21 02:15 Mucosa - Nasopharyngeal Respiratory Panel (PCR) - Final 08/27/21 00:20 Nasal Secretion SARS-CoV-2 Antigen (Rapid) - Final Physical Exam Const alert and oriented x3 Constitutional Narrative: Currently tolerating Airvo. Mild conversational dyspnea General Appearance: cooperative HEENT normocephalic, head/scalp atraumatic and moist oral mucous membranes Eyes PERRL, EOMs intact bilaterally and conjunctivae normal Neck supple General: trachea midline Chest inspection of chest normal Chest: symmetrical chest wall rise; Negative for crepitus Resp normal respiratory effort and no use of accessory muscles Effort and Inspection: tachypneic Auscultation: rhonchi and wheezes; Negative for rales Cardio regular rate, regular rhythm, S1 normal heart sound and S2 normal heart sound GI normal to inspection, nondistended, normoactive bowel sounds Extremity General Extremity: Negative for clubbing, cyanosis or edema Skin no rashes or lesions noted Neuro moves all extremities and no focal motor deficits Psych cooperative and affect normal Charges/Coding Visit Charges Inpatient E&M: 16707 Subs Hosp L3
[2021-09-11] MEDS: Ipratropium/Albuterol Sulfate 3 ML AMPUL.NEB INHALATION ×4 (06:54→18:52)
[2021-09-11] MEDS: Potassium Chloride Oral Tablet 20 MEQ 40 MEQ PO (07:41)
[2021-09-11] MEDS: Phenol/Sodium Phenolate 180ML 3 SPRAY MUCOUS MEM ×6 (07:42→21:39)
[2021-09-11] MEDS: Aspirin E.C. 81 MG Tablet PO (07:42)
--- NOTE | 2021-09-11 09:37 | PCM.PN.HOSP ---
Subjective Subjective Follow-up on acute hypoxic respiratory failure/multifocal pneumonia: Patient was seen and examined. He has been on Airvo/Bipap. Denied any new complaints Objective Data Objective Data Vital Signs: Vital Signs Temp Pulse Resp BP Pulse Ox 97.4 F L 84 22 H 95/53 L 91 09/11/21 08:00 09/11/21 09:00 09/11/21 09:00 09/11/21 09:00 09/11/21 09:00 Oxygen Flow Rate (L/min) 60 Oxygen Delivery Method Airvo Weight: 78.2 kg Body Mass Index (BMI) 28.5 Intake & Output: Intake and Output for Last 24 Hours 09/09/21 09/10/21 09/11/21 23:59 23:59 23:59 Intake Total 808 / 808 1288 / 1294 290 / 290 Output Total 1175 / 1175 1250 / 1250 300 / 300 Balance -367 / -367 38 / 44 -10 / -10 Lab / Micro Data Result Diagrams: 09/11/21 05:30 09/11/21 05:30 Labs: Laboratory Results - last 24 hr 09/11/21 05:30: WBC 5.7, RBC 3.89 L, Hgb 10.2 L, Hct 33.5 L, MCV 86.1, MCH 26.2 L, MCHC 30.4 L, RDW Std Deviation 56.4 H, RDW Coeff of Cheikh 18.0 H, Plt Count 278, MPV 12.6 H, Immature Gran % (Auto) 0.700, Neut % (Auto) 89.3 H, Lymph % (Auto) 8.4 L, [place] % (Auto) 1.4, Eos % (Auto) 0.0, Baso % (Auto) 0.2, Absolute Neuts (auto) 5.1, Absolute Lymphs (auto) 0.48 L, Nucleated RBC % 0, Differential Comment SCANNED 09/11/21 05:30: Sodium 136, Potassium 4.1, Chloride 100, Carbon Dioxide 31.0, Anion Gap 5, BUN 30 H, Creatinine 0.57 L, Estim Creat Clear Calc 135.00, Est GFR (MDRD) Af Amer 188, Est GFR (MDRD) Non-Af 155, BUN/Creatinine Ratio 52.6 H, Glucose 229 H, Calcium 8.0 L, Total Bilirubin 0.70, AST 20, ALT 33, Alkaline Phosphatase 71, Total Protein 5.7 L, Albumin 2.0 L, Globulin 3.7, Albumin/Globulin Ratio 0.5 L Micro: Microbiology 08/29/21 12:00 Fluid - Other Acid Fast Bacilli Smear - Final 08/29/21 12:00 Wash - Right Middle Lobe Gram Stain - Final 08/29/21 12:00 Wash - Right Middle Lobe Respiratory Culture - Final Presumptive C albicans 08/29/21 12:00 Wash - Other Gram Stain - Final 08/29/21 12:00 Wash - Other Respiratory Culture - Final Presumptive C albicans 08/27/21 00:30 Blood Culture (Wb) - Left Hand Blood Culture - Final No growth in 5 days. 08/26/21 00:30 Blood Culture (Wb) - Anticubital Right Blood Culture - Final No growth in 5 days. 08/28/21 18:45 Sputum, Expectorated/Coughed Gram Stain - Final 08/28/21 18:45 Sputum, Expectorated/Coughed Respiratory Culture - Final 08/27/21 16:10 Sputum, Expectorated/Coughed Gram Stain - Final 08/27/21 16:10 Sputum, Expectorated/Coughed Respiratory Culture - Final 08/27/21 10:55 Sputum, Expectorated/Coughed Gram Stain - Final 08/27/21 10:55 Sputum, Expectorated/Coughed Respiratory Culture - Final 08/26/21 Unknown Urine, Clean Catch Legionella Antigen - Final 08/26/21 Unknown Urine, Clean Catch Streptococcus pneumoniae Antigen (M - Final 08/27/21 02:15 Mucosa - Nasopharyngeal Respiratory Panel (PCR) - Final 08/27/21 00:20 Nasal Secretion SARS-CoV-2 Antigen (Rapid) - Final Physical Exam Narrative Physical exam: General: Alert, Oriented x3, Cooperative, on Airvo HEENT: Atraumatic Oral: Moist Mucosa Neck: Supple Lungs: Diminished to auscultation Cardiovascular: HS I+II, regular, no murmurs Abdomen: Bowel Sounds Present, Soft, Non Tender Extremities: No edema Assessment & Plan Assessment/Plan (1) Acute on chronic respiratory failure with hypoxemia: (2) Multifocal pneumonia: PLAN: Summary: 61-year-old male with past medical history of rheumatoid arthritis, who comes in with progressive shortness of breath. Patient recently had acute Covid infection in May. His management has been that of acute multifocal pneumonia, likely secondary to fungal pneumonia 1. 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 Patient is immunocompromised with history of rheumatoid arthritis, not on any medications Sputum cultures growing presumptive C albicans; other fungal and viral cultures are pending Status post bronchoscopy on 08/29/21 which showed thickened whitish secretions in right upper and right middle as well as left upper lobes. Off antibiotics; continue on voriconazole, IV Solu-Medrol, breathing treatments Started on empiric Eliquis on 09/09/21 for probable PE ID and pulmonology following 2.Rest of his chronic medical conditions including rheumatoid arthritis, chronic atrial fibrillation, hyperlipidemia, hypertension, CAD status post stents remains stable for now Meds reviewed 3. DVT prophylaxis - Lovenox Charges/Coding Visit Charges Inpatient E&M: 17179 Subs Hosp L2
[2021-09-11] MEDS: Furosemide 40 MG/4 ML Vial IV ×2 (10:11→17:09)
[2021-09-11] MEDS: APIXABAN 5 MG TABLET 10 MG PO ×2 (10:11→21:19)
[2021-09-11] MEDS: dilTIAZem CD 120 MG Capsule PO (11:39)
[2021-09-11] MEDS: 0.9% Saline Lock 10 ML Syringe IV ×3 (14:04→21:19)
[2021-09-11] MEDS: MELATONIN 10 MG TABLET PO (21:18)
[2021-09-11] MEDS: Atorvastatin Calcium 20 MG Tablet PO (21:19)
[2021-09-11] MEDS: guaiFENesin/Codeine 5 ML UDC PO (21:29)
[2021-09-12] VITALS (37 sets, daily range): BP systolic 99–119; BP diastolic 56–79; PULSE 70–93; RESP 12–41; TEMP 36–36.1; O2SAT 86–99
[2021-09-12] MEDS: Phenol/Sodium Phenolate 180ML 3 SPRAY MUCOUS MEM ×5 (00:03→20:41)
--- NOTE | 2021-09-12 05:29 | CT_ITS ---
STUDY: CTA CHEST REASON FOR EXAM: Male, 61 years old. Hypoxia RADIATION DOSAGE (If Supplied By Facility): CTDIvol = ( 13.26 ) mGy, DLP = ( 461.64 ) mGycm TECHNIQUE: The examination was performed with the intravenous administration of IV 100mL Isovue-370. Post-processing of the angiographic images was performed, with multiplanar reformation and 3D reconstruction. Individualized dose optimization techniques were used for this CT. COMPARISON: Comparison is made with prior study dated 08/26/2021. FINDINGS: Normal enhancement of the main pulmonary artery and right and left pulmonary arteries. Normal enhancement of the bilateral peripheral pulmonary arteries. There is no demonstrated pulmonary embolism. Normal thoracic aorta and visualized great vessels. There is no demonstrated aortic dissection. A left-sided dual-chamber pacemaker is seen. Normal mediastinum. Normal hilar regions. Normal visualized trachea and bronchi. Hyperinflation. Diffuse emphysematous changes with evidence of centrilobular emphysema worse in the upper lobes. There is evidence of noncalcified 7.5 mm nodule in the lateral anterior aspect of the rectal probe is seen on axial image #133. This is unchanged. Areas of confluence persist in the lower lobes worse on the right side suggestive of chronic interstitial fibrosis. There has been improved aeration of both lungs as compared to prior study. Normal pleura. Normal chest wall structures. There are degenerative changes of thoracic spine. Normal visualized upper abdomen. CT/CTA Chest W/WO Contrast IMPRESSION: Findings get with advanced centrilobular emphysematous changes and interstitial pulmonary fibrosis. Residual areas of confluence in both lungs more prominent in the right hemithorax although there has been improvement. Stable 7.5 mm noncalcified nodule in the peripheral lateral aspect of the right upper lobe. A repeat CT scan in 6 months is recommended for assessment. Electronically Signed: Dwaine Gurrola MD at 9:10 EST , Service support ,
--- NOTE | 2021-09-12 05:29 | ECHOL_ITS ---
Reason For Study: PHTN Procedure This was a limited 2D transthoracic echocardiogram. The study was technically difficult. Assess PHTN only. Exam performed portable in ICU/CCU. Left Ventricle Normal LV size. Left ventricular systolic function is normal. The estimated ejection fraction is 65 %. Right Ventricle Normal RV size. Normal systolic function. Tricuspid Valve Normal tricuspid valve. Moderate (2+) tricuspid valve insufficiency. Pulmonary artery systolic pressure is 58 mmHg. Moderate pulmonary hypertension. Pericardium/Pleural No pericardial effusion. Doppler Measurements & Calculations TR max bon[place]acio: 368.7 cm/sec TR max P.4 mmHg ECHO/Echo, Limited Study Interpretation Summary Normal LV size. Left ventricular systolic function is normal. The estimated ejection fraction is 65 %. Pulmonary artery systolic pressure is 58 mmHg. Moderate pulmonary hypertension. Ordering Physician: Olu Dunn Referring Physician: GASTON SUAZO Performed By: Meseret Painting RDCS, RVT
[2021-09-12 05:49] LABS: Erythrocyte Sedimentation Rate 36 mm/hr (0-20)
[2021-09-12 05:51] LABS: Absolute Lymphocyte Count 0.61 X10^3/uL (0.83-4.51); Absolute Neutrophil Count 10.1 X10^3/uL (2.0-7.7); Basophil# 0.01 X10^3/uL; Basophil% 0.1 % (0-1); Hematocrit 30.9 % (40-54); Hemoglobin 9.6 g/dL (13.0-16.5); Lymphocyte # 0.61 X10^3/ul (0.83-4.51); Lymphocyte % 5.5 % (19-41); Mean Corp Hgb Conc 31.1 g/dL (32-36); Mean Corpuscular Volume 86.8 fL (80-94); Monocyte# 0.33 X10^3/uL; NRBC Flagged by Analyzer 0 % (0-5); Neutrophil # 10.08 X10^3/uL (2.7-7.7); Neutrophil % 90.6 % (47-70); Platelet Count 268 K/mm3 (150-450); RBC Distribution Width CV 18.3 % (11.6-14.6); Red Blood Count 3.56 M/mm3 (4.6-6.2); White Blood Count 11.1 K/mm3 (4.4-11.0)
[2021-09-12 06:00] LABS: ALB/GLOB Ratio 0.5 RATIO (0.9-2.4); AST(SGOT) 15 U/L (15-37); Alanine Aminotransfer ALT/SGPT 33 U/L (16-61); Albumin, Serum 1.8 g/dL (3.2-5.0); Alkaline Phosphatase 70 U/L (45-117); Anion Gap 5 (5-15); BUN 27 mg/dL (7-18); BUN/Creat Ratio 47.1 RATIO (10-20); Calcium,Total 7.9 mg/dL (8.5-10.1); Chloride 103 mmol/L (98-107); Creatinine, Serum 0.57 mg/dL (0.70-1.30); EST Glomerular Filtration Rate 154 mL/min (>60); Est Glom Filt Rate - Afr Amer 187 mL/min (>60); Globulin 3.3 g/dL (2.2-4.2); Glucose 251 mg/dL (74-106); Protein, Total 5.1 g/dL (6.4-8.2); Sodium Level 137 mmol/L (136-145)
[2021-09-12 06:38] LABS: Procalcitonin 0.16 ng/mL (0.00-0.09)
[2021-09-12] MEDS: Ipratropium/Albuterol Sulfate 3 ML AMPUL.NEB INHALATION ×3 (06:58→15:41)
--- NOTE | 2021-09-12 07:00 | PN.CC_ITS ---
Assessment & Plan Assessment/Plan (1) Acute on chronic respiratory failure with hypoxemia: PLAN: RECOMMENDATIONS: 1. Continue voriconazole per ID recommendations. 2. Continue Airvo during the day. Goal to maintain oxygen saturations at or above 90%. 3. Encourage incentive spirometer use and mobilize patient as tolerated. 4. Continue scheduled bronchodilators, empiric anticoagulation and Solu- Medrol. 5. Obtain limited echocardiogram and CTA of the chest 6. Cannot exclude the need for repeat bronchoscopy 7. Diuresis as tolerated. Dose twice daily today with goal of -500 to 1 L. IMPRESSIONS: 1. Acute on chronic hypoxemic respiratory failure The patient does have a baseline oxygen requirement of 3 L/min. He has a history of rheumatoid associated interstitial lung disease and was previously on immunosuppression, up until his discharge from the hospital in June. The patient has been hospitalized several times over the last couple months, first due to COVID-19 pneumonia and more recently as a consequence of bacterial pneumonia. His CT findings noted on presentation were nonspecific. Therefore, the patient underwent bronchoscopy on August 29 with BAL performed bilaterally. Fluid cytology revealed fungal organisms consistent with Aspergillus. The patient will be continued on bronchodilators, empiric anticoagulation and steroids. Patient has not worsened, but is failing to improve. Will obtain an echocardiogram for evaluation of pulmonary hypertension. We will also repeat CT scan. Protein alveolar proteinosis would be a consideration and may require a repeat bronchoscopy. 2. History of mixed obstructive/restrictive ventilatory impairment/rheumatoid arthritis/hypertension/hyperlipidemia Complicates care, management, recovery and prognosis. Continue home medications as indicated. 3. Nonsustained V. tach Cardiology has been consulted. It appears as though the interrogation does not show any V. tach suggesting this may be secondary to ventricular pacing. No hemodynamic instability has been noted with these findings 4. Pulmonary hypertension Patient with multiple etiologies for pulmonary hypertension. Patient has potential for type I, type II and type III pulmonary hypertension. Repeat echocardiogram ordered. We will continue to diurese as tolerated. Patient will need a right heart catheterization for quantification clarification. For now, will attempt to control hypoxemia and diurese as tolerated. Do anticipate significant desaturation with any movement at this point. Subjective Subjective Patient did okay overnight. Patient did not use BiPAP, but was requiring up to 80% FiO2. Patient subjectively feels unchanged compared to previous. Patient is not reporting any bleeding complications. Objective Data Objective Data Vital Signs: Vital Signs Temp Pulse Resp BP Pulse Ox 36.1 C L 72 28 H 108/71 95 09/12/21 00:00 09/12/21 06:00 09/12/21 06:00 09/12/21 06:00 09/12/21 06:00 Oxygen Flow Rate (L/min) 60 Oxygen Delivery Method Airvo Weight: 78.8 kg Body Mass Index (BMI) 28.5 Intake & Output: Intake and Output for Last 24 Hours 09/10/21 09/11/21 09/12/21 23:59 23:59 23:59 Intake Total 1288 / 1294 1119 / 1479 600 / 600 Output Total 1250 / 1250 1925 / 2025 100 / 100 Balance 38 / 44 -806 / -546 500 / 500 Lab / Micro Data Result Diagrams: 09/12/21 03:20 09/12/21 03:20 Labs: Laboratory Results - last 24 hr 09/12/21 03:20: WBC 11.1 H, RBC 3.56 L, Hgb 9.6 L, Hct 30.9 L, MCV 86.8, MCH 27.0, MCHC 31.1 L, RDW Std Deviation 58.0 H, RDW Coeff of Cheikh 18.3 H, Plt Count 268, MPV 13.0 H, Immature Gran % (Auto) 0.800, Neut % (Auto) 90.6 H, Lymph % (Auto) 5.5 L, [place] % (Auto) 3.0, Eos % (Auto) 0.0, Baso % (Auto) 0.1, Absolute Neuts (auto) 10.1 H, Absolute Lymphs (auto) 0.61 L, Nucleated RBC % 0, ESR 36 H 09/12/21 03:20: Sodium 137, Potassium 4.0, Chloride 103, Carbon Dioxide 29.0, Anion Gap 5, BUN 27 H, Creatinine 0.57 L, Estim Creat Clear Calc 135.00, Est GFR (MDRD) Af Amer 187, Est GFR (MDRD) Non-Af 154, BUN/Creatinine Ratio 47.1 H, Glucose 251 H, Calcium 7.9 L, Total Bilirubin 0.50, AST 15, ALT 33, Alkaline Phosphatase 70, C-React Prot Ext Range 74.90 H, Total Protein 5.1 L, Albumin 1.8 L, Globulin 3.3, Albumin/Globulin Ratio 0.5 L 09/12/21 05:35: Procalcitonin 0.16 H Micro: Microbiology 08/29/21 12:00 Fluid - Other Acid Fast Bacilli Smear - Final 08/29/21 12:00 Wash - Right Middle Lobe Gram Stain - Final 08/29/21 12:00 Wash - Right Middle Lobe Respiratory Culture - Final Presumptive C albicans 08/29/21 12:00 Wash - Other Gram Stain - Final 08/29/21 12:00 Wash - Other Respiratory Culture - Final Presumptive C albicans 08/27/21 00:30 Blood Culture (Wb) - Left Hand Blood Culture - Final No growth in 5 days. 08/26/21 00:30 Blood Culture (Wb) - Anticubital Right Blood Culture - Final No growth in 5 days. 08/28/21 18:45 Sputum, Expectorated/Coughed Gram Stain - Final 08/28/21 18:45 Sputum, Expectorated/Coughed Respiratory Culture - Final 08/27/21 16:10 Sputum, Expectorated/Coughed Gram Stain - Final 08/27/21 16:10 Sputum, Expectorated/Coughed Respiratory Culture - Final 08/27/21 10:55 Sputum, Expectorated/Coughed Gram Stain - Final 08/27/21 10:55 Sputum, Expectorated/Coughed Respiratory Culture - Final 08/26/21 Unknown Urine, Clean Catch Legionella Antigen - Final 08/26/21 Unknown Urine, Clean Catch Streptococcus pneumoniae Antigen (M - Final 08/27/21 02:15 Mucosa - Nasopharyngeal Respiratory Panel (PCR) - Final 08/27/21 00:20 Nasal Secretion SARS-CoV-2 Antigen (Rapid) - Final Physical Exam Const alert and oriented x3 Constitutional Narrative: Currently tolerating Airvo. Mild conversational dyspnea General Appearance: cooperative HEENT normocephalic, head/scalp atraumatic and moist oral mucous membranes Eyes PERRL, EOMs intact bilaterally and conjunctivae normal Neck supple General: trachea midline Chest inspection of chest normal Chest: symmetrical chest wall rise; Negative for crepitus Resp normal respiratory effort and no use of accessory muscles Effort and Inspection: tachypneic Auscultation: rhonchi and wheezes; Negative for rales Cardio regular rate, regular rhythm, S1 normal heart sound and S2 normal heart sound GI normal to inspection, nondistended, normoactive bowel sounds Extremity General Extremity: Negative for clubbing, cyanosis or edema Skin no rashes or lesions noted Neuro moves all extremities and no focal motor deficits Psych cooperative and affect normal Charges/Coding Visit Charges Inpatient E&M: 59463 Subs Hosp L3
[2021-09-12] MEDS: APIXABAN 5 MG TABLET 10 MG PO (08:34)
[2021-09-12] MEDS: CHLORHEXIDINE GLUC 2% CLOTH 1 EACH TOWELETTE TOPICAL (08:34)
[2021-09-12] MEDS: dilTIAZem CD 120 MG Capsule PO (08:34)
[2021-09-12] MEDS: Potassium Chloride Oral Tablet 20 MEQ PO ×2 (08:34→17:35)
[2021-09-12] MEDS: Lisinopril 20 MG Tablet PO (08:35)
[2021-09-12] MEDS: Furosemide 40 MG Tablet PO ×2 (08:35→17:35)
[2021-09-12] MEDS: Aspirin E.C. 81 MG Tablet PO (08:35)
--- NOTE | 2021-09-12 10:32 | PN.HOSP_ITS ---
Subjective Subjective Patient seen and examined. He had no active complaints and remains on AirVO. He feels his breathing is the same. REview of systems is otherwise negative. He has remained hemodynamically stable. Objective Data Objective Data Vital Signs: Vital Signs Temp Pulse Resp BP Pulse Ox 96.9 F L 85 24 H 104/64 92 09/12/21 08:00 09/12/21 09:00 09/12/21 09:00 09/12/21 09:00 09/12/21 09:00 Oxygen Flow Rate (L/min) 60 Oxygen Delivery Method Airvo Weight: 173 lb 11.588 oz Body Mass Index (BMI) 28.5 Intake & Output: Intake and Output for Last 24 Hours 09/10/21 09/11/21 09/12/21 23:59 23:59 23:59 Intake Total 1288 / 1294 1119 / 1479 884 / 884 Output Total 1250 / 1250 1924 / 2024 100 / 100 Balance 38 / 44 -806 / -546 784 / 784 Lab / Micro Data Result Diagrams: 09/12/21 03:20 09/12/21 03:20 Labs: Laboratory Results - last 24 hr 09/12/21 03:20: WBC 11.1 H, RBC 3.56 L, Hgb 9.6 L, Hct 30.9 L, MCV 86.8, MCH 27.0, MCHC 31.1 L, RDW Std Deviation 58.0 H, RDW Coeff of [place] 18.3 H, Plt Count 268, MPV 13.0 H, Immature Gran % (Auto) 0.800, Neut % (Auto) 90.6 H, Lymph % (Auto) 5.5 L, [place] % (Auto) 3.0, Eos % (Auto) 0.0, Baso % (Auto) 0.1, Absolute Neuts (auto) 10.1 H, Absolute Lymphs (auto) 0.61 L, Nucleated RBC % 0, ESR 36 H 09/12/21 03:20: Sodium 137, Potassium 4.0, Chloride 103, Carbon Dioxide 29.0, Anion Gap 5, BUN 27 H, Creatinine 0.57 L, Estim Creat Clear Calc 135.00, Est GFR (MDRD) Af Amer 187, Est GFR (MDRD) Non-Af 154, BUN/Creatinine Ratio 47.1 H, Glucose 251 H, Calcium 7.9 L, Total Bilirubin 0.50, AST 15, ALT 33, Alkaline Phosphatase 70, C-React Prot Ext Range 74.90 H, Total Protein 5.1 L, Albumin 1.8 L, Globulin 3.3, Albumin/Globulin Ratio 0.5 L 09/12/21 05:35: Procalcitonin 0.16 H Micro: Microbiology 08/29/21 12:00 Fluid - Other Acid Fast Bacilli Smear - Final 08/29/21 12:00 Wash - Right Middle Lobe Gram Stain - Final 08/29/21 12:00 Wash - Right Middle Lobe Respiratory Culture - Final Presumptive C albicans 08/29/21 12:00 Wash - Other Gram Stain - Final 08/29/21 12:00 Wash - Other Respiratory Culture - Final Presumptive C albicans 08/27/21 00:30 Blood Culture (Wb) - Left Hand Blood Culture - Final No growth in 5 days. 08/26/21 00:30 Blood Culture (Wb) - Anticubital Right Blood Culture - Final No growth in 5 days. 08/28/21 18:45 Sputum, Expectorated/Coughed Gram Stain - Final 08/28/21 18:45 Sputum, Expectorated/Coughed Respiratory Culture - Final 08/27/21 16:10 Sputum, Expectorated/Coughed Gram Stain - Final 08/27/21 16:10 Sputum, Expectorated/Coughed Respiratory Culture - Final 08/27/21 10:55 Sputum, Expectorated/Coughed Gram Stain - Final 08/27/21 10:55 Sputum, Expectorated/Coughed Respiratory Culture - Final 08/26/21 Unknown Urine, Clean Catch Legionella Antigen - Final 08/26/21 Unknown Urine, Clean Catch Streptococcus pneumoniae Antigen (M - Final 08/27/21 02:15 Mucosa - Nasopharyngeal Respiratory Panel (PCR) - Final 08/27/21 00:20 Nasal Secretion SARS-CoV-2 Antigen (Rapid) - Final Radiography Diagnostic Testing: Radiology Impression Chest CTA 09/12/21 05:29 IMPRESSION: Findings get with advanced centrilobular emphysematous changes and interstitial pulmonary fibrosis. Residual areas of confluence in both lungs more prominent in the right hemithorax although there has been improvement. Stable 7.5 mm noncalcified nodule in the peripheral lateral aspect of the right upper lobe. A repeat CT scan in 6 months is recommended for assessment. Electronically Signed: Dwaine Gurrola MD at 9:10 EST , Service support , Physical Exam Const alert, oriented x3 and no apparent distress Exam Limitations: no limitations HEENT head/scalp atraumatic and moist oral mucous membranes Eyes PERRL, EOMs intact bilaterally and conjunctivae normal Resp Resp Narrative: diminished breath sounds bibasally, remains on AirVo. Cardio regular rate, regular rhythm, S1 normal heart sound, S2 normal heart sound and no murmurs GI normal to inspection, nondistended, normoactive bowel sounds, soft to palpation and non-distended Extremity normal to inspection, full ROM and no clubbing, cyanosis or edema Peripheral Pulses: Yes pulses 2+ throughout Skin no rashes or lesions noted Neuro oriented x3, CN's II-XII intact bilaterally and moves all extremities Sensorium / Orientation: awake and alert Psych affect normal Assessment & Plan Assessment/Plan (1) Acute on chronic respiratory failure with hypoxemia: (2) Multifocal pneumonia: PLAN: #Acute on chronic hypoxic respiratory failure * remains on AirVO * now off antibiotics; on IV voriconazole and steroids. * now on empiric anticoagulation due to concerns for PE * CTA of the chest and limited 2D echo pending * being diuresed as neded to help maintain euvolemic status * paitent has not really improved much. He had bronchoscopy and broncheoalveolar lavage and samples sent for cultures. FLuid cytology consistent with Aspergillus * pulmonology on [facility]. #Nonsustained Vtach * cardiology consulted. Was thought this could be due to ventricular pacing rather, after his defibrillator was interoggated. * #Pulmonary hypertension * exact type is not clear * repeat 2D echo pending * will need a right heart cath eventually. * diurese as needed. * #History of rheumatoid arthritis: not on any retirement meds now. Stable #Afib: on cardizem. On aspirin. #Hyperlipidemia: on statin #Hypertension: On lisinopril as well as Cardizem #CAD s/p stent: On statin and aspirin DVT prophylaxis: on eliquis for presumptive PE. Charges/Coding Visit Charges Inpatient E&M: 32818 Subs Hosp L3
--- NOTE | 2021-09-12 14:19 | PCM.PN.ID ---
Physical Exam Narrative Feeling ok, no sputum, no fever Const alert and no apparent distress General Appearance: cooperative Resp Resp Narrative: faint rales Cardio regular rate and regular rhythm GI normal to inspection, nondistended, normoactive bowel sounds Skin no rashes or lesions noted ID ID: Route of nutrition/ use of supplements: [] Nutritional Intake: [] IV Site: [] Gonzalez Catheter: [] Assessment & Plan Assessment/Plan (1) Acute on chronic respiratory failure with hypoxemia: (2) Multifocal pneumonia: PLAN: Concern for aspergillus on BAL staining. On vori, 4mg q12h. Fungal cx neg so far, some rare yeast on aerobic. Aspergillus Ab neg. CT neg for PE. Would be candidate for covid booster. Remains hypoxic. CT done. Will change vori to po. Will follow, d/w Dr. Dunn
[2021-09-12] MEDS: guaiFENesin/Codeine 5 ML UDC PO (18:42)
[2021-09-12] MEDS: Voriconazole 200 MG Tablet 300 MG PO (21:18)
[2021-09-12] MEDS: QUEtiapine 25 MG Tablet 50 MG PO (21:18)
[2021-09-12] MEDS: 0.9% Saline Lock 10 ML Syringe IV (21:19)
[2021-09-12] MEDS: Atorvastatin Calcium 20 MG Tablet PO (21:19)
[2021-09-12] MEDS: MELATONIN 10 MG TABLET PO (21:19)
[2021-09-13] VITALS (36 sets, daily range): BP systolic 94–121; BP diastolic 57–75; PULSE 64–91; RESP 12–34; TEMP 35.9–36.2; O2SAT 88–98
--- NOTE | 2021-09-13 02:20 | NURSING ---
09/13/21214 Patient oxygen dropped to mid 70's on monitor. After entering patients room patient was found confused and disorientated with Airvo off and in his hands. When asked what he was doing he replied, I'm late for work. It's time for me to get up for work. After patient was fully awake he answered orientation questions appropriately. RT was notified. Patient placed back on Bipap 10/03 50% at this time.Will continue to monitor.
[2021-09-13 04:18] LABS: Absolute Lymphocyte Count 0.58 X10^3/uL (0.83-4.51); Absolute Neutrophil Count 7.8 X10^3/uL (2.0-7.7); Basophil# 0.01 X10^3/uL; Basophil% 0.1 % (0-1); Hematocrit 32.7 % (40-54); Hemoglobin 9.9 g/dL (13.0-16.5); Lymphocyte # 0.58 X10^3/ul (0.83-4.51); Lymphocyte % 6.6 % (19-41); Mean Corp Hgb Conc 30.3 g/dL (32-36); Mean Corpuscular Hgb 26.5 pg (27.0-32.0); Mean Corpuscular Volume 87.4 fL (80-94); Mean Platelet Vol. 12.2 fl (6.2-12.0); Monocyte# 0.34 X10^3/uL; Monocyte% 3.9 % (0-10); NRBC Flagged by Analyzer 0 % (0-5); Neutrophil # 7.83 X10^3/uL (2.7-7.7); Neutrophil % 88.8 % (47-70); POSITIVE DIFFERENTIAL YES; Platelet Count 266 K/mm3 (150-450); RBC Distribution Width CV 18.4 % (11.6-14.6); RBC Distribution Width SD 58.5 fl (35.1-43.9); Red Blood Count 3.74 M/mm3 (4.6-6.2); White Blood Count 8.8 K/mm3 (4.4-11.0)
[2021-09-13 04:19] LABS: Differential Indicated SCAN CRITERIA MET
[2021-09-13 04:31] LABS: Anion Gap 4 (5-15); BUN 25 mg/dL (7-18); BUN/Creat Ratio 40.8 RATIO (10-20); Calcium,Total 8.3 mg/dL (8.5-10.1); Chloride 103 mmol/L (98-107); Creatinine, Serum 0.61 mg/dL (0.70-1.30); EST Glomerular Filtration Rate 143 mL/min (>60); Est Glom Filt Rate - Afr Amer 173 mL/min (>60); Estimated Creatinine Clearance 126.15 ml/min; Glucose 251 mg/dL (74-106); Potassium 4.9 mmol/L (3.5-5.1); Sodium Level 139 mmol/L (136-145)
[2021-09-13 04:35] LABS: Anisocytosis 2+; Ovalocyte 1+
[2021-09-13 04:36] LABS: Tear Drop Cell RARE
--- NOTE | 2021-09-13 07:03 | PN.CC_ITS ---
Assessment & Plan Assessment/Plan (1) Acute on chronic respiratory failure with hypoxemia: PLAN: RECOMMENDATIONS: 1. Continue voriconazole per ID recommendations. 2. Continue Airvo during the day. Goal to maintain oxygen saturations at or above 90%. 3. Encourage incentive spirometer use and mobilize patient as tolerated. 4. Continue scheduled bronchodilators and Solu-Medrol. 5. Possible bronchoscopy tomorrow. N.p.o. at midnight 6. Increase aggressiveness of diuresis IMPRESSIONS: 1. Acute on chronic hypoxemic respiratory failure The patient does have a baseline oxygen requirement of 3 L/min. He has a history of rheumatoid associated interstitial lung disease and was previously on immunosuppression, up until his discharge from the hospital in June. The patient has been hospitalized several times over the last couple months, first due to COVID-19 pneumonia and more recently as a consequence of bacterial pneumonia. His CT findings noted on presentation were nonspecific. Therefore, the patient underwent bronchoscopy on August 29 with BAL performed bilaterally. Fluid cytology revealed fungal organisms consistent with Aspergillus. Repeat work-up on 09/12/2021 showed pulmonary artery pressures are maintained despite control of hypoxia and diuresis. Will increase diuretic efforts. CT scan of the chest shows no PE, but some crazy paving pattern that may be suggestive of PAP. Patient was taken off of anticoagulation. Patient may require a bronchoscopy for evaluation. Patient will be made n.p.o. at midnight. 2. History of mixed obstructive/restrictive ventilatory impair ment/rheumatoid arthritis/hypertension/hyperlipidemia Complicates care, management, recovery and prognosis. Continue home medications as indicated. 3. Nonsustained V. tach Cardiology has been consulted. It appears as though the interrogation does not show any V. tach suggesting this may be secondary to ventricular pacing. No hemodynamic instability has been noted with these findings 4. Pulmonary hypertension Patient with multiple etiologies for pulmonary hypertension. Patient has potential for type I, type II and type III pulmonary hypertension. Repeat echocardiogram ordered. We will continue to diurese as tolerated. Patient would likely benefit from a right heart catheterization for quantification clarification of pulmonary artery pressures. For now, will increase attempts to control hypoxemia and diurese as tolerated. Do anticipate significant desaturation with any movement at this point. Subjective Subjective Patient did okay overnight. Patient did have some confusion associated with Seroquel therapy. Patient had removed his Airvo and desaturated into the 60s quickly. No arrhythmias or bradycardia have been noted. Patient subjectively feels unchanged compared to previous. Objective Data Objective Data Vital Signs: Vital Signs Temp Pulse Resp BP Pulse Ox 36.2 C L 67 22 H 98/67 98 09/13/21 04:00 09/13/21 07:00 09/13/21 07:00 09/13/21 07:00 09/13/21 07:00 Oxygen Flow Rate (L/min) 50 Oxygen Delivery Method Airvo Weight: 78.7 kg Body Mass Index (BMI) 28.5 Intake & Output: Intake and Output for Last 24 Hours 09/11/21 09/12/21 09/13/21 23:59 23:59 23:59 Intake Total 1119 / 1479 1567.25 / 1567.25 480 / 480 Output Total 192 / 2024 1590 / 1790 200 / 200 Balance -806 / -546 -22.75 / -222.75 280 / 280 Lab / Micro Data Result Diagrams: 09/13/21 04:10 09/13/21 04:10 Labs: Laboratory Results - last 24 hr 09/13/21 04:10: WBC 8.8, RBC 3.74 L, Hgb 9.9 L, Hct 32.7 L, MCV 87.4, MCH 26.5 L , MCHC 30.3 L, RDW Std Deviation 58.5 H, RDW Coeff of Cheikh 18.4 H, Plt Count 266, MPV 12.2 H, Immature Gran % (Auto) 0.600, Neut % (Auto) 88.8 H, Lymph % (Auto) 6.6 L, [place] % (Auto) 3.9, Eos % (Auto) 0.0, Baso % (Auto) 0.1, Absolute Neuts (auto) 7.8 H, Absolute Lymphs (auto) 0.58 L, Nucleated RBC % 0, Anisocytosis 2+, Tear Drop Cells RARE, Ovalocytes 1+ 09/13/21 04:10: Sodium 139, Potassium 4.9, Chloride 103, Carbon Dioxide 32.0, Anion Gap 4 L, BUN 25 H, Creatinine 0.61 L, Estim Creat Clear Calc 126.15, Est GFR (MDRD) Af Amer 173, Est GFR (MDRD) Non-Af 143, BUN/Creatinine Ratio 40.8 H, Glucose 251 H, Calcium 8.3 L Micro: Microbiology 08/29/21 12:00 Fluid - Other Acid Fast Bacilli Smear - Final 08/29/21 12:00 Wash - Right Middle Lobe Gram Stain - Final 08/29/21 12:00 Wash - Right Middle Lobe Respiratory Culture - Final Presumptive C albicans 08/29/21 12:00 Wash - Other Gram Stain - Final 08/29/21 12:00 Wash - Other Respiratory Culture - Final Presumptive C albicans 08/27/21 00:30 Blood Culture (Wb) - Left Hand Blood Culture - Final No growth in 5 days. 08/26/21 00:30 Blood Culture (Wb) - Anticubital Right Blood Culture - Final No growth in 5 days. 08/28/21 18:45 Sputum, Expectorated/Coughed Gram Stain - Final 08/28/21 18:45 Sputum, Expectorated/Coughed Respiratory Culture - Final 08/27/21 16:10 Sputum, Expectorated/Coughed Gram Stain - Final 08/27/21 16:10 Sputum, Expectorated/Coughed Respiratory Culture - Final 08/27/21 10:55 Sputum, Expectorated/Coughed Gram Stain - Final 08/27/21 10:55 Sputum, Expectorated/Coughed Respiratory Culture - Final 08/26/21 Unknown Urine, Clean Catch Legionella Antigen - Final 08/26/21 Unknown Urine, Clean Catch Streptococcus pneumoniae Antigen (M - Final 08/27/21 02:15 Mucosa - Nasopharyngeal Respiratory Panel (PCR) - Final 08/27/21 00:20 Nasal Secretion SARS-CoV-2 Antigen (Rapid) - Final Radiography Diagnostic Testing: Radiology Impression Chest CTA 09/12/21 05:29 IMPRESSION: Findings get with advanced centrilobular emphysematous changes and interstitial pulmonary fibrosis. Residual areas of confluence in both lungs more prominent in the right hemithorax although there has been improvement. Stable 7.5 mm noncalcified nodule in the peripheral lateral aspect of the right upper lobe. A repeat CT scan in 6 months is recommended for assessment. Electronically Signed: Dwaine Gurrola MD at 9:10 EST , Service support , Echocardiogram 09/12/21 05:29 Interpretation Summary Normal LV size. Left ventricular systolic function is normal. The estimated ejection fraction is 65 %. Pulmonary artery systolic pressure is 58 mmHg. Moderate pulmonary hypertension. Ordering Physician: Olu Dunn Referring Physician: GASTON SUAZO Performed By: Meseret Painting, MORCS, RVT Physical Exam Const alert and oriented x3 Constitutional Narrative: Currently tolerating Airvo. Mild conversational dyspnea General Appearance: cooperative HEENT normocephalic, head/scalp atraumatic and moist oral mucous membranes Eyes PERRL, EOMs intact bilaterally and conjunctivae normal Neck supple General: trachea midline Chest inspection of chest normal Chest: symmetrical chest wall rise; Negative for crepitus Resp normal respiratory effort and no use of accessory muscles Effort and Inspection: tachypneic Auscultation: rhonchi and wheezes; Negative for rales Cardio regular rate, regular rhythm, S1 normal heart sound and S2 normal heart sound GI normal to inspection, nondistended, normoactive bowel sounds Extremity General Extremity: Negative for clubbing, cyanosis or edema Skin no rashes or lesions noted Neuro moves all extremities and no focal motor deficits Psych cooperative and affect normal Charges/Coding Visit Charges Inpatient E&M: 86254 Subs Hosp L3
--- NOTE | 2021-09-13 07:17 | PN.HOSP_ITS ---
Subjective Subjective Patient seen and examined. he remains on AirVO. He has no complaints this morning. Review of systems otherwise negative. Objective Data Objective Data Vital Signs: Vital Signs Temp Pulse Resp BP Pulse Ox 97.2 F L 67 22 H 98/67 98 09/13/21 04:00 09/13/21 07:00 09/13/21 07:00 09/13/21 07:00 09/13/21 07:00 Oxygen Flow Rate (L/min) 50 Oxygen Delivery Method Airvo Weight: 173 lb 8.061 oz Body Mass Index (BMI) 28.5 Intake & Output: Intake and Output for Last 24 Hours 09/11/21 09/12/21 09/13/21 23:59 23:59 23:59 Intake Total 1119 / 1479 1567.25 / 1567.25 480 / 480 Output Total 1924 / 2024 1590 / 1790 200 / 200 Balance -806 / -546 -22.75 / -222.75 280 / 280 Lab / Micro Data Result Diagrams: 09/13/21 04:10 09/13/21 04:10 Labs: Laboratory Results - last 24 hr 09/13/21 04:10: WBC 8.8, RBC 3.74 L, Hgb 9.9 L, Hct 32.7 L, MCV 87.4, MCH 26.5 L , MCHC 30.3 L, RDW Std Deviation 58.5 H, RDW Coeff of Cheikh 18.4 H, Plt Count 266, MPV 12.2 H, Immature Gran % (Auto) 0.600, Neut % (Auto) 88.8 H, Lymph % (Auto) 6.6 L, [place] % (Auto) 3.9, Eos % (Auto) 0.0, Baso % (Auto) 0.1, Absolute Neuts (auto) 7.8 H, Absolute Lymphs (auto) 0.58 L, Nucleated RBC % 0, Anisocytosis 2+, Tear Drop Cells RARE, Ovalocytes 1+ 09/13/21 04:10: Sodium 139, Potassium 4.9, Chloride 103, Carbon Dioxide 32.0, Anion Gap 4 L, BUN 25 H, Creatinine 0.61 L, Estim Creat Clear Calc 126.15, Est GFR (MDRD) Af Amer 173, Est GFR (MDRD) Non-Af 143, BUN/Creatinine Ratio 40.8 H, Glucose 251 H, Calcium 8.3 L Micro: Microbiology 08/29/21 12:00 Fluid - Other Acid Fast Bacilli Smear - Final 08/29/21 12:00 Wash - Right Middle Lobe Gram Stain - Final 08/29/21 12:00 Wash - Right Middle Lobe Respiratory Culture - Final Presumptive C albicans 08/29/21 12:00 Wash - Other Gram Stain - Final 08/29/21 12:00 Wash - Other Respiratory Culture - Final Presumptive C albicans 08/27/21 00:30 Blood Culture (Wb) - Left Hand Blood Culture - Final No growth in 5 days. 08/26/21 00:30 Blood Culture (Wb) - Anticubital Right Blood Culture - Final No growth in 5 days. 08/28/21 18:45 Sputum, Expectorated/Coughed Gram Stain - Final 08/28/21 18:45 Sputum, Expectorated/Coughed Respiratory Culture - Final 08/27/21 16:10 Sputum, Expectorated/Coughed Gram Stain - Final 08/27/21 16:10 Sputum, Expectorated/Coughed Respiratory Culture - Final 08/27/21 10:55 Sputum, Expectorated/Coughed Gram Stain - Final 08/27/21 10:55 Sputum, Expectorated/Coughed Respiratory Culture - Final 08/26/21 Unknown Urine, Clean Catch Legionella Antigen - Final 08/26/21 Unknown Urine, Clean Catch Streptococcus pneumoniae Antigen (M - Final 08/27/21 02:15 Mucosa - Nasopharyngeal Respiratory Panel (PCR) - Final 08/27/21 00:20 Nasal Secretion SARS-CoV-2 Antigen (Rapid) - Final Radiography Diagnostic Testing: Radiology Impression Chest CTA 09/12/21 05:29 IMPRESSION: Findings get with advanced centrilobular emphysematous changes and interstitial pulmonary fibrosis. Residual areas of confluence in both lungs more prominent in the right hemithorax although there has been improvement. Stable 7.5 mm noncalcified nodule in the peripheral lateral aspect of the right upper lobe. A repeat CT scan in 6 months is recommended for assessment. Electronically Signed: Dwaine Gurrola MD at 9:10 EST , Service support , Echocardiogram 11/15/21 05:29 Interpretation Summary Normal LV size. Left ventricular systolic function is normal. The estimated ejection fraction is 65 %. Pulmonary artery systolic pressure is 58 mmHg. Moderate pulmonary hypertension. Ordering Physician: Olu Dunn Referring Physician: GASTON SUAZO Performed By: Meseret Painting, MORCS, RVT Physical Exam Const alert, oriented x3 and no apparent distress General Appearance: cooperative, well kempt and well developed Orientation / Consciousness: awake, oriented to person, oriented to place and oriented to time Exam Limitations: no limitations HEENT normocephalic, head/scalp atraumatic, moist oral mucous membranes and oropharynx normal Head and Scalp: normocephalic Eyes PERRL, EOMs intact bilaterally, conjunctivae normal and no scleral icterus Neck nuchal rigidity, no lymphadenopathy, supple, no JVD, thyroid normal and no carotid bruits General: trachea midline Resp normal air movement Resp Narrative: diminished breath sounds bibasally, remains on AirVo. Effort and Inspection: tachypneic Auscultation: diminished lung sounds diffuse Cardio regular rate, regular rhythm, S1 normal heart sound, S2 normal heart sound, no murmurs, no rub, no gallops and peripheral pulses 2+ throughout GI normal to inspection, nondistended, normoactive bowel sounds, soft to palpation, non-tender and non-distended Extremity normal to inspection, full ROM, normal capillary refill and no clubbing, cyanosis or edema General Extremity: no tenderness to palpation of joints or extremities Peripheral Pulses: Yes pulses 2+ throughout Skin no rashes or lesions noted General Skin Exam: no breakdown and turgor normal Lesions: no lesions Rashes: no rashes Neuro oriented x3, CN's II-XII intact bilaterally, moves all extremities, no focal motor deficits, no sensory deficits noted and gait normal Sensorium / Orientation: awake and alert Speech: speech normal Psych thought process normal, cooperative and affect normal Appearance: appropriate Assessment & Plan Assessment/Plan (1) Acute on chronic respiratory failure with hypoxemia: (2) Multifocal pneumonia: PLAN: #Acute on chronic hypoxic respiratory failure * remains on AirVO * now off antibiotics; on IV voriconazole and steroids. * now on empiric anticoagulation due to concerns for PE * CTA of the chest showed advanced centrilobular emphysematous changes and interstitial pulmonary fibrosis, with residual areas of confluence in both lungs more prominent i the right hemithorax, nad a stable 7.5mm noncalcified nodule in peripheral lateral aspect of right upper lobe. * being diuresed as neded to help maintain euvolemic status * paitent has not really improved much. He had bronchoscopy and broncheoalveolar lavage and samples sent for cultures. FLuid cytology consistent with Aspergillus * pulmonology on [facility]. #Nonsustained Vtach * cardiology on board. Was thought this could be due to ventricular pacing rather, after his defibrillator was interoggated. * #Pulmonary hypertension * exact type is not clear * repeat 2D echo shows normal LV size, adn EF of 65%, with PA systolic pressure of 58mmhb. * will need a right heart cath eventually. * diurese as needed. 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 Stable #Right lung nodule * as per CT scan findings above. * will need follow up CT scan in 6 months to follow nodule * #Afib: on cardizem. On aspirin. #Hyperlipidemia: on statin #Hypertension: On lisinopril as well as Cardizem #CAD s/p stent: On statin and aspirin DVT prophylaxis: on eliquis for presumptive PE. Charges/Coding Visit Charges Inpatient E&M: 40148 Subs Hosp L3
[2021-09-13] MEDS: dilTIAZem CD 120 MG Capsule PO (09:22)
[2021-09-13] MEDS: Potassium Chloride Oral Tablet 20 MEQ PO ×2 (09:22→16:40)
[2021-09-13] MEDS: Aspirin E.C. 81 MG Tablet PO (09:22)
[2021-09-13] MEDS: Lisinopril 20 MG Tablet PO (09:22)
[2021-09-13] MEDS: Furosemide 40 MG/4 ML Vial IV ×2 (09:23→16:40)
[2021-09-13] MEDS: Voriconazole 200 MG Tablet 300 MG PO ×2 (09:23→22:26)
[2021-09-13] MEDS: guaiFENesin/Codeine 5 ML UDC PO ×2 (09:35→22:27)
--- NOTE | 2021-09-13 10:22 | CASEMGMT ---
JEAN CARLOS LARRY NOTE: TC to [employer] insurance and verified pt has [employer] PPO. Insurance review for hospitals In-network with [employer] PPO Insurance if transfer is recommended is as follows: [facility], [place], [facility], [facility], [facility] ([facility]), and . Cirilo PERKINS RN CM
[2021-09-13] MEDS: 0.9% Saline Lock 10 ML Syringe IV ×2 (13:52→16:40)
[2021-09-13] MEDS: Senna Tablet 2 TABLET PO (16:39)
[2021-09-13] MEDS: MELATONIN 10 MG TABLET PO (22:26)
[2021-09-13] MEDS: Acetaminophen 325 MG Tablet 650 MG PO (22:27)
[2021-09-13] MEDS: Atorvastatin Calcium 20 MG Tablet PO (22:27)
[2021-09-14] VITALS (32 sets, daily range): BP systolic 96–130; BP diastolic 58–76; PULSE 60–102; RESP 12–38; TEMP 35.8–36.7; O2SAT 86–99
[2021-09-14 04:14] LABS: Anion Gap 4 (5-15); BUN 38 mg/dL (7-18); BUN/Creat Ratio 52.4 RATIO (10-20); Calcium,Total 8.6 mg/dL (8.5-10.1); Chloride 99 mmol/L (98-107); Creatinine, Serum 0.72 mg/dL (0.70-1.30); EST Glomerular Filtration Rate 118 mL/min (>60); Est Glom Filt Rate - Afr Amer 142 mL/min (>60); Estimated Creatinine Clearance 106.88 ml/min; Glucose 261 mg/dL (74-106); Potassium 4.6 mmol/L (3.5-5.1); Sodium Level 135 mmol/L (136-145)
[2021-09-14 04:20] LABS: Absolute Lymphocyte Count 0.68 X10^3/uL (0.83-4.51); Absolute Neutrophil Count 7.4 X10^3/uL (2.0-7.7); Basophil# 0.01 X10^3/uL; Basophil% 0.1 % (0-1); Hematocrit 35.2 % (40-54); Hemoglobin 10.6 g/dL (13.0-16.5); Lymphocyte # 0.68 X10^3/ul (0.83-4.51); Mean Corp Hgb Conc 30.1 g/dL (32-36); Mean Corpuscular Hgb 26.4 pg (27.0-32.0); Mean Corpuscular Volume 87.6 fL (80-94); Mean Platelet Vol. 12.3 fl (6.2-12.0); Monocyte# 0.36 X10^3/uL; Monocyte% 4.2 % (0-10); NRBC Flagged by Analyzer 0 % (0-5); Neutrophil # 7.41 X10^3/uL (2.7-7.7); Neutrophil % 87.1 % (47-70); Platelet Count 262 K/mm3 (150-450); RBC Distribution Width CV 18.2 % (11.6-14.6); RBC Distribution Width SD 58.7 fl (35.1-43.9); Red Blood Count 4.02 M/mm3 (4.6-6.2); White Blood Count 8.5 K/mm3 (4.4-11.0)
--- NOTE | 2021-09-14 05:30 | PN.CC_ITS ---
Assessment & Plan Assessment/Plan (1) Acute on chronic respiratory failure with hypoxemia: PLAN: RECOMMENDATIONS: 1. Continue to wean FiO2 as tolerated for saturations greater than 90%. 2. Continue voriconazole. 3. Continue IV steroids. 4. Continue IV Lasix as tolerated by hemodynamics and renal function. 5. Encourage incentive spirometer use and mobilize patient as tolerated. 6. Plan for transfer to tertiary care facility with lung transplantation capabilities. IMPRESSIONS: 1. Acute on chronic hypoxemic respiratory failure The patient does have a baseline oxygen requirement of 3 L/min. He has a history of rheumatoid associated interstitial lung disease and was previously on immunosuppression, up until his discharge from the hospital in June. The patient has been hospitalized several times over the last couple months, first due to COVID-19 pneumonia and more recently as a consequence of bacterial pneumonia. His CT findings noted on presentation were nonspecific. Therefore, the patient underwent bronchoscopy on August 29 with BAL performed bilaterally. Fluid cytology revealed fungal organisms consistent with Aspergillus. The patient today has been treated with voriconazole, empiric antimicrobials, aggr essive diuresis and IV steroids. Despite the aforementioned, his respiratory status is not improved. Repeat CTA chest on September 12 again demonstrated no evidence for pulmonary embolism. He does appear to have progressive interstitial lung disease, which is still of unclear etiology, but could c ertainly be related to his underlying rheumatologic disease and/or superimposed fibrosis from his recent Covid infection. At this time, given the patient's age and prior functional status, I would recommend a more aggressive approach including transfer to a tertiary care facility to be considered for potential VATS biopsy and/or lung transplantation. 2. History of mixed obstructive/restrictive ventilatory impairment/rheumatoid arthritis/hypertension/hyperlipidemia/pulmonary hypertension Complicates care, management, recovery and prognosis. Continue home medications as indicated. This note was generated with nvite dictation software. It may contain incorrect words, spelling, and punctuation that were not noted in checking the note before signing. Subjective Subjective The patient was seen and examined at the bedside this morning. Events from the last 24 hours have been reviewed. The patient is currently afebrile, hemodynamically stable and maintaining appropriate oxygen saturations on Airvo heated high flow with an FiO2 requirement of 60% and flow rate of 50 L/min. The patient has not made any meaningful improvement in his respiratory status over the last 7 days. Repeat CTA chest was personally reviewed and demonstrated no evidence for pulmonary embolism. There was evidence of progressive interstitial lung disease. The patient remains on IV steroids, voriconazole and scheduled IV Lasix. He is currently documented to be overall net -2.3 L for the hospitalization. Objective Data Objective Data The patient's most recent lab work, culture data and imaging studies have all been personally reviewed. BAL cytology revealed fungal organisms consistent with Aspergillus species. Fungal cultures are currently pending. Acid-fast smear was negative. The remainder of the patient's infectious work-up has been unrevealing. Surface echocardiogram demonstrated normal LV function with an ejection fraction of 65% and a pulmonary artery systolic pressure estimated to be 58 mmHg. Vital Signs: Vital Signs Temp Pulse Resp BP Pulse Ox 97.9 F 66 20 H 112/71 90 09/14/21 03:00 09/14/21 05:00 09/14/21 05:00 09/14/21 05:00 09/14/21 05:00 Oxygen Flow Rate (L/min) 50 Oxygen Delivery Method Airvo Weight: 78.7 kg Body Mass Index (BMI) 28.5 Intake & Output: Intake and Output for Last 24 Hours 09/12/21 09/13/21 09/14/21 23:59 23:59 23:59 Intake Total 1567.25 / 1567.25 900 / 900 Output Total 1590 / 1790 1450 / 2000 550 / 550 Balance -22.75 / -222.75 -550 / -1100 -550 / -550 Lab / Micro Data Attestation: I reviewed the patient's lab results. Result Diagrams: 09/14/21 04:00 09/14/21 04:00 Labs: Laboratory Results - last 24 hr 09/14/21 04:00: WBC 8.5, RBC 4.02 L, Hgb 10.6 L, Hct 35.2 L, MCV 87.6, MCH 26.4 L, MCHC 30.1 L, RDW Std Deviation 58.7 H, RDW Coeff of Cheikh 18.2 H, Plt Count 262, MPV 12.3 H, Immature Gran % (Auto) 0.600, Neut % (Auto) 87.1 H, Lymph % (Auto) 8.0 L, [place] % (Auto) 4.2, Eos % (Auto) 0.0, Baso % (Auto) 0.1, Absolute Neuts (auto) 7.4, Absolute Lymphs (auto) 0.68 L, Nucleated RBC % 0 09/14/21 04:00: Sodium 135 L, Potassium 4.6, Chloride 99, Carbon Dioxide 32.0, Anion Gap 4 L, BUN 38 H, Creatinine 0.72, Estim Creat Clear Calc 106.88, Est GFR (MDRD) Af Amer 142, Est GFR (MDRD) Non-Af 118, BUN/Creatinine Ratio 52.4 H, Glucose 261 H, Calcium 8.6 Micro: Microbiology 08/29/21 12:00 Fluid - Other Acid Fast Bacilli Smear - Final 08/29/21 12:00 Wash - Right Middle Lobe Gram Stain - Final 08/29/21 12:00 Wash - Right Middle Lobe Respiratory Culture - Final Presumptive C albicans 08/29/21 12:00 Wash - Other Gram Stain - Final 08/29/21 12:00 Wash - Other Respiratory Culture - Final Presumptive C albicans 08/27/21 00:30 Blood Culture (Wb) - Left Hand Blood Culture - Final No growth in 5 days. 08/26/21 00:30 Blood Culture (Wb) - Anticubital Right Blood Culture - Final No growth in 5 days. 08/28/21 18:45 Sputum, Expectorated/Coughed Gram Stain - Final 08/28/21 18:45 Sputum, Expectorated/Coughed Respiratory Culture - Final 08/27/21 16:10 Sputum, Expectorated/Coughed Gram Stain - Final 08/27/21 16:10 Sputum, Expectorated/Coughed Respiratory Culture - Final 08/27/21 10:55 Sputum, Expectorated/Coughed Gram Stain - Final 08/27/21 10:55 Sputum, Expectorated/Coughed Respiratory Culture - Final 08/26/21 Unknown Urine, Clean Catch Legionella Antigen - Final 08/26/21 Unknown Urine, Clean Catch Streptococcus pneumoniae Antigen (M - Final 08/27/21 02:15 Mucosa - Nasopharyngeal Respiratory Panel (PCR) - Final 08/27/21 00:20 Nasal Secretion SARS-CoV-2 Antigen (Rapid) - Final Physical Exam Const alert and no apparent distress Constitutional Narrative: Sitting upright in bed, currently tolerating Airvo heated high flow oxygen. General Appearance: cooperative HEENT normocephalic and head/scalp atraumatic Eyes PERRL, EOMs intact bilaterally and conjunctivae normal Neck supple General: trachea midline Chest inspection of chest normal Resp Effort and Inspection: tachypneic Auscultation: rales and diminished lung sounds; Negative for rhonchi or wheezes Cardio regular rate and regular rhythm GI normal to inspection, nondistended, normoactive bowel sounds Extremity no clubbing, cyanosis or edema Skin no rashes or lesions noted Neuro CN's II-XII intact bilaterally, moves all extremities and no focal motor deficits Psych cooperative and affect normal Charges/Coding Visit Charges Inpatient E&M: 19452 Subs Hosp L3
[2021-09-14] MEDS: Voriconazole 200 MG Tablet 300 MG PO ×2 (09:26→21:20)
[2021-09-14] MEDS: Aspirin E.C. 81 MG Tablet PO (09:26)
[2021-09-14] MEDS: Lisinopril 20 MG Tablet PO (09:26)
[2021-09-14] MEDS: Furosemide 40 MG/4 ML Vial IV ×2 (09:28→16:39)
[2021-09-14] MEDS: 0.9% Saline Lock 10 ML Syringe IV ×3 (09:32→16:39)
[2021-09-14] MEDS: dilTIAZem CD 120 MG Capsule PO (09:33)
[2021-09-14] MEDS: Potassium Chloride Oral Tablet 20 MEQ PO ×2 (09:33→16:38)
[2021-09-14] MEDS: CHLORHEXIDINE GLUC 2% CLOTH 1 EACH TOWELETTE TOPICAL (10:30)
[2021-09-14 12:26] LABS: Bedside Glucose 468 mg/dL (70-110)
[2021-09-14] MEDS: Insulin Lispro 100 UNIT/ML INSULN.PEN 12 UNIT SC (12:47)
[2021-09-14] MEDS: Phenol/Sodium Phenolate 180ML 3 SPRAY MUCOUS MEM ×2 (14:51→21:18)
--- NOTE | 2021-09-14 14:58 | CHAPLAIN ---
Type of Pastoral Visit _x__ Initial Visit ___ Follow-up Visit ___ On-call Visit ___ General Patient Visit ___ Spiritual Assessment ___ Family Conference ___ Bereavement ___ Rapid Response ___ Code Blue ___ Other (describe below) Pastoral Care Referral From ___ Patient ___ Family _x__ Nurse ___ Physician ___ Emergency Planner ___ Medical Records Analyst ___ Other (describe below) Sacrament/Intervention _x__ Active listening ___ Anointing ___ Pentecostalism ___ Bereavement ___ Communion ___ Lilly exploration ___ ___ Life review ___ Prayer ___ Reconciliation ___ Sacrament of Sick _x__ Supportive presence ___ Wedding ___ Other (describe below) Pastoral Comments RN requests prayer/support for this patient who will likely be transferred out to another facility; pt is alert and welcomes visit but declines prayer or other intervention; pt is tearful and expresses that his is upset about his condition too; offer of support as desired
--- NOTE | 2021-09-14 15:48 | PN.HOSP_ITS ---
Subjective Subjective Patient seen and examined. He had no new complaints. He remains on air Vo. Review of symptoms otherwise negative. Patient is noted to be tachypneic with respiratory rate of 30. Had a discussion with vocational adviser and per discussion, it does not seem like there is any further medical treatment that can be offered to patient here as he has pretty much plateaued and is not improving and getting of the AFO. Recommendation therefore is to transfer patient tertiary care center for evaluation by thoracic surgery. Objective Data Objective Data Vital Signs: Vital Signs Temp Pulse Resp BP Pulse Ox 96.9 F L 74 30 H 103/61 96 09/14/21 15:00 09/14/21 15:00 09/14/21 15:00 09/14/21 15:00 09/14/21 15:00 Oxygen Flow Rate (L/min) 50 Oxygen Delivery Method Airvo Weight: 172 lb 6.424 oz Body Mass Index (BMI) 28.5 Intake & Output: Intake and Output for Last 24 Hours 09/12/21 09/13/21 09/14/21 23:59 23:59 23:59 Intake Total 1567.25 / 1567.25 900 / 900 Output Total 1590 / 1790 1450 / 2000 1040 / 1040 Balance -22.75 / -222.75 -550 / -1100 -1040 / -1040 Lab / Micro Data Result Diagrams: 09/14/21 04:00 09/14/21 04:00 Labs: Laboratory Results - last 24 hr 09/14/21 04:00: WBC 8.5, RBC 4.02 L, Hgb 10.6 L, Hct 35.2 L, MCV 87.6, MCH 26.4 L, MCHC 30.1 L, RDW Std Deviation 58.7 H, RDW Coeff of Cheikh 18.2 H, Plt Count 262, MPV 12.3 H, Immature Gran % (Auto) 0.600, Neut % (Auto) 87.1 H, Lymph % (Auto) 8.0 L, [place] % (Auto) 4.2, Eos % (Auto) 0.0, Baso % (Auto) 0.1, Absolute Neuts (auto) 7.4, Absolute Lymphs (auto) 0.68 L, Nucleated RBC % 0 09/14/21 04:00: Sodium 135 L, Potassium 4.6, Chloride 99, Carbon Dioxide 32.0, Anion Gap 4 L, BUN 38 H, Creatinine 0.72, Estim Creat Clear Calc 106.88, Est GFR (MDRD) Af Amer 142, Est GFR (MDRD) Non-Af 118, BUN/Creatinine Ratio 52.4 H, Glucose 261 H, Calcium 8.6 09/14/21 12:20: POC Glucose 468 H* Micro: Microbiology 08/29/21 12:00 Fluid - Other Acid Fast Bacilli Smear - Final 08/29/21 12:00 Wash - Right Middle Lobe Gram Stain - Final 08/29/21 12:00 Wash - Right Middle Lobe Respiratory Culture - Final Presumptive C albicans 08/29/21 12:00 Wash - Other Gram Stain - Final 08/29/21 12:00 Wash - Other Respiratory Culture - Final Presumptive C albicans 08/27/21 00:30 Blood Culture (Wb) - Left Hand Blood Culture - Final No growth in 5 days. 08/26/21 00:30 Blood Culture (Wb) - Anticubital Right Blood Culture - Final No growth in 5 days. 08/28/21 18:45 Sputum, Expectorated/Coughed Gram Stain - Final 08/28/21 18:45 Sputum, Expectorated/Coughed Respiratory Culture - Final 08/27/21 16:10 Sputum, Expectorated/Coughed Gram Stain - Final 08/27/21 16:10 Sputum, Expectorated/Coughed Respiratory Culture - Final 08/27/21 10:55 Sputum, Expectorated/Coughed Gram Stain - Final 08/27/21 10:55 Sputum, Expectorated/Coughed Respiratory Culture - Final 08/26/21 Unknown Urine, Clean Catch Legionella Antigen - Final 08/26/21 Unknown Urine, Clean Catch Streptococcus pneumoniae Antigen (M - Fi nal 08/27/21 02:15 Mucosa - Nasopharyngeal Respiratory Panel (PCR) - Final 08/27/21 00:20 Nasal Secretion SARS-CoV-2 Antigen (Rapid) - Final Physical Exam Const alert, oriented x3 and no apparent distress General Appearance: cooperative, well kempt and well developed Orientation / Consciousness: awake, oriented to person, oriented to place and oriented to time Exam Limitations: no limitations HEENT normocephalic, head/scalp atraumatic, moist oral mucous membranes and oropharynx normal Head and Scalp: normocephalic Eyes PERRL, EOMs intact bilaterally, conjunctivae normal and no scleral icterus Neck nuchal rigidity, no lymphadenopathy, supple, no JVD, thyroid normal and no carotid bruits General: trachea midline Resp normal air movement Resp Narrative: diminished breath sounds bibasally, remains on AirVo. Effort and Inspection: tachypneic Auscultation: diminished lung sounds diffuse Cardio regular rate, regular rhythm, S1 normal heart sound, S2 normal heart sound, no murmurs, no rub, no gallops and peripheral pulses 2+ throughout GI normal to inspection, nondistended, normoactive bowel sounds, soft to palpation, non-tender and non-distended Extremity normal to inspection, full ROM, normal capillary refill and no clubbing, cyanosis or edema General Extremity: no tenderness to palpation of joints or extremities Skin no rashes or lesions noted General Skin Exam: no breakdown and turgor normal Lesions: no lesions Rashes: no rashes Neuro oriented x3, CN's II-XII intact bilaterally, moves all extremities, no focal motor deficits, no sensory deficits noted and gait normal Sensorium / Orientation: awake and alert Speech: speech normal Psych thought process normal, cooperative and affect normal Appearance: appropriate Assessment & Plan Assessment/Plan (1) Acute on chronic respiratory failure with hypoxemia: (2) Multifocal pneumonia: PLAN: #Acute on chronic hypoxic respiratory failure * remains on AirVO * now off antibiotics; on IV voriconazole and steroids. * now on empiric anticoagulation due to concerns for PE * CTA of the chest showed advanced centrilobular emphysematous changes and i nterstitial pulmonary fibrosis, with residual areas of confluence in both lungs more prominent i the right hemithorax, nad a stable 7.5mm noncalcified nodule in peripheral lateral aspect of right upper lobe. * being diuresed as neded to help maintain euvolemic status * paitent has not really improved much. He had bronchoscopy and broncheoalveolar lavage and samples sent for cultures. FLuid cytology consistent with Aspergillus * pulmonology on board. Per pulmonology, it is advisable to transfer patient to tertiary center for evaluation by thoracic surgery. #Nonsustained Vtach * cardiology on board. Was thought this could be due to ventricular pacing rather, after his defibrillator was interoggated. * #Pulmonary hypertension * exact type is not clear * repeat 2D echo shows normal LV size, and EF of 65%, with PA systolic pressure of 58mmhb. * will need a right heart cath eventually. * diurese as needed. 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 Stable #Right lung nodule * as per CT scan findings above. * will need follow up CT scan in 6 months to follow nodule * #Afib: on cardizem. On aspirin. #Hyperlipidemia: on statin #Hypertension: On lisinopril as well as Cardizem #CAD s/p stent: On statin and aspirin DVT prophylaxis: on eliquis for presumptive PE. Disposition: Patient accepted at [facility]. He is currently awaiting a bed. Charges/Coding Visit Charges Inpatient E&M: 05956 Subs Hosp L3
[2021-09-14 16:25] LABS: Bedside Glucose 388 mg/dL (70-110)
[2021-09-14] MEDS: Insulin Lispro 100 UNIT/ML INSULN.PEN SC ×2 (16:37→21:24)
[2021-09-14] MEDS: MELATONIN 10 MG TABLET PO (21:18)
[2021-09-14] MEDS: guaiFENesin/Codeine 5 ML UDC PO (21:18)
[2021-09-14] MEDS: Atorvastatin Calcium 20 MG Tablet PO (21:20)
[2021-09-14 21:36] LABS: Bedside Glucose 363 mg/dL (70-110)
[2021-09-15] VITALS (27 sets, daily range): BP systolic 101–127; BP diastolic 57–82; PULSE 60–92; RESP 20–45; TEMP 35.7–36.6; O2SAT 60–98
[2021-09-15 03:24] LABS: Absolute Lymphocyte Count 0.52 X10^3/uL (0.83-4.51); Absolute Neutrophil Count 7.5 X10^3/uL (2.0-7.7); Hemoglobin 10.7 g/dL (13.0-16.5); Lymphocyte # 0.52 X10^3/ul (0.83-4.51); Mean Corp Hgb Conc 30.6 g/dL (32-36); Mean Corpuscular Hgb 26.3 pg (27.0-32.0); Mean Platelet Vol. 11.9 fl (6.2-12.0); Monocyte# 0.55 X10^3/uL; Monocyte% 6.4 % (0-10); NRBC Flagged by Analyzer 0 % (0-5); Neutrophil # 7.46 X10^3/uL (2.7-7.7); Neutrophil % 86.4 % (47-70); POSITIVE DIFFERENTIAL YES; Platelet Count 273 K/mm3 (150-450); RBC Distribution Width CV 18.3 % (11.6-14.6); RBC Distribution Width SD 56.9 fl (35.1-43.9); Red Blood Count 4.07 M/mm3 (4.6-6.2); White Blood Count 8.6 K/mm3 (4.4-11.0)
[2021-09-15 03:50] LABS: Anion Gap 3 (5-15); BUN 40 mg/dL (7-18); BUN/Creat Ratio 62.5 RATIO (10-20); Calcium,Total 8.6 mg/dL (8.5-10.1); Chloride 100 mmol/L (98-107); Creatinine, Serum 0.64 mg/dL (0.70-1.30); EST Glomerular Filtration Rate 136 mL/min (>60); Est Glom Filt Rate - Afr Amer 164 mL/min (>60); Estimated Creatinine Clearance 120.23 ml/min; Glucose 205 mg/dL (74-106); Potassium 4.7 mmol/L (3.5-5.1); Sodium Level 136 mmol/L (136-145)
[2021-09-15 03:57] LABS: Differential Indicated SCAN CRITERIA MET
[2021-09-15] MEDS: Insulin Lispro 100 UNIT/ML INSULN.PEN SC ×4 (09:03→20:49)
[2021-09-15] MEDS: Voriconazole 200 MG Tablet 300 MG PO ×2 (09:04→20:38)
[2021-09-15] MEDS: dilTIAZem CD 120 MG Capsule PO (09:05)
[2021-09-15] MEDS: Lisinopril 20 MG Tablet PO (09:05)
[2021-09-15] MEDS: Aspirin E.C. 81 MG Tablet PO (09:05)
[2021-09-15] MEDS: Potassium Chloride Oral Tablet 20 MEQ PO ×2 (09:05→16:41)
[2021-09-15] MEDS: Furosemide 40 MG/4 ML Vial IV ×2 (09:05→17:45)
[2021-09-15] MEDS: 0.9% Saline Lock 10 ML Syringe IV ×3 (09:08→17:45)
[2021-09-15 11:41] LABS: Bedside Glucose 314 mg/dL (70-110)
--- NOTE | 2021-09-15 11:48 | PN.HOSP_ITS ---
Subjective Subjective Patient seen and examined. He had no new complaints. He remains on air Vo. Review of systems otherwise negative. Patient was accepted at [facility] yesterday and is currently awaiting a bed. Objective Data Objective Data Vital Signs: Vital Signs Temp Pulse Resp BP Pulse Ox 97.2 F L 69 24 H 127/82 H 96 09/15/21 05:00 09/15/21 09:00 09/15/21 09:00 09/15/21 09:00 09/15/21 09:00 Oxygen Flow Rate (L/min) 50 Oxygen Delivery Method Airvo Weight: 173 lb 1.006 oz Body Mass Index (BMI) 28.5 Intake & Output: Intake and Output for Last 24 Hours 09/13/21 09/14/21 09/15/21 23:59 23:59 23:59 Intake Total 900 / 900 400 / 400 250 / 250 Output Total 1450 / 2000 1790 / 1790 350 / 350 Balance -550 / -1100 -1390 / -1390 -100 / -100 Lab / Micro Data Result Diagrams: 09/15/21 03:10 09/15/21 03:10 Labs: Laboratory Results - last 24 hr 09/14/21 12:20: POC Glucose 468 H* 09/14/21 16:22: POC Glucose 388 H 09/14/21 21:16: POC Glucose 363 H 09/15/21 03:10: WBC 8.6, RBC 4.07 L, Hgb 10.7 L, Hct 35.0 L, MCV 86.0, MCH 26.3 L, MCHC 30.6 L, RDW Std Deviation 56.9 H, RDW Coeff of Cheikh 18.3 H, Plt Count 273, MPV 11.9, Immature Gran % (Auto) 1.200 H, Neut % (Auto) 86.4 H, Lymph % (Auto) 6.0 L, [place] % (Auto) 6.4, Eos % (Auto) 0.0, Baso % (Auto) 0.0, Absolute Neuts (auto) 7.5, Absolute Lymphs (auto) 0.52 L, Nucleated RBC % 0 09/15/21 03:10: Sodium 136, Potassium 4.7, Chloride 100, Carbon Dioxide 33.0 H, Anion Gap 3 L, BUN 40 H, Creatinine 0.64 L, Estim Creat Clear Calc 120.23, Est GFR (MDRD) Af Amer 164, Est GFR (MDRD) Non-Af 136, BUN/Creatinine Ratio 62.5 H, Glucose 205 H, Calcium 8.6 09/15/21 11:34: POC Glucose 314 H Micro: Microbiology 08/29/21 12:00 Fluid - Other Acid Fast Bacilli Smear - Final 08/29/21 12:00 Wash - Right Middle Lobe Gram Stain - Final 08/29/21 12:00 Wash - Right Middle Lobe Respiratory Culture - Final Presumptive C albicans 08/29/21 12:00 Wash - Other Gram Stain - Final 08/29/21 12:00 Wash - Other Respiratory Culture - Final Presumptive C albicans 08/27/21 00:30 Blood Culture (Wb) - Left Hand Blood Culture - Final No growth in 5 days. 08/26/21 00:30 Blood Culture (Wb) - Anticubital Right Blood Culture - Final No growth in 5 days. 08/28/21 18:45 Sputum, Expectorated/Coughed Gram Stain - Final 08/28/21 18:45 Sputum, Expectorated/Coughed Respiratory Culture - Final 08/27/21 16:10 Sputum, Expectorated/Coughed Gram Stain - Final 08/27/21 16:10 Sputum, Expectorated/Coughed Respiratory Culture - Final 08/27/21 10:55 Sputum, Expectorated/Coughed Gram Stain - Final 08/27/21 10:55 Sputum, Expectorated/Coughed Respiratory Culture - Final 08/26/21 Unknown Urine, Clean Catch Legionella Antigen - Final 08/26/21 Unknown Urine, Clean Catch Streptococcus pneumoniae Antigen (M - Final 08/27/21 02:15 Mucosa - Nasopharyngeal Respiratory Panel (PCR) - Final 08/27/21 00:20 Nasal Secretion SARS-CoV-2 Antigen (Rapid) - Final Physical Exam Const alert, oriented x3 and no apparent distress General Appearance: cooperative, well kempt and well developed Orientation / Consciousness: awake, oriented to person, oriented to place and oriented to time Exam Limitations: no limitations HEENT normocephalic, head/scalp atraumatic, moist oral mucous membranes and oropharynx normal Head and Scalp: normocephalic Eyes PERRL, EOMs intact bilaterally, conjunctivae normal and no scleral icterus Neck nuchal rigidity, no lymphadenopathy, supple, no JVD, thyroid normal and no carotid bruits General: trachea midline Resp normal air movement Resp Narrative: diminished breath sounds bibasally, remains on AirVo. Effort and Inspection: tachypneic Auscultation: diminished lung sounds diffuse Cardio regular rate, regular rhythm, S1 normal heart sound, S2 normal heart sound, no murmurs, no rub, no gallops and peripheral pulses 2+ throughout GI normal to inspection, nondistended, normoactive bowel sounds, soft to palpation, non-tender and non-distended Extremity normal to inspection, full ROM, normal capillary refill and no clubbing, cyanosis or edema General Extremity: no tenderness to palpation of joints or extremities Skin no rashes or lesions noted General Skin Exam: no breakdown and turgor normal Lesions: no lesions Rashes: no rashes Neuro oriented x3, CN's II-XII intact bilaterally, moves all extremities, no focal motor deficits, no sensory deficits noted and gait normal Sensorium / Orientation: awake and alert Speech: speech normal Psych thought process normal, cooperative and affect normal Appearance: appropriate Assessment & Plan Assessment/Plan (1) Acute on chronic respiratory failure with hypoxemia: (2) Multifocal pneumonia: PLAN: #Acute on chronic hypoxic respiratory failure * remains on AirVO * now off antibiotics; on IV voriconazole and steroids. * now on empiric anticoagulation due to concerns for PE * CTA of the chest showed advanced centrilobular emphysematous changes and interstitial pulmonary fibrosis, with residual areas of confluence in both lungs more prominent i the right hemithorax, nad a stable 7.5mm noncalcified n odule in peripheral lateral aspect of right upper lobe. * being diuresed as neded to help maintain euvolemic status * paitent has not really improved much. He had bronchoscopy and broncheoalveolar lavage and samples sent for cultures. FLuid cytology consistent with Aspergillus * pulmonology on board. P * #Nonsustained Vtach * cardiology on board. Was thought this could be due to ventricular pacing rat her, after his defibrillator was interrogated. * #Pulmonary hypertension * exact type is not clear * repeat 2D echo shows normal LV size, and EF of 65%, with PA systolic pressure of 58mmhb. * will need a right heart cath eventually. * diurese as needed. 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 Stable #Right lung nodule * as per CT scan findings above. * will need follow up CT scan in 6 months to follow nodule * #Afib: on cardizem. On aspirin. #Hyperlipidemia: on statin #Hypertension: On lisinopril as well as Cardizem #CAD s/p stent: On statin and aspirin DVT prophylaxis: on eliquis for presumptive PE. Disposition: Patient accepted at [facility]. He is still currently awaiting a bed. Charges/Coding Visit Charges Inpatient E&M: 77216 Subs Hosp L2
--- NOTE | 2021-09-15 12:50 | PN.CC_ITS ---
Assessment & Plan Assessment/Plan (1) Acute on chronic respiratory failure with hypoxemia: PLAN: RECOMMENDATIONS: 1. Continue to wean FiO2 as tolerated for saturations greater than 90%. 2. Continue voriconazole. 3. Continue IV steroids. 4. Continue IV Lasix as tolerated by hemodynamics and renal function. 5. Encourage incentive spirometer use and mobilize patient as tolerated. 6. Plan for transfer to tertiary care facility with lung transplantation capabilities. IMPRESSIONS: 1. Acute on chronic hypoxemic respiratory failure The patient does have a baseline oxygen requirement of 3 L/min. He has a history of rheumatoid associated interstitial lung disease and was previously on immunosuppression, up until his discharge from the hospital in June. The patient has been hospitalized several times over the last couple months, first due to COVID-19 pneumonia and more recently as a consequence of bacterial pneumonia. His CT findings noted on presentation were nonspecific. Therefore, the patient underwent bronchoscopy on August 29 with BAL performed bilaterally. Fluid cytology revealed fungal organisms consistent with Aspergillus. The patient today has been treated with voriconazole, empiric antimicrobials, aggr essive diuresis and IV steroids. Despite the aforementioned, his respiratory status is not improved. Repeat CTA chest on September 12 again demonstrated no evidence for pulmonary embolism. He does appear to have progressive interstitial lung disease, which is still of unclear etiology, but could c ertainly be related to his underlying rheumatologic disease and/or superimposed fibrosis from his recent Covid infection. At this time, given the patient's age and prior functional status, I would recommend a more aggressive approach including transfer to a tertiary care facility to be considered for potential VATS biopsy. 2. History of mixed obstructive/restrictive ventilatory impairment/rheumatoid arthritis/hypertension/hyperlipidemia/pulmonary hypertension Complicates care, management, recovery and prognosis. Continue home medications as indicated. This note was generated with [employer] dictation software. It may contain incorrect words, spelling, and punctuation that were not noted in checking the note before signing. Subjective Subjective The patient was seen and examined at the bedside this morning. Events from the last 24 hours have been reviewed. The patient is currently afebrile, hemodynamically stable and maintaining appropriate oxygen saturations on Airvo heated high flow with an FiO2 requirement of 60%. He is currently documented to be overall net -2.9 L for the hospitalization. The patient remains on voriconazole, scheduled Lasix and IV steroids. He is awaiting transfer to [facility], pending bed availability. Objective Data Objective Data The patient's most recent lab work, culture data and imaging studies have all been personally reviewed. BAL cytology revealed fungal organisms consistent with Aspergillus species. Fungal cultures are currently pending. Acid-fast s mear was negative. The remainder of the patient's infectious work-up has been unrevealing. Surface echocardiogram demonstrated normal LV function with an ejection fraction of 65% and a pulmonary artery systolic pressure estimated to be 58 mmHg. Vital Signs: Vital Signs Temp Pulse Resp BP Pulse Ox 97.2 F L 69 24 H 127/82 H 96 09/15/21 05:00 09/15/21 09:00 09/15/21 09:00 09/15/21 09:00 09/15/21 09:00 Oxygen Flow Rate (L/min) 50 Oxygen Delivery Method Airvo Weight: 78.5 kg Body Mass Index (BMI) 28.5 Intake & Output: Intake and Output for Last 24 Hours 09/13/21 09/14/21 09/15/21 23:59 23:59 23:59 Intake Total 900 / 900 400 / 400 250 / 250 Output Total 1450 / 2000 1790 / 1790 350 / 350 Balance -550 / -1100 -1390 / -1390 -100 / -100 Lab / Micro Data Attestation: I reviewed the patient's lab results. Result Diagrams: 09/15/21 03:10 09/15/21 03:10 Labs: Laboratory Results - last 24 hr 09/14/21 16:22: POC Glucose 388 H 09/14/21 21:16: POC Glucose 363 H 09/15/21 03:10: WBC 8.6, RBC 4.07 L, Hgb 10.7 L, Hct 35.0 L, MCV 86.0, MCH 26.3 L, MCHC 30.6 L, RDW Std Deviation 56.9 H, RDW Coeff of Cheikh 18.3 H, Plt Count 273, MPV 11.9, Immature Gran % (Auto) 1.200 H, Neut % (Auto) 86.4 H, Lymph % (Auto) 6.0 L, [place] % (Auto) 6.4, Eos % (Auto) 0.0, Baso % (Auto) 0.0, Absolute N euts (auto) 7.5, Absolute Lymphs (auto) 0.52 L, Nucleated RBC % 0 09/15/21 03:10: Sodium 136, Potassium 4.7, Chloride 100, Carbon Dioxide 33.0 H, Anion Gap 3 L, BUN 40 H, Creatinine 0.64 L, Estim Creat Clear Calc 120.23, Est GFR (MDRD) Af Amer 164, Est GFR (MDRD) Non-Af 136, BUN/Creatinine Ratio 62.5 H, Glucose 205 H, Calcium 8.6 09/15/21 11:34: POC Glucose 314 H Micro: Microbiology 08/29/21 12:00 Fluid - Other Acid Fast Bacilli Smear - Final 08/29/21 12:00 Wash - Right Middle Lobe Gram Stain - Final 08/29/21 12:00 Wash - Right Middle Lobe Respiratory Culture - Final Presumptive C albicans 08/29/21 12:00 Wash - Other Gram Stain - Final 08/29/21 12:00 Wash - Other Respiratory Culture - Final Presumptive C albicans 08/27/21 00:30 Blood Culture (Wb) - Left Hand Blood Culture - Final No growth in 5 days. 08/26/21 00:30 Blood Culture (Wb) - Anticubital Right Blood Culture - Final No growth in 5 days. 08/28/21 18:45 Sputum, Expectorated/Coughed Gram Stain - Final 08/28/21 18:45 Sputum, Expectorated/Coughed Respiratory Culture - Final 08/27/21 16:10 Sputum, Expectorated/Coughed Gram Stain - Final 08/27/21 16:10 Sputum, Expectorated/Coughed Respiratory Culture - Final 08/27/21 10:55 Sputum, Expectorated/Coughed Gram Stain - Final 08/27/21 10:55 Sputum, Expectorated/Coughed Respiratory Culture - Final 08/26/21 Unknown Urine, Clean Catch Legionella Antigen - Final 08/26/21 Unknown Urine, Clean Catch Streptococcus pneumoniae Antigen (M - Final 08/27/21 02:15 Mucosa - Nasopharyngeal Respiratory Panel (PCR) - Final 08/27/21 00:20 Nasal Secretion SARS-CoV-2 Antigen (Rapid) - Final Physical Exam Const alert and no apparent distress Constitutional Narrative: Sitting upright in bed, currently tolerating Airvo he ated high flow oxygen. General Appearance: cooperative HEENT normocephalic and head/scalp atraumatic Eyes PERRL, EOMs intact bilaterally and conjunctivae normal Neck supple General: trachea midline Chest inspection of chest normal Resp Effort and Inspection: tachypneic Auscultation: diminished lung sounds; Negative for rales, rhonchi or wheezes Cardio regular rate and regular rhythm GI normal to inspection, nondistended, normoactive bowel sounds Extremity no clubbing, cyanosis or edema Skin no rashes or lesions noted Neuro CN's II-XII intact bilaterally, moves all extremities and no focal motor deficits Psych cooperative and affect normal Charges/Coding Visit Charges Inpatient E&M: 28203 Subs Hosp L2
[2021-09-15 16:46] LABS: Bedside Glucose 267 mg/dL (70-110)
[2021-09-15] MEDS: Phenol/Sodium Phenolate 180ML 3 SPRAY MUCOUS MEM ×2 (17:48→20:40)
[2021-09-15] MEDS: MELATONIN 10 MG TABLET PO (20:39)
[2021-09-15] MEDS: Atorvastatin Calcium 20 MG Tablet PO (20:39)
[2021-09-15] MEDS: Acetaminophen 325 MG Tablet 650 MG PO (20:39)
[2021-09-15] MEDS: guaiFENesin/Codeine 5 ML UDC PO (20:40)
[2021-09-16] VITALS (33 sets, daily range): BP systolic 99–126; BP diastolic 59–79; PULSE 62–98; RESP 20–82; TEMP 35.7–36.4; O2SAT 88–100
[2021-09-16] MEDS: 0.9% Saline Lock 10 ML Syringe IV ×5 (04:56→21:28)
[2021-09-16] MEDS: Acetaminophen 325 MG Tablet 650 MG PO ×2 (04:56→21:27)
[2021-09-16] MEDS: guaiFENesin/Codeine 5 ML UDC PO ×2 (04:56→21:29)
[2021-09-16 04:58] LABS: Absolute Lymphocyte Count 0.76 X10^3/uL (0.83-4.51); Basophil# 0.01 X10^3/uL; Basophil% 0.1 % (0-1); Hemoglobin 11.3 g/dL (13.0-16.5); Lymphocyte # 0.76 X10^3/ul (0.83-4.51); Mean Corp Hgb Conc 31.4 g/dL (32-36); Mean Corpuscular Volume 85.9 fL (80-94); Mean Platelet Vol. 12.2 fl (6.2-12.0); Monocyte# 0.55 X10^3/uL; Monocyte% 5.8 % (0-10); NRBC Flagged by Analyzer 0 % (0-5); Neutrophil # 8.03 X10^3/uL (2.7-7.7); Platelet Count 286 K/mm3 (150-450); RBC Distribution Width CV 18.6 % (11.6-14.6); RBC Distribution Width SD 57.3 fl (35.1-43.9); Red Blood Count 4.19 M/mm3 (4.6-6.2); White Blood Count 9.5 K/mm3 (4.4-11.0)
[2021-09-16 05:10] LABS: Anion Gap 6 (5-15); BUN 45 mg/dL (7-18); Calcium,Total 8.9 mg/dL (8.5-10.1); Chloride 99 mmol/L (98-107); Creatinine, Serum 0.67 mg/dL (0.70-1.30); EST Glomerular Filtration Rate 128 mL/min (>60); Est Glom Filt Rate - Afr Amer 155 mL/min (>60); Estimated Creatinine Clearance 114.85 ml/min; Glucose 227 mg/dL (74-106); Potassium 4.7 mmol/L (3.5-5.1); Sodium Level 136 mmol/L (136-145)
[2021-09-16 06:00] LABS: Bedside Glucose 407 mg/dL (70-110)
--- NOTE | 2021-09-16 07:17 | PCM.PN.INT ---
Assessment & Plan Assessment/Plan (1) Acute on chronic respiratory failure with hypoxemia: PLAN: RECOMMENDATIONS: 1. Continue to wean FiO2 as tolerated for saturations greater than 90%. 2. Continue voriconazole. 3. Continue IV steroids. 4. Continue IV Lasix as tolerated by hemodynamics and renal function. 5. Encourage incentive spirometer use and mobilize patient as tolerated. 6. Plan for transfer to tertiary care facility when bed is available. IMPRESSIONS: 1. Acute on chronic hypoxemic respiratory failure The patient does have a baseline oxygen requirement of 3 L/min. He has a history of rheumatoid associated interstitial lung disease and was previously on immunosuppression, up until his discharge from the hospital in June. The patient has been hospitalized several times over the last couple months, first due to COVID-19 pneumonia and more recently as a consequence of bacterial pneumonia. His CT findings noted on presentation were nonspecific. Therefore, the patient underwent bronchoscopy on August 29 with BAL performed bilaterally. Fluid cytology revealed fungal organisms consistent with Aspergillus. The patient today has been treated with voriconazole, empiric antimicrobials, aggressive diuresis and IV steroids. Despite the aforementioned, his respiratory status is not improved. Repeat CTA chest on September 12 again demonstrated no evidence for pulmonary embolism. He does appear to have progressive interstitial lung disease, which is still of unclear etiology, but could certainly be related to his underlying rheumatologic disease and/or superimposed fibrosis from his recent Covid infection. At this time, given the patient's age and prior functional status, I would recommend a more aggressive approach including transfer to a tertiary care facility to be considered for potential VATS biopsy. 2. History of mixed obstructive/restrictive ventilatory impairment/rheumatoid arthritis/hypertension/hyperlipidemia/pulmonary hypertension Complicates care, management, recovery and prognosis. Continue home medications as indicated. This note was generated with [employer] dictation software. It may contain incorrect words, spelling, and punctuation that were not noted in checking the note before signing. Subjective Subjective The patient was seen and examined at the bedside this morning. Events from the last 24 hours have been reviewed. The patient is currently afebrile, hemodynamically stable and maintaining appropriate oxygen saturations on Airvo heated high flow with an FiO2 requirement of 50%. He is currently documented to be overall net -4.4 L for the hospitalization. The patient remains on voriconazole, scheduled Lasix and IV steroids. He is awaiting transfer to [facility], pending bed availability. Objective Data Objective Data The patient's most recent lab work, culture data and imaging studies have all been personally reviewed. BAL cytology revealed fungal organisms consistent with Aspergillus species. Fungal cultures are currently pending. Acid-fast smear was negative. The remainder of the patient's infectious work-up has been unrevealing. Surface echocardiogram demonstrated normal LV function with an ejection fraction of 65% and a pulmonary artery systolic pressure estimated to be 58 mmHg. Vital Signs: Vital Signs Temp Pulse Resp BP Pulse Ox 97.6 F L 68 22 H 116/74 92 09/16/21 04:00 09/16/21 07:00 09/16/21 07:00 09/16/21 07:00 09/16/21 07:00 Oxygen Flow Rate (L/min) 50 Oxygen Delivery Method Airvo Weight: 75.4 kg Body Mass Index (BMI) 28.5 Intake & Output: Intake and Output for Last 24 Hours 09/14/21 09/15/21 09/16/21 23:59 23:59 23:59 Intake Total 400 / 400 250 / 370 240 / 240 Output Total 1790 / 1790 950 / 1550 1100 / 1100 Balance -1390 / -1390 -700 / -1180 -860 / -860 Lab / Micro Data Attestation: I reviewed the patient's lab results. Result Diagrams: 09/16/21 04:45 09/16/21 04:45 Labs: Laboratory Results - last 24 hr 09/15/21 11:34: POC Glucose 314 H 09/15/21 16:38: POC Glucose 267 H 09/15/21 20:48: POC Glucose 407 H 09/16/21 04:45: WBC 9.5, RBC 4.19 L, Hgb 11.3 L, Hct 36.0 L, MCV 85.9, MCH 27.0, MCHC 31.4 L, RDW Std Deviation 57.3 H, RDW Coeff of Cheikh 18.6 H, Plt Count 286, MPV 12.2 H, Immature Gran % (Auto) 1.100 H, Neut % (Auto) 85.0 H, Lymph % (Auto) 8.0 L, Banner % (Auto) 5.8, Eos % (Auto) 0.0, Baso % (Auto) 0.1, Absolute Neuts (auto) 8.0 H, Absolute Lymphs (auto) 0.76 L, Nucleated RBC % 0 09/16/21 04:45: Sodium 136, Potassium 4.7, Chloride 99, Carbon Dioxide 31.0, Anion Gap 6, BUN 45 H, Creatinine 0.67 L, Estim Creat Clear Calc 114.85, Est GFR (MDRD) Af Amer 155, Est GFR (MDRD) Non-Af 128, BUN/Creatinine Ratio 67.0 H, Glucose 227 H, Calcium 8.9 Micro: Microbiology 08/29/21 12:00 Fluid - Other Acid Fast Bacilli Smear - Final 08/29/21 12:00 Wash - Right Middle Lobe Gram Stain - Final 08/29/21 12:00 Wash - Right Middle Lobe Respiratory Culture - Final Presumptive C albicans 08/29/21 12:00 Wash - Other Gram Stain - Final 08/29/21 12:00 Wash - Other Respiratory Culture - Final Presumptive C albicans 08/27/21 00:30 Blood Culture (Wb) - Left Hand Blood Culture - Final No growth in 5 days. 08/26/21 00:30 Blood Culture (Wb) - Anticubital Right Blood Culture - Final No growth in 5 days. 08/28/21 18:45 Sputum, Expectorated/Coughed Gram Stain - Final 08/28/21 18:45 Sputum, Expectorated/Coughed Respiratory Culture - Final 08/27/21 16:10 Sputum, Expectorated/Coughed Gram Stain - Final 08/27/21 16:10 Sputum, Expectorated/Coughed Respiratory Culture - Final 08/27/21 10:55 Sputum, Expectorated/Coughed Gram Stain - Final 08/27/21 10:55 Sputum, Expectorated/Coughed Respiratory Culture - Final 08/26/21 Unknown Urine, Clean Catch Legionella Antigen - Final 08/26/21 Unknown Urine, Clean Catch Streptococcus pneumoniae Antigen (M - Final 08/27/21 02:15 Mucosa - Nasopharyngeal Respiratory Panel (PCR) - Final 08/27/21 00:20 Nasal Secretion SARS-CoV-2 Antigen (Rapid) - Final Physical Exam Const alert and no apparent distress Constitutional Narrative: Sitting upright in bed, currently tolerating Airvo heated high flow oxygen. General Appearance: cooperative HEENT normocephalic and head/scalp atraumatic Eyes PERRL, EOMs intact bilaterally and conjunctivae normal Neck supple General: trachea midline Chest inspection of chest normal Resp Effort and Inspection: tachypneic Auscultation: diminished lung sounds; Negative for rales, rhonchi or wheezes Cardio regular rate and regular rhythm GI normal to inspection, nondistended, normoactive bowel sounds Extremity no clubbing, cyanosis or edema Skin no rashes or lesions noted Neuro CN's II-XII intact bilaterally, moves all extremities and no focal motor deficits Psych cooperative and affect normal Charges/Coding Visit Charges Inpatient E&M: 72397 Subs Hosp L2
[2021-09-16] MEDS: Insulin Lispro 100 UNIT/ML INSULN.PEN SC ×4 (08:19→21:31)
[2021-09-16] MEDS: Lisinopril 20 MG Tablet PO (08:20)
[2021-09-16] MEDS: Potassium Chloride Oral Tablet 20 MEQ PO ×2 (08:20→16:25)
[2021-09-16] MEDS: dilTIAZem CD 120 MG Capsule PO (08:21)
[2021-09-16] MEDS: Furosemide 40 MG/4 ML Vial IV ×2 (08:21→16:25)
[2021-09-16] MEDS: Voriconazole 200 MG Tablet 300 MG PO ×2 (08:21→21:29)
[2021-09-16] MEDS: CHLORHEXIDINE GLUC 2% CLOTH 1 EACH TOWELETTE TOPICAL (08:22)
[2021-09-16] MEDS: Aspirin E.C. 81 MG Tablet PO (08:22)
[2021-09-16] MEDS: Enoxaparin 40 MG/0.4 ML Syringe SC (11:42)
[2021-09-16 11:46] LABS: Bedside Glucose 368 mg/dL (70-110)
--- NOTE | 2021-09-16 15:20 | PN.HOSP_ITS ---
Subjective Subjective Patient seen and examined. She has no complaints and remains stable. He remains on air Vo. Review of systems otherwise negative. He is awaiting transfer to [facility]. Objective Data Objective Data Vital Signs: Vital Signs Temp Pulse Resp BP Pulse Ox 96.8 F L 79 23 H 99/60 99 09/16/21 12:00 09/16/21 14:00 09/16/21 14:00 09/16/21 14:00 09/16/21 12:00 Oxygen Flow Rate (L/min) 50 Oxygen Delivery Method Airvo Weight: 166 lb 3.657 oz Body Mass Index (BMI) 28.5 Intake & Output: Intake and Output for Last 24 Hours 09/14/21 09/15/21 09/16/21 23:59 23:59 23:59 Intake Total 400 / 400 250 / 370 540 / 540 Output Total 1790 / 1790 950 / 1550 1500 / 1500 Balance -1390 / -1390 -700 / -1180 -960 / -960 Lab / Micro Data Result Diagrams: 09/16/21 04:45 09/16/21 04:45 Labs: Laboratory Results - last 24 hr 09/15/21 16:38: POC Glucose 267 H 09/15/21 20:48: POC Glucose 407 H 09/16/21 04:45: WBC 9.5, RBC 4.19 L, Hgb 11.3 L, Hct 36.0 L, MCV 85.9, MCH 27.0, MCHC 31.4 L, RDW Std Deviation 57.3 H, RDW Coeff of Cheikh 18.6 H, Plt Count 286, MPV 12.2 H, Immature Gran % (Auto) 1.100 H, Neut % (Auto) 85.0 H, Lymph % (Auto) 8.0 L, Sutter % (Auto) 5.8, Eos % (Auto) 0.0, Baso % (Auto) 0.1, Absolute Neuts (auto) 8.0 H, Absolute Lymphs (auto) 0.76 L, Nucleated RBC % 0 09/16/21 04:45: Sodium 136, Potassium 4.7, Chloride 99, Carbon Dioxide 31.0, Anion Gap 6, BUN 45 H, Creatinine 0.67 L, Estim Creat Clear Calc 114.85, Est GFR (MDRD) Af Amer 155, Est GFR (MDRD) Non-Af 128, BUN/Creatinine Ratio 67.0 H, Glucose 227 H, Calcium 8.9 09/16/21 11:39: POC Glucose 368 H Micro: Microbiology 08/29/21 12:00 Fluid - Other Acid Fast Bacilli Smear - Final 08/29/21 12:00 Wash - Right Middle Lobe Gram Stain - Final 08/29/21 12:00 Wash - Right Middle Lobe Respiratory Culture - Final Presumptive C albicans 08/29/21 12:00 Wash - Other Gram Stain - Final 08/29/21 12:00 Wash - Other Respiratory Culture - Final Presumptive C albicans 08/27/21 00:30 Blood Culture (Wb) - Left Hand Blood Culture - Final No growth in 5 days. 08/26/21 00:30 Blood Culture (Wb) - Anticubital Right Blood Culture - Final No growth in 5 days. 08/28/21 18:45 Sputum, Expectorated/Coughed Gram Stain - Final 08/28/21 18:45 Sputum, Expectorated/Coughed Respiratory Culture - Final 08/27/21 16:10 Sputum, Expectorated/Coughed Gram Stain - Final 08/27/21 16:10 Sputum, Expectorated/Coughed Respiratory Culture - Final 08/27/21 10:55 Sputum, Expectorated/Coughed Gram Stain - Final 08/27/21 10:55 Sputum, Expectorated/Coughed Respiratory Culture - Final 08/26/21 Unknown Urine, Clean Catch Legionella Antigen - Final 08/26/21 Unknown Urine, Clean Catch Streptococcus pneumoniae Antigen (M - Final 08/27/21 02:15 Mucosa - Nasopharyngeal Respiratory Panel (PCR) - Final 08/27/21 00:20 Nasal Secretion SARS-CoV-2 Antigen (Rapid) - Final Physical Exam Const alert, oriented x3 and no apparent distress General Appearance: cooperative, well kempt and well developed Orientation / Consciousness: awake, oriented to person, oriented to place and oriented to time Exam Limitations: no limitations HEENT normocephalic, head/scalp atraumatic, moist oral mucous membranes and oropharynx normal Head and Scalp: normocephalic Eyes PERRL, EOMs intact bilaterally, conjunctivae normal and no scleral icterus Neck nuchal rigidity, no lymphadenopathy, supple, no JVD, thyroid normal and no carotid bruits General: trachea midline Resp normal air movement Resp Narrative: diminished breath sounds bibasally, remains on AirVo. Effort and Inspection: tachypneic Auscultation: diminished lung sounds diffuse Cardio regular rate, regular rhythm, S1 normal heart sound, S2 normal heart sound, no murmurs, no rub, no gallops and peripheral pulses 2+ throughout GI normal to inspection, nondistended, normoactive bowel sounds, soft to palpation, non-tender and non-distended Extremity normal to inspection, full ROM, normal capillary refill and no clubbing, cyanosis or edema General Extremity: no tenderness to palpation of joints or extremities Peripheral Pulses: Yes pulses 2+ throughout Skin no rashes or lesions noted General Skin Exam: no breakdown and turgor normal Lesions: no lesions Rashes: no rashes Neuro oriented x3, CN's II-XII intact bilaterally, moves all extremities, no focal motor deficits, no sensory deficits noted and gait normal Sensorium / Orientation: awake and alert Speech: speech normal Psych thought process normal, cooperative and affect normal Appearance: appropriate Assessment & Plan Assessment/Plan (1) Acute on chronic respiratory failure with hypoxemia: (2) Multifocal pneumonia: PLAN: #Acute on chronic hypoxic respiratory failure * remains on AirVO * now off antibiotics; on IV voriconazole and steroids. * CTA of the chest showed advanced centrilobular emphysematous changes and interstitial pulmonary fibrosis, with residual areas of confluence in both lungs more prominent i the right hemithorax, nad a stable 7.5mm noncalcified nodule in peripheral lateral aspect of right upper lobe. * being diuresed as needed to help maintain euvolemic status * patient has not really improved much. He had bronchoscopy and broncheoalveolar lavage and samples sent for cultures. FLuid cytology consistent with Aspergillus * pulmonology on board. * #Nonsustained Vtach * cardiology on board. Was thought this could be due to ventricular pacing rather, after his defibrillator was interrogated. * #Pulmonary hypertension * exact type is not clear * repeat 2D echo shows normal LV size, and EF of 65%, with PA systolic pressure of 58mmhb. * will need a right heart cath eventually. * diurese as needed. * #History of rheumatoid arthritis: Stable #Right lung nodule * as per CT scan findings above. * will need follow up CT scan in 6 months to follow nodule * #Afib: on cardizem. On aspirin. #Hyperlipidemia: on statin #Hypertension: On lisinopril as well as Cardizem #CAD s/p stent: On statin and aspirin DVT prophylaxis: now on lovenox. Disposition: Patient accepted at [facility]. He is still currently awaiting a bed. Charges/Coding Visit Charges Inpatient E&M: 39420 Subs Hosp L2
[2021-09-16] MEDS: Phenol/Sodium Phenolate 180ML 3 SPRAY MUCOUS MEM (16:26)
[2021-09-16 16:35] LABS: Bedside Glucose 446 mg/dL (70-110)
[2021-09-16] MEDS: Atorvastatin Calcium 20 MG Tablet PO (21:27)
[2021-09-16] MEDS: MELATONIN 10 MG TABLET PO (21:28)
[2021-09-16 21:45] LABS: Bedside Glucose 321 mg/dL (70-110)
[2021-09-17] VITALS (33 sets, daily range): BP systolic 102–144; BP diastolic 60–89; PULSE 64–90; RESP 20–28; TEMP 35.7–36.6; O2SAT 90–96
--- NOTE | 2021-09-17 05:11 | NURSING ---
Spoke with [facility] transfer rep. Gave rep update on patient. Rep stated that there multiple people waiting on the ICU bed and that it does not look like patient will have a bed anytime soon.
[2021-09-17 05:28] LABS: Absolute Lymphocyte Count 0.82 X10^3/uL (0.83-4.51); Absolute Neutrophil Count 10.1 X10^3/uL (2.0-7.7); Basophil# 0.01 X10^3/uL; Basophil% 0.1 % (0-1); Hemoglobin 11.3 g/dL (13.0-16.5); Lymphocyte # 0.82 X10^3/ul (0.83-4.51); Lymphocyte % 7.1 % (19-41); Mean Corp Hgb Conc 31.4 g/dL (32-36); Mean Corpuscular Hgb 26.7 pg (27.0-32.0); Mean Corpuscular Volume 85.1 fL (80-94); Mean Platelet Vol. 12.4 fl (6.2-12.0); Monocyte# 0.54 X10^3/uL; Monocyte% 4.7 % (0-10); NRBC Flagged by Analyzer 0 % (0-5); Neutrophil # 10.13 X10^3/uL (2.7-7.7); Neutrophil % 87.2 % (47-70); Platelet Count 314 K/mm3 (150-450); RBC Distribution Width CV 18.9 % (11.6-14.6); RBC Distribution Width SD 57.3 fl (35.1-43.9); Red Blood Count 4.23 M/mm3 (4.6-6.2); White Blood Count 11.6 K/mm3 (4.4-11.0)
[2021-09-17 05:42] LABS: Anion Gap 6 (5-15); BUN 43 mg/dL (7-18); BUN/Creat Ratio 64.4 RATIO (10-20); Calcium,Total 8.4 mg/dL (8.5-10.1); Chloride 96 mmol/L (98-107); Creatinine, Serum 0.67 mg/dL (0.70-1.30); EST Glomerular Filtration Rate 129 mL/min (>60); Est Glom Filt Rate - Afr Amer 156 mL/min (>60); Estimated Creatinine Clearance 114.85 ml/min; Glucose 253 mg/dL (74-106); Potassium 4.9 mmol/L (3.5-5.1); Sodium Level 134 mmol/L (136-145)
--- NOTE | 2021-09-17 05:56 | PCM.PN.INT ---
Assessment & Plan Assessment/Plan (1) Acute on chronic respiratory failure with hypoxemia: PLAN: RECOMMENDATIONS: 1. Continue to wean FiO2 as tolerated for saturations greater than 90%. 2. Continue voriconazole. 3. Continue IV steroids. 4. Continue IV Lasix as tolerated by hemodynamics and renal function. 5. Encourage incentive spirometer use and mobilize patient as tolerated. 6. Plan for transfer to tertiary care facility when bed is available. IMPRESSIONS: 1. Acute on chronic hypoxemic respiratory failure The patient does have a baseline oxygen requirement of 3 L/min. He has a history of rheumatoid associated interstitial lung disease and was previously on immunosuppression, up until his discharge from the hospital in June. The patient has been hospitalized several times over the last couple months, first due to COVID-19 pneumonia and more recently as a consequence of bacterial pneumonia. His CT findings noted on presentation were nonspecific. Therefore, the patient underwent bronchoscopy on August 29 with BAL performed bilaterally. Fluid cytology revealed fungal organisms consistent with Aspergillus. The patient today has been treated with voriconazole, empiric antimicrobials, aggressive diuresis and IV steroids. Despite the aforementioned, his respiratory status is not improved. Repeat CTA chest on September 12 again demonstrated no evidence for pulmonary embolism. He does appear to have progressive interstitial lung disease, which is still of unclear etiology, but could certainly be related to his underlying rheumatologic disease and/or superimposed fibrosis from his recent Covid infection. At this time, given the patient's age and prior functional status, I would recommend a more aggressive approach including transfer to a tertiary care facility to be considered for potential VATS biopsy. 2. History of mixed obstructive/restrictive ventilatory impairment/rheumatoid arthritis/hypertension/hyperlipidemia/pulmonary hypertension Complicates care, management, recovery and prognosis. Continue home medications as indicated. This note was generated with [employer] dictation software. It may contain incorrect words, spelling, and punctuation that were not noted in checking the note before signing. Subjective Subjective The patient was seen and examined at the bedside this morning. Events from the last 24 hours have been reviewed. The patient is currently afebrile, hemodynamically stable and maintaining appropriate oxygen saturations on Airvo heated high flow with an FiO2 requirement of 50%. He is currently documented to be overall net -4.9 L for the hospitalization. The patient remains on voriconazole, scheduled Lasix and IV steroids. The patient was apparently listed for transfer as an ICU patient, for which there is no bed availability. Therefore, I instructed nursing staff to update him to a non-ICU status to help facilitate his transfer. Objective Data Objective Data The patient's most recent lab work, culture data and imaging studies have all been personally reviewed. BAL cytology revealed fungal organisms consistent with Aspergillus species. Fungal cultures are currently pending. Acid-fast smear was negative. The remainder of the patient's infectious work-up has been unrevealing. Surface echocardiogram demonstrated normal LV function with an ejection fraction of 65% and a pulmonary artery systolic pressure estimated to be 58 mmHg. Vital Signs: Vital Signs Temp Pulse Resp BP Pulse Ox 96.8 F L 68 25 H 125/68 H 90 09/17/21 00:00 09/17/21 04:30 09/17/21 04:00 09/17/21 03:00 09/17/21 04:30 Oxygen Flow Rate (L/min) 50 Oxygen Delivery Method Airvo Weight: 75.6 kg Body Mass Index (BMI) 28.5 Intake & Output: Intake and Output for Last 24 Hours 09/15/21 09/16/21 09/17/21 23:59 23:59 23:59 Intake Total 250 / 370 740 / 990 250 / 250 Output Total 950 / 1550 2000 / 2400 400 / 400 Balance -700 / -1180 -1260 / -1410 -150 / -150 Lab / Micro Data Attestation: I reviewed the patient's lab results. Result Diagrams: 09/17/21 05:15 09/17/21 05:15 Labs: Laboratory Results - last 24 hr 09/15/21 20:48: POC Glucose 407 H 09/16/21 11:39: POC Glucose 368 H 09/16/21 16:21: POC Glucose 446 H 09/16/21 21:31: POC Glucose 321 H 09/17/21 05:15: WBC 11.6 H, RBC 4.23 L, Hgb 11.3 L, Hct 36.0 L, MCV 85.1, MCH 26.7 L, MCHC 31.4 L, RDW Std Deviation 57.3 H, RDW Coeff of Cheikh 18.9 H, Plt Count 314, MPV 12.4 H, Immature Gran % (Auto) 0.900, Neut % (Auto) 87.2 H, Lymph % (Auto) 7.1 L, Buchanan % (Auto) 4.7, Eos % (Auto) 0.0, Baso % (Auto) 0.1, Absolute Neuts (auto) 10.1 H, Absolute Lymphs (auto) 0.82 L, Nucleated RBC % 0 09/17/21 05:15: Sodium 134 L, Potassium 4.9, Chloride 96 L, Carbon Dioxide 32.0, Anion Gap 6, BUN 43 H, Creatinine 0.67 L, Estim Creat Clear Calc 114.85, Est GFR (MDRD) Af Amer 156, Est GFR (MDRD) Non-Af 129, BUN/Creatinine Ratio 64.4 H, Glucose 253 H, Calcium 8.4 L Micro: Microbiology 08/29/21 12:00 Fluid - Other Acid Fast Bacilli Smear - Final 08/29/21 12:00 Wash - Right Middle Lobe Gram Stain - Final 08/29/21 12:00 Wash - Right Middle Lobe Respiratory Culture - Final Presumptive C albicans 08/29/21 12:00 Wash - Other Gram Stain - Final 08/29/21 12:00 Wash - Other Respiratory Culture - Final Presumptive C albicans 08/27/21 00:30 Blood Culture (Wb) - Left Hand Blood Culture - Final No growth in 5 days. 08/26/21 00:30 Blood Culture (Wb) - Anticubital Right Blood Culture - Final No growth in 5 days. 08/28/21 18:45 Sputum, Expectorated/Coughed Gram Stain - Final 08/28/21 18:45 Sputum, Expectorated/Coughed Respiratory Culture - Final 08/27/21 16:10 Sputum, Expectorated/Coughed Gram Stain - Final 08/27/21 16:10 Sputum, Expectorated/Coughed Respiratory Culture - Final 08/27/21 10:55 Sputum, Expectorated/Coughed Gram Stain - Final 08/27/21 10:55 Sputum, Expectorated/Coughed Respiratory Culture - Final 08/26/21 Unknown Urine, Clean Catch Legionella Antigen - Final 08/26/21 Unknown Urine, Clean Catch Streptococcus pneumoniae Antigen (M - Final 08/27/21 02:15 Mucosa - Nasopharyngeal Respiratory Panel (PCR) - Final 08/27/21 00:20 Nasal Secretion SARS-CoV-2 Antigen (Rapid) - Final Physical Exam Const alert and no apparent distress Constitutional Narrative: Sitting upright in bed, currently tolerating Airvo heated high flow oxygen. General Appearance: cooperative HEENT normocephalic and head/scalp atraumatic Eyes PERRL, EOMs intact bilaterally and conjunctivae normal Neck supple General: trachea midline Chest inspection of chest normal Resp Effort and Inspection: tachypneic Auscultation: diminished lung sounds; Negative for rales, rhonchi or wheezes Cardio regular rate and regular rhythm GI normal to inspection, nondistended, normoactive bowel sounds Extremity no clubbing, cyanosis or edema Skin no rashes or lesions noted Neuro CN's II-XII intact bilaterally, moves all extremities and no focal motor deficits Psych cooperative and affect normal Charges/Coding Visit Charges Inpatient E&M: 25124 Subs Hosp L2
[2021-09-17] MEDS: Potassium Chloride Oral Tablet 20 MEQ PO ×2 (08:00→16:22)
[2021-09-17] MEDS: Enoxaparin 40 MG/0.4 ML Syringe SC (08:06)
[2021-09-17] MEDS: Insulin Lispro 100 UNIT/ML INSULN.PEN SC ×4 (08:06→21:16)
[2021-09-17] MEDS: Aspirin E.C. 81 MG Tablet PO (08:09)
[2021-09-17] MEDS: dilTIAZem CD 120 MG Capsule PO (08:09)
[2021-09-17] MEDS: Furosemide 40 MG/4 ML Vial IV ×2 (08:10→16:20)
[2021-09-17] MEDS: CHLORHEXIDINE GLUC 2% CLOTH 1 EACH TOWELETTE TOPICAL (08:10)
[2021-09-17] MEDS: Voriconazole 200 MG Tablet 300 MG PO ×2 (08:11→21:17)
[2021-09-17] MEDS: Lisinopril 20 MG Tablet PO (08:11)
[2021-09-17] MEDS: 0.9% Saline Lock 10 ML Syringe IV ×3 (08:13→16:20)
--- NOTE | 2021-09-17 10:39 | PN.HOSP_ITS ---
Subjective Subjective Patient seen and examined. He has no complaints. He remains on AirVO. He is awaiting transfer to . Review of systems otherwise negative. Objective Data Objective Data Vital Signs: Vital Signs Temp Pulse Resp BP Pulse Ox 97.2 F L 65 24 H 135/67 H 91 09/17/21 04:00 09/17/21 08:00 09/17/21 07:00 09/17/21 07:00 09/17/21 08:00 Oxygen Flow Rate (L/min) 50 Oxygen Delivery Method Airvo Weight: 166 lb 10.711 oz Body Mass Index (BMI) 28.5 Intake & Output: Intake and Output for Last 24 Hours 09/15/21 09/16/21 09/17/21 23:59 23:59 23:59 Intake Total 250 / 370 740 / 990 250 / 250 Output Total 950 / 1550 2000 / 2400 600 / 600 Balance -700 / -1180 -1260 / -1410 -350 / -350 Lab / Micro Data Result Diagrams: 09/17/21 05:15 09/17/21 05:15 Labs: Laboratory Results - last 24 hr 09/16/21 11:39: POC Glucose 368 H 09/16/21 16:21: POC Glucose 446 H 09/16/21 21:31: POC Glucose 321 H 09/17/21 05:15: WBC 11.6 H, RBC 4.23 L, Hgb 11.3 L, Hct 36.0 L, MCV 85.1, MCH 2 6.7 L, MCHC 31.4 L, RDW Std Deviation 57.3 H, RDW Coeff of Cheikh 18.9 H, Plt Count 314, MPV 12.4 H, Immature Gran % (Auto) 0.900, Neut % (Auto) 87.2 H, Lymph % (Auto) 7.1 L, [place] % (Auto) 4.7, Eos % (Auto) 0.0, Baso % (Auto) 0.1, Absolute Neuts (auto) 10.1 H, Absolute Lymphs (auto) 0.82 L, Nucleated RBC % 0 09/17/21 05:15: Sodium 134 L, Potassium 4.9, Chloride 96 L, Carbon Dioxide 32.0, Anion Gap 6, BUN 43 H, Creatinine 0.67 L, Estim Creat Clear Calc 114.85, Est GFR (MDRD) Af Amer 156, Est GFR (MDRD) Non-Af 129, BUN/Creatinine Ratio 64.4 H, Glucose 253 H, Calcium 8.4 L Micro: Microbiology 08/29/21 12:00 Fluid - Other Acid Fast Bacilli Smear - Final 08/29/21 12:00 Wash - Right Middle Lobe Gram Stain - Final 08/29/21 12:00 Wash - Right Middle Lobe Respiratory Culture - Final Presumptive C albicans 08/29/21 12:00 Wash - Other Gram Stain - Final 08/29/21 12:00 Wash - Other Respiratory Culture - Final Presumptive C albicans 08/27/21 00:30 Blood Culture (Wb) - Left Hand Blood Culture - Final No growth in 5 days. 08/26/21 00:30 Blood Culture (Wb) - Anticubital Right Blood Culture - Final No growth in 5 days. 08/28/21 18:45 Sputum, Expectorated/Coughed Gram Stain - Final 08/28/21 18:45 Sputum, Expectorated/Coughed Respiratory Culture - Final 08/27/21 16:10 Sputum, Expectorated/Coughed Gram Stain - Final 08/27/21 16:10 Sputum, Expectorated/Coughed Respiratory Culture - Final 08/27/21 10:55 Sputum, Expectorated/Coughed Gram Stain - Final 08/27/21 10:55 Sputum, Expectorated/Coughed Respiratory Culture - Final 08/26/21 Unknown Urine, Clean Catch Legionella Antigen - Final 08/26/21 Unknown Urine, Clean Catch Streptococcus pneumoniae Antigen (M - Final 08/27/21 02:15 Mucosa - Nasopharyngeal Respiratory Panel (PCR) - Final 08/27/21 00:20 Nasal Secretion SARS-CoV-2 Antigen (Rapid) - Final Physical Exam Const alert, oriented x3 and no apparent distress General Appearance: cooperative, well kempt and well developed Orientation / Consciousness: awake, oriented to person, oriented to place and oriented to time Exam Limitations: no limitations HEENT normocephalic, head/scalp atraumatic, moist oral mucous membranes and oropharynx normal Head and Scalp: normocephalic Eyes PERRL, EOMs intact bilaterally, conjunctivae normal and no scleral icterus Neck nuchal rigidity, no lymphadenopathy, supple, no JVD, thyroid normal and no carotid bruits General: trachea midline Resp normal air movement Resp Narrative: diminished breath sounds bibasally, remains on AirVo. Effort and Inspection: tachypneic Auscultation: diminished lung sounds diffuse Cardio regular rate, regular rhythm, S1 normal heart sound, S2 normal heart sound, no murmurs, no rub, no gallops and peripheral pulses 2+ throughout GI normal to inspection, nondistended, normoactive bowel sounds, soft to palpation, non-tender and non-distended Extremity normal to inspection, full ROM, normal capillary refill and no clubbing, cyanosis or edema General Extremity: no tenderness to palpation of joints or extremities Peripheral Pulses: Yes pulses 2+ throughout Skin no rashes or lesions noted General Skin Exam: no breakdown and turgor normal Lesions: no lesions Rashes: no rashes Neuro oriented x3, CN's II-XII intact bilaterally, moves all extremities, no focal motor deficits, no sensory deficits noted and gait normal Sensorium / Orientation: awake and alert Speech: speech normal Psych thought process normal, cooperative and affect normal Appearance: appropriate Assessment & Plan Assessment/Plan (1) Acute on chronic respiratory failure with hypoxemia: (2) Multifocal pneumonia: PLAN: #Acute on chronic hypoxic respiratory failure * remains on AirVO * now off antibiotics; on IV voriconazole and steroids. * being diuresed as needed to help maintain euvolemic status * patient has not really improved much. He had bronchoscopy and broncheoalveolar lavage and samples sent for cultures. FLuid cytology consistent with Aspergillus * pulmonology on board. * #Nonsustained Vtach * cardiology on board. Was thought this could be due to ventricular pacing rather, after his defibrillator was interrogated. * has beeen stable, this hasnt recurred * #Pulmonary hypertension * exact type is not clear * repeat 2D echo shows normal LV size, and EF of 65%, with PA systolic pressure of 58mmhb. * will need a right heart cath eventually. * diurese as needed. * #History of rheumatoid arthritis: Stable #Right lung nodule * as per CT scan findings. * will need follow up CT scan in 6 months to follow nodule * #Afib: on cardizem. On aspirin. #Hyperlipidemia: on statin #Hypertension: On lisinopril as well as Cardizem #CAD s/p stent: On statin and aspirin DVT prophylaxis: now on lovenox. Disposition: Patient accepted at [facility]. Still awaiting a bed. Charges/Coding Visit Charges Inpatient E&M: 47513 Subs Hosp L2
[2021-09-17 11:11] LABS: Bedside Glucose 398 mg/dL (70-110)
[2021-09-17 16:31] LABS: Bedside Glucose 358 mg/dL (70-110)
--- NOTE | 2021-09-17 17:00 | NURSING ---
spoke with transfer line gave current vitals , remains on list with no bed available@this time
[2021-09-17] MEDS: Atorvastatin Calcium 20 MG Tablet PO (21:16)
[2021-09-17] MEDS: Acetaminophen 325 MG Tablet 650 MG PO (21:16)
[2021-09-17] MEDS: MELATONIN 10 MG TABLET PO (21:17)
[2021-09-17] MEDS: guaiFENesin/Codeine 5 ML UDC PO (21:22)
[2021-09-17 21:51] LABS: Bedside Glucose 316 mg/dL (70-110)
[2021-09-18] VITALS (31 sets, daily range): BP systolic 95–117; BP diastolic 58–97; PULSE 63–84; RESP 20–30; TEMP 35.9–36.8; O2SAT 89–100
[2021-09-18 04:28] LABS: Absolute Lymphocyte Count 0.62 X10^3/uL (0.83-4.51); Absolute Neutrophil Count 8.3 X10^3/uL (2.0-7.7); Basophil# 0.01 X10^3/uL; Basophil% 0.1 % (0-1); Hematocrit 36.5 % (40-54); Hemoglobin 11.4 g/dL (13.0-16.5); Lymphocyte # 0.62 X10^3/ul (0.83-4.51); Lymphocyte % 6.6 % (19-41); Mean Corp Hgb Conc 31.2 g/dL (32-36); Mean Corpuscular Hgb 26.8 pg (27.0-32.0); Mean Corpuscular Volume 85.9 fL (80-94); Mean Platelet Vol. 12.4 fl (6.2-12.0); Monocyte# 0.42 X10^3/uL; Monocyte% 4.5 % (0-10); NRBC Flagged by Analyzer 0 % (0-5); Neutrophil # 8.28 X10^3/uL (2.7-7.7); Neutrophil % 87.7 % (47-70); Platelet Count 281 K/mm3 (150-450); RBC Distribution Width SD 58.1 fl (35.1-43.9); Red Blood Count 4.25 M/mm3 (4.6-6.2); White Blood Count 9.4 K/mm3 (4.4-11.0)
[2021-09-18 05:01] LABS: ALB/GLOB Ratio 0.8 RATIO (0.9-2.4); AST(SGOT) 8 U/L (15-37); Alanine Aminotransfer ALT/SGPT 28 U/L (16-61); Albumin, Serum 2.4 g/dL (3.2-5.0); Alkaline Phosphatase 84 U/L (45-117); Anion Gap 7 (5-15); BUN 47 mg/dL (7-18); BUN/Creat Ratio 65.3 RATIO (10-20); Calcium,Total 8.5 mg/dL (8.5-10.1); Chloride 96 mmol/L (98-107); Creatinine, Serum 0.72 mg/dL (0.70-1.30); EST Glomerular Filtration Rate 119 mL/min (>60); Est Glom Filt Rate - Afr Amer 144 mL/min (>60); Estimated Creatinine Clearance 106.88 ml/min; Glucose 223 mg/dL (74-106); Potassium 4.9 mmol/L (3.5-5.1); Protein, Total 5.4 g/dL (6.4-8.2); Sodium Level 134 mmol/L (136-145)
--- NOTE | 2021-09-18 05:45 | PCM.PN.INT ---
Assessment & Plan Assessment/Plan (1) Acute on chronic respiratory failure with hypoxemia: PLAN: RECOMMENDATIONS: 1. Continue to wean FiO2 as tolerated for saturations greater than 90%. 2. Continue voriconazole. 3. Continue IV steroids. 4. Continue IV Lasix as tolerated by hemodynamics and renal function. Decrease Lasix to once daily. 5. Encourage incentive spirometer use and mobilize patient as tolerated. 6. Plan for transfer to tertiary care facility when bed is available. IMPRESSIONS: 1. Acute on chronic hypoxemic respiratory failure The patient does have a baseline oxygen requirement of 3 L/min. He has a history of rheumatoid associated interstitial lung disease and was previously on immunosuppression, up until his discharge from the hospital in June. The patient has been hospitalized several times over the last couple months, first due to COVID-19 pneumonia and more recently as a consequence of bacterial pneumonia. His CT findings noted on presentation were nonspecific. Therefore, the patient underwent bronchoscopy on August 29 with BAL performed bilaterally. Fluid cytology revealed fungal organisms consistent with Aspergillus. The patient today has been treated with voriconazole, empiric antimicrobials, aggressive diuresis and IV steroids. Despite the aforementioned, his respiratory status is not improved. Repeat CTA chest on September 12 again demonstrated no evidence for pulmonary embolism. He does appear to have progressive interstitial lung disease, which is still of unclear etiology, but could certainly be related to his underlying rheumatologic disease and/or superimposed fibrosis from his recent Covid infection. At this time, given the patient's age and prior functional status, I would recommend a more aggressive approach including transfer to a tertiary care facility to be considered for potential VATS biopsy. 2. History of mixed obstructive/restrictive ventilatory impairment/rheumatoid arthritis/hypertension/hyperlipidemia/pulmonary hypertension Complicates care, management, recovery and prognosis. Continue home medications as indicated. This note was generated with [employer] dictation software. It may contain incorrect words, spelling, and punctuation that were not noted in checking the note before signing. Subjective Subjective The patient was seen and examined at the bedside this morning. Events from the last 24 hours have been reviewed. The patient is currently afebrile, hemodynamically stable and maintaining appropriate oxygen saturations on Airvo heated high flow with an FiO2 requirement of 50%. He is currently documented to be overall net -6.2 L for the hospitalization. The patient remains on voriconazole, scheduled Lasix and IV steroids. No overnight issues were identified by the nursing staff. The patient has been on the [facility] transfer list since Sunday. Bed availability is still pending. Objective Data Objective Data The patient's most recent lab work, culture data and imaging studies have all been personally reviewed. BAL cytology revealed fungal organisms consistent with Aspergillus species. Fungal cultures are currently pending. Acid-fast smear was negative. The remainder of the patient's infectious work-up has been unrevealing. Surface echocardiogram demonstrated normal LV function with an ejection fraction of 65% and a pulmonary artery systolic pressure estimated to be 58 mmHg. Vital Signs: Vital Signs Temp Pulse Resp BP Pulse Ox 97.6 F L 75 26 H 111/69 90 09/18/21 04:00 09/18/21 05:02 09/18/21 05:02 09/18/21 04:00 09/18/21 05:02 Oxygen Flow Rate (L/min) 50 Oxygen Delivery Method Airvo Weight: 75.6 kg Body Mass Index (BMI) 28.5 Intake & Output: Intake and Output for Last 24 Hours 09/16/21 09/17/21 09/18/21 23:59 23:59 23:59 Intake Total 740 / 990 550 / 670 120 / 120 Output Total 2000 / 2400 1450 / 2050 600 / 600 Balance -1260 / -1410 -900 / -1380 -480 / -480 Lab / Micro Data Attestation: I reviewed the patient's lab results. Result Diagrams: 09/18/21 04:15 09/18/21 04:15 Labs: Laboratory Results - last 24 hr 09/17/21 11:05: POC Glucose 398 H 09/17/21 16:17: POC Glucose 358 H 09/17/21 21:14: POC Glucose 316 H 09/18/21 04:15: WBC 9.4, RBC 4.25 L, Hgb 11.4 L, Hct 36.5 L, MCV 85.9, MCH 26.8 L, MCHC 31.2 L, RDW Std Deviation 58.1 H, RDW Coeff of Cheikh 19.0 H, Plt Count 281, MPV 12.4 H, Immature Gran % (Auto) 1.100 H, Neut % (Auto) 87.7 H, Lymph % (Auto) 6.6 L, [place] % (Auto) 4.5, Eos % (Auto) 0.0, Baso % (Auto) 0.1, Absolute Neuts (auto) 8.3 H, Absolute Lymphs (auto) 0.62 L, Nucleated RBC % 0 09/18/21 04:15: Sodium 134 L, Potassium 4.9, Chloride 96 L, Carbon Dioxide 31.0, Anion Gap 7, BUN 47 H, Creatinine 0.72, Estim Creat Clear Calc 106.88, Est GFR (MDRD) Af Amer 144, Est GFR (MDRD) Non-Af 119, BUN/Creatinine Ratio 65.3 H, Glucose 223 H, Calcium 8.5, Total Bilirubin 0.80, AST 8 L, ALT 28, Alkaline Phosphatase 84, Total Protein 5.4 L, Albumin 2.4 L, Globulin 3.0, Albumin/Globulin Ratio 0.8 L Micro: Microbiology 08/29/21 12:00 Fluid - Other Acid Fast Bacilli Smear - Final 08/29/21 12:00 Wash - Right Middle Lobe Gram Stain - Final 08/29/21 12:00 Wash - Right Middle Lobe Respiratory Culture - Final Presumptive C albicans 08/29/21 12:00 Wash - Other Gram Stain - Final 08/29/21 12:00 Wash - Other Respiratory Culture - Final Presumptive C albicans 08/27/21 00:30 Blood Culture (Wb) - Left Hand Blood Culture - Final No growth in 5 days. 08/26/21 00:30 Blood Culture (Wb) - Anticubital Right Blood Culture - Final No growth in 5 days. 08/28/21 18:45 Sputum, Expectorated/Coughed Gram Stain - Final 08/28/21 18:45 Sputum, Expectorated/Coughed Respiratory Culture - Final 08/27/21 16:10 Sputum, Expectorated/Coughed Gram Stain - Final 08/27/21 16:10 Sputum, Expectorated/Coughed Respiratory Culture - Final 08/27/21 10:55 Sputum, Expectorated/Coughed Gram Stain - Final 08/27/21 10:55 Sputum, Expectorated/Coughed Respiratory Culture - Final 08/26/21 Unknown Urine, Clean Catch Legionella Antigen - Final 08/26/21 Unknown Urine, Clean Catch Streptococcus pneumoniae Antigen (M - Final 08/27/21 02:15 Mucosa - Nasopharyngeal Respiratory Panel (PCR) - Final 08/27/21 00:20 Nasal Secretion SARS-CoV-2 Antigen (Rapid) - Final Physical Exam Const alert and no apparent distress Constitutional Narrative: Sitting upright in bed, currently tolerating Airvo heated high flow oxygen. General Appearance: cooperative HEENT normocephalic and head/scalp atraumatic Eyes PERRL, EOMs intact bilaterally and conjunctivae normal Neck supple General: trachea midline Chest inspection of chest normal Resp Effort and Inspection: tachypneic Auscultation: diminished lung sounds; Negative for rales, rhonchi or wheezes Cardio regular rate and regular rhythm GI normal to inspection, nondistended, normoactive bowel sounds Extremity no clubbing, cyanosis or edema Skin no rashes or lesions noted Neuro CN's II-XII intact bilaterally, moves all extremities and no focal motor deficits Psych cooperative and affect normal Charges/Coding Visit Charges Inpatient E&M: 93684 Subs Hosp L2
[2021-09-18] MEDS: Insulin Lispro 100 UNIT/ML INSULN.PEN SC ×4 (08:02→21:02)
[2021-09-18] MEDS: Enoxaparin 40 MG/0.4 ML Syringe SC (08:14)
[2021-09-18] MEDS: Potassium Chloride Oral Tablet 20 MEQ PO ×2 (08:14→16:37)
[2021-09-18] MEDS: Lisinopril 20 MG Tablet PO (08:14)
[2021-09-18] MEDS: Aspirin E.C. 81 MG Tablet PO (08:14)
[2021-09-18] MEDS: dilTIAZem CD 120 MG Capsule PO (08:14)
[2021-09-18] MEDS: Furosemide 40 MG/4 ML Vial IV (08:15)
[2021-09-18] MEDS: Acetaminophen 325 MG Tablet 650 MG PO (08:15)
[2021-09-18] MEDS: guaiFENesin/Codeine 5 ML UDC PO ×2 (08:15→21:14)
[2021-09-18] MEDS: Voriconazole 200 MG Tablet 300 MG PO ×2 (08:16→21:01)
[2021-09-18] MEDS: 0.9% Saline Lock 10 ML Syringe IV ×2 (08:16→13:41)
[2021-09-18 08:31] LABS: Bedside Glucose 267 mg/dL (70-110)
--- NOTE | 2021-09-18 10:06 | PN.HOSP_ITS ---
Subjective Subjective Patient seen and examined. He has no new complaints. He is still awaiting transfer. Review of systems otherwise negative. He is mildly tachypneic today but has otherwise remained hemodynamically stable. Objective Data Objective Data Vital Signs: Vital Signs Temp Pulse Resp BP Pulse Ox 97 F L 73 26 H 111/97 H 94 09/18/21 08:00 09/18/21 09:00 09/18/21 09:00 09/18/21 09:00 09/18/21 09:00 Oxygen Flow Rate (L/min) 50 Oxygen Delivery Method Airvo Weight: 165 lb 9.074 oz Body Mass Index (BMI) 28.5 Intake & Output: Intake and Output for Last 24 Hours 09/16/21 09/17/21 09/18/21 23:59 23:59 23:59 Intake Total 740 / 990 550 / 670 320 / 320 Output Total 2000 / 2400 1450 / 2050 800 / 800 Balance -1260 / -1410 -900 / -1380 -480 / -480 Lab / Micro Data Result Diagrams: 09/18/21 04:15 09/18/21 04:15 Labs: Laboratory Results - last 24 hr 09/17/21 11:05: POC Glucose 398 H 09/17/21 16:17: POC Glucose 358 H 09/17/21 21:14: POC Glucose 316 H 09/18/21 04:15: WBC 9.4, RBC 4.25 L, Hgb 11.4 L, Hct 36.5 L, MCV 85.9, MCH 26.8 L, MCHC 31.2 L, RDW Std Deviation 58.1 H, RDW Coeff of Cheikh 19.0 H, Plt Count 281, MPV 12.4 H, Immature Gran % (Auto) 1.100 H, Neut % (Auto) 87.7 H, Lymph % (Auto) 6.6 L, [place] % (Auto) 4.5, Eos % (Auto) 0.0, Baso % (Auto) 0.1, Absolute Neuts (auto) 8.3 H, Absolute Lymphs (auto) 0.62 L, Nucleated RBC % 0 09/18/21 04:15: Sodium 134 L, Potassium 4.9, Chloride 96 L, Carbon Dioxide 31.0, Anion Gap 7, BUN 47 H, Creatinine 0.72, Estim Creat Clear Calc 106.88, Est GFR (MDRD) Af Amer 144, Est GFR (MDRD) Non-Af 119, BUN/Creatinine Ratio 65.3 H, Glucose 223 H, Calcium 8.5, Total Bilirubin 0.80, AST 8 L, ALT 28, Alkaline Phosphatase 84, Total Protein 5.4 L, Albumin 2.4 L, Globulin 3.0, Albumin/Globulin Ratio 0.8 L 09/18/21 08:01: POC Glucose 267 H Micro: Microbiology 08/29/21 12:00 Fluid - Other Acid Fast Bacilli Smear - Final 08/29/21 12:00 Wash - Right Middle Lobe Gram Stain - Final 08/29/21 12:00 Wash - Right Middle Lobe Respiratory Culture - Final Presumptive C albicans 08/29/21 12:00 Wash - Other Gram Stain - Final 08/29/21 12:00 Wash - Other Respiratory Culture - Final Presumptive C albicans 08/27/21 00:30 Blood Culture (Wb) - Left Hand Blood Culture - Final No growth in 5 days. 08/26/21 00:30 Blood Culture (Wb) - Anticubital Right Blood Culture - Final No growth in 5 days. 08/28/21 18:45 Sputum, Expectorated/Coughed Gram Stain - Final 08/28/21 18:45 Sputum, Expectorated/Coughed Respiratory Culture - Final 08/27/21 16:10 Sputum, Expectorated/Coughed Gram Stain - Final 08/27/21 16:10 Sputum, Expectorated/Coughed Respiratory Culture - Final 08/27/21 10:55 Sputum, Expectorated/Coughed Gram Stain - Final 08/27/21 10:55 Sputum, Expectorated/Coughed Respiratory Culture - Final 08/26/21 Unknown Urine, Clean Catch Legionella Antigen - Final 08/26/21 Unknown Urine, Clean Catch Streptococcus pneumoniae Antigen (M - Final 08/27/21 02:15 Mucosa - Nasopharyngeal Respiratory Panel (PCR) - Final 08/27/21 00:20 Nasal Secretion SARS-CoV-2 Antigen (Rapid) - Final Physical Exam Const alert, oriented x3 and no apparent distress General Appearance: cooperative, well kempt and well developed Orientation / Consciousness: awake, oriented to person, oriented to place and oriented to time Exam Limitations: no limitations HEENT normocephalic, head/scalp atraumatic, moist oral mucous membranes and oropharynx normal Head and Scalp: normocephalic Eyes PERRL, EOMs intact bilaterally, conjunctivae normal and no scleral icterus Neck nuchal rigidity, no lymphadenopathy, supple, no JVD, thyroid normal and no carotid bruits General: trachea midline Resp normal air movement Resp Narrative: diminished breath sounds bibasally, remains on AirVo. Tachypneic today Effort and Inspection: tachypneic Auscultation: diminished lung sounds diffuse Cardio regular rate, regular rhythm, S1 normal heart sound, S2 normal heart sound, no murmurs, no rub, no gallops and peripheral pulses 2+ throughout GI normal to inspection, nondistended, normoactive bowel sounds, soft to palpation, non-tender and non-distended Extremity normal to inspection, full ROM, normal capillary refill and no clubbing, cyanosis or edema General Extremity: no tenderness to palpation of joints or extremities Skin no rashes or lesions noted General Skin Exam: no breakdown and turgor normal Lesions: no lesions Rashes: no rashes Neuro oriented x3, CN's II-XII intact bilaterally, moves all extremities, no focal motor deficits, no sensory deficits noted and gait normal Sensorium / Orientation: awake and alert Speech: speech normal Psych thought process normal, cooperative and affect normal Appearance: appropriate Assessment & Plan Assessment/Plan (1) Acute on chronic respiratory failure with hypoxemia: (2) Multifocal pneumonia: PLAN: #Acute on chronic hypoxic respiratory failure * remains on AirVO * now off antibiotics; on IV voriconazole and steroids. * being diuresed as needed to help maintain euvolemic status * patient has not really improved much. He had bronchoscopy and broncheoalveolar lavage and samples sent for cultures. FLuid cytology consistent with Aspergillus * pulmonology on board. * #Nonsustained Vtach * cardiology on board. Was thought this could be due to ventricular pacing rather, after his defibrillator was interrogated. * has beeen stable, this hasnt recurred * #Pulmonary hypertension * exact type is not clear * repeat 2D echo shows normal LV size, and EF of 65%, with PA systolic pressure of 58mmhb. * will need a right heart cath eventually. * diurese as needed. * #History of rheumatoid arthritis: Stable #Right lung nodule * as per CT scan findings. * will need follow up CT scan in 6 months to follow nodule * #Afib: on cardizem. On aspirin. #Hyperlipidemia: on statin #Hypertension: On lisinopril as well as Cardizem #CAD s/p stent: On statin and aspirin DVT prophylaxis: now on lovenox. Disposition: Patient accepted at [facility]. Still awaiting a bed. Charges/Coding Visit Charges Inpatient E&M: 19995 Subs Hosp L2
[2021-09-18] MEDS: CHLORHEXIDINE GLUC 2% CLOTH 1 EACH TOWELETTE TOPICAL (10:59)
[2021-09-18 11:05] LABS: Bedside Glucose 393 mg/dL (70-110)
[2021-09-18] MEDS: Senna Tablet 2 TABLET PO (13:41)
[2021-09-18 15:26] LABS: Bedside Glucose 244 mg/dL (70-110)
[2021-09-18] MEDS: Atorvastatin Calcium 20 MG Tablet PO (21:01)
[2021-09-18] MEDS: MELATONIN 10 MG TABLET PO (21:14)
[2021-09-19] VITALS (38 sets, daily range): BP systolic 83–132; BP diastolic 51–86; PULSE 63–88; RESP 19–28; TEMP 35.9–36.6; O2SAT 89–100
[2021-09-19] MEDS: guaiFENesin/Codeine 5 ML UDC PO ×2 (03:20→21:31)
[2021-09-19 03:31] LABS: Bedside Glucose 365 mg/dL (70-110)
[2021-09-19 06:03] LABS: Absolute Lymphocyte Count 0.47 X10^3/uL (0.83-4.51); Absolute Neutrophil Count 7.5 X10^3/uL (2.0-7.7); Basophil# 0.01 X10^3/uL; Basophil% 0.1 % (0-1); Hematocrit 34.4 % (40-54); Hemoglobin 10.6 g/dL (13.0-16.5); Lymphocyte # 0.47 X10^3/ul (0.83-4.51); Lymphocyte % 5.5 % (19-41); Mean Corp Hgb Conc 30.8 g/dL (32-36); Mean Corpuscular Hgb 26.8 pg (27.0-32.0); Mean Corpuscular Volume 86.9 fL (80-94); Mean Platelet Vol. 12.6 fl (6.2-12.0); Monocyte# 0.51 X10^3/uL; Monocyte% 5.9 % (0-10); NRBC Flagged by Analyzer 0 % (0-5); Neutrophil # 7.46 X10^3/uL (2.7-7.7); Neutrophil % 86.8 % (47-70); POSITIVE DIFFERENTIAL YES; Platelet Count 261 K/mm3 (150-450); RBC Distribution Width CV 19.2 % (11.6-14.6); RBC Distribution Width SD 59.7 fl (35.1-43.9); Red Blood Count 3.96 M/mm3 (4.6-6.2); White Blood Count 8.6 K/mm3 (4.4-11.0)
[2021-09-19 06:14] LABS: Anion Gap 5 (5-15); BUN 42 mg/dL (7-18); BUN/Creat Ratio 73.4 RATIO (10-20); Calcium,Total 8.5 mg/dL (8.5-10.1); Chloride 98 mmol/L (98-107); Creatinine, Serum 0.57 mg/dL (0.70-1.30); EST Glomerular Filtration Rate 155 mL/min (>60); Est Glom Filt Rate - Afr Amer 187 mL/min (>60); Glucose 170 mg/dL (74-106); Potassium 4.9 mmol/L (3.5-5.1); Sodium Level 134 mmol/L (136-145)
[2021-09-19 06:24] LABS: Differential Indicated SCAN CRITERIA MET
--- NOTE | 2021-09-19 06:55 | PN.CC_ITS ---
Assessment & Plan Assessment/Plan (1) Acute on chronic respiratory failure with hypoxemia: PLAN: RECOMMENDATIONS: 1. Continue to wean FiO2 as tolerated for saturations greater than 90%. 2. Continue voriconazole. 3. Transition to p.o. steroids 4. Continue IV Lasix as tolerated by hemodynamics and renal function. Decrease Lasix to once daily. 5. Encourage incentive spirometer use and mobilize patient as tolerated. 6. Plan for transfer to tertiary care facility when bed is available. IMPRESSIONS: 1. Acute on chronic hypoxemic respiratory failure The patient does have a baseline oxygen requirement of 3 L/min. He has a history of rheumatoid associated interstitial lung disease and was previously on immunosuppression, up until his discharge from the hospital in June. The patient has been hospitalized several times over the last couple months, first due to COVID-19 pneumonia and more recently as a consequence of bacterial pneumonia. His CT findings noted on presentation were nonspecific. Therefore, the patient underwent bronchoscopy on August 29 with BAL performed bilaterally. Fluid cytology revealed fungal organisms consistent with Aspergillus. The patient today has been treated with voriconazole, empiric antimicrobials, aggressive diuresis and IV steroids. Despite the aforementioned, his res piratory status is not improved. Repeat CTA chest on September 12 again demonstrated no evidence for pulmonary embolism. He does appear to have progressive interstitial lung disease, which is still of unclear etiology, but could certainly be related to his underlying rheumatologic disease and/or frank perimposed fibrosis from his recent Covid infection. At this time, given the patient's age and prior functional status, I would recommend a more aggressive approach including transfer to a tertiary care facility to be considered for potential VATS biopsy and transplant consideration. Will transition to p.o. steroids. 2. History of mixed obstructive/restrictive ventilatory impair ment/rheumatoid arthritis/hypertension/hyperlipidemia/pulmonary hypertension Complicates care, management, recovery and prognosis. Continue home medications as indicated. Hyperglycemia likely secondary to steroids. Basal insulin will be added. Subjective Subjective Patient did okay overnight. Patient not reporting a change in respiratory symptoms, but does feel significantly fatigued compared to previous. Nursing is reporting the patient is requiring assistance of 1. Patient reports marginal appetite. Objective Data Objective Data Vital Signs: Vital Signs Temp Pulse Resp BP Pulse Ox 36.2 C L 69 21 H 105/72 95 09/19/21 04:00 09/19/21 06:00 09/19/21 06:00 09/19/21 06:00 09/19/21 06:00 Oxygen Flow Rate (L/min) 50 Oxygen Delivery Method Airvo Weight: 76.1 kg Body Mass Index (BMI) 28.5 Intake & Output: Intake and Output for Last 24 Hours 09/17/21 09/18/21 09/19/21 23:59 23:59 23:59 Intake Total 550 / 670 800 / 800 Output Total 1450 / 2050 1600 / 1750 400 / 400 Balance -900 / -1380 -800 / -950 -400 / -400 Medical Nutrition Assessment Dietitian: Malnutrition Criteria Met Start: 09/18/21 10:37 Freq: Status: Active Protocol: Document 09/18/21 10:37 RMA (Rec: 09/18/21 10:37 RMA [id number]) Nutrition Malnutrition Evidence of Malnutrition Exists Yes Malnutrition (severe): Acute Illness/Injury Evidenced By Suboptimal Energy Intake ( Severe),Weight Loss (Severe) Intake Problem Inadequate Oral Intake Etiology r/t decreased appetite, resp. 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 failure Signs/Symptoms as evidenced by 10Kg/12% wt loss < 1 month. Status Active Problem Altered Nutrient-Related Laboratory Values Etiology related to steroid administration Signs/Symptoms as evidenced by glucose 227 Status Active Problem Recommendation Dietitian Recommendations/Changes Continue regular diet with 2% milk TID at meals and fortified foods when possible. Pt is refusing ensure supplements but, will offer again if PO does not improve at meals and weight continues to decline. Blood glucose very high, restrict carbohydrates as intake improves at meals. Lab / Micro Data Result Diagrams: 09/19/21 05:20 09/19/21 05:20 Labs: Laboratory Results - last 24 hr 09/18/21 08:01: POC Glucose 267 H 09/18/21 10:57: POC Glucose 393 H 09/18/21 15:18: POC Glucose 244 H 09/18/21 21:01: POC Glucose 365 H 09/19/21 05:20: WBC 8.6, RBC 3.96 L, Hgb 10.6 L, Hct 34.4 L, MCV 86.9, MCH 26.8 L, MCHC 30.8 L, RDW Std Deviation 59.7 H, RDW Coeff of Cheikh 19.2 H, Plt Count 261, MPV 12.6 H, Immature Gran % (Auto) 1.700 H, Neut % (Auto) 86.8 H, Lymph % (Auto) 5.5 L, [place] % (Auto) 5.9, Eos % (Auto) 0.0, Baso % (Auto) 0.1, Absolute Neuts (auto) 7.5, Absolute Lymphs (auto) 0.47 L, Nucleated RBC % 0 09/19/21 05:20: Sodium 134 L, Potassium 4.9, Chloride 98, Carbon Dioxide 31.0, Anion Gap 5, BUN 42 H, Creatinine 0.57 L, Estim Creat Clear Calc 135.00, Est GFR (MDRD) Af Amer 187, Est GFR (MDRD) Non-Af 155, BUN/Creatinine Ratio 73.4 H, Glucose 170 H, Calcium 8.5 Micro: Microbiology 08/29/21 12:00 Fluid - Other Acid Fast Bacilli Smear - Final 08/29/21 12:00 Wash - Right Middle Lobe Gram Stain - Final 08/29/21 12:00 Wash - Right Middle Lobe Respiratory Culture - Final Presumptive C albicans 08/29/21 12:00 Wash - Other Gram Stain - Final 08/29/21 12:00 Wash - Other Respiratory Culture - Final Presumptive C albicans 08/27/21 00:30 Blood Culture (Wb) - Left Hand Blood Culture - Final No growth in 5 days. 08/26/21 00:30 Blood Culture (Wb) - Anticubital Right Blood Culture - Final No growth in 5 days. 08/28/21 18:45 Sputum, Expectorated/Coughed Gram Stain - Final 08/28/21 18:45 Sputum, Expectorated/Coughed Respiratory Culture - Final 08/27/21 16:10 Sputum, Expectorated/Coughed Gram Stain - Final 08/27/21 16:10 Sputum, Expectorated/Coughed Respiratory Culture - Final 08/27/21 10:55 Sputum, Expectorated/Coughed Gram Stain - Final 08/27/21 10:55 Sputum, Expectorated/Coughed Respiratory Culture - Final 08/26/21 Unknown Urine, Clean Catch Legionella Antigen - Final 08/26/21 Unknown Urine, Clean Catch Streptococcus pneumoniae Antigen (M - Final 08/27/21 02:15 Mucosa - Nasopharyngeal Respiratory Panel (PCR) - Final 08/27/21 00:20 Nasal Secretion SARS-CoV-2 Antigen (Rapid) - Final Physical Exam Const alert and no apparent distress Constitutional Narrative: Sitting upright in bed, currently tolerating Airvo heated high flow oxygen. General Appearance: cooperative HEENT normocephalic and head/scalp atraumatic Eyes PERRL, EOMs intact bilaterally and conjunctivae normal Neck supple General: trachea midline Chest inspection of chest normal Resp Effort and Inspection: tachypneic Auscultation: diminished lung sounds; Negative for rales, rhonchi or wheezes Cardio regular rate and regular rhythm GI normal to inspection, nondistended, normoactive bowel sounds Extremity no clubbing, cyanosis or edema Skin no rashes or lesions noted Neuro CN's II-XII intact bilaterally, moves all extremities and no focal motor deficits Psych cooperative and affect normal Charges/Coding Visit Charges Inpatient E&M: 37997 Subs Hosp L2
[2021-09-19 07:25] LABS: Anisocytosis 1+; Hypochromasia 1+; Ovalocyte 1+; Platelet Estimate A (ADEQ)
[2021-09-19] MEDS: Insulin Lispro 100 UNIT/ML INSULN.PEN SC ×4 (08:32→21:32)
[2021-09-19 08:40] LABS: Bedside Glucose 178 mg/dL (70-110)
[2021-09-19] MEDS: predniSONE 20 MG Tablet 40 MG PO (09:19)
[2021-09-19] MEDS: Enoxaparin 40 MG/0.4 ML Syringe SC (09:20)
[2021-09-19] MEDS: Furosemide 40 MG/4 ML Vial IV (09:21)
[2021-09-19] MEDS: dilTIAZem CD 120 MG Capsule PO (09:21)
[2021-09-19] MEDS: Voriconazole 200 MG Tablet 300 MG PO ×2 (09:21→21:36)
[2021-09-19] MEDS: Potassium Chloride Oral Tablet 20 MEQ PO ×2 (09:21→16:25)
[2021-09-19] MEDS: Lisinopril 20 MG Tablet PO (09:21)
[2021-09-19] MEDS: Aspirin E.C. 81 MG Tablet PO (09:21)
--- NOTE | 2021-09-19 09:59 | PCM.PN.HOSP ---
Subjective Subjective Doing well, no issues overnight. Feels very weak Objective Data Objective Data Vital Signs: Vital Signs Temp Pulse Resp BP Pulse Ox 96.9 F L 84 27 H 111/72 91 09/19/21 08:00 09/19/21 09:00 09/19/21 09:00 09/19/21 09:00 09/19/21 09:00 Oxygen Flow Rate (L/min) 50 Oxygen Delivery Method Airvo Weight: 167 lb 12.348 oz Body Mass Index (BMI) 28.5 Intake & Output: Intake and Output for Last 24 Hours 09/18/21 09/19/21 09/20/21 03:59 03:59 03:59 Intake Total 420 / 420 680 / 680 Output Total 1650 / 1650 1150 / 1150 250 / 250 Balance -1230 / -1230 -470 / -470 -250 / -250 Medical Nutrition Assessment Dietitian: Malnutrition Criteria Met Start: 09/18/21 10:37 Freq: Status: Active Protocol: Document 09/18/21 10:37 RMA (Rec: 09/18/21 10:37 RMA [id number]) Nutrition Malnutrition Evidence of Malnutrition Exists Yes Malnutrition (severe): Acute Illness/Injury Evidenced By Suboptimal Energy Intake ( Severe),Weight Loss (Severe) Intake Problem Inadequate Oral Intake Etiology r/t decreased appetite, resp. 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 failure Signs/Symptoms as evidenced by 10Kg/12% wt loss < 1 month. Status Active Problem Altered Nutrient-Related Laboratory Values Etiology related to steroid administration Signs/Symptoms as evidenced by glucose 227 Status Active Problem Recommendation Dietitian Recommendations/Changes Continue regular diet with 2% milk TID at meals and fortified foods when possible. Pt is refusing ensure supplements but, will offer again if PO does not improve at meals and weight continues to decline. Blood glucose very high, restrict carbohydrates as intake improves at meals. Lab / Micro Data Result Diagrams: 09/19/21 05:20 09/20/21 06:33 Labs: Laboratory Results - last 24 hr 09/18/21 10:57: POC Glucose 393 H 09/18/21 15:18: POC Glucose 244 H 09/18/21 21:01: POC Glucose 365 H 09/19/21 05:20: WBC 8.6, RBC 3.96 L, Hgb 10.6 L, Hct 34.4 L, MCV 86.9, MCH 26.8 L, MCHC 30.8 L, RDW Std Deviation 59.7 H, RDW Coeff of Cheikh 19.2 H, Plt Count 261, MPV 12.6 H, Immature Gran % (Auto) 1.700 H, Neut % (Auto) 86.8 H, Lymph % (Auto) 5.5 L, [place] % (Auto) 5.9, Eos % (Auto) 0.0, Baso % (Auto) 0.1, Absolute Neuts (auto) 7.5, Absolute Lymphs (auto) 0.47 L, Nucleated RBC % 0, Platelet Estimate A, Hypochromasia 1+, Anisocytosis 1+, Ovalocytes 1+ 09/19/21 05:20: Sodium 134 L, Potassium 4.9, Chloride 98, Carbon Dioxide 31.0, Anion Gap 5, BUN 42 H, Creatinine 0.57 L, Estim Creat Clear Calc 135.00, Est GFR (MDRD) Af Amer 187, Est GFR (MDRD) Non-Af 155, BUN/Creatinine Ratio 73.4 H, Glucose 170 H, Calcium 8.5 09/19/21 08:26: POC Glucose 178 H Micro: Microbiology 08/29/21 12:00 Fluid - Other Acid Fast Bacilli Smear - Final 08/29/21 12:00 Wash - Right Middle Lobe Gram Stain - Final 08/29/21 12:00 Wash - Right Middle Lobe Respiratory Culture - Final Presumptive C albicans 08/29/21 12:00 Wash - Other Gram Stain - Final 08/29/21 12:00 Wash - Other Respiratory Culture - Final Presumptive C albicans 08/27/21 00:30 Blood Culture (Wb) - Left Hand Blood Culture - Final No growth in 5 days. 08/26/21 00:30 Blood Culture (Wb) - Anticubital Right Blood Culture - Final No growth in 5 days. 08/28/21 18:45 Sputum, Expectorated/Coughed Gram Stain - Final 08/28/21 18:45 Sputum, Expectorated/Coughed Respiratory Culture - Final 08/27/21 16:10 Sputum, Expectorated/Coughed Gram Stain - Final 08/27/21 16:10 Sputum, Expectorated/Coughed Respiratory Culture - Final 08/27/21 10:55 Sputum, Expectorated/Coughed Gram Stain - Final 08/27/21 10:55 Sputum, Expectorated/Coughed Respiratory Culture - Final 08/26/21 Unknown Urine, Clean Catch Legionella Antigen - Final 08/26/21 Unknown Urine, Clean Catch Streptococcus pneumoniae Antigen (M - Final 08/27/21 02:15 Mucosa - Nasopharyngeal Respiratory Panel (PCR) - Final 08/27/21 00:20 Nasal Secretion SARS-CoV-2 Antigen (Rapid) - Final Physical Exam Const alert, oriented x3 and no apparent distress General Appearance: cooperative HEENT normocephalic Eyes PERRL, EOMs intact bilaterally and conjunctivae normal Neck supple and no JVD Resp normal respiratory effort, no retractions and no use of accessory muscles Auscultation: diminished lung sounds; Negative for crackles, rales, rhonchi or wheezes Cardio regular rate, regular rhythm, S1 normal heart sound, S2 normal heart sound and no murmurs GI soft to palpation, non-tender and non-distended; Negative for hepatosplenomegaly Extremity no clubbing, cyanosis or edema Skin no rashes or lesions noted Neuro no focal motor deficits and no sensory deficits noted Psych affect normal Appearance: appropriate Assessment & Plan Assessment/Plan (1) Acute on chronic respiratory failure with hypoxemia: (2) Multifocal pneumonia: PLAN: 1. Acute on chronic hypoxic respiratory failure secondary to interstitial lung disease as well as recent Covid and bilateral bacterial pneumonia as well as a new fungal pneumonia/right lung nodule -Continue with air Vo, that he now has fungal pneumonia ?Continue voriconazole -P.o. steroids ?Lasix as needed ?Awaiting transfer to a tertiary care center for VATS biopsy and a possible transplant consideration. -We will need outpatient follow-up with a CT scan for the right lung nodule 2. HTN/HLD/CAD is post stent/pulmonary hypertension/nonsustained V. tach -Blood pressure stable, continue with his home lisinopril and Cardizem -Continue with statin and aspirin ?Echo with an EF of 65% and a PA systolic pressure of 58 mmHg -The V. tach has not recurred, cardiology was consulted and felt that this was possibly due to ventricular pacing rather than actual nonsustained V. tach. Defibrillator has been interrogated, will continue to monitor 3. History of rheumatoid arthritis ?Rheumatoid arthritis is likely what led to his interstitial lung disease DVT: Leny Charges/Coding Visit Charges Inpatient E&M: 65014 Subs Hosp L2
[2021-09-19 11:15] LABS: Bedside Glucose 359 mg/dL (70-110)
[2021-09-19] MEDS: Senna Tablet 2 TABLET PO (16:22)
[2021-09-19 16:31] LABS: Bedside Glucose 209 mg/dL (70-110)
[2021-09-19] MEDS: Acetaminophen 325 MG Tablet 650 MG PO (21:31)
[2021-09-19] MEDS: Atorvastatin Calcium 20 MG Tablet PO (21:31)
[2021-09-19] MEDS: MELATONIN 10 MG TABLET PO (21:37)
[2021-09-19 21:45] LABS: Bedside Glucose 165 mg/dL (70-110)
[2021-09-20] VITALS (21 sets, daily range): BP systolic 100–137; BP diastolic 59–82; PULSE 63–87; RESP 15–20; TEMP 36.4–36.7; O2SAT 89–95
[2021-09-20] MEDS: guaiFENesin/Codeine 5 ML UDC PO ×2 (04:45→18:20)
[2021-09-20 06:55] LABS: Bedside Glucose 99 mg/dL (70-110)
[2021-09-20 08:28] LABS: Anion Gap 6 (5-15); BUN 46 mg/dL (7-18); BUN/Creat Ratio 74.9 RATIO (10-20); Calcium,Total 8.8 mg/dL (8.5-10.1); Chloride 98 mmol/L (98-107); Creatinine, Serum 0.61 mg/dL (0.70-1.30); EST Glomerular Filtration Rate 143 mL/min (>60); Est Glom Filt Rate - Afr Amer 172 mL/min (>60); Estimated Creatinine Clearance 126.15 ml/min; Glucose 90 mg/dL (74-106); Potassium 4.5 mmol/L (3.5-5.1); Sodium Level 135 mmol/L (136-145)
[2021-09-20] MEDS: Lisinopril 20 MG Tablet PO (08:45)
[2021-09-20] MEDS: Potassium Chloride Oral Tablet 20 MEQ PO ×2 (08:46→18:20)
[2021-09-20] MEDS: dilTIAZem CD 120 MG Capsule PO (08:46)
[2021-09-20] MEDS: Furosemide 40 MG/4 ML Vial IV (08:46)
[2021-09-20] MEDS: predniSONE 20 MG Tablet 40 MG PO (08:46)
[2021-09-20] MEDS: Aspirin E.C. 81 MG Tablet PO (08:46)
[2021-09-20] MEDS: Voriconazole 200 MG Tablet 300 MG PO ×2 (08:47→21:30)
[2021-09-20] MEDS: 0.9% Saline Lock 10 ML Syringe IV (08:47)
[2021-09-20] MEDS: Enoxaparin 40 MG/0.4 ML Syringe SC (08:48)
--- NOTE | 2021-09-20 09:03 | CASEMGMT ---
Per Edy, studio operations engineer in charge, states they are now going to have re-eval which floor pt will go to and if they can even accept pt still at this time. Per Edy, they will be calling Dr. Ruffin for update and may need to re-consult their physician for pt since it's been about a week waiting on bed. Duane EVANGELISTA CM
--- NOTE | 2021-09-20 09:53 | PCM.PN.INT ---
Assessment & Plan Assessment/Plan (1) Acute on chronic respiratory failure with hypoxemia: PLAN: RECOMMENDATIONS: 1. Continue to wean FiO2 as tolerated for saturations greater than 90%. 2. Continue voriconazole per ID. 3. Transition to p.o. steroids 4. Continue IV Lasix as tolerated by hemodynamics and renal function. 5. Encourage incentive spirometer use and mobilize patient as tolerated. 6. Plan for transfer to tertiary care facility when bed is available. IMPRESSIONS: 1. Acute on chronic hypoxemic respiratory failure The patient does have a baseline oxygen requirement of 3 L/min. He has a history of rheumatoid associated interstitial lung disease and was previously on immunosuppression, up until his discharge from the hospital in June. The patient has been hospitalized several times over the last couple months, first due to COVID-19 pneumonia and more recently as a consequence of bacterial pneumonia. His CT findings noted on presentation were nonspecific. Therefore, the patient underwent bronchoscopy on August 29 with BAL performed bilaterally. Fluid cytology revealed fungal organisms consistent with Aspergillus. The patient today has been treated with voriconazole, empiric antimicrobials, aggressive diuresis and IV steroids. Despite the aforementioned, his respiratory status is not improved. Repeat CTA chest on September 12 again demonstrated no evidence for pulmonary embolism. He does appear to have progressive interstitial lung disease, which is still of unclear etiology, but could certainly be related to his underlying rheumatologic disease and/or superimposed fibrosis from his recent Covid infection. At this time, given the patient's age and prior functional status, I would recommend a more aggressive approach including transfer to a tertiary care facility to be considered for potential VATS biopsy and transplant consideration. Patient tolerating transition to p.o. steroids. 2. History of mixed obstructive/restrictive ventilatory impairment/rheumatoid arthritis/hypertension/hyperlipidemia/pulmonary hypertension Complicates care, management, recovery and prognosis. Continue home medications as indicated. Hyperglycemia likely secondary to steroids. Basal insulin added. Subjective Subjective The patient did well overnight. Patient was able to be moved from the intensive care unit and no issues have been reported. Patient states that he had some sore throat, so was switched to a Ventimask. Patient has been tolerating this well. Patient denies any current chest pain or abdominal pain. No nausea or vomiting have been reported. Patient is reporting a cough productive of frothy white sputum. Objective Data Objective Data Vital Signs: Vital Signs Temp Pulse Resp BP Pulse Ox 36.6 C 67 18 119/62 91 09/20/21 08:42 09/20/21 08:42 09/20/21 08:42 09/20/21 08:42 09/20/21 08:42 Oxygen Flow Rate (L/min) 15 Oxygen Delivery Method Venturi Mask Weight: 76.4 kg Body Mass Index (BMI) 28.5 Intake & Output: Intake and Output for Last 24 Hours 09/18/21 09/19/21 09/20/21 23:59 23:59 23:59 Intake Total 800 / 800 490 / 490 Output Total 1600 / 1750 1400 / 1400 300 / 300 Balance -800 / -950 -910 / -910 -300 / -300 Medical Nutrition Assessment Dietitian: Malnutrition Criteria Met Start: 09/18/21 10:37 Freq: Status: Active Protocol: Document 09/18/21 10:37 RMA (Rec: 09/18/21 10:37 RMA [id number]) Nutrition Malnutrition Evidence of Malnutrition Exists Yes Malnutrition (severe): Acute Illness/Injury Evidenced By Suboptimal Energy Intake ( Severe),Weight Loss (Severe) Intake Problem Inadequate Oral Intake Etiology r/t decreased appetite, resp. 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 failure Signs/Symptoms as evidenced by 10Kg/12% wt loss < 1 month. Status Active Problem Altered Nutrient-Related Laboratory Values Etiology related to steroid administration Signs/Symptoms as evidenced by glucose 227 Status Active Problem Recommendation Dietitian Recommendations/Changes Continue regular diet with 2% milk TID at meals and fortified foods when possible. Pt is refusing ensure supplements but, will offer again if PO does not improve at meals and weight continues to decline. Blood glucose very high, restrict carbohydrates as intake improves at meals. Lab / Micro Data Result Diagrams: 09/19/21 05:20 09/20/21 06:33 Labs: Laboratory Results - last 24 hr 09/19/21 11:08: POC Glucose 359 H 09/19/21 16:22: POC Glucose 209 H 09/19/21 21:30: POC Glucose 165 H 09/20/21 06:33: Sodium 135 L, Potassium 4.5, Chloride 98, Carbon Dioxide 31.0, Anion Gap 6, BUN 46 H, Creatinine 0.61 L, Estim Creat Clear Calc 126.15, Est GFR (MDRD) Af Amer 172, Est GFR (MDRD) Non-Af 143, BUN/Creatinine Ratio 74.9 H, Glucose 90, Calcium 8.8 09/20/21 06:43: POC Glucose 99 Micro: Microbiology 08/29/21 12:00 Fluid - Other Acid Fast Bacilli Smear - Final 08/29/21 12:00 Wash - Right Middle Lobe Gram Stain - Final 08/29/21 12:00 Wash - Right Middle Lobe Respiratory Culture - Final Presumptive C albicans 08/29/21 12:00 Wash - Other Gram Stain - Final 08/29/21 12:00 Wash - Other Respiratory Culture - Final Presumptive C albicans 08/27/21 00:30 Blood Culture (Wb) - Left Hand Blood Culture - Final No growth in 5 days. 08/26/21 00:30 Blood Culture (Wb) - Anticubital Right Blood Culture - Final No growth in 5 days. 08/28/21 18:45 Sputum, Expectorated/Coughed Gram Stain - Final 08/28/21 18:45 Sputum, Expectorated/Coughed Respiratory Culture - Final 08/27/21 16:10 Sputum, Expectorated/Coughed Gram Stain - Final 08/27/21 16:10 Sputum, Expectorated/Coughed Respiratory Culture - Final 08/27/21 10:55 Sputum, Expectorated/Coughed Gram Stain - Final 08/27/21 10:55 Sputum, Expectorated/Coughed Respiratory Culture - Final 08/26/21 Unknown Urine, Clean Catch Legionella Antigen - Final 08/26/21 Unknown Urine, Clean Catch Streptococcus pneumoniae Antigen (M - Final 08/27/21 02:15 Mucosa - Nasopharyngeal Respiratory Panel (PCR) - Final 08/27/21 00:20 Nasal Secretion SARS-CoV-2 Antigen (Rapid) - Final Physical Exam Const alert and no apparent distress Constitutional Narrative: Sitting upright in bed, currently tolerating Ventimask General Appearance: cooperative HEENT normocephalic and head/scalp atraumatic Eyes PERRL, EOMs intact bilaterally and conjunctivae normal Neck supple General: trachea midline Chest inspection of chest normal Resp Effort and Inspection: tachypneic Auscultation: wheezes expiratory wheezes and throughout and diminished lung sounds; Negative for rales or rhonchi Cardio regular rate and regular rhythm GI normal to inspection, nondistended, normoactive bowel sounds Extremity no clubbing, cyanosis or edema Skin no rashes or lesions noted Neuro CN's II-XII intact bilaterally, moves all extremities and no focal motor deficits Psych cooperative and affect normal Charges/Coding Visit Charges Inpatient E&M: 14457 Subs Hosp L2
[2021-09-20 12:05] LABS: Bedside Glucose 190 mg/dL (70-110)
[2021-09-20] MEDS: Insulin Lispro 100 UNIT/ML INSULN.PEN SC ×3 (12:52→21:31)
--- NOTE | 2021-09-20 13:11 | PCM.PN.HOSP ---
Subjective Subjective Still awaiting transfer to a tertiary care center for VATS. Continues to feel weak but otherwise seems to be doing better from a respiratory status Objective Data Objective Data Vital Signs: Vital Signs Temp Pulse Resp BP Pulse Ox 97.8 F 67 18 119/62 89 09/20/21 08:42 09/20/21 08:42 09/20/21 08:42 09/20/21 08:42 09/20/21 09:36 Oxygen Flow Rate (L/min) 14 Oxygen Delivery Method Venturi Mask Weight: 168 lb 6.931 oz Body Mass Index (BMI) 28.5 Intake & Output: Intake and Output for Last 24 Hours 09/19/21 09/20/21 09/21/21 03:59 03:59 03:59 Intake Total 680 / 680 490 / 490 Output Total 1150 / 1150 1250 / 1250 300 / 300 Balance -470 / -470 -760 / -760 -300 / -300 Medical Nutrition Assessment Dietitian: Malnutrition Criteria Met Start: 09/18/21 10:37 Freq: Status: Active Protocol: Document 09/18/21 10:37 RMA (Rec: 09/18/21 10:37 RMA [id number]) Nutrition Malnutrition Evidence of Malnutrition Exists Yes Malnutrition (severe): Acute Illness/Injury Evidenced By Suboptimal Energy Intake ( Severe),Weight Loss (Severe) Intake Problem Inadequate Oral Intake Etiology r/t decreased appetite, resp. 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 failure Signs/Symptoms as evidenced by 10Kg/12% wt loss < 1 month. Status Active Problem Altered Nutrient-Related Laboratory Values Etiology related to steroid administration Signs/Symptoms as evidenced by glucose 227 Status Active Problem Recommendation Dietitian Recommendations/Changes Continue regular diet with 2% milk TID at meals and fortified foods when possible. Pt is refusing ensure supplements but, will offer again if PO does not improve at meals and weight continues to decline. Blood glucose very high, restrict carbohydrates as intake improves at meals. Lab / Micro Data Result Diagrams: 09/19/21 05:20 09/20/21 06:33 Labs: Laboratory Results - last 24 hr 09/19/21 16:22: POC Glucose 209 H 09/19/21 21:30: POC Glucose 165 H 09/20/21 06:33: Sodium 135 L, Potassium 4.5, Chloride 98, Carbon Dioxide 31.0, Anion Gap 6, BUN 46 H, Creatinine 0.61 L, Estim Creat Clear Calc 126.15, Est GFR (MDRD) Af Amer 172, Est GFR (MDRD) Non-Af 143, BUN/Creatinine Ratio 74.9 H, Glucose 90, Calcium 8.8 09/20/21 06:43: POC Glucose 99 09/20/21 11:58: POC Glucose 190 H Micro: Microbiology 08/29/21 12:00 Fluid - Other Acid Fast Bacilli Smear - Final 08/29/21 12:00 Wash - Right Middle Lobe Gram Stain - Final 08/29/21 12:00 Wash - Right Middle Lobe Respiratory Culture - Final Presumptive C albicans 08/29/21 12:00 Wash - Other Gram Stain - Final 08/29/21 12:00 Wash - Other Respiratory Culture - Final Presumptive C albicans 08/27/21 00:30 Blood Culture (Wb) - Left Hand Blood Culture - Final No growth in 5 days. 08/26/21 00:30 Blood Culture (Wb) - Anticubital Right Blood Culture - Final No growth in 5 days. 08/28/21 18:45 Sputum, Expectorated/Coughed Gram Stain - Final 08/28/21 18:45 Sputum, Expectorated/Coughed Respiratory Culture - Final 08/27/21 16:10 Sputum, Expectorated/Coughed Gram Stain - Final 08/27/21 16:10 Sputum, Expectorated/Coughed Respiratory Culture - Final 08/27/21 10:55 Sputum, Expectorated/Coughed Gram Stain - Final 08/27/21 10:55 Sputum, Expectorated/Coughed Respiratory Culture - Final 08/26/21 Unknown Urine, Clean Catch Legionella Antigen - Final 08/26/21 Unknown Urine, Clean Catch Streptococcus pneumoniae Antigen (M - Final 08/27/21 02:15 Mucosa - Nasopharyngeal Respiratory Panel (PCR) - Final 08/27/21 00:20 Nasal Secretion SARS-CoV-2 Antigen (Rapid) - Final Physical Exam Const alert, oriented x3 and no apparent distress General Appearance: cooperative HEENT normocephalic and moist oral mucous membranes Eyes PERRL, EOMs intact bilaterally and conjunctivae normal Neck supple and no JVD Resp normal respiratory effort, no retractions and no use of accessory muscles Auscultation: diminished lung sounds diffuse; Negative for crackles, rales, rhonchi or wheezes Cardio regular rate, regular rhythm, S1 normal heart sound, S2 normal heart sound and no murmurs GI soft to palpation, non-tender and non-distended; Negative for hepatosplenomegaly Extremity no clubbing, cyanosis or edema Skin no rashes or lesions noted Neuro no focal motor deficits and no sensory deficits noted Psych affect normal Appearance: appropriate Assessment & Plan Assessment/Plan (1) Acute on chronic respiratory failure with hypoxemia: (2) Multifocal pneumonia: PLAN: 1. Acute on chronic hypoxic respiratory failure secondary to interstitial lung disease as well as recent Covid and bilateral bacterial pneumonia as well as a new fungal pneumonia/right lung nodule -Continue with Venti mask, that he now has fungal pneumonia ?Continue voriconazole -P.o. steroids ?Lasix as needed ?Awaiting transfer to a tertiary care center for VATS biopsy and a possible transplant consideration. -We will need outpatient follow-up with a CT scan for the right lung nodule 2. HTN/HLD/CAD is post stent/pulmonary hypertension/nonsustained V. tach -Blood pressure stable, continue with his home lisinopril and Cardizem -Continue with statin and aspirin ?Echo with an EF of 65% and a PA systolic pressure of 58 mmHg -The V. tach has not recurred, cardiology was consulted and felt that this was possibly due to ventricular pacing rather than actual nonsustained V. tach. Defibrillator has been interrogated, will continue to monitor 3. History of rheumatoid arthritis ?Rheumatoid arthritis is likely what led to his interstitial lung disease DVT: Lovenox Charges/Coding Visit Charges Inpatient E&M: 36913 Subs Hosp L2
[2021-09-20 17:50] LABS: Bedside Glucose 246 mg/dL (70-110)
[2021-09-20] MEDS: Senna Tablet 2 TABLET PO (18:20)
[2021-09-20] MEDS: Atorvastatin Calcium 20 MG Tablet PO (21:31)
[2021-09-20] MEDS: MELATONIN 10 MG TABLET PO (21:31)
[2021-09-20 21:51] LABS: Bedside Glucose 216 mg/dL (70-110)
[2021-09-21] VITALS (13 sets, daily range): BP systolic 97–121; BP diastolic 51–68; PULSE 69–88; RESP 16–22; TEMP 36.4–36.7; O2SAT 90–96
--- NOTE | 2021-09-21 07:00 | NURSING ---
Patient BS 66 this am given orange juice rechecked BS 55 given another thing of orange juice will recheck again.
[2021-09-21 07:01] LABS: Bedside Glucose 66 mg/dL (70-110)
[2021-09-21 07:26] LABS: ALB/GLOB Ratio 0.6 RATIO (0.9-2.4); AST(SGOT) 17 U/L (15-37); Alanine Aminotransfer ALT/SGPT 31 U/L (16-61); Albumin, Serum 2.2 g/dL (3.2-5.0); Alkaline Phosphatase 77 U/L (45-117); Anion Gap 9 (5-15); BUN 41 mg/dL (7-18); BUN/Creat Ratio 98.1 RATIO (10-20); Calcium,Total 8.5 mg/dL (8.5-10.1); Chloride 99 mmol/L (98-107); Creatinine, Serum 0.42 mg/dL (0.70-1.30); EST Glomerular Filtration Rate 222 mL/min (>60); Est Glom Filt Rate - Afr Amer 269 mL/min (>60); Estimated Creatinine Clearance 183.21 ml/min; Globulin 3.4 g/dL (2.2-4.2); Glucose 61 mg/dL (74-106); Potassium 4.4 mmol/L (3.5-5.1); Protein, Total 5.6 g/dL (6.4-8.2); Sodium Level 132 mmol/L (136-145)
[2021-09-21 07:31] LABS: Bedside Glucose 101 mg/dL (70-110)
[2021-09-21] MEDS: Potassium Chloride Oral Tablet 20 MEQ PO ×2 (08:24→18:28)
[2021-09-21] MEDS: Aspirin E.C. 81 MG Tablet PO (08:24)
[2021-09-21] MEDS: predniSONE 20 MG Tablet 40 MG PO (08:24)
--- NOTE | 2021-09-21 10:37 | PN.HOSP_ITS ---
Subjective Subjective Remains unchanged waiting for a bed at a tertiary care center. Remains on 12 L Objective Data Objective Data Vital Signs: Vital Signs Temp Pulse Resp BP Pulse Ox 97.5 F L 77 18 121/66 H 93 09/21/21 03:53 09/21/21 07:26 09/21/21 03:53 09/21/21 03:53 09/21/21 03:53 Oxygen Flow Rate (L/min) 12 Oxygen Delivery Method Nasal Cannula Weight: 163 lb 9.328 oz Body Mass Index (BMI) 28.5 Intake & Output: Intake and Output for Last 24 Hours 09/20/21 09/21/21 09/22/21 03:59 03:59 03:59 Intake Total 490 / 490 1120 / 1120 Output Total 1250 / 1250 1525 / 1525 250 / 250 Balance -760 / -760 -405 / -405 -250 / -250 Medical Nutrition Assessment Dietitian: Malnutrition Criteria Met Start: 09/18/21 10:37 Freq: Status: Active Protocol: Document 09/18/21 10:37 RMA (Rec: 09/18/21 10:37 RMA [id number]) Nutrition Malnutrition Evidence of Malnutrition Exists Yes Malnutrition (severe): Acute Illness/Injury Evidenced By Suboptimal Energy Intake ( Severe),Weight Loss (Severe) Intake Problem Inadequate Oral Intake Etiology r/t decreased appetite, resp. 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 failure Signs/Symptoms as evidenced by 10Kg/12% wt loss < 1 month. Status Active Problem Altered Nutrient-Related Laboratory Values Etiology related to steroid administration Signs/Symptoms as evidenced by glucose 227 Status Active Problem Recommendation Dietitian Recommendations/Changes Continue regular diet with 2% milk TID at meals and fortified foods when possible. Pt is refusing ensure supplements but, will offer again if PO does not improve at meals and weight continues to decline. Blood glucose very high, restrict carbohydrates as intake improves at meals. Lab / Micro Data Result Diagrams: 09/19/21 05:20 09/21/21 06:21 Labs: Laboratory Results - last 24 hr 09/20/21 11:58: POC Glucose 190 H 09/20/21 17:40: POC Glucose 246 H 09/20/21 21:25: POC Glucose 216 H 09/21/21 06:21: Sodium 132 L, Potassium 4.4, Chloride 99, Carbon Dioxide 24.0, Anion Gap 9, BUN 41 H, Creatinine 0.42 L, Estim Creat Clear Calc 183.21, Est GFR (MDRD) Af Amer 269, Est GFR (MDRD) Non-Af 222, BUN/Creatinine Ratio 98.1 H, Glucose 61 L, Calcium 8.5, Total Bilirubin 0.80, AST 17, ALT 31, Alkaline Phosphatase 77, Total Protein 5.6 L, Albumin 2.2 L, Globulin 3.4, Albumin/Globulin Ratio 0.6 L 09/21/21 06:34: POC Glucose 66 L 09/21/21 07:25: POC Glucose 101 Micro: Microbiology 08/29/21 12:00 Fluid - Other Acid Fast Bacilli Smear - Final 08/29/21 12:00 Wash - Right Middle Lobe Gram Stain - Final 08/29/21 12:00 Wash - Right Middle Lobe Respiratory Culture - Final Presumptive C albicans 08/29/21 12:00 Wash - Other Gram Stain - Final 08/29/21 12:00 Wash - Other Respiratory Culture - Final Presumptive C albicans 08/27/21 00:30 Blood Culture (Wb) - Left Hand Blood Culture - Final No growth in 5 days. 08/26/21 00:30 Blood Culture (Wb) - Anticubital Right Blood Culture - Final No growth in 5 days. 08/28/21 18:45 Sputum, Expectorated/Coughed Gram Stain - Final 08/28/21 18:45 Sputum, Expectorated/Coughed Respiratory Culture - Final 08/27/21 16:10 Sputum, Expectorated/Coughed Gram Stain - Final 08/27/21 16:10 Sputum, Expectorated/Coughed Respiratory Culture - Final 08/27/21 10:55 Sputum, Expectorated/Coughed Gram Stain - Final 08/27/21 10:55 Sputum, Expectorated/Coughed Respiratory Culture - Final 08/26/21 Unknown Urine, Clean Catch Legionella Antigen - Final 08/26/21 Unknown Urine, Clean Catch Streptococcus pneumoniae Antigen (M - Final 08/27/21 02:15 Mucosa - Nasopharyngeal Respiratory Panel (PCR) - Final 08/27/21 00:20 Nasal Secretion SARS-CoV-2 Antigen (Rapid) - Final Physical Exam Const alert, oriented x3 and no apparent distress General Appearance: cooperative HEENT normocephalic and moist oral mucous membranes Eyes PERRL, EOMs intact bilaterally and conjunctivae normal Neck supple and no JVD Resp normal respiratory effort, no retractions and no use of accessory muscles Auscultation: diminished lung sounds diffuse; Negative for crackles, rales, rhonchi or wheezes Cardio regular rate, regular rhythm, S1 normal heart sound, S2 normal heart sound and no murmurs GI soft to palpation, non-tender and non-distended; Negative for hepatosplenomegaly Extremity no clubbing, cyanosis or edema Skin no rashes or lesions noted Neuro no focal motor deficits and no sensory deficits noted Psych affect normal Appearance: appropriate Assessment & Plan Assessment/Plan (1) Acute on chronic respiratory failure with hypoxemia: (2) Multifocal pneumonia: PLAN: 1. Acute on chronic hypoxic respiratory failure secondary to interstitial lung disease as well as recent Covid and bilateral bacterial pneumonia as well as a new fungal pneumonia/right lung nodule -Continue with Venti mask, that he now has fungal pneumonia ?Continue voriconazole -P.o. steroids ?Lasix as needed ?Awaiting transfer to a tertiary care center for VATS biopsy and a possible transplant consideration. -We will need outpatient follow-up with a CT scan for the right lung nodule 2. HTN/HLD/CAD is post stent/pulmonary hypertension/nonsustained V. tach -Blood pressure stable, continue with his home lisinopril and Cardizem -Continue with statin and aspirin ?Echo with an EF of 65% and a PA systolic pressure of 58 mmHg -The V. tach has not recurred, cardiology was consulted and felt that this was possibly due to ventricular pacing rather than actual nonsustained V. tach. Defibrillator has been interrogated, will continue to monitor 3. History of rheumatoid arthritis ?Rheumatoid arthritis is likely what led to his interstitial lung disease DVT: Lovenox Charges/Coding Visit Charges Inpatient E&M: 90952 Subs Hosp L2
[2021-09-21 11:26] LABS: Bedside Glucose 172 mg/dL (70-110)
[2021-09-21] MEDS: Lisinopril 20 MG Tablet PO (11:32)
[2021-09-21] MEDS: dilTIAZem CD 120 MG Capsule PO (11:32)
[2021-09-21] MEDS: Furosemide 40 MG/4 ML Vial IV (11:32)
[2021-09-21] MEDS: Voriconazole 200 MG Tablet 300 MG PO ×2 (11:32→21:55)
[2021-09-21] MEDS: Enoxaparin 40 MG/0.4 ML Syringe SC (11:33)
[2021-09-21] MEDS: Insulin Lispro 100 UNIT/ML INSULN.PEN SC ×3 (11:34→21:52)
[2021-09-21 11:41] LABS: Bedside Glucose 62 mg/dL (70-110)
[2021-09-21 11:41] LABS: Bedside Glucose 55 mg/dL (70-110)
--- NOTE | 2021-09-21 14:08 | PCM.PN.ID ---
Physical Exam Narrative Feeling a little better, no fever, no sputum, no n/v/d Const alert and no apparent distress General Appearance: cooperative Resp Resp Narrative: dull/rhonchi R base Cardio regular rate and regular rhythm GI normal to inspection, nondistended, normoactive bowel sounds Skin no rashes or lesions noted ID ID: Route of nutrition/ use of supplements: [] Nutritional Intake: [] IV Site: [] Gonzalez Catheter: [] Assessment & Plan Assessment/Plan (1) Acute on chronic respiratory failure with hypoxemia: (2) Multifocal pneumonia: PLAN: Concern for aspergillus on BAL staining. Fungal cx neg so far, some rare yeast on aerobic. Aspergillus Ab neg. CT neg for PE. Would be candidate for covid booster. Remains hypoxic but slowly improving. CT done. Cont po vori; pending level. Will follow
--- NOTE | 2021-09-21 15:00 | PCM.PN.INT ---
Assessment & Plan Assessment/Plan (1) Acute on chronic respiratory failure with hypoxemia: PLAN: RECOMMENDATIONS: 1. Continue to wean FiO2 as tolerated for saturations greater than 90%. 2. Continue voriconazole per ID. 3. Continue p.o. steroids. Discontinue Lantus 4. Continue IV Lasix as tolerated by hemodynamics and renal function. 5. Encourage incentive spirometer use and mobilize patient as tolerated. 6. Plan for transfer to tertiary care facility when bed is available. IMPRESSIONS: 1. Acute on chronic hypoxemic respiratory failure The patient does have a baseline oxygen requirement of 3 L/min. He has a history of rheumatoid associated interstitial lung disease and was previously on immunosuppression, up until his discharge from the hospital in June. The patient has been hospitalized several times over the last couple months, first due to COVID-19 pneumonia and more recently as a consequence of bacterial pneumonia. His CT findings noted on presentation were nonspecific. Therefore, the patient underwent bronchoscopy on August 29 with BAL performed bilaterally. Fluid cytology revealed fungal organisms consistent with Aspergillus. The patient today has been treated with voriconazole, empiric antimicrobials, aggressive diuresis and IV steroids. Despite the aforementioned, his respiratory status is not improved. Repeat CTA chest on September 12 again demonstrated no evidence for pulmonary embolism. He does appear to have progressive interstitial lung disease, which is still of unclear etiology, but could certainly be related to his underlying rheumatologic disease and/or superimposed fibrosis from his recent Covid infection. At this time, given the patient's age and prior functional status, I would recommend a more aggressive approach including transfer to a tertiary care facility to be considered for potential VATS biopsy and transplant consideration. Transfer to tertiary center has not been successful to this point. Oxygenation is slowly improving. If patient is able to make to 6 L, would suggest rehab placement with outpatient follow-up. 2. History of mixed obstructive/restrictive ventilatory impairment/rheumatoid arthritis/hypertension/hyperlipidemia/pulmonary hypertension Complicates care, management, recovery and prognosis. Continue home medications as indicated. Hyperglycemia likely secondary to steroids. Basal insulin added. Subjective Subjective Patient did okay overnight. Patient subjectively feels his breathing is slightly improved compared to previous. However, patient continues to report global weakness limiting his ability to get out of bed. Patient reports a marginal appetite. There has been no communication from tertiary center about being able to be accepted. Objective Data Objective Data Vital Signs: Vital Signs Temp Pulse Resp BP Pulse Ox 36.6 C 81 22 H 104/68 95 09/21/21 11:16 09/21/21 11:16 09/21/21 11:16 09/21/21 11:16 09/21/21 14:27 Oxygen Flow Rate (L/min) 13 Oxygen Delivery Method Nasal Cannula Weight: 74.2 kg Body Mass Index (BMI) 28.5 Intake & Output: Intake and Output for Last 24 Hours 09/19/21 09/20/21 09/21/21 23:59 23:59 23:59 Intake Total 490 / 490 1120 / 1120 Output Total 1400 / 1400 1525 / 1525 250 / 250 Balance -910 / -910 -405 / -405 -250 / -250 Medical Nutrition Assessment Dietitian: Malnutrition Criteria Met Start: 09/18/21 10:37 Freq: Status: Active Protocol: Document 09/18/21 10:37 RMA (Rec: 09/18/21 10:37 RMA [id number]) Nutrition Malnutrition Evidence of Malnutrition Exists Yes Malnutrition (severe): Acute Illness/Injury Evidenced By Suboptimal Energy Intake ( Severe),Weight Loss (Severe) Intake Problem Inadequate Oral Intake Etiology r/t decreased appetite, resp. 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 failure Signs/Symptoms as evidenced by 10Kg/12% wt loss < 1 month. Status Active Problem Altered Nutrient-Related Laboratory Values Etiology related to steroid administration Signs/Symptoms as evidenced by glucose 227 Status Active Problem Recommendation Dietitian Recommendations/Changes Continue regular diet with 2% milk TID at meals and fortified foods when possible. Pt is refusing ensure supplements but, will offer again if PO does not improve at meals and weight continues to decline. Blood glucose very high, restrict carbohydrates as intake improves at meals. Lab / Micro Data Result Diagrams: 09/19/21 05:20 09/21/21 06:21 Labs: Laboratory Results - last 24 hr 09/20/21 17:40: POC Glucose 246 H 09/20/21 21:25: POC Glucose 216 H 09/21/21 06:21: Sodium 132 L, Potassium 4.4, Chloride 99, Carbon Dioxide 24.0, Anion Gap 9, BUN 41 H, Creatinine 0.42 L, Estim Creat Clear Calc 183.21, Est GFR (MDRD) Af Amer 269, Est GFR (MDRD) Non-Af 222, BUN/Creatinine Ratio 98.1 H, Glucose 61 L, Calcium 8.5, Total Bilirubin 0.80, AST 17, ALT 31, Alkaline Phosphatase 77, Total Protein 5.6 L, Albumin 2.2 L, Globulin 3.4, Albumin/Globulin Ratio 0.6 L 09/21/21 06:34: POC Glucose 66 L 09/21/21 06:51: POC Glucose 55 L 09/21/21 06:53: POC Glucose 62 L 09/21/21 07:25: POC Glucose 101 09/21/21 11:13: POC Glucose 172 H Micro: Microbiology 08/29/21 12:00 Fluid - Other Acid Fast Bacilli Smear - Final 08/29/21 12:00 Wash - Right Middle Lobe Gram Stain - Final 08/29/21 12:00 Wash - Right Middle Lobe Respiratory Culture - Final Presumptive C albicans 08/29/21 12:00 Wash - Other Gram Stain - Final 08/29/21 12:00 Wash - Other Respiratory Culture - Final Presumptive C albicans 08/27/21 00:30 Blood Culture (Wb) - Left Hand Blood Culture - Final No growth in 5 days. 08/26/21 00:30 Blood Culture (Wb) - Anticubital Right Blood Culture - Final No growth in 5 days. 08/28/21 18:45 Sputum, Expectorated/Coughed Gram Stain - Final 08/28/21 18:45 Sputum, Expectorated/Coughed Respiratory Culture - Final 08/27/21 16:10 Sputum, Expectorated/Coughed Gram Stain - Final 08/27/21 16:10 Sputum, Expectorated/Coughed Respiratory Culture - Final 08/27/21 10:55 Sputum, Expectorated/Coughed Gram Stain - Final 08/27/21 10:55 Sputum, Expectorated/Coughed Respiratory Culture - Final 08/26/21 Unknown Urine, Clean Catch Legionella Antigen - Final 08/26/21 Unknown Urine, Clean Catch Streptococcus pneumoniae Antigen (M - Final 08/27/21 02:15 Mucosa - Nasopharyngeal Respiratory Panel (PCR) - Final 08/27/21 00:20 Nasal Secretion SARS-CoV-2 Antigen (Rapid) - Final Physical Exam Const alert and no apparent distress Constitutional Narrative: Sitting upright in bed, currently tolerating nasal cannula General Appearance: cooperative HEENT normocephalic and head/scalp atraumatic HEENT Narrative: Dry mouth with some chapped lips Eyes PERRL, EOMs intact bilaterally and conjunctivae normal Neck supple General: trachea midline Chest inspection of chest normal Resp Auscultation: diminished lung sounds; Negative for rales, rhonchi or wheezes Cardio regular rate and regular rhythm GI normal to inspection, nondistended, normoactive bowel sounds Extremity no clubbing, cyanosis or edema Skin no rashes or lesions noted Neuro CN's II-XII intact bilaterally, moves all extremities and no focal motor deficits Psych cooperative and affect normal Charges/Coding Visit Charges Inpatient E&M: 99850 Subs Hosp L2
[2021-09-21] MEDS: LORazepam 0.5 MG Tablet PO (15:43)
[2021-09-21 16:41] LABS: Bedside Glucose 187 mg/dL (70-110)
[2021-09-21] MEDS: Senna Tablet 2 TABLET PO (18:28)
[2021-09-21] MEDS: Atorvastatin Calcium 20 MG Tablet PO (21:55)
[2021-09-21 22:16] LABS: Bedside Glucose 255 mg/dL (70-110)
[2021-09-22] VITALS (10 sets, daily range): BP systolic 86–105; BP diastolic 52–62; PULSE 73–98; RESP 16–18; TEMP 36.3–37; O2SAT 94–98
[2021-09-22] MEDS: guaiFENesin/Codeine 5 ML UDC PO (01:26)
[2021-09-22 07:16] LABS: Bedside Glucose 81 mg/dL (70-110)
--- NOTE | 2021-09-22 07:29 | PN.CC_ITS ---
Assessment & Plan Assessment/Plan (1) Acute on chronic respiratory failure with hypoxemia: PLAN: RECOMMENDATIONS: 1. Continue to supplemental oxygen to maintain saturations at or above 90%. 2. Continue voriconazole per ID. 3. Continue p.o. steroids. 4. Continue IV Lasix as tolerated by hemodynamics and renal function. 5. Encourage incentive spirometer use and mobilize patient as tolerated. IMPRESSIONS: 1. Acute on chronic hypoxemic respiratory failure The patient does have a baseline oxygen requirement of 3 L/min. He has a history of rheumatoid associated interstitial lung disease and was previously on immunosuppression, up until his discharge from the hospital in June. The patient has been hospitalized several times over the last couple months, first due to COVID-19 pneumonia and more recently as a consequence of bacterial pneumonia. His CT findings noted on presentation were nonspecific. Therefore, the patient underwent bronchoscopy on August 29 with BAL performed bilaterally. Fluid cytology revealed fungal organisms consistent with Aspergillus. The patient today has been treated with voriconazole, empiric antimicrobials, aggressive diuresis and IV steroids. Despite the aforementioned, his respi ratory status is not improved. Repeat CTA chest on September 12 again demonstrated no evidence for pulmonary embolism. He does appear to have progressive interstitial lung disease, which is still of unclear etiology, but could certainly be related to his underlying rheumatologic disease and/or supe rimposed fibrosis from his recent Covid infection. At this time, given the patient's age and prior functional status, I would recommend a more aggressive approach including transfer to a tertiary care facility to be considered for potential VATS biopsy and transplant consideration. Transfer to tertiary center has not been successful to this point. Oxygenation is slowly improving. If patient is able to make to 6 L, would suggest rehab placement with outpatient follow-up. 2. History of mixed obstructive/restrictive ventilatory impairment/rheumatoid arthritis/hypertension/hyperlipidemia/pulmonary hypertension Complicates care, management, recovery and prognosis. Continue home medications as indicated. This note was generated with [employer] dictation software. It may contain incorrect words, spelling, and punctuation that were not noted in checking the note before signing. Subjective Subjective The patient was seen and examined at the bedside this morning. Events from the last 24 hours have been reviewed. The patient is currently afebrile, hemodynamically stable and maintaining appropriate oxygen saturations on 12 L/min via nasal cannula. The patient is currently documented to be overall net -9 L for the hospitalization. The patient remains on voriconazole, once daily Lasix and prednisone 40 mg daily. He does continue to desaturate with even minimal amounts of physical exertion. Objective Data Objective Data The patient's most recent lab work, culture data and imaging studies have all been personally reviewed. BAL cytology revealed fungal organisms consistent with Aspergillus species. Fungal cultures are currently pending. Acid-fast smear was negative. The remainder of the patient's infectious work-up has been unrevealing. Surface echocardiogram demonstrated normal LV function with an ejection fraction of 65% and a pulmonary artery systolic pressure estimated to be 58 mmHg. Vital Signs: Vital Signs Temp Pulse Resp BP Pulse Ox 97.3 F L 86 16 103/56 L 94 09/22/21 03:39 09/22/21 03:39 09/22/21 03:39 09/22/21 03:39 09/22/21 03:39 Oxygen Flow Rate (L/min) 12 Oxygen Delivery Method Nasal Cannula Weight: 74.5 kg Body Mass Index (BMI) 28.5 Intake & Output: Intake and Output for Last 24 Hours 09/20/21 09/21/21 09/22/21 23:59 23:59 23:59 Intake Total 1120 / 1120 870 / 870 Output Total 1525 / 1525 1550 / 2050 600 / 600 Balance -405 / -405 -680 / -1180 -600 / -600 Medical Nutrition Assessment Dietitian: Malnutrition Criteria Met Start: 09/18/21 10:37 Freq: Status: Active Protocol: Document 09/18/21 10:37 RMA (Rec: 09/18/21 10:37 RMA [id number]) Nutrition Malnutrition Evidence of Malnutrition Exists Yes Malnutrition (severe): Acute Illness/Injury Evidenced By Suboptimal Energy Intake ( Severe),Weight Loss (Severe) Intake Problem Inadequate Oral Intake Etiology r/t decreased appetite, resp. 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 failure Signs/Symptoms as evidenced by 10Kg/12% wt loss < 1 month. Status Active Problem Altered Nutrient-Related Laboratory Values Etiology related to steroid administration Signs/Symptoms as evidenced by glucose 227 Status Active Problem Recommendation Dietitian Recommendations/Changes Continue regular diet with 2% milk TID at meals and fortified foods when possible. Pt is refusing ensure supplements but, will offer again if PO does not improve at meals and weight continues to decline. Blood glucose very high, restrict carbohydrates as intake improves at meals. Lab / Micro Data Attestation: I reviewed the patient's lab results. Result Diagrams: 09/19/21 05:20 09/21/21 06:21 Labs: Laboratory Results - last 24 hr 09/21/21 06:51: POC Glucose 55 L 09/21/21 06:53: POC Glucose 62 L 09/21/21 07:25: POC Glucose 101 09/21/21 11:13: POC Glucose 172 H 09/21/21 16:00: POC Glucose 187 H 09/21/21 21:48: POC Glucose 255 H 09/22/21 07:05: POC Glucose 81 Micro: Microbiology 08/29/21 12:00 Fluid - Other Acid Fast Bacilli Smear - Final 08/29/21 12:00 Wash - Right Middle Lobe Gram Stain - Final 08/29/21 12:00 Wash - Right Middle Lobe Respiratory Culture - Final Presumptive C albicans 08/29/21 12:00 Wash - Other Gram Stain - Final 08/29/21 12:00 Wash - Other Respiratory Culture - Final Presumptive C albicans 08/27/21 00:30 Blood Culture (Wb) - Left Hand Blood Culture - Final No growth in 5 days. 08/26/21 00:30 Blood Culture (Wb) - Anticubital Right Blood Culture - Final No growth in 5 days. 08/28/21 18:45 Sputum, Expectorated/Coughed Gram Stain - Final 08/28/21 18:45 Sputum, Expectorated/Coughed Respiratory Culture - Final 08/27/21 16:10 Sputum, Expectorated/Coughed Gram Stain - Final 08/27/21 16:10 Sputum, Expectorated/Coughed Respiratory Culture - Final 08/27/21 10:55 Sputum, Expectorated/Coughed Gram Stain - Final 08/27/21 10:55 Sputum, Expectorated/Coughed Respiratory Culture - Final 08/26/21 Unknown Urine, Clean Catch Legionella Antigen - Final 08/26/21 Unknown Urine, Clean Catch Streptococcus pneumoniae Antigen (M - Final 08/27/21 02:15 Mucosa - Nasopharyngeal Respiratory Panel (PCR) - Final 08/27/21 00:20 Nasal Secretion SARS-CoV-2 Antigen (Rapid) - Final Physical Exam Const alert and no apparent distress Constitutional Narrative: Sitting upright in bed, currently tolerating Airvo heated high flow oxygen. General Appearance: cooperative HEENT normocephalic and head/scalp atraumatic Eyes PERRL, EOMs intact bilaterally and conjunctivae normal Neck supple General: trachea midline Chest inspection of chest normal Resp Effort and Inspection: tachypneic Auscultation: diminished lung sounds; Negative for rales, rhonchi or wheezes Cardio regular rate and regular rhythm GI normal to inspection, nondistended, normoactive bowel sounds Extremity no clubbing, cyanosis or edema Skin no rashes or lesions noted Neuro CN's II-XII intact bilaterally, moves all extremities and no focal motor defi cits Psych cooperative and affect normal Charges/Coding Visit Charges Inpatient E&M: 84336 Subs Hosp L2
[2021-09-22] MEDS: predniSONE 20 MG Tablet 40 MG PO (08:18)
[2021-09-22] MEDS: Voriconazole 200 MG Tablet 300 MG PO ×2 (08:18→21:48)
[2021-09-22] MEDS: dilTIAZem CD 120 MG Capsule PO (08:19)
[2021-09-22] MEDS: Potassium Chloride Oral Tablet 20 MEQ PO ×2 (08:19→17:21)
[2021-09-22] MEDS: Aspirin E.C. 81 MG Tablet PO (08:19)
[2021-09-22] MEDS: Lisinopril 20 MG Tablet PO (08:19)
[2021-09-22] MEDS: Enoxaparin 40 MG/0.4 ML Syringe SC (08:19)
[2021-09-22] MEDS: Furosemide 40 MG/4 ML Vial IV (08:20)
--- NOTE | 2021-09-22 11:07 | PCM.PN.HOSP ---
Subjective Subjective Doing about the same as he has been. His oxygen requirements are slowly coming down, he is currently on 15 L nasal cannula. He has been transitioned to a stepdown status to the tertiary care center however they still do not have any beds Objective Data Objective Data Vital Signs: Vital Signs Temp Pulse Resp BP Pulse Ox 97.9 F 84 18 104/62 94 09/22/21 08:11 09/22/21 08:11 09/22/21 08:11 09/22/21 08:11 09/22/21 08:30 Oxygen Flow Rate (L/min) 12 Oxygen Delivery Method Nasal Cannula Weight: 164 lb 3.91 oz Body Mass Index (BMI) 28.5 Intake & Output: Intake and Output for Last 24 Hours 09/21/21 09/22/21 09/23/21 03:59 03:59 03:59 Intake Total 1120 / 1120 870 / 870 Output Total 1525 / 1525 2049 / 2049 100 / 100 Balance -405 / -405 -1180 / -1180 -100 / -100 Medical Nutrition Assessment Dietitian: Malnutrition Criteria Met Start: 09/18/21 10:37 Freq: Status: Active Protocol: Document 09/18/21 10:37 RMA (Rec: 09/18/21 10:37 RMA [id number]) Nutrition Malnutrition Evidence of Malnutrition Exists Yes Malnutrition (severe): Acute Illness/Injury Evidenced By Suboptimal Energy Intake ( Severe),Weight Loss (Severe) Intake Problem Inadequate Oral Intake Etiology r/t decreased appetite, resp. 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 failure Signs/Symptoms as evidenced by 10Kg/12% wt loss < 1 month. Status Active Problem Altered Nutrient-Related Laboratory Values Etiology related to steroid administration Signs/Symptoms as evidenced by glucose 227 Status Active Problem Recommendation Dietitian Recommendations/Changes Continue regular diet with 2% milk TID at meals and fortified foods when possible. Pt is refusing ensure supplements but, will offer again if PO does not improve at meals and weight continues to decline. Blood glucose very high, restrict carbohydrates as intake improves at meals. Lab / Micro Data Result Diagrams: 09/19/21 05:20 09/21/21 06:21 Labs: Laboratory Results - last 24 hr 09/21/21 06:51: POC Glucose 55 L 09/21/21 06:53: POC Glucose 62 L 09/21/21 11:13: POC Glucose 172 H 09/21/21 16:00: POC Glucose 187 H 09/21/21 21:48: POC Glucose 255 H 09/22/21 07:05: POC Glucose 81 Micro: Microbiology 08/29/21 12:00 Fluid - Other Acid Fast Bacilli Smear - Final 08/29/21 12:00 Wash - Right Middle Lobe Gram Stain - Final 08/29/21 12:00 Wash - Right Middle Lobe Respiratory Culture - Final Presumptive C albicans 08/29/21 12:00 Wash - Other Gram Stain - Final 08/29/21 12:00 Wash - Other Respiratory Culture - Final Presumptive C albicans 08/27/21 00:30 Blood Culture (Wb) - Left Hand Blood Culture - Final No growth in 5 days. 08/26/21 00:30 Blood Culture (Wb) - Anticubital Right Blood Culture - Final No growth in 5 days. 08/28/21 18:45 Sputum, Expectorated/Coughed Gram Stain - Final 08/28/21 18:45 Sputum, Expectorated/Coughed Respiratory Culture - Final 08/27/21 16:10 Sputum, Expectorated/Coughed Gram Stain - Final 08/27/21 16:10 Sputum, Expectorated/Coughed Respiratory Culture - Final 08/27/21 10:55 Sputum, Expectorated/Coughed Gram Stain - Final 08/27/21 10:55 Sputum, Expectorated/Coughed Respiratory Culture - Final 08/26/21 Unknown Urine, Clean Catch Legionella Antigen - Final 08/26/21 Unknown Urine, Clean Catch Streptococcus pneumoniae Antigen (M - Final 08/27/21 02:15 Mucosa - Nasopharyngeal Respiratory Panel (PCR) - Final 08/27/21 00:20 Nasal Secretion SARS-CoV-2 Antigen (Rapid) - Final Physical Exam Const alert, oriented x3 and no apparent distress General Appearance: cooperative HEENT normocephalic and moist oral mucous membranes Eyes PERRL, EOMs intact bilaterally and conjunctivae normal Neck supple and no JVD Resp normal respiratory effort, no retractions and no use of accessory muscles Auscultation: diminished lung sounds diffuse; Negative for crackles, rales, rhonchi or wheezes Cardio regular rate, regular rhythm, S1 normal heart sound, S2 normal heart sound and no murmurs GI soft to palpation, non-tender and non-distended; Negative for hepatosplenomegaly Extremity no clubbing, cyanosis or edema Skin no rashes or lesions noted Neuro no focal motor deficits and no sensory deficits noted Psych affect normal Appearance: appropriate Assessment & Plan Assessment/Plan (1) Acute on chronic respiratory failure with hypoxemia: (2) Multifocal pneumonia: PLAN: 1. Acute on chronic hypoxic respiratory failure secondary to interstitial lung disease as well as recent Covid and bilateral bacterial pneumonia as well as a new fungal pneumonia/right lung nodule -Continue with nasal cannula ?Continue voriconazole for fungal pneumonia -P.o. steroids ?Lasix as needed ?Awaiting transfer to a tertiary care center for VATS biopsy and a possible transplant consideration. -We will need outpatient follow-up with a CT scan for the right lung nodule 2. HTN/HLD/CAD is post stent/pulmonary hypertension/nonsustained V. tach -Blood pressure stable, continue with his home lisinopril and Cardizem -Continue with statin and aspirin ?Echo with an EF of 65% and a PA systolic pressure of 58 mmHg -The V. tach has not recurred, cardiology was consulted and felt that this was possibly due to ventricular pacing rather than actual nonsustained V. tach. Defibrillator has been interrogated, will continue to monitor 3. History of rheumatoid arthritis ?Rheumatoid arthritis is likely what led to his interstitial lung disease DVT: Lovenox Charges/Coding Visit Charges Inpatient E&M: 78061 Subs Hosp L2
[2021-09-22 11:41] LABS: Bedside Glucose 133 mg/dL (70-110)
[2021-09-22] MEDS: Insulin Lispro 100 UNIT/ML INSULN.PEN SC ×2 (17:20→21:45)
[2021-09-22 17:30] LABS: Bedside Glucose 352 mg/dL (70-110)
[2021-09-22] MEDS: Atorvastatin Calcium 20 MG Tablet PO (21:48)
[2021-09-22 22:01] LABS: Bedside Glucose 210 mg/dL (70-110)
[2021-09-23] VITALS (13 sets, daily range): BP systolic 81–110; BP diastolic 52–72; PULSE 72–104; RESP 17–18; TEMP 36.5–37; O2SAT 93–97
[2021-09-23] MEDS: guaiFENesin/Codeine 5 ML UDC PO ×3 (00:12→21:36)
--- NOTE | 2021-09-23 06:47 | PCM.PN.INT ---
Assessment & Plan Assessment/Plan (1) Acute on chronic respiratory failure with hypoxemia: PLAN: RECOMMENDATIONS: 1. Continue to supplemental oxygen to maintain saturations at or above 90%. 2. Continue voriconazole per ID. 3. Continue p.o. steroids. 4. Continue IV Lasix as tolerated by hemodynamics and renal function. 5. Encourage incentive spirometer use and mobilize patient as tolerated. IMPRESSIONS: 1. Acute on chronic hypoxemic respiratory failure The patient does have a baseline oxygen requirement of 3 L/min. He has a history of rheumatoid associated interstitial lung disease and was previously on immunosuppression, up until his discharge from the hospital in June. The patient has been hospitalized several times over the last couple months, first due to COVID-19 pneumonia and more recently as a consequence of bacterial pneumonia. His CT findings noted on presentation were nonspecific. Therefore, the patient underwent bronchoscopy on August 29 with BAL performed bilaterally. Fluid cytology revealed fungal organisms consistent with Aspergillus. The patient today has been treated with voriconazole, empiric antimicrobials, aggressive diuresis and IV steroids. Despite the aforementioned, his respiratory status is not improved. Repeat CTA chest on September 12 again demonstrated no evidence for pulmonary embolism. He does appear to have progressive interstitial lung disease, which is still of unclear etiology, but could certainly be related to his underlying rheumatologic disease and/or superimposed fibrosis from his recent Covid infection. At this time, given the patient's age and prior functional status, I would recommend a more aggressive approach including transfer to a tertiary care facility to be considered for potential VATS biopsy and transplant consideration. Transfer to tertiary center has not been successful to this point. Oxygenation is slowly improving. If patient is able to make to 6 L, would suggest rehab placement with outpatient follow-up. 2. History of mixed obstructive/restrictive ventilatory impairment/rheumatoid arthritis/hypertension/hyperlipidemia/pulmonary hypertension Complicates care, management, recovery and prognosis. Continue home medications as indicated. This note was generated with [employer] dictation software. It may contain incorrect words, spelling, and punctuation that were not noted in checking the note before signing. Subjective Subjective The patient was seen and examined at the bedside this morning. Events from the last 24 hours have been reviewed. The patient is currently afebrile, hemodynamically stable and maintaining appropriate oxygen saturations on 12 L/min via nasal cannula. The patient is currently documented to be overall net -8.8 L for the hospitalization. The patient remains on voriconazole, once daily Lasix and prednisone 40 mg daily. Objective Data Objective Data The patient's most recent lab work, culture data and imaging studies have all been personally reviewed. BAL cytology revealed fungal organisms consistent with Aspergillus species. Fungal cultures are currently pending. Acid-fast smear was negative. The remainder of the patient's infectious work-up has been unrevealing. Surface echocardiogram demonstrated normal LV function with an ejection fraction of 65% and a pulmonary artery systolic pressure estimated to be 58 mmHg. Vital Signs: Vital Signs Temp Pulse Resp BP Pulse Ox 97.8 F 72 17 100/61 97 09/23/21 03:05 09/23/21 03:08 09/23/21 03:05 09/23/21 03:05 09/23/21 03:05 Oxygen Flow Rate (L/min) 12 Oxygen Delivery Method High Flow Weight: 73.7 kg Body Mass Index (BMI) 28.5 Intake & Output: Intake and Output for Last 24 Hours 09/21/21 09/22/21 09/23/21 23:59 23:59 23:59 Intake Total 870 / 870 240 / 240 Output Total 1550 / 2050 600 / 600 Balance -680 / -1180 -360 / -360 Medical Nutrition Assessment Dietitian: Malnutrition Criteria Met Start: 09/18/21 10:37 Freq: Status: Active Protocol: Document 09/18/21 10:37 RMA (Rec: 09/18/21 10:37 RMA [id number]) Nutrition Malnutrition Evidence of Malnutrition Exists Yes Malnutrition (severe): Acute Illness/Injury Evidenced By Suboptimal Energy Intake ( Severe),Weight Loss (Severe) Intake Problem Inadequate Oral Intake Etiology r/t decreased appetite, resp. 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 failure Signs/Symptoms as evidenced by 10Kg/12% wt loss < 1 month. Status Active Problem Altered Nutrient-Related Laboratory Values Etiology related to steroid administration Signs/Symptoms as evidenced by glucose 227 Status Active Problem Recommendation Dietitian Recommendations/Changes Continue regular diet with 2% milk TID at meals and fortified foods when possible. Pt is refusing ensure supplements but, will offer again if PO does not improve at meals and weight continues to decline. Blood glucose very high, restrict carbohydrates as intake improves at meals. Lab / Micro Data Attestation: I reviewed the patient's lab results. Result Diagrams: 09/23/21 05:44 09/23/21 05:44 Labs: Laboratory Results - last 24 hr 09/22/21 07:05: POC Glucose 81 09/22/21 11:34: POC Glucose 133 H 09/22/21 17:18: POC Glucose 352 H 09/22/21 21:44: POC Glucose 210 H Micro: Microbiology 08/29/21 12:00 Fluid - Other Acid Fast Bacilli Smear - Final 08/29/21 12:00 Wash - Right Middle Lobe Gram Stain - Final 08/29/21 12:00 Wash - Right Middle Lobe Respiratory Culture - Final Presumptive C albicans 08/29/21 12:00 Wash - Other Gram Stain - Final 08/29/21 12:00 Wash - Other Respiratory Culture - Final Presumptive C albicans 08/27/21 00:30 Blood Culture (Wb) - Left Hand Blood Culture - Final No growth in 5 days. 08/26/21 00:30 Blood Culture (Wb) - Anticubital Right Blood Culture - Final No growth in 5 days. 08/28/21 18:45 Sputum, Expectorated/Coughed Gram Stain - Final 08/28/21 18:45 Sputum, Expectorated/Coughed Respiratory Culture - Final 08/27/21 16:10 Sputum, Expectorated/Coughed Gram Stain - Final 08/27/21 16:10 Sputum, Expectorated/Coughed Respiratory Culture - Final 08/27/21 10:55 Sputum, Expectorated/Coughed Gram Stain - Final 08/27/21 10:55 Sputum, Expectorated/Coughed Respiratory Culture - Final 08/26/21 Unknown Urine, Clean Catch Legionella Antigen - Final 08/26/21 Unknown Urine, Clean Catch Streptococcus pneumoniae Antigen (M - Final 08/27/21 02:15 Mucosa - Nasopharyngeal Respiratory Panel (PCR) - Final 08/27/21 00:20 Nasal Secretion SARS-CoV-2 Antigen (Rapid) - Final Physical Exam Const alert and no apparent distress Constitutional Narrative: Sitting upright in bed, currently tolerating Airvo heated high flow oxygen. General Appearance: cooperative HEENT normocephalic and head/scalp atraumatic Eyes PERRL, EOMs intact bilaterally and conjunctivae normal Neck supple General: trachea midline Chest inspection of chest normal Resp Effort and Inspection: tachypneic Auscultation: diminished lung sounds; Negative for rales, rhonchi or wheezes Cardio regular rate and regular rhythm GI normal to inspection, nondistended, normoactive bowel sounds Extremity no clubbing, cyanosis or edema Skin no rashes or lesions noted Neuro CN's II-XII intact bilaterally, moves all extremities and no focal motor deficits Psych cooperative and affect normal Charges/Coding Visit Charges Inpatient E&M: 07128 Subs Hosp L2
[2021-09-23 06:56] LABS: Bedside Glucose 75 mg/dL (70-110)
[2021-09-23 06:57] LABS: Absolute Lymphocyte Count 1.47 X10^3/uL (0.83-4.51); Absolute Neutrophil Count 10.2 X10^3/uL (2.0-7.7); Basophil# 0.03 X10^3/uL; Basophil% 0.2 % (0-1); Eosinophil# 0.01 X10^3/uL; Eosinophils% 0.1 % (0-5); Hematocrit 37.3 % (40-54); Hemoglobin 11.8 g/dL (13.0-16.5); Lymphocyte # 1.47 X10^3/ul (0.83-4.51); Lymphocyte % 11.3 % (19-41); Mean Corp Hgb Conc 31.6 g/dL (32-36); Mean Corpuscular Hgb 27.4 pg (27.0-32.0); Mean Corpuscular Volume 86.5 fL (80-94); Mean Platelet Vol. 12.4 fl (6.2-12.0); Monocyte# 0.92 X10^3/uL; NRBC Flagged by Analyzer 0 % (0-5); Neutrophil # 10.21 X10^3/uL (2.7-7.7); Neutrophil % 78.3 % (47-70); Platelet Count 194 K/mm3 (150-450); RBC Distribution Width CV 19.9 % (11.6-14.6); RBC Distribution Width SD 62.3 fl (35.1-43.9); Red Blood Count 4.31 M/mm3 (4.6-6.2); White Blood Count 13.1 K/mm3 (4.4-11.0)
[2021-09-23 07:24] LABS: ALB/GLOB Ratio 0.8 RATIO (0.9-2.4); AST(SGOT) 17 U/L (15-37); Alanine Aminotransfer ALT/SGPT 38 U/L (16-61); Albumin, Serum 2.4 g/dL (3.2-5.0); Alkaline Phosphatase 82 U/L (45-117); Anion Gap 8 (5-15); BUN 36 mg/dL (7-18); BUN/Creat Ratio 61.7 RATIO (10-20); Calcium,Total 8.3 mg/dL (8.5-10.1); Chloride 98 mmol/L (98-107); Creatinine, Serum 0.58 mg/dL (0.70-1.30); EST Glomerular Filtration Rate 151 mL/min (>60); Est Glom Filt Rate - Afr Amer 183 mL/min (>60); Estimated Creatinine Clearance 132.67 ml/min; Glucose 68 mg/dL (74-106); Potassium 4.4 mmol/L (3.5-5.1); Protein, Total 5.4 g/dL (6.4-8.2); Sodium Level 135 mmol/L (136-145)
[2021-09-23 08:06] LABS: Acid Fast Stain SEE PATHOLOGY REPORT; Cytology, Body Fluid / CSF SEE PATHOLOGY REPORT
[2021-09-23] MEDS: Enoxaparin 40 MG/0.4 ML Syringe SC (08:37)
[2021-09-23] MEDS: Aspirin E.C. 81 MG Tablet PO (08:37)
[2021-09-23] MEDS: predniSONE 20 MG Tablet 40 MG PO (08:38)
[2021-09-23] MEDS: Voriconazole 200 MG Tablet 300 MG PO ×2 (08:38→21:34)
[2021-09-23] MEDS: Potassium Chloride Oral Tablet 20 MEQ PO ×2 (08:41→17:16)
--- NOTE | 2021-09-23 09:30 | CASEMGMT ---
Per Adolfo, PCU deck officer, is hopeful for a bed to transfer pt later today or tomorrow. Edy, PCU charge, updated at this time on pt clinicals. Duane EVANGELISTA CM
--- NOTE | 2021-09-23 09:56 | CASEMGMT ---
SW noted discussion of patient going to rehab. SW attempted to meet with patient, but he was sleeping. SW will check back with patient. Franci Gaines MSW JARVIS
--- NOTE | 2021-09-23 10:39 | PCM.PN.HOSP ---
Subjective Subjective Doing well, states he had a little bit of an upset stomach. His blood pressure is a little bit low but he is asymptomatic otherwise he remains unchanged from a respiratory standpoint. His oxygen requirements are down about 12 L Objective Data Objective Data Vital Signs: Vital Signs Temp Pulse Resp BP Pulse Ox 98.2 F 95 18 81/52 L 94 09/23/21 08:30 09/23/21 08:30 09/23/21 08:30 09/23/21 08:30 09/23/21 08:30 Oxygen Flow Rate (L/min) 12 Oxygen Delivery Method High Flow Weight: 162 lb 7.691 oz Body Mass Index (BMI) 28.5 Intake & Output: Intake and Output for Last 24 Hours 09/22/21 09/23/21 09/24/21 03:59 03:59 03:59 Intake Total 870 / 870 240 / 240 Output Total 2049 / 2049 100 / 100 Balance -1180 / -1180 140 / 140 Medical Nutrition Assessment Dietitian: Malnutrition Criteria Met Start: 09/18/21 10:37 Freq: Status: Active Protocol: Document 09/18/21 10:37 RMA (Rec: 09/18/21 10:37 RMA [id number]) Nutrition Malnutrition Evidence of Malnutrition Exists Yes Malnutrition (severe): Acute Illness/Injury Evidenced By Suboptimal Energy Intake ( Severe),Weight Loss (Severe) Intake Problem Inadequate Oral Intake Etiology r/t decreased appetite, resp. 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 failure Signs/Symptoms as evidenced by 10Kg/12% wt loss < 1 month. Status Active Problem Altered Nutrient-Related Laboratory Values Etiology related to steroid administration Signs/Symptoms as evidenced by glucose 227 Status Active Problem Recommendation Dietitian Recommendations/Changes Continue regular diet with 2% milk TID at meals and fortified foods when possible. Pt is refusing ensure supplements but, will offer again if PO does not improve at meals and weight continues to decline. Blood glucose very high, restrict carbohydrates as intake improves at meals. Lab / Micro Data Result Diagrams: 09/23/21 05:44 09/23/21 05:44 Labs: Laboratory Results - last 24 hr 08/29/21 14:47: Acid Fast Stain SEE PATHOLOGY REPORT, Miscellaneous Cytology SEE PATHOLOGY REPORT 09/22/21 11:34: POC Glucose 133 H 09/22/21 17:18: POC Glucose 352 H 09/22/21 21:44: POC Glucose 210 H 09/23/21 05:44: WBC 13.1 H, RBC 4.31 L, Hgb 11.8 L, Hct 37.3 L, MCV 86.5, MCH 27.4, MCHC 31.6 L, RDW Std Deviation 62.3 H, RDW Coeff of Cheikh 19.9 H, Plt Count 194, MPV 12.4 H, Immature Gran % (Auto) 3.100 H, Neut % (Auto) 78.3 H, Lymph % (Auto) 11.3 L, [place] % (Auto) 7.0, Eos % (Auto) 0.1, Baso % (Auto) 0.2, Absolute Neuts (auto) 10.2 H, Absolute Lymphs (auto) 1.47, Nucleated RBC % 0 09/23/21 05:44: Sodium 135 L, Potassium 4.4, Chloride 98, Carbon Dioxide 29.0, Anion Gap 8, BUN 36 H, Creatinine 0.58 L, Estim Creat Clear Calc 132.67, Est GFR (MDRD) Af Amer 183, Est GFR (MDRD) Non-Af 151, BUN/Creatinine Ratio 61.7 H, Glucose 68 L, Calcium 8.3 L, Total Bilirubin 0.70, AST 17, ALT 38, Alkaline Phosphatase 82, Total Protein 5.4 L, Albumin 2.4 L, Globulin 3.0, Albumin/Globulin Ratio 0.8 L 09/23/21 06:35: POC Glucose 75 Micro: Microbiology 08/29/21 12:00 Fluid - Other Acid Fast Bacilli Smear - Final 08/29/21 12:00 Wash - Right Middle Lobe Gram Stain - Final 08/29/21 12:00 Wash - Right Middle Lobe Respiratory Culture - Final Presumptive C albicans 08/29/21 12:00 Wash - Other Gram Stain - Final 08/29/21 12:00 Wash - Other Respiratory Culture - Final Presumptive C albicans 08/27/21 00:30 Blood Culture (Wb) - Left Hand Blood Culture - Final No growth in 5 days. 08/26/21 00:30 Blood Culture (Wb) - Anticubital Right Blood Culture - Final No growth in 5 days. 08/28/21 18:45 Sputum, Expectorated/Coughed Gram Stain - Final 08/28/21 18:45 Sputum, Expectorated/Coughed Respiratory Culture - Final 08/27/21 16:10 Sputum, Expectorated/Coughed Gram Stain - Final 08/27/21 16:10 Sputum, Expectorated/Coughed Respiratory Culture - Final 08/27/21 10:55 Sputum, Expectorated/Coughed Gram Stain - Final 08/27/21 10:55 Sputum, Expectorated/Coughed Respiratory Culture - Final 08/26/21 Unknown Urine, Clean Catch Legionella Antigen - Final 08/26/21 Unknown Urine, Clean Catch Streptococcus pneumoniae Antigen (M - Final 08/27/21 02:15 Mucosa - Nasopharyngeal Respiratory Panel (PCR) - Final 08/27/21 00:20 Nasal Secretion SARS-CoV-2 Antigen (Rapid) - Final Physical Exam Const alert, oriented x3 and no apparent distress General Appearance: cooperative HEENT normocephalic and moist oral mucous membranes Eyes PERRL, EOMs intact bilaterally and conjunctivae normal Neck supple and no JVD Resp normal respiratory effort, no retractions and no use of accessory muscles Effort and Inspection: tachypneic Auscultation: diminished lung sounds diffuse; Negative for crackles, rales, rhonchi or wheezes Cardio regular rate, regular rhythm, S1 normal heart sound, S2 normal heart sound and no murmurs GI soft to palpation, non-tender and non-distended; Negative for hepatosplenomegaly Extremity no clubbing, cyanosis or edema General Extremity: no tenderness to palpation of joints or extremities Skin no rashes or lesions noted Neuro no focal motor deficits and no sensory deficits noted Psych affect normal Appearance: appropriate Assessment & Plan Assessment/Plan (1) Acute on chronic respiratory failure with hypoxemia: (2) Multifocal pneumonia: PLAN: 1. Acute on chronic hypoxic respiratory failure secondary to interstitial lung disease as well as recent Covid and bilateral bacterial pneumonia as well as a new fungal pneumonia/right lung nodule -Continue with nasal cannula, will continue with him pending transfer to however if his oxygen status improves to the point where he can go to a retirement for rehab and then will discharge him and have him follow-up as an outpatient ?Continue voriconazole for fungal pneumonia -P.o. steroids ?Lasix as needed ?Awaiting transfer to a tertiary care center for VATS biopsy and a possible transplant consideration. -We will need outpatient follow-up with a CT scan for the right lung nodule 2. HTN/HLD/CAD is post stent/pulmonary hypertension/nonsustained V. tach -Blood pressure is little bit low this morning, will hold his home medications this morning and monitor. He is asymptomatic -Continue with statin and aspirin ?Echo with an EF of 65% and a PA systolic pressure of 58 mmHg -The V. tach has not recurred, cardiology was consulted and felt that this was possibly due to ventricular pacing rather than actual nonsustained V. tach. Defibrillator has been interrogated, will continue to monitor 3. History of rheumatoid arthritis ?Rheumatoid arthritis is likely what led to his interstitial lung disease DVT: Lovenox Charges/Coding Visit Charges Inpatient E&M: 88262 Subs Hosp L2
--- NOTE | 2021-09-23 11:27 | CASEMGMT ---
RANDALL was able to talk with patient regarding his discharge plan. Patient said he really prefers to be transferred to [place]. However, if that is his only option then he would be open to the idea. RANDALL did leave a list of facilities in [facility] that take his insurance. SW let him know the facilities that are highlighted in pink are the ones that take his insurance. He thanked RANDALL for the information. Franci CONLEY
[2021-09-23] MEDS: Insulin Lispro 100 UNIT/ML INSULN.PEN SC ×2 (12:11→17:15)
[2021-09-23 12:40] LABS: Bedside Glucose 253 mg/dL (70-110)
[2021-09-23 17:20] LABS: Bedside Glucose 341 mg/dL (70-110)
[2021-09-23] MEDS: Atorvastatin Calcium 20 MG Tablet PO (21:34)
[2021-09-23] MEDS: LORazepam 0.5 MG Tablet PO (21:35)
[2021-09-23 22:40] LABS: Bedside Glucose 130 mg/dL (70-110)
[2021-09-24] VITALS (20 sets, daily range): BP systolic 92–105; BP diastolic 51–67; PULSE 70–89; RESP 18–20; TEMP 2.6–36.9; O2SAT 89–95
[2021-09-24] MEDS: guaiFENesin/Codeine 5 ML UDC PO (04:15)
[2021-09-24 06:40] LABS: Bedside Glucose 94 mg/dL (70-110)
[2021-09-24 08:19] LABS: Absolute Lymphocyte Count 1.33 X10^3/uL (0.83-4.51); Absolute Neutrophil Count 10.8 X10^3/uL (2.0-7.7); Basophil# 0.03 X10^3/uL; Basophil% 0.2 % (0-1); Hematocrit 38.9 % (40-54); Hemoglobin 12.2 g/dL (13.0-16.5); Lymphocyte # 1.33 X10^3/ul (0.83-4.51); Lymphocyte % 9.8 % (19-41); Mean Corp Hgb Conc 31.4 g/dL (32-36); Mean Corpuscular Hgb 27.1 pg (27.0-32.0); Mean Corpuscular Volume 86.4 fL (80-94); Mean Platelet Vol. 12.9 fl (6.2-12.0); Monocyte# 0.94 X10^3/uL; Monocyte% 6.9 % (0-10); NRBC Flagged by Analyzer 0 % (0-5); Neutrophil # 10.79 X10^3/uL (2.7-7.7); Neutrophil % 79.4 % (47-70); Platelet Count 176 K/mm3 (150-450); RBC Distribution Width SD 62.3 fl (35.1-43.9); White Blood Count 13.6 K/mm3 (4.4-11.0)
[2021-09-24] MEDS: Enoxaparin 40 MG/0.4 ML Syringe SC (09:13)
[2021-09-24] MEDS: 0.9% Saline Lock 10 ML Syringe IV (09:18)
[2021-09-24] MEDS: Furosemide 40 MG/4 ML Vial IV (09:18)
[2021-09-24] MEDS: Lisinopril 20 MG Tablet PO (09:21)
[2021-09-24] MEDS: Aspirin E.C. 81 MG Tablet PO (09:21)
[2021-09-24] MEDS: Sertraline 50 MG Tablet PO (09:21)
[2021-09-24] MEDS: Potassium Chloride Oral Tablet 20 MEQ PO ×2 (09:21→17:05)
[2021-09-24] MEDS: Voriconazole 200 MG Tablet 300 MG PO ×2 (09:22→21:34)
[2021-09-24] MEDS: dilTIAZem CD 120 MG Capsule PO (09:23)
[2021-09-24] MEDS: predniSONE 20 MG Tablet 40 MG PO (09:23)
--- NOTE | 2021-09-24 09:36 | PCM.PN.INT ---
Assessment & Plan Assessment/Plan (1) Acute on chronic respiratory failure with hypoxemia: PLAN: RECOMMENDATIONS: 1. Continue to supplemental oxygen to maintain saturations at or above 90%. 2. Continue voriconazole per ID. 3. Wean p.o. steroids. 4. Continue IV Lasix as tolerated by hemodynamics and renal function. Possibly dose tomorrow 5. Encourage incentive spirometer use and mobilize patient as tolerated. IMPRESSIONS: 1. Acute on chronic hypoxemic respiratory failure The patient does have a baseline oxygen requirement of 3 L/min. He has a history of rheumatoid associated interstitial lung disease and was previously on immunosuppression, up until his discharge from the hospital in June. The patient has been hospitalized several times over the last couple months, first due to COVID-19 pneumonia and more recently as a consequence of bacterial pneumonia. His CT findings noted on presentation were nonspecific. Therefore, the patient underwent bronchoscopy on August 29 with BAL performed bilaterally. Fluid cytology revealed fungal organisms consistent with Aspergillus. The patient today has been treated with voriconazole, empiric antimicrobials, aggressive diuresis and IV steroids. Despite the aforementioned, his respiratory status is not improved. Repeat CTA chest on September 12 again demonstrated no evidence for pulmonary embolism. He does appear to have progressive interstitial lung disease, which is still of unclear etiology, but could certainly be related to his underlying rheumatologic disease and/or superimposed fibrosis from his recent Covid infection. At this time, given the patient's age and prior functional status, it has been recommended for a more aggressive approach including transfer to a tertiary care facility to be considered for potential VATS biopsy and transplant consideration. Transfer to tertiary center has not been successful to this point. Oxygenation is slowly improving. If patient is able to make to 6 L, would suggest rehab placement with outpatient follow-up. Will wean steroid therapy. 2. History of mixed obstructive/restrictive ventilatory impairment/rheumatoid arthritis/hypertension/hyperlipidemia/pulmonary hypertension Complicates care, management, recovery and prognosis. Continue home medications as indicated. This note was generated with [employer] dictation software. It may contain incorrect words, spelling, and punctuation that were not noted in checking the note before signing. Subjective Subjective Patient did okay overnight. Patient subjectively feels unchanged compared to previous. Patient is denying any chest pain. Patient still has a cough. Patient is still waiting for quaternary referral. Objective Data Objective Data Vital Signs: Vital Signs Temp Pulse Resp BP Pulse Ox 2.6 C L 89 20 H 98/67 91 09/24/21 09:26 09/24/21 09:26 09/24/21 09:26 09/24/21 09:26 09/24/21 09:26 Oxygen Flow Rate (L/min) 12 Oxygen Delivery Method Nasal Cannula Weight: 73.6 kg Body Mass Index (BMI) 28.5 Intake & Output: Intake and Output for Last 24 Hours 09/22/21 09/23/21 09/24/21 23:59 23:59 23:59 Intake Total 240 / 240 480 / 480 120 / 120 Output Total 600 / 600 1175 / 1175 200 / 200 Balance -360 / -360 -695 / -695 -80 / -80 Medical Nutrition Assessment Dietitian: Malnutrition Criteria Met Start: 09/18/21 10:37 Freq: Status: Active Protocol: Document 09/18/21 10:37 RMA (Rec: 09/18/21 10:37 RMA [id number]) Nutrition Malnutrition Evidence of Malnutrition Exists Yes Malnutrition (severe): Acute Illness/Injury Evidenced By Suboptimal Energy Intake ( Severe),Weight Loss (Severe) Intake Problem Inadequate Oral Intake Etiology r/t decreased appetite, resp. 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 failure Signs/Symptoms as evidenced by 10Kg/12% wt loss < 1 month. Status Active Problem Altered Nutrient-Related Laboratory Values Etiology related to steroid administration Signs/Symptoms as evidenced by glucose 227 Status Active Problem Recommendation Dietitian Recommendations/Changes Continue regular diet with 2% milk TID at meals and fortified foods when possible. Pt is refusing ensure supplements but, will offer again if PO does not improve at meals and weight continues to decline. Blood glucose very high, restrict carbohydrates as intake improves at meals. Lab / Micro Data Result Diagrams: 09/24/21 07:20 09/23/21 05:44 Labs: Laboratory Results - last 24 hr 09/23/21 12:01: POC Glucose 253 H 09/23/21 17:14: POC Glucose 341 H 09/23/21 22:09: POC Glucose 130 H 09/24/21 06:32: POC Glucose 94 09/24/21 07:20: WBC 13.6 H, RBC 4.50 L, Hgb 12.2 L, Hct 38.9 L, MCV 86.4, MCH 27.1, MCHC 31.4 L, RDW Std Deviation 62.3 H, RDW Coeff of Cheikh 20.0 H, Plt Count 176, MPV 12.9 H, Immature Gran % (Auto) 3.700 H, Neut % (Auto) 79.4 H, Lymph % (Auto) 9.8 L, [place] % (Auto) 6.9, Eos % (Auto) 0.0, Baso % (Auto) 0.2, Absolute Neuts (auto) 10.8 H, Absolute Lymphs (auto) 1.33, Nucleated RBC % 0 Micro: Microbiology 08/29/21 12:00 Fluid - Other Acid Fast Bacilli Smear - Final 08/29/21 12:00 Wash - Right Middle Lobe Gram Stain - Final 08/29/21 12:00 Wash - Right Middle Lobe Respiratory Culture - Final Presumptive C albicans 08/29/21 12:00 Wash - Other Gram Stain - Final 08/29/21 12:00 Wash - Other Respiratory Culture - Final Presumptive C albicans 08/27/21 00:30 Blood Culture (Wb) - Left Hand Blood Culture - Final No growth in 5 days. 08/26/21 00:30 Blood Culture (Wb) - Anticubital Right Blood Culture - Final No growth in 5 days. 08/28/21 18:45 Sputum, Expectorated/Coughed Gram Stain - Final 08/28/21 18:45 Sputum, Expectorated/Coughed Respiratory Culture - Final 08/27/21 16:10 Sputum, Expectorated/Coughed Gram Stain - Final 08/27/21 16:10 Sputum, Expectorated/Coughed Respiratory Culture - Final 08/27/21 10:55 Sputum, Expectorated/Coughed Gram Stain - Final 08/27/21 10:55 Sputum, Expectorated/Coughed Respiratory Culture - Final 08/26/21 Unknown Urine, Clean Catch Legionella Antigen - Final 08/26/21 Unknown Urine, Clean Catch Streptococcus pneumoniae Antigen (M - Final 08/27/21 02:15 Mucosa - Nasopharyngeal Respiratory Panel (PCR) - Final 08/27/21 00:20 Nasal Secretion SARS-CoV-2 Antigen (Rapid) - Final Physical Exam Const alert and no apparent distress Constitutional Narrative: Sitting upright in bed, currently tolerating high flow nasal cannula oxygen. General Appearance: cooperative HEENT normocephalic and head/scalp atraumatic Eyes PERRL, EOMs intact bilaterally and conjunctivae normal Neck supple General: trachea midline Chest inspection of chest normal Chest: symmetrical chest wall rise; Negative for crepitus Resp Effort and Inspection: tachypneic Auscultation: diminished lung sounds; Negative for rales, rhonchi or wheezes Cardio regular rate, regular rhythm, no murmurs, no rub and no gallops GI normal to inspection, nondistended, normoactive bowel sounds Extremity no clubbing, cyanosis or edema Skin no rashes or lesions noted Neuro CN's II-XII intact bilaterally, moves all extremities and no focal motor deficits Psych cooperative and affect normal Charges/Coding Visit Charges Inpatient E&M: 20476 Subs Hosp L2
[2021-09-24] MEDS: Insulin Lispro 100 UNIT/ML INSULN.PEN SC ×3 (11:07→21:34)
--- NOTE | 2021-09-24 11:36 | PCM.PN.HOSP ---
Subjective Subjective Doing well, about the same as yesterday. Slowly improving on his oxygen status. Objective Data Objective Data Vital Signs: Vital Signs Temp Pulse Resp BP Pulse Ox 36.7 F L 89 20 H 98/67 92 09/24/21 09:26 09/24/21 09:26 09/24/21 09:26 09/24/21 09:26 09/24/21 11:00 Oxygen Flow Rate (L/min) 12 Oxygen Delivery Method Nasal Cannula Weight: 162 lb 4.163 oz Body Mass Index (BMI) 28.5 Intake & Output: Intake and Output for Last 24 Hours 09/23/21 09/24/21 09/25/21 03:59 03:59 03:59 Intake Total 240 / 240 480 / 480 120 / 120 Output Total 100 / 100 1175 / 1175 200 / 200 Balance 140 / 140 -695 / -695 -80 / -80 Medical Nutrition Assessment Dietitian: Malnutrition Criteria Met Start: 09/18/21 10:37 Freq: Status: Active Protocol: Document 09/18/21 10:37 RMA (Rec: 09/18/21 10:37 RMA [id number]) Nutrition Malnutrition Evidence of Malnutrition Exists Yes Malnutrition (severe): Acute Illness/Injury Evidenced By Suboptimal Energy Intake ( Severe),Weight Loss (Severe) Intake Problem Inadequate Oral Intake Etiology r/t decreased appetite, resp. 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 failure Signs/Symptoms as evidenced by 10Kg/12% wt loss < 1 month. Status Active Problem Altered Nutrient-Related Laboratory Values Etiology related to steroid administration Signs/Symptoms as evidenced by glucose 227 Status Active Problem Recommendation Dietitian Recommendations/Changes Continue regular diet with 2% milk TID at meals and fortified foods when possible. Pt is refusing ensure supplements but, will offer again if PO does not improve at meals and weight continues to decline. Blood glucose very high, restrict carbohydrates as intake improves at meals. Lab / Micro Data Result Diagrams: 09/24/21 07:20 09/23/21 05:44 Labs: Laboratory Results - last 24 hr 09/23/21 12:01: POC Glucose 253 H 09/23/21 17:14: POC Glucose 341 H 09/23/21 22:09: POC Glucose 130 H 09/24/21 06:32: POC Glucose 94 09/24/21 07:20: WBC 13.6 H, RBC 4.50 L, Hgb 12.2 L, Hct 38.9 L, MCV 86.4, MCH 27.1, MCHC 31.4 L, RDW Std Deviation 62.3 H, RDW Coeff of Cheikh 20.0 H, Plt Count 176, MPV 12.9 H, Immature Gran % (Auto) 3.700 H, Neut % (Auto) 79.4 H, Lymph % (Auto) 9.8 L, [place] % (Auto) 6.9, Eos % (Auto) 0.0, Baso % (Auto) 0.2, Absolute Neuts (auto) 10.8 H, Absolute Lymphs (auto) 1.33, Nucleated RBC % 0 Micro: Microbiology 08/29/21 12:00 Fluid - Other Acid Fast Bacilli Smear - Final 08/29/21 12:00 Wash - Right Middle Lobe Gram Stain - Final 08/29/21 12:00 Wash - Right Middle Lobe Respiratory Culture - Final Presumptive C albicans 08/29/21 12:00 Wash - Other Gram Stain - Final 08/29/21 12:00 Wash - Other Respiratory Culture - Final Presumptive C albicans 08/27/21 00:30 Blood Culture (Wb) - Left Hand Blood Culture - Final No growth in 5 days. 08/26/21 00:30 Blood Culture (Wb) - Anticubital Right Blood Culture - Final No growth in 5 days. 08/28/21 18:45 Sputum, Expectorated/Coughed Gram Stain - Final 08/28/21 18:45 Sputum, Expectorated/Coughed Respiratory Culture - Final 08/27/21 16:10 Sputum, Expectorated/Coughed Gram Stain - Final 08/27/21 16:10 Sputum, Expectorated/Coughed Respiratory Culture - Final 08/27/21 10:55 Sputum, Expectorated/Coughed Gram Stain - Final 08/27/21 10:55 Sputum, Expectorated/Coughed Respiratory Culture - Final 08/26/21 Unknown Urine, Clean Catch Legionella Antigen - Final 08/26/21 Unknown Urine, Clean Catch Streptococcus pneumoniae Antigen (M - Final 08/27/21 02:15 Mucosa - Nasopharyngeal Respiratory Panel (PCR) - Final 08/27/21 00:20 Nasal Secretion SARS-CoV-2 Antigen (Rapid) - Final Physical Exam Narrative Const alert, oriented x3 and no apparent distress General Appearance: cooperative HEENT normocephalic and moist oral mucous membranes Eyes PERRL, EOMs intact bilaterally and conjunctivae normal Neck supple and no JVD Resp normal respiratory effort, no retractions and no use of accessory muscles Effort and Inspection: tachypneic Auscultation: diminished lung sounds diffuse; Negative for crackles, rales, rhonchi or wheezes Cardio regular rate, regular rhythm, S1 normal heart sound, S2 normal heart sound and no murmurs GI soft to palpation, non-tender and non-distended; Negative for hepatosplenomegaly Extremity no clubbing, cyanosis or edema General Extremity: no tenderness to palpation of joints or extremities Skin no rashes or lesions noted Neuro no focal motor deficits and no sensory deficits noted Psych affect normal Appearance: appropriate Assessment & Plan Assessment/Plan (1) Acute on chronic respiratory failure with hypoxemia: (2) Multifocal pneumonia: PLAN: 1. Acute on chronic hypoxic respiratory failure secondary to interstitial lung disease as well as recent Covid and bilateral bacterial pneumonia as well as a new fungal pneumonia/right lung nodule -Continue with nasal cannula, will continue with him pending transfer to however if his oxygen status improves to the point where he can go to a care home for rehab and then will discharge him and have him follow-up as an outpatient ?Continue voriconazole for fungal pneumonia -P.o. steroids ?Lasix as needed ?Awaiting transfer to a tertiary care center for VATS biopsy and a possible transplant consideration. -We will need outpatient follow-up with a CT scan for the right lung nodule 2. HTN/HLD/CAD is post stent/pulmonary hypertension/nonsustained V. tach -Blood pressure is little bit low this morning, will hold his home medications this morning and monitor. He is asymptomatic -Continue with statin and aspirin ?Echo with an EF of 65% and a PA systolic pressure of 58 mmHg -The V. tach has not recurred, cardiology was consulted and felt that this was possibly due to ventricular pacing rather than actual nonsustained V. tach. Defibrillator has been interrogated, will continue to monitor 3. History of rheumatoid arthritis ?Rheumatoid arthritis is likely what led to his interstitial lung disease 4. Anxiety/depression ?He has had significant improvement in his anxiety secondary to his illness with the initiation of the Ativan 3 times daily as needed, will also start him on Zoloft 50 mg daily and adjust as necessary DVT: Lovenox Charges/Coding Visit Charges Inpatient E&M: 00060 Subs Hosp L2
[2021-09-24 12:11] LABS: Bedside Glucose 237 mg/dL (70-110)
[2021-09-24 16:50] LABS: Bedside Glucose 255 mg/dL (70-110)
[2021-09-24] MEDS: Atorvastatin Calcium 20 MG Tablet PO (21:34)
[2021-09-24] MEDS: MELATONIN 10 MG TABLET PO (21:34)
[2021-09-24 22:25] LABS: Bedside Glucose 210 mg/dL (70-110)
[2021-09-25] VITALS (13 sets, daily range): BP systolic 100–107; BP diastolic 52–66; PULSE 68–88; RESP 16–20; TEMP 36.4–36.9; O2SAT 90–94
[2021-09-25] MEDS: guaiFENesin/Codeine 5 ML UDC PO ×2 (02:26→21:00)
[2021-09-25 06:46] LABS: Bedside Glucose 93 mg/dL (70-110)
[2021-09-25 06:53] LABS: Absolute Lymphocyte Count 1.07 X10^3/uL (0.83-4.51); Basophil# 0.04 X10^3/uL; Basophil% 0.3 % (0-1); Eosinophil# 0.28 X10^3/uL; Eosinophils% 2.4 % (0-5); Hematocrit 35.6 % (40-54); Hemoglobin 11.3 g/dL (13.0-16.5); Lymphocyte # 1.07 X10^3/ul (0.83-4.51); Lymphocyte % 9.1 % (19-41); Mean Corp Hgb Conc 31.7 g/dL (32-36); Mean Platelet Vol. 13.1 fl (6.2-12.0); Monocyte# 0.83 X10^3/uL; Monocyte% 7.1 % (0-10); NRBC Flagged by Analyzer 0 % (0-5); Neutrophil # 9.01 X10^3/uL (2.7-7.7); Neutrophil % 76.7 % (47-70); Platelet Count 172 K/mm3 (150-450); RBC Distribution Width SD 61.6 fl (35.1-43.9); Red Blood Count 4.19 M/mm3 (4.6-6.2); White Blood Count 11.8 K/mm3 (4.4-11.0)
[2021-09-25 07:14] LABS: Anion Gap 8 (5-15); BUN 38 mg/dL (7-18); BUN/Creat Ratio 82.4 RATIO (10-20); Calcium,Total 8.2 mg/dL (8.5-10.1); Chloride 95 mmol/L (98-107); Creatinine, Serum 0.46 mg/dL (0.70-1.30); EST Glomerular Filtration Rate 198 mL/min (>60); Est Glom Filt Rate - Afr Amer 240 mL/min (>60); Estimated Creatinine Clearance 167.28 ml/min; Glucose 87 mg/dL (74-106); Magnesium 2.3 mg/dL (1.6-2.6); Phosphorus 2.9 mg/dL (2.5-4.9); Potassium 4.3 mmol/L (3.5-5.1); Sodium Level 132 mmol/L (136-145)
[2021-09-25] MEDS: Aspirin E.C. 81 MG Tablet PO (07:59)
[2021-09-25] MEDS: Potassium Chloride Oral Tablet 20 MEQ PO ×2 (08:00→17:09)
[2021-09-25] MEDS: Lisinopril 20 MG Tablet PO (08:00)
[2021-09-25] MEDS: predniSONE 20 MG Tablet 30 MG PO (08:01)
[2021-09-25] MEDS: Sertraline 50 MG Tablet PO (08:01)
[2021-09-25] MEDS: dilTIAZem CD 120 MG Capsule PO (08:02)
[2021-09-25] MEDS: Enoxaparin 40 MG/0.4 ML Syringe SC (08:03)
[2021-09-25] MEDS: 0.9% Saline Lock 10 ML Syringe IV (08:03)
[2021-09-25] MEDS: Furosemide 40 MG/4 ML Vial IV (08:03)
[2021-09-25] MEDS: Voriconazole 200 MG Tablet 300 MG PO ×2 (08:03→20:54)
--- NOTE | 2021-09-25 09:07 | NURSING ---
Charge Nurse Talia will run/assess cardiac/tele monitoring/strips
--- NOTE | 2021-09-25 09:46 | PN.HOSP_ITS ---
Subjective Subjective About the same as yesterday. No significant improvement and oxygen status. Pulmonology is on board and is weaning his steroids and he is on the list for stepdown unit at Objective Data Objective Data Vital Signs: Vital Signs Temp Pulse Resp BP Pulse Ox 97.6 F L 82 20 H 101/64 90 09/25/21 07:55 09/25/21 09:12 09/25/21 07:55 09/25/21 07:55 09/25/21 09:17 Oxygen Flow Rate (L/min) 15 Oxygen Delivery Method High Flow Weight: 163 lb 12.855 oz Body Mass Index (BMI) 28.5 Intake & Output: Intake and Output for Last 24 Hours 09/24/21 09/25/21 09/26/21 03:59 03:59 03:59 Intake Total 480 / 480 120 / 120 Output Total 1175 / 1175 1600 / 1600 180 / 180 Balance -695 / -695 -1480 / -1480 -180 / -180 Medical Nutrition Assessment Dietitian: Malnutrition Criteria Met Start: 09/18/21 10:37 Freq: Status: Active Protocol: Document 09/18/21 10:37 RMA (Rec: 09/18/21 10:37 RMA [id number]) Nutrition Malnutrition Evidence of Malnutrition Exists Yes Malnutrition (severe): Acute Illness/Injury Evidenced By Suboptimal Energy Intake ( Severe),Weight Loss (Severe) Intake Problem Inadequate Oral Intake Etiology r/t decreased appetite, resp. 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 failure Signs/Symptoms as evidenced by 10Kg/12% wt loss < 1 month. Status Active Problem Altered Nutrient-Related Laboratory Values Etiology related to steroid administration Signs/Symptoms as evidenced by glucose 227 Status Active Problem Recommendation Dietitian Recommendations/Changes Continue regular diet with 2% milk TID at meals and fortified foods when possible. Pt is refusing ensure supplements but, will offer again if PO does not improve at meals and weight continues to decline. Blood glucose very high, restrict carbohydrates as intake improves at meals. Lab / Micro Data Result Diagrams: 09/25/21 05:06 09/25/21 05:06 Labs: Laboratory Results - last 24 hr 09/24/21 11:05: POC Glucose 237 H 09/24/21 16:43: POC Glucose 255 H 09/24/21 21:33: POC Glucose 210 H 09/25/21 05:06: WBC 11.8 H, RBC 4.19 L, Hgb 11.3 L, Hct 35.6 L, MCV 85.0, MCH 2 7.0, MCHC 31.7 L, RDW Std Deviation 61.6 H, RDW Coeff of Cheikh 20.0 H, Plt Count 172, MPV 13.1 H, Immature Gran % (Auto) 4.400 H, Neut % (Auto) 76.7 H, Lymph % (Auto) 9.1 L, [place] % (Auto) 7.1, Eos % (Auto) 2.4, Baso % (Auto) 0.3, Absolute Neuts (auto) 9.0 H, Absolute Lymphs (auto) 1.07, Nucleated RBC % 0 09/25/21 05:06: Sodium 132 L, Potassium 4.3, Chloride 95 L, Carbon Dioxide 29.0, Anion Gap 8, BUN 38 H, Creatinine 0.46 L, Estim Creat Clear Calc 167.28, Est GFR (MDRD) Af Amer 240, Est GFR (MDRD) Non-Af 198, BUN/Creatinine Ratio 82.4 H, Glucose 87, Calcium 8.2 L, Phosphorus 2.9, Magnesium 2.3 09/25/21 06:21: POC Glucose 93 Micro: Microbiology 08/29/21 12:00 Fluid - Other Acid Fast Bacilli Smear - Final 08/29/21 12:00 Wash - Right Middle Lobe Gram Stain - Final 08/29/21 12:00 Wash - Right Middle Lobe Respiratory Culture - Final Presumptive C albicans 08/29/21 12:00 Wash - Other Gram Stain - Final 08/29/21 12:00 Wash - Other Respiratory Culture - Final Presumptive C albicans 08/27/21 00:30 Blood Culture (Wb) - Left Hand Blood Culture - Final No growth in 5 days. 10/29/21 00:30 Blood Culture (Wb) - Anticubital Right Blood Culture - Final No growth in 5 days. 08/28/21 18:45 Sputum, Expectorated/Coughed Gram Stain - Final 08/28/21 18:45 Sputum, Expectorated/Coughed Respiratory Culture - Final 08/27/21 16:10 Sputum, Expectorated/Coughed Gram Stain - Final 08/27/21 16:10 Sputum, Expectorated/Coughed Respiratory Culture - Final 08/27/21 10:55 Sputum, Expectorated/Coughed Gram Stain - Final 08/27/21 10:55 Sputum, Expectorated/Coughed Respiratory Culture - Final 08/26/21 Unknown Urine, Clean Catch Legionella Antigen - Final 08/26/21 Unknown Urine, Clean Catch Streptococcus pneumoniae Antigen (M - Final 08/27/21 02:15 Mucosa - Nasopharyngeal Respiratory Panel (PCR) - Final 08/27/21 00:20 Nasal Secretion SARS-CoV-2 Antigen (Rapid) - Final Physical Exam Narrative Const alert, oriented x3 and no apparent distress General Appearance: cooperative HEENT normocephalic and moist oral mucous membranes Eyes PERRL, EOMs intact bilaterally and conjunctivae normal Neck supple and no JVD Resp normal respiratory effort, normal air movement, no retractions and no use of accessory muscles Effort and Inspection: tachypneic Auscultation: diminished lung sounds diffuse; Negative for crackles, rales, rhonchi or wheezes Cardio regular rate, regular rhythm, S1 normal heart sound, S2 normal heart sound and no murmurs GI soft to palpation, non-tender and non-distended; Negative for hepatosplenomegaly Extremity no clubbing, cyanosis or edema General Extremity: no tenderness to palpation of joints or extremities Skin no rashes or lesions noted Neuro no focal motor deficits and no sensory deficits noted Psych affect normal Appearance: appropriate Assessment & Plan Assessment/Plan (1) Acute on chronic respiratory failure with hypoxemia: (2) Multifocal pneumonia: PLAN: 1. Acute on chronic hypoxic respiratory failure secondary to interstitial lung disease as well as recent Covid and bilateral bacterial pneumonia as well as a new fungal pneumonia/right lung nodule -Continue with nasal cannula, will continue with the pending transfer to however if his oxygen status improves to the point where he can go to a long-term for rehab and then will discharge him and have him follow-up as an outpatient ?Continue voriconazole for fungal pneumonia -P.o. steroids will be weaned today by pulmonology ?Lasix as needed ?Awaiting transfer to a tertiary care center for VATS biopsy and a possible transplant consideration. -We will need outpatient follow-up with a CT scan for the right lung nodule 2. HTN/HLD/CAD is post stent/pulmonary hypertension/nonsustained V. tach -Blood pressure is little bit low this morning, will hold his home medications this morning and monitor. He is asymptomatic -Continue with statin and aspirin ?Echo with an EF of 65% and a PA systolic pressure of 58 mmHg -The V. tach has not recurred, cardiology was consulted and felt that this was possibly due to ventricular pacing rather than actual nonsustained V. tach. Defibrillator has been interrogated, will continue to monitor 3. History of rheumatoid arthritis ?Rheumatoid arthritis is likely what led to his interstitial lung disease 4. Anxiety/depression ?He has had significant improvement in his anxiety secondary to his illness with the initiation of the Ativan 3 times daily as needed, will also start him on Zoloft 50 mg daily and adjust as necessary DVT: Lovenox Charges/Coding Visit Charges Inpatient E&M: 95351 Subs Hosp L2
--- NOTE | 2021-09-25 11:00 | PN.CC_ITS ---
Assessment & Plan Assessment/Plan (1) Acute on chronic respiratory failure with hypoxemia: PLAN: RECOMMENDATIONS: 1. Continue to supplemental oxygen to maintain saturations at or above 90%. 2. Continue voriconazole per ID. 3. Wean p.o. steroids by 10 mg every 7 days. 4. Continue IV Lasix as tolerated by hemodynamics and renal function. 5. Encourage incentive spirometer use and mobilize patient as tolerated. IMPRESSIONS: 1. Acute on chronic hypoxemic respiratory failure The patient does have a baseline oxygen requirement of 3 L/min. He has a history of rheumatoid associated interstitial lung disease and was previously on immunosuppression, up until his discharge from the hospital in June. The patient has been hospitalized several times over the last couple months, first due to COVID-19 pneumonia and more recently as a consequence of bacterial pneumonia. His CT findings noted on presentation were nonspecific. Therefore, the patient underwent bronchoscopy on August 29 with BAL performed bilaterally. Fluid cytology revealed fungal organisms consistent with Aspergillus. The patient today has been treated with voriconazole, empiric antimicrobials, aggressive diuresis and IV steroids. Despite the aforementioned, his respiratory status is not improved. Repeat CTA chest on September 12 again dem onstrated no evidence for pulmonary embolism. He does appear to have progressive interstitial lung disease, which is still of unclear etiology, but could certainly be related to his underlying rheumatologic disease and/or superimposed fibrosis from his recent Covid infection. At this time, given the patient's age and prior functional status, it has been recommended for a more aggressive approach including transfer to a tertiary care facility to be considered for potential VATS biopsy and transplant consideration. Transfer to tertiary center has not been successful to this point. Oxygenation is slowly improving. If patient is able to make to 6 L, would suggest rehab placement with outpatient follow-up. Will wean steroid therapy by 10 mg every 7 days. Clinical suspicion the patient is reaching a baseline marginal pulmonary status, but patient is not open to transition outside of a tertiary center. 2. History of mixed obstructive/restrictive ventilatory impairment/ rheumatoid arthritis/hypertension/hyperlipidemia/pulmonary hypertension Complicates care, management, recovery and prognosis. Continue home medications as indicated. This note was generated with [employer] software. It may contain incorrect words, spelling, and punctuation that were not noted in checking the note before signing. Subjective Subjective Patient did okay overnight. Patient continues to report significant shortness of breath with any activity. Patient feels relatively comfortable when lying still. No change in cough. Patient is reporting mild epistaxis. Objective Data Objective Data Vital Signs: Vital Signs Temp Pulse Resp BP Pulse Ox 36.4 C L 82 20 H 101/64 90 09/25/21 07:55 09/25/21 09:12 09/25/21 07:55 09/25/21 07:55 09/25/21 09:17 Oxygen Flow Rate (L/min) 15 Oxygen Delivery Method High Flow Weight: 74.3 kg Body Mass Index (BMI) 28.5 Intake & Output: Intake and Output for Last 24 Hours 09/23/21 09/24/21 09/25/21 23:59 23:59 23:59 Intake Total 480 / 480 120 / 120 Output Total 1175 / 1175 1600 / 1600 180 / 180 Balance -695 / -695 -1480 / -1480 -180 / -180 Medical Nutrition Assessment Dietitian: Malnutrition Criteria Met Start: 09/18/21 10:37 Freq: Status: Active Protocol: Document 09/18/21 10:37 RMA (Rec: 09/18/21 10:37 RMA [id number]) Nutrition Malnutrition Evidence of Malnutrition Exists Yes Malnutrition (severe): Acute Illness/Injury Evidenced By Suboptimal Energy Intake ( Severe),Weight Loss (Severe) Intake Problem Inadequate Oral Intake Etiology r/t decreased appetite, resp. failure requiring bipap Signs/Symptoms as evidenced by estimated PO intake meeting <75% of estimated nutritional needs x 5 days [employer]AIL[employer]URN[employer]URE and currently PO at meals is less than 50% Status Active Problem Clinical Problem Acute Disease or Injury Related Malnutrition Etiology Severe protein/calorie malnutrition in the context of acute illness related to inadequate oral intake and increased oxygen needs Signs/Symptoms as evidenced by ~12% wt loss since admission x 3 weeks and PO significantly decreased to less than 50% at meals in past 24-48 hours Status Active Problem Unintended Weight Loss Etiology r/t inadequate energy intake w / increased energy needs d/t resp. failure Signs/Symptoms as evidenced by 10Kg/12% wt loss < 1 month. Status Active Problem Altered Nutrient-Related Laboratory Values Etiology related to steroid administration Signs/Symptoms as evidenced by glucose 227 Status Active Problem Recommendation Dietitian Recommendations/Changes Continue regular diet with 2% milk TID at meals and fortified foods when possible. Pt is refusing ensure supplements but, will offer again if PO does not improve at meals and weight continues to decline. Blood glucose very high, restrict carbohydrates as intake improves at meals. Lab / Micro Data Result Diagrams: 09/25/21 05:06 09/25/21 05:06 Labs: Laboratory Results - last 24 hr 09/24/21 11:05: POC Glucose 237 H 09/24/21 16:43: POC Glucose 255 H 09/24/21 21:33: POC Glucose 210 H 09/25/21 05:06: WBC 11.8 H, RBC 4.19 L, Hgb 11.3 L, Hct 35.6 L, MCV 85.0, MCH 27.0, MCHC 31.7 L, RDW Std Deviation 61.6 H, RDW Coeff of [place] 20.0 H, Plt Count 172, MPV 13.1 H, Immature Gran % (Auto) 4.400 H, Neut % (Auto) 76.7 H, Lymph % (Auto) 9.1 L, [place] % (Auto) 7.1, Eos % (Auto) 2.4, Baso % (Auto) 0.3, Absolute Neuts (auto) 9.0 H, Absolute Lymphs (auto) 1.07, Nucleated RBC % 0 09/25/21 05:06: Sodium 132 L, Potassium 4.3, Chloride 95 L, Carbon Dioxide 29.0, Anion Gap 8, BUN 38 H, Creatinine 0.46 L, Estim Creat Clear Calc 167.28, Est GFR (MDRD) Af Amer 240, Est GFR (MDRD) Non-Af 198, BUN/Creatinine Ratio 82.4 H, Glucose 87, Calcium 8.2 L, Phosphorus 2.9, Magnesium 2.3 09/25/21 06:21: POC Glucose 93 Micro: Microbiology 08/29/21 12:00 Fluid - Other Acid Fast Bacilli Smear - Final 08/29/21 12:00 Wash - Right Middle Lobe Gram Stain - Final 08/29/21 12:00 Wash - Right Middle Lobe Respiratory Culture - Final Presumptive C albicans 08/29/21 12:00 Wash - Other Gram Stain - Final 08/29/21 12:00 Wash - Other Respiratory Culture - Final Presumptive C albicans 08/27/21 00:30 Blood Culture (Wb) - Left Hand Blood Culture - Final No growth in 5 days. 08/26/21 00:30 Blood Culture (Wb) - Anticubital Right Blood Culture - Final No growth in 5 days. 08/28/21 18:45 Sputum, Expectorated/Coughed Gram Stain - Final 08/28/21 18:45 Sputum, Expectorated/Coughed Respiratory Culture - Final 08/27/21 16:10 Sputum, Expectorated/Coughed Gram Stain - Final 08/27/21 16:10 Sputum, Expectorated/Coughed Respiratory Culture - Final 08/27/21 10:55 Sputum, Expectorated/Coughed Gram Stain - Final 08/27/21 10:55 Sputum, Expectorated/Coughed Respiratory Culture - Final 08/26/21 Unknown Urine, Clean Catch Legionella Antigen - Final 08/26/21 Unknown Urine, Clean Catch Streptococcus pneumoniae Antigen (M - Final 08/27/21 02:15 Mucosa - Nasopharyngeal Respiratory Panel (PCR) - Final 08/27/21 00:20 Nasal Secretion SARS-CoV-2 Antigen (Rapid) - Final Physical Exam Const alert and no apparent distress Constitutional Narrative: Sitting upright in bed, currently tolerating high flow nasal cannula oxygen. General Appearance: cooperative HEENT normocephalic and head/scalp atraumatic HEENT Narrative: Mild blood right nares Eyes PERRL, EOMs intact bilaterally and conjunctivae normal Neck supple General: trachea midline Chest inspection of chest normal Chest: symmetrical chest wall rise; Negative for crepitus Resp Effort and Inspection: tachypneic Auscultation: diminished lung sounds; Negative for rales, rhonchi or wheezes Cardio regular rate, regular rhythm, no murmurs, no rub and no gallops GI normal to inspection, nondistended, normoactive bowel sounds Extremity no clubbing, cyanosis or edema Skin no rashes or lesions noted Neuro CN's II-XII intact bilaterally, moves all extremities and no focal motor deficits Psych cooperative and affect normal Charges/Coding Visit Charges Inpatient E&M: 36795 Subs Hosp L2
[2021-09-25] MEDS: Insulin Lispro 100 UNIT/ML INSULN.PEN SC ×3 (11:59→20:53)
[2021-09-25 12:31] LABS: Bedside Glucose 192 mg/dL (70-110)
[2021-09-25] MEDS: Furosemide 40 MG Tablet PO (17:09)
[2021-09-25 17:11] LABS: Bedside Glucose 281 mg/dL (70-110)
[2021-09-25] MEDS: Atorvastatin Calcium 20 MG Tablet PO (20:53)
[2021-09-25] MEDS: MELATONIN 10 MG TABLET PO (21:00)
[2021-09-25 21:46] LABS: Bedside Glucose 255 mg/dL (70-110)
[2021-09-26] VITALS (13 sets, daily range): BP systolic 90–106; BP diastolic 56–64; PULSE 64–75; RESP 18–24; TEMP 36–36.6; O2SAT 93–96
[2021-09-26 06:26] LABS: Bedside Glucose 95 mg/dL (70-110)
[2021-09-26 06:52] LABS: Absolute Lymphocyte Count 1.11 X10^3/uL (0.83-4.51); Absolute Neutrophil Count 8.6 X10^3/uL (2.0-7.7); Basophil# 0.03 X10^3/uL; Basophil% 0.3 % (0-1); Hematocrit 36.5 % (40-54); Hemoglobin 11.7 g/dL (13.0-16.5); Lymphocyte # 1.11 X10^3/ul (0.83-4.51); Lymphocyte % 10.2 % (19-41); Mean Corp Hgb Conc 32.1 g/dL (32-36); Mean Corpuscular Hgb 27.3 pg (27.0-32.0); Mean Corpuscular Volume 85.1 fL (80-94); Mean Platelet Vol. 12.4 fl (6.2-12.0); Monocyte# 0.73 X10^3/uL; Monocyte% 6.7 % (0-10); NRBC Flagged by Analyzer 0 % (0-5); Neutrophil # 8.56 X10^3/uL (2.7-7.7); Neutrophil % 78.2 % (47-70); POSITIVE MORPHOLOGY YES; Platelet Count 182 K/mm3 (150-450); RBC Distribution Width CV 20.3 % (11.6-14.6); RBC Distribution Width SD 61.1 fl (35.1-43.9); Red Blood Count 4.29 M/mm3 (4.6-6.2); White Blood Count 10.9 K/mm3 (4.4-11.0)
[2021-09-26 07:03] LABS: Differential Indicated SCAN CRITERIA MET
[2021-09-26 07:11] LABS: Anion Gap 6 (5-15); BUN 33 mg/dL (7-18); BUN/Creat Ratio 61.9 RATIO (10-20); Calcium,Total 8.4 mg/dL (8.5-10.1); Chloride 97 mmol/L (98-107); Creatinine, Serum 0.53 mg/dL (0.70-1.30); EST Glomerular Filtration Rate 168 mL/min (>60); Est Glom Filt Rate - Afr Amer 203 mL/min (>60); Estimated Creatinine Clearance 145.19 ml/min; Glucose 87 mg/dL (74-106); Potassium 4.3 mmol/L (3.5-5.1); Sodium Level 134 mmol/L (136-145)
[2021-09-26 07:56] LABS: Anisocytosis 2+; Differential Comment SCANNED
[2021-09-26] MEDS: predniSONE 20 MG Tablet 30 MG PO (08:21)
[2021-09-26] MEDS: Aspirin E.C. 81 MG Tablet PO (08:21)
[2021-09-26] MEDS: Potassium Chloride Oral Tablet 20 MEQ PO ×2 (08:21→16:13)
[2021-09-26] MEDS: dilTIAZem CD 120 MG Capsule PO (08:22)
[2021-09-26] MEDS: Sertraline 50 MG Tablet PO (08:23)
[2021-09-26] MEDS: Enoxaparin 40 MG/0.4 ML Syringe SC (08:24)
--- NOTE | 2021-09-26 08:25 | PCM.PN.INT ---
Assessment & Plan Assessment/Plan (1) Acute on chronic respiratory failure with hypoxemia: PLAN: RECOMMENDATIONS: 1. Continue to supplemental oxygen to maintain saturations at or above 90%. 2. Continue voriconazole per ID. 3. Wean p.o. steroids by 10 mg every 7 days (next step 10/02/2021). 4. Continue IV Lasix as tolerated by hemodynamics and renal function. 5. Encourage incentive spirometer use and mobilize patient as tolerated. IMPRESSIONS: 1. Acute on chronic hypoxemic respiratory failure The patient does have a baseline oxygen requirement of 3 L/min. He has a history of rheumatoid associated interstitial lung disease and was previously on immunosuppression, up until his discharge from the hospital in June. The patient has been hospitalized several times over the last couple months, first due to COVID-19 pneumonia and more recently as a consequence of bacterial pneumonia. His CT findings noted on presentation were nonspecific. Therefore, the patient underwent bronchoscopy on August 29 with BAL performed bilaterally. Fluid cytology revealed fungal organisms consistent with Aspergillus. The patient today has been treated with voriconazole, empiric antimicrobials, aggressive diuresis and IV steroids. Despite the aforementioned, his respiratory status is not improved. Repeat CTA chest on September 12 again demonstrated no evidence for pulmonary embolism. He does appear to have progressive interstitial lung disease, which is still of unclear etiology, but could certainly be related to his underlying rheumatologic disease and/or superimposed fibrosis from his recent Covid infection. At this time, given the patient's age and prior functional status, it has been recommended for a more aggressive approach including transfer to a tertiary care facility to be considered for potential VATS biopsy and transplant consideration. Transfer to tertiary center has not been successful to this point. Oxygenation is slowly improving. Anticipate significantly protracted course, but patient is refusing transfer to an LTAC. If patient is able to make to 6 L, would suggest rehab placement with outpatient follow-up. Will wean steroid therapy by 10 mg every 7 days (next step 10/02/2021). 2. History of mixed obstructive/restrictive ventilatory impairment/rheumatoid arthritis/hypertension/hyperlipidemia/pulmonary hypertension Complicates care, management, recovery and prognosis. Continue home medications as indicated. Hospitalist coordinating with [facility] for transfer when bed available. This note was generated with [employer] software. It may contain incorrect words, spelling, and punctuation that were not noted in checking the note before signing. Subjective Subjective Patient did okay overnight. No acute issues were reported. Patient able to be weaned to 11 L nasal cannula this morning. No epistaxis was reported. Patient still with significant dyspnea on exertion. No update from [facility] on bed availability. Objective Data Objective Data Vital Signs: Vital Signs Temp Pulse Resp BP Pulse Ox 36.2 C L 74 18 96/61 93 09/26/21 08:17 09/26/21 08:17 09/26/21 08:17 09/26/21 08:17 09/26/21 08:17 Oxygen Flow Rate (L/min) 12 Oxygen Delivery Method Nasal Cannula Weight: 72.4 kg Body Mass Index (BMI) 28.5 Intake & Output: Intake and Output for Last 24 Hours 09/24/21 09/25/21 09/26/21 23:59 23:59 23:59 Intake Total 120 / 120 480 / 700 580 / 580 Output Total 1600 / 1600 980 / 1180 200 / 200 Balance -1480 / -1480 -500 / -480 380 / 380 Medical Nutrition Assessment Dietitian: Malnutrition Criteria Met Start: 09/18/21 10:37 Freq: Status: Active Protocol: Document 09/18/21 10:37 RMA (Rec: 09/18/21 10:37 RMA [id number]) Nutrition Malnutrition Evidence of Malnutrition Exists Yes Malnutrition (severe): Acute Illness/Injury Evidenced By Suboptimal Energy Intake ( Severe),Weight Loss (Severe) Intake Problem Inadequate Oral Intake Etiology r/t decreased appetite, resp. failure requiring bipap Signs/Symptoms as evidenced by estimated PO intake meeting <75% of estimated nutritional needs x 5 days [employer]TER [employer]ERK and currently PO at meals is less than 50% Status Active Problem Clinical Problem Acute Disease or Injury Related Malnutrition Etiology Severe protein/calorie malnutrition in the context of acute illness related to inadequate oral intake and increased oxygen needs Signs/Symptoms as evidenced by ~12% wt loss since admission x 3 weeks and PO significantly decreased to less than 50% at meals in past 24-48 hours Status Active Problem Unintended Weight Loss Etiology r/t inadequate energy intake w / increased energy needs d/t resp. failure Signs/Symptoms as evidenced by 10Kg/12% wt loss < 1 month. Status Active Problem Altered Nutrient-Related Laboratory Values Etiology related to steroid administration Signs/Symptoms as evidenced by glucose 227 Status Active Problem Recommendation Dietitian Recommendations/Changes Continue regular diet with 2% milk TID at meals and fortified foods when possible. Pt is refusing ensure supplements but, will offer again if PO does not improve at meals and weight continues to decline. Blood glucose very high, restrict carbohydrates as intake improves at meals. Lab / Micro Data Result Diagrams: 09/26/21 05:25 09/26/21 05:25 Labs: Laboratory Results - last 24 hr 09/25/21 11:57: POC Glucose 192 H 09/25/21 17:05: POC Glucose 281 H 09/25/21 20:49: POC Glucose 255 H 09/26/21 05:25: WBC 10.9, RBC 4.29 L, Hgb 11.7 L, Hct 36.5 L, MCV 85.1, MCH 27.3, MCHC 32.1, RDW Std Deviation 61.1 H, RDW Coeff of [place] 20.3 H, Plt Count 182, MPV 12.4 H, Immature Gran % (Auto) 4.600 H, Neut % (Auto) 78.2 H, Lymph % (Auto) 10.2 L, [place] % (Auto) 6.7, Eos % (Auto) 0.0, Baso % (Auto) 0.3, Absolute Neuts (auto) 8.6 H, Absolute Lymphs (auto) 1.11, Nucleated RBC % 0, Differential Comment SCANNED, Anisocytosis 2+ 09/26/21 05:25: Sodium 134 L, Potassium 4.3, Chloride 97 L, Carbon Dioxide 31.0, Anion Gap 6, BUN 33 H, Creatinine 0.53 L, Estim Creat Clear Calc 145.19, Est GFR (MDRD) Af Amer 203, Est GFR (MDRD) Non-Af 168, BUN/Creatinine Ratio 61.9 H, Glucose 87, Calcium 8.4 L 09/26/21 06:22: POC Glucose 95 Micro: Microbiology 08/29/21 12:00 Fluid - Other Acid Fast Bacilli Smear - Final 08/29/21 12:00 Wash - Right Middle Lobe Gram Stain - Final 08/29/21 12:00 Wash - Right Middle Lobe Respiratory Culture - Final Presumptive C albicans 08/29/21 12:00 Wash - Other Gram Stain - Final 08/29/21 12:00 Wash - Other Respiratory Culture - Final Presumptive C albicans 08/27/21 00:30 Blood Culture (Wb) - Left Hand Blood Culture - Final No growth in 5 days. 08/26/21 00:30 Blood Culture (Wb) - Anticubital Right Blood Culture - Final No growth in 5 days. 08/28/21 18:45 Sputum, Expectorated/Coughed Gram Stain - Final 08/28/21 18:45 Sputum, Expectorated/Coughed Respiratory Culture - Final 08/27/21 16:10 Sputum, Expectorated/Coughed Gram Stain - Final 08/27/21 16:10 Sputum, Expectorated/Coughed Respiratory Culture - Final 08/27/21 10:55 Sputum, Expectorated/Coughed Gram Stain - Final 08/27/21 10:55 Sputum, Expectorated/Coughed Respiratory Culture - Final 08/26/21 Unknown Urine, Clean Catch Legionella Antigen - Final 08/26/21 Unknown Urine, Clean Catch Streptococcus pneumoniae Antigen (M - Final 08/27/21 02:15 Mucosa - Nasopharyngeal Respiratory Panel (PCR) - Final 08/27/21 00:20 Nasal Secretion SARS-CoV-2 Antigen (Rapid) - Final Physical Exam Const alert and no apparent distress Constitutional Narrative: Sitting upright in bed, currently tolerating high flow nasal cannula oxygen. General Appearance: cooperative HEENT normocephalic and head/scalp atraumatic HEENT Narrative: Mild blood right nares Eyes PERRL, EOMs intact bilaterally and conjunctivae normal Neck supple General: trachea midline Chest inspection of chest normal Chest: symmetrical chest wall rise; Negative for crepitus Resp Effort and Inspection: tachypneic Auscultation: diminished lung sounds; Negative for rales, rhonchi or wheezes Cardio regular rate, regular rhythm, no murmurs, no rub and no gallops GI normal to inspection, nondistended, normoactive bowel sounds Extremity no clubbing, cyanosis or edema Skin no rashes or lesions noted Neuro CN's II-XII intact bilaterally, moves all extremities and no focal motor deficits Psych cooperative and affect normal Charges/Coding Visit Charges Inpatient E&M: 85966 Subs Hosp L2
[2021-09-26] MEDS: Furosemide 40 MG/4 ML Vial IV (08:28)
[2021-09-26] MEDS: Voriconazole 200 MG Tablet 300 MG PO ×2 (10:11→21:12)
[2021-09-26] MEDS: Lisinopril 20 MG Tablet PO (10:11)
--- NOTE | 2021-09-26 11:53 | PN.HOSP_ITS ---
Subjective Subjective Patient is a 61-year-old gentleman who has had a protracted stay following COVID-19 with superimposed bacterial pneumonia and fungal pneumonia. Attempt had been made to have patient transferred to a tertiary care center for consideration for VATS biopsy. Objective Data Objective Data Vital Signs: Vital Signs Temp Pulse Resp BP Pulse Ox 96.8 F L 71 18 106/56 L 96 09/26/21 10:09 09/26/21 10:09 09/26/21 10:09 09/26/21 10:09 09/26/21 10:09 Oxygen Flow Rate (L/min) 12 Oxygen Delivery Method Nasal Cannula Weight: 72.4 kg Body Mass Index (BMI) 28.5 Intake & Output: Intake and Output for Last 24 Hours 09/24/21 09/25/21 09/26/21 23:59 23:59 23:59 Intake Total 120 / 120 480 / 700 580 / 580 Output Total 1600 / 1600 980 / 1180 200 / 200 Balance -1480 / -1480 -500 / -480 380 / 380 Medical Nutrition Assessment Dietitian: Malnutrition Criteria Met Start: 09/18/21 10:37 Freq: Status: Active Protocol: Document 09/18/21 10:37 RMA (Rec: 09/18/21 10:37 RMA [id number]) Nutrition Malnutrition Evidence of Malnutrition Exists Yes Malnutrition (severe): Acute Illness/Injury Evidenced By Suboptimal Energy Intake ( Severe),Weight Loss (Severe) Intake Problem Inadequate Oral Intake Etiology r/t decreased appetite, resp. 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 failure Signs/Symptoms as evidenced by 10Kg/12% wt loss < 1 month. Status Active Problem Altered Nutrient-Related Laboratory Values Etiology related to steroid administration Signs/Symptoms as evidenced by glucose 227 Status Active Problem Recommendation Dietitian Recommendations/Changes Continue regular diet with 2% milk TID at meals and fortified foods when possible. Pt is refusing ensure supplements but, will offer again if PO does not improve at meals and weight continues to decline. Blood glucose very high, restrict carbohydrates as intake improves at meals. Lab / Micro Data Result Diagrams: 09/26/21 05:25 09/26/21 05:25 Labs: Laboratory Results - last 24 hr 09/25/21 11:57: POC Glucose 192 H 09/25/21 17:05: POC Glucose 281 H 09/25/21 20:49: POC Glucose 255 H 09/26/21 05:25: WBC 10.9, RBC 4.29 L, Hgb 11.7 L, Hct 36.5 L, MCV 85.1, MCH 27.3, MCHC 32.1, RDW Std Deviation 61.1 H, RDW Coeff of Cheikh 20.3 H, Plt Count 182, MPV 12.4 H, Immature Gran % (Auto) 4.600 H, Neut % (Auto) 78.2 H, Lymph % (Auto) 10.2 L, [place] % (Auto) 6.7, Eos % (Auto) 0.0, Baso % (Auto) 0.3, Absolute Neuts (auto) 8.6 H, Absolute Lymphs (auto) 1.11, Nucleated RBC % 0, Differential Comment SCANNED, Anisocytosis 2+ 09/26/21 05:25: Sodium 134 L, Potassium 4.3, Chloride 97 L, Carbon Dioxide 31.0, Anion Gap 6, BUN 33 H, Creatinine 0.53 L, Estim Creat Clear Calc 145.19, Est GFR (MDRD) Af Amer 203, Est GFR (MDRD) Non-Af 168, BUN/Creatinine Ratio 61.9 H, Glucose 87, Calcium 8.4 L 09/26/21 06:22: POC Glucose 95 Micro: Microbiology 08/29/21 12:00 Fluid - Other Acid Fast Bacilli Smear - Final 08/29/21 12:00 Wash - Right Middle Lobe Gram Stain - Final 08/29/21 12:00 Wash - Right Middle Lobe Respiratory Culture - Final Presumptive C albicans 08/29/21 12:00 Wash - Other Gram Stain - Final 08/29/21 12:00 Wash - Other Respiratory Culture - Final Presumptive C albicans 08/27/21 00:30 Blood Culture (Wb) - Left Hand Blood Culture - Final No growth in 5 days. 08/26/21 00:30 Blood Culture (Wb) - Anticubital Right Blood Culture - Final No growth in 5 days. 08/28/21 18:45 Sputum, Expectorated/Coughed Gram Stain - Final 08/28/21 18:45 Sputum, Expectorated/Coughed Respiratory Culture - Final 08/27/21 16:10 Sputum, Expectorated/Coughed Gram Stain - Final 08/27/21 16:10 Sputum, Expectorated/Coughed Respiratory Culture - Final 08/27/21 10:55 Sputum, Expectorated/Coughed Gram Stain - Final 08/27/21 10:55 Sputum, Expectorated/Coughed Respiratory Culture - Final 08/26/21 Unknown Urine, Clean Catch Legionella Antigen - Final 08/26/21 Unknown Urine, Clean Catch Streptococcus pneumoniae Antigen (M - Final 08/27/21 02:15 Mucosa - Nasopharyngeal Respiratory Panel (PCR) - Final 08/27/21 00:20 Nasal Secretion SARS-CoV-2 Antigen (Rapid) - Final Physical Exam Narrative GENERAL: cooperative HEENT: Atraumatic; EYES; Anicteric, Normal Conjunctiva NECK; supple, normal thyroid, RESPIRATORY: Diminished to auscultation CARDIOVASCULAR: Regular S1 S2, GI: soft, normoactive bowel sounds, : No Renal angle tenderness; EXTREMITIES: No edema, no clubbing, MUSCULOSKELETAL: no muscle waisting NEURO: Awake; no lateralizing signs. SKIN: No Rash PSYCH; Flat affect Assessment & Plan Assessment/Plan (1) Acute on chronic respiratory failure with hypoxemia: (2) Multifocal pneumonia: PLAN: Patient is a 61-year-old gentleman who has had a protracted stay following COVID-19 with superimposed bacterial pneumonia and fungal pneumonia. Attempt had been made to have patient transferred to a tertiary care center for consideration for VATS biopsy. 1. Acute hypoxic respiratory failure ?Secondary to interstitial lung disease following recent COVID-19 pneumonia which was complicated by bilateral bacterial pneumonia as well as fungal pneumonia. Patient currently on voriconazole. Has been seen in consultation by pulmonary medicine. And is for patient to be transferred to a tertiary care center pending bed availability (so far unsuccessful). Patient did agree to consider LTAC. Case management notified 2. Coronary artery disease ?With previous stent placement 3. Hypertension - Blood pressure controlled, home medications continued with dose adjustment as needed 4. Dyslipidemia -Patient is on statin therapy, continued at home dose 5. Rheumatoid arthritis ?With lung complications including interstitial lung disease 6. Depression with anxiety ?Patient is on SSRI in addition to Ativan as needed 7. Physical deconditioning - Requested for PT OT eval and social services analyst to assist with discharge planning 8. DVT prophylaxis ?Leny Charges/Coding Visit Charges Inpatient E&M: 73350 Subs Hosp L2
[2021-09-26] MEDS: Insulin Lispro 100 UNIT/ML INSULN.PEN SC ×2 (11:59→16:12)
[2021-09-26 12:11] LABS: Bedside Glucose 197 mg/dL (70-110)
--- NOTE | 2021-09-26 12:24 | CASEMGMT ---
Addendum entered by Marine Hood 09/26/21 14:22: Call from Chioma at [facility] and she states they do not currently have any beds and there is a 5-6 pt wait list at this time. Pt placed on list but referral also faxed to [facility]. Duane EVANGELISTA CM Addendum entered by Marine Hood 09/26/21 13:34: Per Dr. Hendrix and Dr. Dunn, this RN CM to work on LTACH for pt at this time. This RN CM to room, pt is agreeable to LTACH, and referral faxed to [facility] as pt has [facility] insurance and they would be preferred provider. CM to follow. Duane EVANGELISTA CM Original Note: Per Raquel RN and Lor attendance secretary, states still no bed available. Dr. Hendrix and Dr. Dunn updated. Duane EVANGELISTA CM
[2021-09-26 16:25] LABS: Bedside Glucose 219 mg/dL (70-110)
[2021-09-26] MEDS: Atorvastatin Calcium 20 MG Tablet PO (21:12)
[2021-09-26 22:06] LABS: Bedside Glucose 143 mg/dL (70-110)
[2021-09-27] VITALS (12 sets, daily range): BP systolic 75–111; BP diastolic 41–67; PULSE 65–88; RESP 18–24; TEMP 35.8–36.8; O2SAT 91–97
[2021-09-27 06:19] LABS: Hematocrit 35.1 % (40-54); Hemoglobin 10.9 g/dL (13.0-16.5); Mean Corp Hgb Conc 31.1 g/dL (32-36); Mean Corpuscular Hgb 26.7 pg (27.0-32.0); Mean Corpuscular Volume 85.8 fL (80-94); Mean Platelet Vol. 12.2 fl (6.2-12.0); POSITIVE MORPHOLOGY YES; Platelet Count 197 K/mm3 (150-450); RBC Distribution Width CV 20.4 % (11.6-14.6); Red Blood Count 4.09 M/mm3 (4.6-6.2); White Blood Count 10.5 K/mm3 (4.4-11.0)
[2021-09-27 06:26] LABS: Anion Gap 6 (5-15); BUN 39 mg/dL (7-18); BUN/Creat Ratio 74.1 RATIO (10-20); Calcium,Total 8.2 mg/dL (8.5-10.1); Chloride 98 mmol/L (98-107); Creatinine, Serum 0.53 mg/dL (0.70-1.30); EST Glomerular Filtration Rate 170 mL/min (>60); Est Glom Filt Rate - Afr Amer 206 mL/min (>60); Estimated Creatinine Clearance 145.19 ml/min; Glucose 98 mg/dL (74-106); Magnesium 2.3 mg/dL (1.6-2.6); Potassium 4.4 mmol/L (3.5-5.1); Sodium Level 134 mmol/L (136-145)
[2021-09-27 06:32] LABS: Scan Indicated on CBC? Y/N YES- FLAGS NOTED
[2021-09-27 07:31] LABS: Bedside Glucose 107 mg/dL (70-110)
--- NOTE | 2021-09-27 07:42 | PCM.PN.HOSP ---
Subjective Subjective Patient seen respiratory status remains relatively stable. Did discuss with patient about possibility of going to a long-term acute care facility Objective Data Objective Data Vital Signs: Vital Signs Temp Pulse Resp BP Pulse Ox 97.5 F L 70 18 111/65 96 09/27/21 06:50 09/27/21 06:50 09/27/21 06:50 09/27/21 06:50 09/27/21 06:50 Oxygen Flow Rate (L/min) 11 Oxygen Delivery Method Room Air Weight: 74 kg Body Mass Index (BMI) 28.5 Intake & Output: Intake and Output for Last 24 Hours 09/25/21 09/26/21 09/27/21 23:59 23:59 23:59 Intake Total 480 / 700 580 / 580 500 / 500 Output Total 980 / 1180 750 / 750 Balance -500 / -480 -170 / -170 500 / 500 Medical Nutrition Assessment Dietitian: Malnutrition Criteria Met Start: 09/18/21 10:37 Freq: Status: Active Protocol: Document 09/18/21 10:37 RMA (Rec: 09/18/21 10:37 RMA [id number]) Nutrition Malnutrition Evidence of Malnutrition Exists Yes Malnutrition (severe): Acute Illness/Injury Evidenced By Suboptimal Energy Intake ( Severe),Weight Loss (Severe) Intake Problem Inadequate Oral Intake Etiology r/t decreased appetite, resp. 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 failure Signs/Symptoms as evidenced by 10Kg/12% wt loss < 1 month. Status Active Problem Altered Nutrient-Related Laboratory Values Etiology related to steroid administration Signs/Symptoms as evidenced by glucose 227 Status Active Problem Recommendation Dietitian Recommendations/Changes Continue regular diet with 2% milk TID at meals and fortified foods when possible. Pt is refusing ensure supplements but, will offer again if PO does not improve at meals and weight continues to decline. Blood glucose very high, restrict carbohydrates as intake improves at meals. Lab / Micro Data Result Diagrams: 09/27/21 05:12 09/27/21 05:12 Labs: Laboratory Results - last 24 hr 09/26/21 05:25: Differential Comment SCANNED, Anisocytosis 2+ 09/26/21 11:58: POC Glucose 197 H 09/26/21 16:10: POC Glucose 219 H 09/26/21 21:49: POC Glucose 143 H 09/27/21 05:12: WBC 10.5, RBC 4.09 L, Hgb 10.9 L, Hct 35.1 L, MCV 85.8, MCH 26.7 L, MCHC 31.1 L, RDW Std Deviation 63.0 H, RDW Coeff of Cheikh 20.4 H, Plt Count 197, MPV 12.2 H 09/27/21 05:12: Sodium 134 L, Potassium 4.4, Chloride 98, Carbon Dioxide 30.0, Anion Gap 6, BUN 39 H, Creatinine 0.53 L, Estim Creat Clear Calc 145.19, Est GFR (MDRD) Af Amer 206, Est GFR (MDRD) Non-Af 170, BUN/Creatinine Ratio 74.1 H, Glucose 98, Calcium 8.2 L, Magnesium 2.3 09/27/21 07:00: POC Glucose 107 Micro: Microbiology 08/29/21 12:00 Fluid - Other Acid Fast Bacilli Smear - Final 08/29/21 12:00 Wash - Right Middle Lobe Gram Stain - Final 08/29/21 12:00 Wash - Right Middle Lobe Respiratory Culture - Final Presumptive C albicans 08/29/21 12:00 Wash - Other Gram Stain - Final 08/29/21 12:00 Wash - Other Respiratory Culture - Final Presumptive C albicans 08/27/21 00:30 Blood Culture (Wb) - Left Hand Blood Culture - Final No growth in 5 days. 08/26/21 00:30 Blood Culture (Wb) - Anticubital Right Blood Culture - Final No growth in 5 days. 08/28/21 18:45 Sputum, Expectorated/Coughed Gram Stain - Final 08/28/21 18:45 Sputum, Expectorated/Coughed Respiratory Culture - Final 08/27/21 16:10 Sputum, Expectorated/Coughed Gram Stain - Final 08/27/21 16:10 Sputum, Expectorated/Coughed Respiratory Culture - Final 08/27/21 10:55 Sputum, Expectorated/Coughed Gram Stain - Final 08/27/21 10:55 Sputum, Expectorated/Coughed Respiratory Culture - Final 08/26/21 Unknown Urine, Clean Catch Legionella Antigen - Final 08/26/21 Unknown Urine, Clean Catch Streptococcus pneumoniae Antigen (M - Final 08/27/21 02:15 Mucosa - Nasopharyngeal Respiratory Panel (PCR) - Final 08/27/21 00:20 Nasal Secretion SARS-CoV-2 Antigen (Rapid) - Final Physical Exam Narrative GENERAL: cooperative HEENT: Atraumatic; EYES; Anicteric, Normal Conjunctiva NECK; supple, normal thyroid, RESPIRATORY: Diminished to auscultation CARDIOVASCULAR: Regular S1 S2, GI: soft, normoactive bowel sounds, : No Renal angle tenderness; EXTREMITIES: No edema, no clubbing, MUSCULOSKELETAL: no muscle waisting NEURO: Awake; no lateralizing signs. SKIN: No Rash PSYCH; Flat affect Assessment & Plan Assessment/Plan (1) Acute on chronic respiratory failure with hypoxemia: (2) Multifocal pneumonia: PLAN: Patient is a 61-year-old gentleman who has had a protracted stay following COVID-19 with superimposed bacterial pneumonia and fungal pneumonia. Attempt had been made to have patient transferred to a tertiary care center for consideration for VATS biopsy. 1. Acute hypoxic respiratory failure ?Secondary to interstitial lung disease following recent COVID-19 pneumonia which was complicated by bilateral bacterial pneumonia as well as fungal pneumonia. Patient currently on voriconazole. Has been seen in consultation by pulmonary medicine. And is for patient to be transferred to a tertiary care center pending bed availability (so far unsuccessful). Patient did agree to consider LTAC. Case management notified -09/27/2021;Patient seen respiratory status remains relatively stable. Did discuss with patient about possibility of going to a long-term acute care facility 2. Coronary artery disease ?With previous stent placement 3. Hypertension - Blood pressure controlled, home medications continued with dose adjustment as needed 4. Dyslipidemia -Patient is on statin therapy, continued at home dose 5. Rheumatoid arthritis ?With lung complications including interstitial lung disease 6. Depression with anxiety ?Patient is on SSRI in addition to Ativan as needed 7. Physical deconditioning - Requested for PT OT eval and socially responsible investment adviser to assist with discharge planning 8. DVT prophylaxis ?Lovenox Charges/Coding Visit Charges Inpatient E&M: 26704 Subs Hosp L2
[2021-09-27] MEDS: Potassium Chloride Oral Tablet 20 MEQ PO ×2 (09:15→16:31)
[2021-09-27] MEDS: predniSONE 20 MG Tablet 30 MG PO (09:15)
[2021-09-27] MEDS: Aspirin E.C. 81 MG Tablet PO (09:15)
[2021-09-27] MEDS: Voriconazole 200 MG Tablet 300 MG PO ×2 (09:16→20:55)
[2021-09-27] MEDS: Enoxaparin 40 MG/0.4 ML Syringe SC (09:16)
[2021-09-27] MEDS: dilTIAZem CD 120 MG Capsule PO (09:16)
[2021-09-27] MEDS: Furosemide 40 MG/4 ML Vial IV (09:16)
[2021-09-27] MEDS: Sertraline 50 MG Tablet PO (09:17)
[2021-09-27] MEDS: 0.9% Saline Lock 10 ML Syringe IV (09:39)
[2021-09-27] MEDS: NYSTATIN 500,000 UNIT/5 ML UDC 500000 UNIT PO ×4 (09:48→20:55)
--- NOTE | 2021-09-27 11:11 | CASEMGMT ---
Addendum entered by Marine Hood 09/27/21 12:55: Dr. Hendrix updated. Duane EVANGELISTA CM Addendum entered by Marine Hood 09/27/21 12:49: Per Jenny at [facility] they are able to accept pt and are submitting to [employer] insurance for approval. Updated clinicals faxed to Jenny at this time. Duane EVANGELISTA CM Original Note: Call to Jenny at [facility] and she states she is awaiting a call back from the nurse building and construction manager and pharmacist. She states she will call this RN CM back. Duane EVANGELISTA CM
[2021-09-27] MEDS: Insulin Lispro 100 UNIT/ML INSULN.PEN SC ×2 (11:27→16:31)
[2021-09-27 11:36] LABS: Bedside Glucose 190 mg/dL (70-110)
--- NOTE | 2021-09-27 16:27 | NURSING ---
Phone call received from Jenny crystal [facility]. Patient has been approved. Can go this evening. Dr Hendrix made aware.
[2021-09-27] MEDS: Senna Tablet 2 TABLET PO (16:37)
--- NOTE | 2021-09-27 16:40 | DS.PCM_ITS ---
Providers Date of Admission: 08/27/21 Primary Care Physician: Dr. Berny Carranza MD Consultations 08/27/21 08:10 Consult: Java Xml Developer / Pulmonary Medicine Routine Consulting Provider: [facility] Reason for Consult: resp failure EMERGENT Consult: No Notified: Yes Date Notified: 08/27/21 Time Notified: 08:10 Method of Notification: Verbal 08/30/21 11:06 Consult: Infectious Disease Routine Consulting Provider: Arsalan Pathak Reason for Consult: Fungal PNA EMERGENT Consult: No Notified: Yes Date Notified: 08/30/21 Time Notified: 11:07 Method of Notification: Verbal 09/06/21 06:58 Consult: Cardiology Routine Consulting Provider: Fritz Smith Reason for Consult: Nonsustained V. tach EMERGENT Consult: No Notified: Yes Date Notified: 09/06/21 Time Notified: 07:43 Method of Notification: Page Reason For Visit: B/L PNA Diagnosis Discharge Diagnosis (1) Acute on chronic respiratory failure with hypoxemia: Status: Chronic Code(s): J96.21 - Acute and chronic respiratory failure with hypoxia (2) Multifocal pneumonia: Status: Acute Code(s): J18.9 - Pneumonia, unspecified organism Medications at Discharge Home Medications aspirin 81 mg tablet,delayed release 81 mg PO DAILY tab 02/05/18 coenzyme [id number] E 100 mg-100 unit capsule 1 cap PO DAILY 02/05/18 diltiazem HCl 120 mg tablet 120 mg PO DAILY tab 02/05/18 lisinopril 20 mg tablet 20 mg PO DAILY 02/05/18 simvastatin 40 mg tablet 40 mg PO QHS 02/05/18 albuterol sulfate 90 mcg/actuation aerosol inhaler 2 puff INHALATION Q4H PRN #8.5 g 08/12/21 Anoro Ellipta 1 inh INHALATION Q24H 08/27/21 turmeric 400 mg PO DAILY 08/27/21 acetaminophen [Tylenol] 650 mg PO Q6H PRN PRN #0 tab 09/27/21 albuterol sulfate 2.5 mg INHALATION Q2H PRN PRN #0 ml 09/27/21 codeine-guaifenesin [Guaiatussin AC] 5 ml PO Q6H PRN PRN #0 ml 09/27/21 enoxaparin 40 mg SUBCUT DAILY #0 ml 09/27/21 furosemide [Lasix] 40 mg PO DAILY #60 tab 09/27/21 insulin lispro [Humalog KwikPen Insulin] See Protocol SUBCUT ACHS #0 ml 09/27/21 lorazepam 0.5 mg PO Q8H PRN PRN #0 tab 09/27/21 melatonin 10 mg PO QHS PRN PRN #0 tab 09/27/21 phenol [Sore Throat (phenol)] 3 spray MUCOUS MEMBRANE Q2H PRN PRN #0 ml 09/27/21 potassium chloride [Klor-Con M20] 20 meq PO BIDCM #0 tab 09/27/21 prednisone See Rx Instructions PO DAILY #60 tab 09/27/21 sennosides [Kena-kristian] 2 tab PO DAILY PRN PRN #0 tab 09/27/21 sertraline 50 mg PO DAILY #0 tab 09/27/21 sodium chloride [Deep Sea Nasal] 2 spray NASAL TID PRN PRN #0 ml 09/27/21 voriconazole 300 mg PO BID 30 Days #0 tab 09/27/21 Hospital Course Summary of Care Provided Hospital Course: Patient is a 61-year-old gentleman who has had a protracted stay following COVID-19 with superimposed bacterial pneumonia and fungal pneumonia. Attempt had been made to have patient transferred to a tertiary care center for consideration for VATS biopsy. 1. Acute hypoxic respiratory failure ?Secondary to interstitial lung disease following recent COVID-19 pneumonia whi ch was complicated by bilateral bacterial pneumonia as well as fungal pneumonia. Patient currently on voriconazole. Has been seen in consultation by pulmonary medicine. And is for patient to be transferred to a tertiary care center pending bed availability (so far unsuccessful). Patient did agree to consider LTAC. Case management notified -09/27/2021;Patient seen respiratory status remains relatively stable. Did discuss with patient about possibility of going to a long-term acute care faci lity ?Patient was discharged to an LTAC with tapering dose of prednisone and to continue with voriconazole 300 mg p.o. twice daily for 1 more month 2. Coronary artery disease ?With previous stent placement 3. Hypertension - Blood pressure controlled, home medications continued with dose adjustment as needed 4. Dyslipidemia -Patient is on statin therapy, continued at home dose 5. Rheumatoid arthritis ?With lung complications including interstitial lung disease 6. Depression with anxiety ?Patient is on SSRI in addition to Ativan as needed 7. Physical deconditioning - Requested for PT OT eval and social work therapist to assist with discharge planning 8. DVT prophylaxis ?Lovenox Physical Exam Narrative GENERAL: cooperative HEENT: Atraumatic; EYES; Anicteric, Normal Conjunctiva NECK; supple, normal thyroid, RESPIRATORY: Diminished to auscultation CARDIOVASCULAR: Regular S1 S2, GI: soft, normoactive bowel sounds, : No Renal angle tenderness; EXTREMITIES: No edema, no clubbing, MUSCULOSKELETAL: no muscle waisting NEURO: Awake; no lateralizing signs. SKIN: No Rash PSYCH; Flat affect Medical Records Data Medical Nutrition Assessment Dietitian: Malnutrition Criteria Met Start: 09/18/21 10:37 Freq: Status: Active Protocol: Document 09/18/21 10:37 RMA (Rec: 09/18/21 10:37 RMA [id number]) Nutrition Malnutrition Evidence of Malnutrition Exists Yes Malnutrition (severe): Acute Illness/Injury Evidenced By Suboptimal Energy Intake ( Severe),Weight Loss (Severe) Intake Problem Inadequate Oral Intake Etiology r/t decreased appetite, resp. 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 failure Signs/Symptoms as evidenced by 10Kg/12% wt loss < 1 month. Status Active Problem Altered Nutrient-Related Laboratory Values Etiology related to steroid administration Signs/Symptoms as evidenced by glucose 227 Status Active Problem Recommendation Dietitian Recommendations/Changes Continue regular diet with 2% milk TID at meals and fortified foods when possible. Pt is refusing ensure supplements but, will offer again if PO does not improve at meals and weight continues to decline. Blood glucose very high, restrict carbohydrates as intake improves at meals. Weight / BMI Weight Weight: 74 kg Body Mass Index (BMI) 28.5 ABG / Lab / Microbiology Data Result Diagrams: 09/27/21 05:12 09/27/21 05:12 Laboratory: Laboratory Results - last 24 hr 09/20/21 06:33: Miscellaneous Test 09/26/21 21:49: POC Glucose 143 H 09/27/21 05:12: WBC 10.5, RBC 4.09 L, Hgb 10.9 L, Hct 35.1 L, MCV 85.8, MCH 26.7 L, MCHC 31.1 L, RDW Std Deviation 63.0 H, RDW Coeff of [place] 20.4 H, Plt Count 197, MPV 12.2 H 09/27/21 05:12: Sodium 134 L, Potassium 4.4, Chloride 98, Carbon Dioxide 30.0, Anion Gap 6, BUN 39 H, Creatinine 0.53 L, Estim Creat Clear Calc 145.19, Est GFR (MDRD) Af Amer 206, Est GFR (MDRD) Non-Af 170, BUN/Creatinine Ratio 74.1 H, Glucose 98, Calcium 8.2 L, Magnesium 2.3 09/27/21 07:00: POC Glucose 107 09/27/21 11:25: POC Glucose 190 H Microbiology: Microbiology 08/29/21 12:00 Fluid - Other Acid Fast Bacilli Smear - Final 08/29/21 12:00 Wash - Right Middle Lobe Gram Stain - Final 08/29/21 12:00 Wash - Right Middle Lobe Respiratory Culture - Final Presumptive C albicans 08/29/21 12:00 Wash - Other Gram Stain - Final 08/29/21 12:00 Wash - Other Respiratory Culture - Final Presumptive C albicans 08/27/21 00:30 Blood Culture (Wb) - Left Hand Blood Culture - Final No growth in 5 days. 08/26/21 00:30 Blood Culture (Wb) - Anticubital Right Blood Culture - Final No growth in 5 days. 08/28/21 18:45 Sputum, Expectorated/Coughed Gram Stain - Final 08/28/21 18:45 Sputum, Expectorated/Coughed Respiratory Culture - Final 08/27/21 16:10 Sputum, Expectorated/Coughed Gram Stain - Final 08/27/21 16:10 Sputum, Expectorated/Coughed Respiratory Culture - Final 08/27/21 10:55 Sputum, Expectorated/Coughed Gram Stain - Final 08/27/21 10:55 Sputum, Expectorated/Coughed Respiratory Culture - Final 08/26/21 Unknown Urine, Clean Catch Legionella Antigen - Final 08/26/21 Unknown Urine, Clean Catch Streptococcus pneumoniae Antigen (M - Final 08/27/21 02:15 Mucosa - Nasopharyngeal Respiratory Panel (PCR) - Final 08/27/21 00:20 Nasal Secretion SARS-CoV-2 Antigen (Rapid) - Final D/C Instructions Discharge Diet: No restrictions Discharge Activity: Return to Normal Activity Call your doctor if you observe: Fever of 101 or Higher, Shortness of breath, Fainting spells and Chest pain Meaningful Use Info Meaningful Use Diagnoses (Choose all that apply): None applicable Discharge Plan Admission Admit Date/Time: 08/27/21 00:22 Attending Provider: Temo Hendrix Primary Care Provider: Berny Carranza Consulting Providers: Arsalan Pathak ; Olu Dunn ; Salty Carranza ; Amy Talamantes INVESTIGATION DIVISION SERGEANT ; Fritz Smith Discharge Orders/Prescriptions Prescriptions: New acetaminophen [Tylenol] 325 mg Tablet 650 mg PO Q6H PRN PRN (Reason: Pain Score 1-10/Temp > 100.7 F) Qty: 0 RF: 0 albuterol sulfate 2.5 mg /3 mL (0.083 %) Solution For Nebulization 2.5 mg inhalation Q2H PRN PRN (Reason: Shortness of Breath/Wheezing) Qty: 0 RF: 0 potassium chloride [Klor-Con M20] 20 mEq Tablet,Er Particles/Crystals 20 meq PO BIDCM Qty: 0 RF: 0 codeine-guaifenesin [Guaiatussin AC] 10-100 mg/5 mL Liquid 5 ml PO Q6H PRN PRN (Reason: COUGH) Qty: 0 RF: 0 enoxaparin 40 mg/0.4 mL Syringe 40 mg subcut DAILY Qty: 0 RF: 0 voriconazole 200 mg Tablet 300 mg PO BID 30 Days Qty: 0 RF: 0 insulin lispro [Humalog KwikPen Insulin] 100 unit/mL Insulin Pen See Protocol unit subcut ACHS Qty: 0 RF: 0 lorazepam 0.5 mg Tablet 0.5 mg PO Q8H PRN PRN (Reason: Agitation) Qty: 0 RF: 0 melatonin 10 mg Tablet, Sublingual 10 mg PO QHS PRN PRN (Reason: SLEEP) Qty: 0 RF: 0 sennosides [Kena-kristian] 8.6 mg Tablet 2 tab PO DAILY PRN PRN (Reason: CONSTIPATION) Qty: 0 RF: 0 sertraline 50 mg Tablet 50 mg PO DAILY Qty: 0 RF: 0 Sore Throat (phenol) 1.4 % Aerosol,[place] 3 spray mucous membrane Q2H PRN PRN (Reason: SORE THROAT) Qty: 0 RF: 0 sodium chloride [Deep Sea Nasal] 0.65 % Aerosol,[place] 2 spray NASAL TID PRN PRN (Reason: NASAL DRYNESS) Qty: 0 RF: 0 furosemide [Lasix] 40 mg tablet 40 mg PO DAILY Qty: 60 RF: 0 Continued aspirin [Aspirin Low Dose] 81 mg tablet,delayed release (DR/EC) 81 mg PO DAILY RF: 0 lisinopril 20 mg tablet 20 mg PO DAILY RF: 0 coenzyme [id number] E 100 mg-100 unit capsule 100-100 mg-unit capsule 1 cap PO DAILY RF: 0 simvastatin [Zocor] 40 mg tablet 40 mg PO QHS RF: 0 diltiazem HCl [Cardizem] 120 mg tablet 120 mg PO DAILY RF: 0 albuterol sulfate [ProAir HFA] 90 mcg/actuation HFA aerosol inhaler 2 puff INHALATION Q4H PRN (Reason: shortness of breath or wheezing) Qty: 8.5 RF: 3 turmeric 400 mg Capsule 400 mg PO DAILY RF: 0 Anoro Ellipta 62.5-25 mcg/actuation blister with device 1 inh INHALATION Q24H RF: 0 Changed prednisone 5 mg tablet See Rx Instructions PO DAILY Qty: 60 RF: 0 Referrals / Follow Up: Olu Dunn MD [STAFF PHYSICIAN] - Within 1 Month Berny Carranza MD [Primary Care Provider] - Within 2 Weeks Disposition Disposition (needs filled in before D/C Order can be placed): Long-Term Acute Care Charges/Coding Visit Charges Inpatient E&M: 00859 Disch Hosp
[2021-09-27 16:41] LABS: Bedside Glucose 244 mg/dL (70-110)
--- NOTE | 2021-09-27 17:27 | PCM.TXEXTCAR ---
Diet 09/14/21 08:57 Diet: Regular - General Dietary Modifications:: Fortified Foods Is pt able to select menu?: Yes Diet Comments: 2% milk w/ meals Routine Orders/Code Status O2 Frequency: Continuous Keep PO Greater than or Equal to (%): 90 Code Status: Full Code Problem/Diagnosis (1) Acute on chronic respiratory failure with hypoxemia: Status: Chronic (2) Multifocal pneumonia: Status: Acute Allergies/Procedures Done in Hospital Allergies No Known Allergies Allergy (Verified 08/12/21 07:52) Type of Care/Length of Stay Estimated LOS: More Than 30 Days Type of Care Needed: LTAC Rehab Potential: Good Prognosis: Good Additional Orders/Day of Discharge Day of Discharge: 09/27/21 Dietary and Speech Recommendations Dietitian Recommendations/Changes: Continue regular diet with 2% milk TID at meals and fortified foods when possible. Pt is refusing ensure supplements but, will offer again if PO does not improve at meals and weight continues to decline. Blood glucose improved, restrict carbohydrates as needed. ONS if patient will, continues to decline. Discharge Plan Admission Admit Date/Time: 08/27/21 00:22 Attending Provider: Temo Hendrix Primary Care Provider: Berny Carranza Consulting Providers: Arsalan Pathak ; Olu Dunn ; aSlty Carranza ; Amy Talamantes NP ; Fritz Smith Discharge Orders/Prescriptions Prescriptions: New acetaminophen [Tylenol] 325 mg Tablet 650 mg PO Q6H PRN PRN (Reason: Pain Score 1-10/Temp > 100.7 F) Qty: 0 RF: 0 albuterol sulfate 2.5 mg /3 mL (0.083 %) Solution For Nebulization 2.5 mg inhalation Q2H PRN PRN (Reason: Shortness of Breath/Wheezing) Qty: 0 RF: 0 potassium chloride [Klor-Con M20] 20 mEq Tablet,Er Particles/Crystals 20 meq PO BIDCM Qty: 0 RF: 0 codeine-guaifenesin [Guaiatussin AC] 10-100 mg/5 mL Liquid 5 ml PO Q6H PRN PRN (Reason: COUGH) Qty: 0 RF: 0 enoxaparin 40 mg/0.4 mL Syringe 40 mg subcut DAILY Qty: 0 RF: 0 voriconazole 200 mg Tablet 300 mg PO BID 30 Days Qty: 0 RF: 0 insulin lispro [Humalog KwikPen Insulin] 100 unit/mL Insulin Pen See Protocol unit subcut ACHS Qty: 0 RF: 0 lorazepam 0.5 mg Tablet 0.5 mg PO Q8H PRN PRN (Reason: Agitation) Qty: 0 RF: 0 melatonin 10 mg Tablet, Sublingual 10 mg PO QHS PRN PRN (Reason: SLEEP) Qty: 0 RF: 0 sennosides [Kena-kristian] 8.6 mg Tablet 2 tab PO DAILY PRN PRN (Reason: CONSTIPATION) Qty: 0 RF: 0 sertraline 50 mg Tablet 50 mg PO DAILY Qty: 0 RF: 0 Sore Throat (phenol) 1.4 % Aerosol,[place] 3 spray mucous membrane Q2H PRN PRN (Reason: SORE THROAT) Qty: 0 RF: 0 sodium chloride [Deep Sea Nasal] 0.65 % Aerosol,[place] 2 spray NASAL TID PRN PRN (Reason: NASAL DRYNESS) Qty: 0 RF: 0 furosemide [Lasix] 40 mg tablet 40 mg PO DAILY Qty: 60 RF: 0 Continued aspirin [Aspirin Low Dose] 81 mg tablet,delayed release (DR/EC) 81 mg PO DAILY RF: 0 lisinopril 20 mg tablet 20 mg PO DAILY RF: 0 coenzyme [id number]-[id number] E 100 mg-100 unit capsule 100-100 mg-unit capsule 1 cap PO DAILY RF: 0 simvastatin [Zocor] 40 mg tablet 40 mg PO QHS RF: 0 diltiazem HCl [Cardizem] 120 mg tablet 120 mg PO DAILY RF: 0 albuterol sulfate [ProAir HFA] 90 mcg/actuation HFA aerosol inhaler 2 puff INHALATION Q4H PRN (Reason: shortness of breath or wheezing) Qty: 8.5 RF: 3 turmeric 400 mg Capsule 400 mg PO DAILY RF: 0 Anoro Ellipta 62.5-25 mcg/actuation blister with device 1 inh INHALATION Q24H RF: 0 Changed prednisone 5 mg tablet See Rx Instructions PO DAILY Qty: 60 RF: 0 Referrals / Follow Up: Olu Dunn MD [STAFF PHYSICIAN] - Within 1 Month Berny Carranza MD [Primary Care Provider] - Within 2 Weeks Disposition Disposition (needs filled in before D/C Order can be placed): Electroencephalographic Technician Acute Care
--- NOTE | 2021-09-27 17:36 | NURSING ---
this RN called report to [facility], spoke with JEAN CARLOS Demarco. Transport to be here around 2029.
[2021-09-27] MEDS: Atorvastatin Calcium 20 MG Tablet PO (20:55)
[2021-09-27 22:05] LABS: Bedside Glucose 126 mg/dL (70-110)
== END 2021-09-27 21:10 | DRG 867 ==
LOC: ED 21:54 → MS3 08-27 01:15 → ICU 09-05 04:45 → PCU 09-19 22:29
PROVIDERS: Family Medicine; Internal Medicine; Internal Medicine Critical Care Medicine; Internal Medicine Infectious Disease; Nurse Practitioner Family; Student in an Organized Health Care Education/Training Program; Admitting Provider Hospitalist; Emergency Provider Emergency Medicine; PCP Family Medicine; Visit Provider Internal Medicine
PROC: 0BJ08ZZ Inspection of Tracheobronchial Tree, Via Natural or Artificial Opening Endoscopic (ICD-10-PCS; CPT 31622; principal; 2021-08-29 12:45)
DX: B44.9 Aspergillosis, unspecified (principal); J96.01 Acute respiratory failure with hypoxia; E43 Unspecified severe protein-calorie malnutrition; J15.9 Unspecified bacterial pneumonia; J44.0 Chronic obstructive pulmonary disease with (acute) lower respiratory infection; I48.20 Chronic atrial fibrillation, unspecified; D84.9 Immunodeficiency, unspecified; R73.9 Hyperglycemia, unspecified; T38.0X5A Adverse effect of glucocorticoids and synthetic analogues, initial encounter; Y92.239 Unspecified place in hospital as the place of occurrence of the external cause; T43.595A Adverse effect of other antipsychotics and neuroleptics, initial encounter; R41.0 Disorientation, unspecified; R91.1 Solitary pulmonary nodule; Y95 Nosocomial condition; I27.20 Pulmonary hypertension, unspecified; R04.0 Epistaxis; J84.10 Pulmonary fibrosis, unspecified; I49.9 Cardiac arrhythmia, unspecified; Z68.28 Body mass index [BMI] 28.0-28.9, adult; M06.9 Rheumatoid arthritis, unspecified; E78.5 Hyperlipidemia, unspecified; F41.8 Other specified anxiety disorders; G47.33 Obstructive sleep apnea (adult) (pediatric); I10 Essential (primary) hypertension; I25.10 Atherosclerotic heart disease of native coronary artery without angina pectoris; Z86.16 Personal history of COVID-19; Z87.01 Personal history of pneumonia (recurrent); Z95.810 Presence of automatic (implantable) cardiac defibrillator; Z79.82 Long term (current) use of aspirin; Z79.899 Other long term (current) drug therapy; Z87.891 Personal history of nicotine dependence; Z23 Encounter for immunization
CPT/HCPCS: 36415; 36600; 71045; 71275; 80048; 80053; 80076; 82803; 82962; 83735; 83880; 84100; 84145; 84484; 85025; 85027; 85610; 85652; 85730; 86140; 86606; 87015; 87040; 87070; 87077; 87101; 87116; 87205; 87206; 87252; 87426; 87449; 87633; 87641; 88108; 88305; 88312; 88313; 93005; 93306; 93308; 94002; 94003; 94640; 94660; 94667; 94668; 94762; 97110; 97162; 97166; 97530; 97535; 97802; 97803; 99251; 99284; J7030; J7040; J7050; Q9957; Q9967; A4216; C8929; G0463; J1940; J2405; J3465